=== PATIENT | female | born 1990 | race Caucasian/White ===

== ENCOUNTER 2022-07-21 08:50 | Outpatient (CLI) | payer BC, SELFPAY ==
--- OUTSIDE RECORDS SUMMARY | 2022-07-21 09:07 | XMS_ITS | Clinical Summary ---
:1990 Author Organization [facility] Address [address] [address] Care Team Providers Name Role Phone Errol Amaya MD Primary Care Provider Source Comments You are receiving this document as you are listed as the primary care provider,follow-up provider, or the patient has been referred to you for consultation.This is in compliance with the Medicare and Medicaid EHR Incentive Program,which states Providers who transition their patient to another setting of careor provider of care or refers their patient to another provider of care shouldprovide summarycare record for each transition of care or referral. App Partner Allergies Active Allergy Reactions Severity Noted Date Comments Amoxicillin Unknown 08/19/2018 Allergy from wh en she was a child Penicillins Hives High 06/01/2017 Medications Medication Sig Dispensed Refills Start Date End Date Status Multiple 0 Active Vitamins-Iron (MULTIVITAMIN/IRON OR) PARoxetine (PAXIL) 10 Take 1 Tablet by 90 Tablet 3 07/05/2020 Active MG tabletIndications: mouth daily at DELFINO (generalized bedtime. anxiety disorder) ([facility]) hydrOXYzine HCl 3 tabs po qhs prn 270 Tablet 1 07/05/2020 Active (ATARAX) 25 MG insomnia tabletIndications: Chronic insomnia, DELFINO (generalized anxiety disorder) ([facility]) Active Problems Problem Noted Date Chronic insomnia 05/13/2019 DELFINO (generalized anxiety disorder) 05/13/2019 Pap smear abnormality Overview: cone Immunizations Name Administration Dates Next Due Flu Vac (3+ yrs) 05/22/2013, 06/14/2012 Flu Vac Preserv Free (3+yrs) 05/15/2018, 05/16/2017, 010 HepA Adult (19+ yrs) 06/27/2019 Influenza IIV4 (Quadrivalent) 0.5mL 05/29/2019, 04/27/2016 (20372) Influenza, Unspecified Formulation 05/13/2015 Tdap 06/14/2012, 10/13/2010 Family History Medical History Relation Name Comments Anxiety Mother Drug Abuse Brother Schizophrenia Brother No Known Problems Daughter 1 Maryjane No Known Problems Daughter 2 Gladys No Known Problems Maternal Grandfather Stroke Maternal Grandmother COPD Paternal Grandmother No Known Problems Sister Alcohol/Drug Abuse Negative Family History Anesthesia Reaction Negative Family History Bleeding Disorder Negative Family History Cancer, Breast Negative Family History Cerebrovascular Disease Negative Family History Cystic Fibrosis Negative Family History Diabetes, Type II Negative Family History Hyperlipidemia Negative Family History Hypertension Negative Family History Osteoporosis Negative Family History Thyroid Disorder Negative Family History Relation Name Status Comments Father Unknown Alive Mother Alive Brother Alive Daughter 1 Maryjane Alive Daughter 2 Gladys Alive Maternal Grandfather Alive Maternal Grandmother Alive Paternal Grandfather Alive Paternal Grandmother Sister Alive Social History Tobacco Use Types Packs/Day Years Used Date Smoking Tobacco: Former Cigarettes Quit : 2009 Smokeless Tobacco: Never Comments: Quit with + UPT Alcohol Use Standard Drinks/Week Comments No 0 (1 standard drink = 0.6 oz pure alcoho l) Alcohol Habits Answer Date Recorded How often do you have a drink containing alcohol? Never 07/05/2020 How many drinks containing alcohol do you have on a typical Not asked day when you are drinking? How often do you have six or more drinks on one occasion? No t asked Sex Assigned at Date Recorded Not on file Last Filed Vital Signs Vital Sign Reading Time Taken Comments Blood Pressure 96/60 06/27/2019 3:40 PM MEDICAL CLAIMS EXAMINER Pulse 64 09/11/2019 11:19 AM MEDICAL CLAIMS EXAMINER Temperature 37.1 ??C (98.8 ??F) 07/18/2018 1:49 PM MEDICAL CLAIMS EXAMINER Respiratory Rate 14 07/18/2018 1:49 PM MEDICAL CLAIMS EXAMINER Oxygen Saturation 100% 10/07/2018 10:41 AM MEDICAL CLAIMS EXAMINER Inhaled Oxygen Concentration - - Weight 61.2 kg (135 lb) 07/05/2020 2:14 PM MEDICAL CLAIMS EXAMINER Height 157.5 cm (5' 2) 06/27/2019 3:40 PM MEDICAL CLAIMS EXAMINER Body Mass Index 24.69 06/27/2019 3:40 PM MEDICAL CLAIMS EXAMINER Plan of Treatment Health Maintenance Due Date Last Done Comments Hep C Screening (Preventive 1990 Services) HepB (1) 1990 COVID-19 Vaccine (#1) 03/28/1990 HepA (2 of 2 - Risk 2-dose 12/26/2019 06/27/2019 series) Adult Preventive Visit 06/27/2021 06/27/2019 Influenza (#1) 2022 05/29/2019, 05/15/2018, 05/16/2017, Additional history exists DTaP/Tdap/Td (3 - Tdap) 06/14/2022 06/14/2012, 10/13/2010 Pap 06/27/2022 06/27/2019, 02/22/2010 Zoster/Shingles (1 of 2) 2039 HIV Screening (Preventive Completed 02/22/2010 Services) HPV Vaccine Aged Out No longer eligib le based on patient 's age to complete this topic Hib Aged Out No longer eligib le based on patient 's age to complete this topic IPV (Polio) Aged Out No longer eligib le based on patient 's age to complete this topic MCV4 Aged Out No longer eligib le based on patient 's age to complete this topic Pneumococcal Aged Out No longer eligib le based on patient 's age to complete this topic Insurance Payer Benefit Plan Subscriber ID Effective Phone Address Typ e / Group Dates [facility] [employer] COMM HP [id number] 2017-Prese Commercial DENTAL PLAN FAMILY nt DENTAL [facility] [employer] SELF [id number] 2015-Prese Commercial INSURED nt Chintan SINGHa Personal/Famil Self 1990 [address] (Home) [place] [id number] Chintan SINGHa Personal/Famil Self 1990 18 09 [address] Emily y (Home) [place] [id number] Advance Directives Latest Code Status on File Code Status Date Activated Date Inactivated Comments Full Code 10/10/2010 7:01 AM 10/10/2010 10:38 AM Code Status History Code Status Date Activated Date Inactivated Comments Full Code 09/27/2010 6:35 AM 2010 1:25 PM Full Code 09/27/2010 4:31 AM 09/27/2010 6:35 AM Full Code 09/26/2010 6:31 PM 09/26/2010 8:49 PM Care Teams Non Destructive Evaluation Manager Relationship Specialty Start Date End Date Errol Amaya MD PCP - General 08/16/20 [address] [place] [address]
--- OUTSIDE RECORDS SUMMARY | 2022-07-21 09:08 | XMS_ITS | Encounter Summary ---
:1990 Author Organization [facility] Address [address] [place] [address] Care Team Providers Name Role Phone Fina Leon APRN, CNP Primary Care Provider [phone] Reason for Visit Reason Comments Oral Surgical Services po question Encounter Details Date Type Department Care Team Description 10/10/2018 Telephone [facility] [place], Oral Surgical Services [address] (po question) [place] [address] [address]herjee [phone] [place] [address] Social History Tobacco Use Types Packs/Day Years [...] Assigned at Date Recorded Not on file documented as of this encounter Plan of Treatment Not on filedocumented as of this encounter Visit Diagnoses Not on filedocumented in this encounter Care Teams Director Of Bands Relationship Specialty Start Date End Date Fina Leon APRN, CNP PCP - General Family Practice 03/22/12 08/15/20 [address] [place] [address] documented as of this encounter
--- OUTSIDE RECORDS SUMMARY | 2022-07-21 09:08 | XMS_ITS | Encounter Summary ---
:1990 Author Organization [employer] Address [address] [place] [address] Care Team Providers Name Role Phone Fina Leon APRN, YAIR Primary Care Provider [phone] Reason for Visit Reason Comments Dental Hygiene upper left back , feels like there is a chip Encounter Details Date Type Department Care Team Description 09/11/2019 Office Visit [facility] Jasmin Hurley michael Hygiene (upper Dentistry M, RDH left back , feels like [address] [address] [address] [facility] there is a chip) [place] [address] [phone] Social History Tobacco Use Types Packs/Day Years [...] on file documented as of this encounter Last Filed Vital Signs Vital Sign Reading Time Taken Comments Blood Pressure - - Pulse 64 09/11/2019 11:19 AM WORK CHECKER Temperature - - Respiratory Rate - - Oxygen Saturation - - Inhaled Oxygen Concentration - - Weight - - Height - - Body Mass Index - - documented in this encounter Patient Instructions Patient InstructionsSophy Moreno DDS - 09/11/2019 11:10 AM CST Your next hygiene recall is due: 03/09/2020 YOUR PERSONAL DENTAL RISK REPORT Caries (Tooth Decay) Risk Periodontal (Gum) Disease Risk Oral Cancer Risk low MOD high ^ Risk Level: MODERATE Risk Factors: Caries (tooth decay) in the last two years. How to Reduce Your Risk: Hygiene recall at 6 to 12 months. Rinse with fluoride rinse once to twice daily at times other than when brushing. Application of a concentrated fluoride product to the teeth in the clinic to assist in remineralization. Instruction from dental professional on brushing, flossing, and use of oral hygiene products. Risk Level: : Risk Level: : Lara, we look forward to seeing you at your next visit! Thank you for choosing [facility]. CHECKER documented in this encounter Progress Notes Sophy Moreno DDS - 09/11/2019 11:10 AM CST RECALL EXAM NOTE REASON FOR VISIT/CHIEF COMPLAINT: Lara is a 28 y.o. female who presents for Dental Hygiene (upper left back , feels like there is a chip) CHART REVIEW: Reviewed with patient: Medical history, Dental history, Problem list, Periodontal charting and Radiographs SOFT TISSUE, HEAD AND NECK EXAMINATION: Lips: Normal Tongue: Normal Palate: Normal Throat: Normal Floor of the mouth: Normal Mucosa: Normal Head and neck: Normal TMD EVALUATION: Palpation Pain: None Joint Sounds: None Pain with Range of Motion: None OCCLUSAL EXAMINATION: Unchanged COSMETIC CONCERNS: Patient's Perception: Acceptable Dentist's Perception: Acceptable TREATMENT REVIEW AND FOLLOW-UP: Discussed the Dental findings, Prognosis and Treatment options with the patient. All questions answered and informed consent was obtained. Recommended Recall Interval: Examination: 6 months : Recall prophy: 6 months Planned Recall Interval: Examination: 6 months : Recall prophy: 6 months Next Planned Visit: recall Sophy Moreno DDS 09/11/2019, 12:00 PM --End of Note-- Jasmin Quintero [facility] - 09/11/2019 11:10 AM CST HYGIENE PROPHY NOTE COLLABORATIVE AGREEMENT: The patient consents to have charting, radiographs and prophylaxis by the dental hygienist performed with the understanding that this care is not a substitute for an examination by a dentist. PRESENTATION: Oral Hygiene: Good Plaque: Localized, moderate interproximal Calculus: Generalized, light supra-gingival , sub-gingival, interproximal, mandibular anterior and posterior buccal Stain: None Bleeding: Localized light Gingival tissue: Inflamed Mucogingival concerns: Absent ACTIVITIES: Hand scale, Essential selective polishing and Flossed all contacts PATIENT EDUCATION: Caries risk, Periodontal risk, Oral cancer risk, OHI, Oral care adjuncts and Fluoride rinse NEXT PLANNED HYGIENE VISIT: Hygiene Prophy with exam Jasmin Hurley 09/11/2019, 12:03 PM --End of Note-- CHECKER documented in this encounter Plan of Treatment Not on filedocumented as of this encounter Procedures Procedure Name Priority Date/Time Associated Diagnosis Comme nts [id number] Routine 09/11/2019 11:10 AM Generalized mar ginal WORK CHECKER gingivitis PERIODIC ORAL Routine 09/11/2019 11:10 AM Generalized marginal EVALUATION WORK CHECKER gingivitis PROPHYLAXIS-ADULT Routine 09/11/2019 11:10 AM Generalized shelly inal RECALL WORK CHECKER gingivitis documented in this encounter Visit Diagnoses Diagnosis Generalized marginal gingivitis - Primar y documented in this encounter Care Teams News Technical Director Relationship Specialty Start Date End Date Fina Leon, CYTOGENETICS LABORATORY MANAGER, TELECOMMUNICATIONS CONSULTANT PCP - General Family Practice 03/22/12 08/15/20 [address] [place] [address] documented as of this encounter
--- OUTSIDE RECORDS SUMMARY | 2022-07-21 09:08 | XMS_ITS | Encounter Summary ---
:1990 Author Organization [employer] Address [address] [place] [address] Care Team Providers Name Role Phone Fina eLon APRN, CNP Primary Care Provider [phone] Reason for Visit Reason Onset Date Comments Refill 03/04/2020 PARoxetine (PAXIL) 2 0 MG tablet Encounter Details Date Type Department Care Team Description 03/04/2020 Refill [facility] [address] [facility] Mackenzie Ho R, R efill (PARoxetine Medicine PA-C (PAXIL) 20 MG tablet) [address] [facility] [address] [place], [place] [address] [phone] Social History Tobacco Use Types Packs/Day Years [...] on file documented as of this encounter Nursing Notes Bobbi Morales RN - 03/04/2020 2:52 PM CDT Renewed medication per medication refill protocol. Requested Prescriptions Pending Prescriptions Disp Refills PARoxetine (PAXIL) 20 MG tablet 90 Tablet 1 Sig: Take 1 Tablet by mouth daily. Interface, Out [employer] Query - 03/04/2020 1:22 PM CDT PARoxetine (PAXIL) 20 MG tablet Medication started: 05/13/2019 Last ordered by MACKENZIE HO R: 06/27/2019 (251 days ago) QTY: 90, Refills: 1, Sig: take 1 tablet by mouth daily. (unchanged) -> Refill x 6 months, qty: 90, refills: 1 (until due for an office visit) Last qualifying visit: 06/27/2019 (with MACKENZIE HO) Next scheduled visit: None SBP: 96 mm Hg on 06/27/2019 DBP: 60 mm Hg on 06/27/2019 Powered by [employer], Reference: [id number], 03/04/2020 1:22:25 PM CDT, Pool: PN REFILL WIZARD ADMIN ([id number]) Kourtney Gaines - 03/04/2020 1:20 PM CDT Medications - Refill Request (able to re-order) Name of prescribing clinician: Mackenzie Ho, PA Additional comments (related to the above concern): For this refill, patient would like it filled at the pharmacy listed in Meds & Orders. (Verify the pharmacy patient would like to use for this request is highlighted in blue in Pharmacy Selection under Meds & Orders) If there are questions regarding your request, is it okay to leave a detailed message on your voicemail? Yes (Advise caller that the PN call back number will end with [phone] or unknown) (Advise caller of turn around time is 2 business days for standard refills and 2 to 5 business days for controlled refills) Please route to: Refill Pool (P [id number]) [facility] Pool [place] Patients ONLY (P [id number]) [facility] ONLY (P [id number]) documented in this encounter Plan of Treatment Not on filedocumented as of this encounter Visit Diagnoses Diagnosis DELFINO (generalized anxiety disorder) ([facility]) Generalized anxiety disorder Chronic insomnia Insomnia, unspecified documented in this encounter Care Teams Sole Skiver Relationship Specialty Start Date End Date Fina Leon APRN, BEAN SORTER PCP - General Family Practice 03/22/12 08/15/20 [address] [place] [address] documented as of this encounter
--- OUTSIDE RECORDS SUMMARY | 2022-07-21 09:08 | XMS_ITS | Encounter Summary ---
:1990 Author Organization [facility] Address [address], [place] [address] Care Team Providers Name Role Phone Fina Leon APRN, CNP Primary Care Provider [phone] Encounter Details Date Type Department Care Team Description 05/29/2019 Immunization [facility] Need fo r prophylactic Department vaccination and [address] [facility] inoculation against [place], [place] [address] influenza [phone] Social History Tobacco Use Types Packs/Day Years [...] as of this encounter Visit Diagnoses Diagnosis Need for prophylactic vaccination and in oculation against influenza documented in this encounter Care Teams Sky Cap Relationship Specialty Start Date End Date Fina Leon APRN, CNP PCP - General Family Practice 03/22/12 08/15/20 [address] [place] [address] documented as of this encounter
--- OUTSIDE RECORDS SUMMARY | 2022-07-21 09:08 | XMS_ITS | Encounter Summary ---
:1990 Author Organization [employer] Address [address] [place] [address] Care Team Providers Name Role Phone Fina Leon APRN, CNP Primary Care Provider Reason for Visit Reason Comments QUESTIONS, GENERAL Encounter Details Date Type Department Care Team Description 06/16/2019 Telephone [facility] Mackenzie Ho , PADexterC QUESTIONS, GENERAL Medicine [address] [facility] [address] [facility] [place] [address] [place] [address] [phone] Social History Tobacco Use Types Packs/Day Years [...] documented as of this encounter Nursing Notes Jackelin Magallon RN - 06/18/2019 8:53 AM CST Called pt again, left 2nd message to return call to [phone]. CUTTER Kinsey oRn RN - 06/17/2019 8:12 AM CST Marla Ho approved hydrOXYzine HCl (ATARAX) 25 MG tablet yesterday 06/16. Called patient, no answer. Left message for patient to return call at [phone]. CUTTER Ignacio Gonzalez - 06/16/2019 4:42 PM CST Miscellaneous Questions & FYI's - FYI (DO NOT use for billing and coding concerns see BEST care reporting system) What is your comment or FYI? Pt is calling back regarding on Rx and the pharmacy had no refills and Pt has one day left of Rx, please advise. If there are questions regarding your request, is it okay to leave a detailed message on your voicemail? Yes (Advise caller that the PN call back number will end with [phone] or unknown) Please route to: Appropriate pool per call routing grid CUTTER documented in this encounter Plan of Treatment Not on filedocumented as of this encounter Visit Diagnoses Not on filedocumented in this encounter Care Teams Earth Science Technician Relationship Specialty Start Date End Date Fina Leon APRN, GROUP SALES REPRESENTATIVE PCP - General Family Practice 03/22/12 08/15/20 [address] [place] [address] documented as of this encounter
--- OUTSIDE RECORDS SUMMARY | 2022-07-21 09:08 | XMS_ITS | Encounter Summary ---
:1990 Author Organization [employer] Address [address] [place] [address] Care Team Providers Name Role Phone Fina Leon APRN, YAIR Primary Care Provider [phone] Reason for Visit Reason Comments Insomnia Encounter Details Date Type Department Care Team Description 05/13/2019 Office Visit [facility] Mackenzie Ho, Chronic insomnia (Primary Dx); Medicine PA-C DELFINO (generalized anxiety disorder) [address] [facility]. [address] [place] [address] [phone] Social History Tobacco Use Types Packs/Day Years [...] Sign Reading Time Taken Comments Blood Pressure 102/64 05/13/2019 11:53 AM CDT Pulse 60 05/13/2019 11:53 AM CDT Temperature - - Respiratory Rate - - Oxygen Saturation - - Inhaled Oxygen Concentration - - Weight 53.8 kg (118 lb 8 oz) 05/13/2019 11:53 AM CDT Height 157.5 cm (5' 2) 05/13/2019 11:53 AM CDT Body Mass Index 21.67 05/13/2019 11:53 AM CDT documented in this encounter Patient Instructions Patient InstructionsKiMackenzie beavers PA-C - 05/13/2019 11:40 AM CDT Here is plan below: 1) Start the Paroxetine 10mg before bed each night. 2) Take 1/2 tablet of the hydroxyzine 25mg tablet every 6 hours as needed for anxiety and 1-2 tablets before bed for sleep. 3) We discussed that there are several lifestyle changes that can help improve overall mental and physical health including starting 2,000IU of Vitamin D3 daily and 2g fish oil daily. Also drinking 2-3liters of water per day and eating a healthy diet, focusing on higher proteins/healthy fats and lesscarbs, eat more lean meats, fruits, veggies, whole grains (over whites) and avoid fast foods and processed foods and artificial sweeteners. Eat more healthy fats also like avocado, eggs, nuts, olive/coconut oil, breonna seeds. 4) We also discussed the importance of getting regular exercise, aiming for 30- 60min of cardio/strength/yoga at least 4-6 times per week. 5) Schedule annual exam and med check visit in a month, do a morning appointment and come in fastingto check labs but drink water before hand, at least 20 oz. Call with any questions or concerns in the meantime. Thanks, Mackenzie Ho, PAC. documented in this encounter Progress Notes Mackenzie Ho PA-C - 05/13/2019 11:40 AM CDT Clinic Visit SUBJECTIVE: CC: Chief Complaint Patient presents with ??? Insomnia History of Present Illness: Pt is here today for insomnia. She is new to us. She feels like her anxiety would be better if she could sleep. Discussed her sleep would be better if she got her anxiety controlled. She has tried ambien in the past and trazodone. She has uncontrolled anxiety and is too anxious to take meds. She was given Lexapro last visit (see visit from 07/30) and she said she never took it because she was too nervous about side effects. She also did try celexa and zoloft in the past but one didn't work and the other gave her sexual side effects. 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 Her is pretty good with her anxiety but he would like her to get help. Discussed that I do think that controlling the anxiety would help her feel better and she just has to trust the process even though it can take time. Discussed I think she would be a great candidate for paxil and discussed side effects, length of therapy, how it works, short half life, taper, etc.Discussed not googling it also or reading the side effect profile. Discussed a combination of medications, therapy, healthy eating and exercise and meditation, etc can help her a lot. Also discussed trying hydroxyzine for anxiety and sleep. Discussed side effects, etc. She would like to try both of these after discussing her questions and concerns with me today. PMH, Allergies and Medications reviewed and updated in [facility] today. Review of Systems: Review of systems reviewed and found to be negative except as noted above in HPI. OBJECTIVE: Vital Signs: BP 102/64 (BP Location: Left Arm) Pulse 60 Ht 5' 2 (1.575 m) Wt 118 lb 8 oz (53.8 kg) BMI 21.67 kg/m?? General: Pleasant but very anxious, moves around a lot in her seat, can't sit still. Skin: Warm and dry without obvious lesions or rashes. Psych: Well dressed and groomed, anxious affect. ASSESSMENT: Encounter Diagnoses Name Primary? Chronic insomnia Yes ??? DELFINO (generalized anxiety disorder) PLAN: Lara was seen today for insomnia. Diagnoses and all orders for this visit: Chronic insomnia - PARoxetine (PAXIL) 10 MG tablet; 1 tab po qhs - hydrOXYzine HCl (ATARAX) 25 MG tablet; 1/2 tab po q6 hrs prn anxiety, 1-2 tabs po qhs prn insomnia DELFINO (generalized anxiety disorder) - PARoxetine (PAXIL) 10 MG tablet; 1 tab po qhs - hydrOXYzine HCl (ATARAX) 25 MG tablet; 1/2 tab po q6 hrs prn anxiety, 1-2 tabs po qhs prn insomnia Here is plan below: 1) Start the Paroxetine 10mg before bed each night. 2) Take 1/2 tablet of the hydroxyzine 25mg tablet every 6 hours as needed for anxiety and 1-2 tablets before bed for sleep. 3) We discussed that there are several lifestyle changes that can help improve overall mental and physical health including starting 2,000IU of Vitamin D3 daily and 2g fish oil daily. Also drinking 2-3liters of water per day and eating a healthy diet, focusing on higher proteins/healthy fats and lesscarbs, eat more lean meats, fruits, veggies, whole grains (over whites) and avoid fast foods and processed foods and artificial sweeteners. Eat more healthy fats also like avocado, eggs, nuts, olive/coconut oil, breonna seeds. 4) We also discussed the importance of getting regular exercise, aiming for 30- 60min of cardio/strength/yoga at least 4-6 times per week. 5) Schedule annual exam and med check visit in a month, do a morning appointment and come in fastingto check labs but drink water before hand, at least 20 oz. Call with any questions or concerns in the meantime. Thanks, CLARI Bernstein. 25min spent with pt today, all in consult about above A/P. [facility] documented in this encounter Plan of Treatment Not on filedocumented as of this encounter Visit Diagnoses Diagnosis Chronic insomnia - Primary Insomnia, unspecified DELFINO (generalized anxiety disorder) Generalized anxiety disorder documented in this encounter Care Teams Bottom Polisher Relationship Specialty Start Date End Date Fina Leon APRN, PROCUREMENT REPRESENTATIVE PCP - General Family Practice 03/22/12 08/15/20 [address] [place] [address] documented as of this encounter
--- OUTSIDE RECORDS SUMMARY | 2022-07-21 09:08 | XMS_ITS | Encounter Summary ---
:1990 Author Organization [facility] Address [address] [place] [address] Care Team Providers Name Role Phone Fina Leon APRN, CNP Primary Care Provider [phone] Reason for Visit Reason Comments Concerns Health Maintenance Communication Encounter Details Date Type Department Care Team Description 07/18/2018 Office Visit [facility] Melissa Walls, Adj ustment disorder with mixed anxiety and depressed mood (Primary Dx); Practice PA-C Major depressive disorder, recurrent epi sode, mild ([facility]); [address] [place] [address] [place] [address] [phone] Social History Tobacco Use Types Packs/Day Years [...] Sign Reading Time Taken Comments Blood Pressure 125/75 07/18/2018 1:49 PM DEPUTY CHIEF MAGISTRATE Pulse 74 07/18/2018 1:49 PM DEPUTY CHIEF MAGISTRATE Temperature 37.1 ??C (98.8 ??F) 07/18/2018 1:49 PM DEPUTY CHIEF MAGISTRATE Respiratory Rate 14 07/18/2018 1:49 PM DEPUTY CHIEF MAGISTRATE Oxygen Saturation - - Inhaled Oxygen Concentration - - Weight 53.7 kg (118 lb 6 oz) 07/18/2018 1:49 PM DEPUTY CHIEF MAGISTRATE Height 157.5 cm (5' 2) 07/18/2018 1:49 PM DEPUTY CHIEF MAGISTRATE Body Mass Index 21.65 07/18/2018 1:49 PM DEPUTY CHIEF MAGISTRATE documented in this encounter Patient Instructions Patient InstructionsMelissa Walls PA-C - 07/18/2018 1:40 PM CST Touch base with me in 3-4 weeks about the medication. Evisit or phone visit is just fine. Beating the Blues BOUNCE BACK FROM EVERYDAY STUFF THAT MAKES YOU FEEL BLUE How can it help me? Beating the Blues teaches you helpful ways to manage your mood, stress and anxiety all in the privacy and comfort of your own home. How does it work? [employer] is a free, online program that lets you go at your own pace to learn ways to better manage your mood, stress and anxiety. ?? Also works on tablets so it can go where you go ?? Has helpful videos to keep you interested and motivated ?? Helps you put what you've learned into practice ?? Uses proven techniques to help improve your mood. It's easy to get started! 1. Visit: www.StatSheet.Weebly/btb 2. Select the 'Get Started' button. 3. You will see a log-in menu: ?? Existing users: Log in with user name and password. ?? New users: Under the user log in box, select the 'Please Activate' hyperlink. 1. Enter this activation code: [email or web address] ([facility]) 2. Complete the short online registration. You will need your insurance ID 3. Once completed - to finalize your registration, you will receive an email from [email or web address] with a link to confirm your email address. Your privacy is important to us. Beating the eSecure Systemss is confidential. If you have any questions, forgot your log-in information or need an activation code, please call [employer] [phone] or Toll Free at , Sunday- Sunday, 8 a.m. To 4:30 p.m. If you're callingafter hours, leave a voicemail and we'll call you back during regular business hours. TY CHIEF MAGISTRATE documented in this encounter Progress Notes Melissa Walls PA-C - 07/18/2018 1:40 PM CST Historical: Chief Complaint Patient presents with ??? Concerns ??? Health Maintenance Communication Anxiety Do you take any prescription medication for this condition? No Are you seeing a counselor or therapist? No How many times a week are you exercising regularly? 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 YES. Couple of years ago tried Celexa and Zoloft. Last on meds about a year ago Do you have a family history of anxiety? unsure DELFINO-7 07/18/2018 02/26/2012 Feeling nervous 3 1 Can't stop worrying 3 1 Worrying too much 2 1 Trouble relaxing 3 - Restlessness 0 0 Easily annoyed 3 1 Feeling afraid 1 0 How difficult? Very difficult Somewhat difficult Total score 15 - Date Performed 07/18/2018 - Time Performed 1:52 PM - Social History Substance and Sexual Activity Alcohol Use No Social History Tobacco Use Smoking Status Former Smoker ??? Last attempt to quit: 2009 ??? Years since quittin.9 Smokeless Tobacco Never Used Tobacco Comment Quit with + UPT Social History Substance and Sexual Activity Drug Use No Tried celexa and zoloft in the past. One killed sex drive and the other didn't help much. Sleep troubles, falls asleep okay but wakes around 2AM and tosses and turns. Years ago on ambien forinsomnia, had also tried trazodone. But the insomnia did resolve. I have personally reviewed the patient's allergies, medications and past medical history in detail and updated the patient record as necessary. Observed: BP 125/75 Pulse 74 Temp 98.8 ??F (37.1 ??C) (Oral) Resp 14 Ht 5' 2 (1.575 m) Wt 118 lb 6 oz (53.7 kg) BMI 21.65 kg/m?? Physical Exam: General Appearance: alert, well appearing and in no apparent distress Neurologic: normal speech and alert and oriented x 3 Psychiatric: affect/mood normal, cooperative, normal judgement/insight and memory intact Assessment/Plan: Adjustment disorder with mixed anxiety and depressed mood (HRC) - escitalopram oxalate (LEXAPRO) 5 MG tablet; Take 1 Tablet by mouth daily. For 10-14 days then increase to 2 tabs daily as tolerated Discussed how the med works, possible side effects. Was thinking about Venlafaxine but decided against because she did not want to have appetite suppression, BTB info given. Consider psychotherapy. Evisit, STV or OV in 3-4 weeks for follow up. Sooner with any problems. Please see orders and patient instructions I spent a total of 32 minutes with the patient, 32 minutes spent in Counseling Risks and benefits ofmanagement or follow-up , Importance of compliance with chosen management options , Instructions formanagement (treatment) and/or follow up , Risk factor reduction and Patient and family education Melissa Walls PA-C TY CHIEF MAGISTRATE documented in this encounter Plan of Treatment Not on filedocumented as of this encounter Visit Diagnoses Diagnosis Adjustment disorder with mixed anxiety a nd depressed mood (HRC) - Primary Adjustment disorder with mixed anxiety a nd depressed mood Major depressive disorder, recurrent epi sode, mild (HRC) Major depressive disorder, recurrent epi sode, mild Anxiety (HRC) Anxiety state, unspecified documented in this encounter Care Teams Technical Solution Architect Relationship Specialty Start Date End Date Fina Leon APRN, [employer] PCP - General Family Practice 03/22/12 08/15/20 [address] [place] [address] documented as of this encounter
--- OUTSIDE RECORDS SUMMARY | 2022-07-21 09:08 | XMS_ITS | Encounter Summary ---
:1990 Author Organization [facility] Address [address] [place] [address] Care Team Providers Name Role Phone Fina Leon APRN, CNP Primary Care Provider [phone] Reason for Visit Reason Comments [facility] Services PO Follow-up Encounter Details Date Type Department Care Team Description 10/08/2018 Telephone [facility] Vania More, [facility] [address] LDA (PO Follow-up) [place] [address] [phone] [place] [address] Social History Tobacco Use Types Packs/Day Years [...] documented as of this encounter Nursing Notes Vania More LDA - 10/08/2018 4:27 PM CST - Called the patient to follow-up on Sunday's procedure. LMTCB if there were any questions or concerns. SUKHDEEP Marquez 10/08/2018, 4:29 PM DING MACHINE OPERATOR documented in this encounter Plan of Treatment Not on filedocumented as of this encounter Visit Diagnoses Not on filedocumented in this encounter Care Teams Fitness Instructor Relationship Specialty Start Date End Date Fina Leon, PRODUCT MARKETING MANAGER, HAND PAINTER PCP - General Family Practice 03/22/12 08/15/20 [address] [place] [address] documented as of this encounter
--- OUTSIDE RECORDS SUMMARY | 2022-07-21 09:08 | XMS_ITS | Encounter Summary ---
:1990 Author [facility] Address [address] [place] [address] Care Team Providers Name Role Phone Fina Leon APRN, CNP Primary Care Provider [phone] Reason for Visit Reason Comments Refill hydrOXYzine HCl (ATARAX) 25 MG tablet [Pharmacy Med Name: HYDROXYZINE HCL 25MG] Encounter Details Date Type Department Care Team Description 03/06/2020 Refill [place] [address] [facility] Mackenzie Ho R, R efill (hydrOXYzine HCl Medicine PA-C (ATARAX) 25 MG tablet [address] [facility] [address] [facility] [Pharmacy Med Name: [place], [place] [address] HYDROXYZINE HCL 25MG]) [id number] [phone] Social History Tobacco Use Types Packs/Day Years [...] documented as of this encounter Nursing Notes Interface, Out Surescripts Prov Query - 03/06/2020 10:51 AM CDT hydrOXYzine HCl (ATARAX) 25 MG tablet [Pharmacy Med Name: HYDROXYZINE HCL 25MG] Medication started: 05/13/2019 Last ordered by MACKENZIE HO R: 06/27/2019 (253 days ago) QTY: 270, Refills: 1, Si tabs po qhs prn insomnia (changed) -> A duplicate request was processed on 03/04/2020. -> The requested sig has changed from the last order. -> Refill x 6 months (until due for an office visit) -> Calculate the quantity and number of refills manually. Last qualifying visit: 06/27/2019 (with MACKENZIE HO) Next scheduled visit: None Powered by [employer], Reference: [id number], 03/06/2020 10:51:02 AM CDT, Pool: DARIELDoron REFILL ([id number]) documented in this encounter Plan of Treatment Not on filedocumented as of this encounter Visit Diagnoses Diagnosis Chronic insomnia Insomnia, unspecified DELFINO (generalized anxiety disorder) Generalized anxiety disorder documented in this encounter Care Teams Yeast Stacker Relationship Specialty Start Date End Date Fina Leon APRN, MRI TECHNOLOGIST PCP - General Family Practice 03/22/12 08/15/20 [address] [place] [address] documented as of this encounter
--- OUTSIDE RECORDS SUMMARY | 2022-07-21 09:08 | XMS_ITS | Encounter Summary ---
:1990 Author Organization [facility] Address [address] [place] [address] Care Team Providers Name Role Phone Fina Leon APRN, YAIR Primary Care Provider [phone] Reason for Visit Reason Onset Date Comments MEDICATION CHECK Video Visit 07/05/2020 Encounter Details Date Type Department Care Team Description 07/05/2020 Telemedicine [place] [address] aMckenzie Ho, Chronic insomnia (Primary Dx); Family Medicine PA-C DELFINO (generalized anxiety disorder) [address] [facility] [address] [place] [address] [phone] Social History Tobacco Use Types Packs/Day Years [...] Taken Comments Blood Pressure - - Pulse - - Temperature - - Respiratory Rate - - Oxygen Saturation - - Inhaled Oxygen Concentration - - Weight 61.2 kg (135 lb) 07/05/2020 2:14 PM ACCOUNTS RECEIVABLE MANAGER Height - - Body Mass Index 24.69 06/27/2019 3:40 PM ACCOUNTS RECEIVABLE MANAGER documented in this encounter Patient Instructions Patient InstructionsKiMackenzie beavers PA-C - 07/05/2020 2:20 PM CST Here is plan below: 1) It is important to be getting regular exercise, aiming for 30+ min of cardio/strength/yoga at least 4-6 times per week. 2) Also, taper off all soda (drop 1/2 can every 3 days) and make sure you are drinking 2-3 liters ofwater per day and eating a healthy diet, focusing on higher proteins/healthy fats and less carbs, eat more lean meats, fruits, veggies, whole grains (over whites) and avoid fast foods and processed foods and artificial sweeteners. Eat more healthy fats also like avocado, eggs, nuts, olive/avocado oil,breonna and hemp seeds, pumpkin seeds, etc. 3) Check out the books Food, What the Heck Should I Eat? and Food, What the Heck Should I Cook? by Dr. Blair Riley. Also his podcasts, The Doctors Farmacy and The Smart Cube Brain have good information to listen to about many aspects of health and wellness. 4) Check out the Invoice2go Roshan for good recipe ideas, you can pick different diet types (Paleo, Vegetarian, Keto, etc) and they will give you recipes for that. 5) Meditation can also be very helpful, you can YouTube meditations and try to work up to 20min twice daily in AM and PM if you can. Or check out Apps like Calm, Headspace and Smiling Mind. 6) It is really important to get 8 hours of good sleep per night, go to bed at the same time and getup at the same time each day ideally and make sure to not watch any screens at least 1 hour if not 2hours before bed. Call with any questions or concerns. Thanks, Mackenzie Ho PAC. UNTS RECEIVABLE MANAGER documented in this encounter Progress Notes Mackenzie Ho PA-C - 07/05/2020 2:20 PM CST Subjective: Today's visit with Lara was conducted as a scheduled video visit. Pt scheduled a med check today. She is doing well on Paxil 10mg before bed but has gained some weight. She also is sleeping better if she takes 3 of the hydroxyzine before bed. She wants to make sure she isn't going to gain more weight. She thinks it may be from the Paxil but is only on 10mg and has apoor diet. She says she is drinking 1-[address] Peterson or Rosy daily, was up over 6 before. She isn't exercising regularly except for walking with the dog. She is cooking at home, chicken, beef,more frozen veggies. Not a lot of processed foods or fast foods but does eat them occasionally. Discussed importance of quitting all soda, drinking more water, healthy diet, etc. More exercise also. She is getting more headaches also she says, discussed adding magnesium glycinate 600mg. Objective: Wt 135 lb (61.2 kg) BMI 24.69 kg/m?? Pleasant, NAD, normal affect. Assessment/Plan: Chronic insomnia - hydrOXYzine HCl (ATARAX) 25 MG tablet; 3 tabs po qhs prn insomnia DELFINO (generalized anxiety disorder) (HRC) - PARoxetine (PAXIL) 10 MG tablet; Take 1 Tablet by mouth daily at bedtime. - hydrOXYzine HCl (ATARAX) 25 MG tablet; 3 tabs po qhs prn insomnia Here is plan below: 1) It is important to be getting regular exercise, aiming for 30+ min of cardio/strength/yoga at least 4-6 times per week. 2) Also, taper off all soda (drop 1/2 can every 3 days) and make sure you are drinking 2-3 liters ofwater per day and eating a healthy diet, focusing on higher proteins/healthy fats and less carbs, eat more lean meats, fruits, veggies, whole grains (over whites) and avoid fast foods and processed foods and artificial sweeteners. Eat more healthy fats also like avocado, eggs, nuts, olive/avocado oil,breonna and hemp seeds, pumpkin seeds, etc. 3) Check out the books Food, What the Heck Should I Eat? and Food, What the Heck Should I Cook? by Dr. Blair Riley. Also his podcasts, The Doctors FarmT L [employer] and The Broken Brain have good information to listen to about many aspects of health and wellness. 4) Check out the Invoice2go Roshan for good recipe ideas, you can pick different diet types (Paleo, Vegetarian, Keto, etc) and they will give you recipes for that. 5) Meditation can also be very helpful, you can YouTube meditations and try to work up to 20min twice daily in AM and PM if you can. Or check out Apps like Calm, Headspace and Smiling Mind. 6) It is really important to get 8 hours of good sleep per night, go to bed at the same time and getup at the same time each day ideally and make sure to not watch any screens at least 1 hour if not 2hours before bed. Call with any questions or concerns. Thanks, CLARI Bernstein. Clinician located at clinic. Patient located at home Billing based on: Complexity. Mackenzie Ho PA-C UNTS RECEIVABLE MANAGER documented in this encounter Plan of Treatment Not on filedocumented as of this encounter Visit Diagnoses Diagnosis Chronic insomnia - Primary Insomnia, unspecified DELFINO (generalized anxiety disorder) (HRC) Generalized anxiety disorder documented in this encounter Care Teams Laboratory Apparatus Glass Blower Relationship Specialty Start Date End Date Fina Leon APRN, [employer] PCP - General Family Practice 03/22/12 08/15/20 [address] [place] [address] documented as of this encounter
--- OUTSIDE RECORDS SUMMARY | 2022-07-21 09:08 | XMS_ITS | Encounter Summary ---
:1990 Author Organization [facility] Address [address], [place] [address] Care Team Providers Name Role Phone Fina Leon APRN, CNP Primary Care Provider [phone] Reason for Visit Reason Comments ERRONEOUS ENTRY Encounter Details Date Type Department Care Team Description 05/31/2017 Telephone [facility] Fina Leon E RRONEOUS ENTRY Practice YAIR [place] [address] [facility] [address] [place], [place] [address] [place] [address] [phone] (Wo rk) Social History Tobacco Use Types Packs/Day Years Used Date Smoking Tobacco: Former Smokeless Tobacco: Never Comments: Quit with + [...] on filedocumented in this encounter Care Teams Compress Machine Operator Relationship Specialty Start Date End Date Fina Leon APRN, CNP PCP - General Family Practice 03/22/12 08/15/20 [address] [place] [address] documented as of this encounter
--- OUTSIDE RECORDS SUMMARY | 2022-07-21 09:08 | XMS_ITS | Encounter Summary ---
:1990 Author Organization [facility] Address [address] [place] [address] Care Team Providers Name Role Phone Fina Leon APRN, CNP Primary Care Provider [phone] Reason for Visit Reason Comments Lab Orders Needed Encounter Details Date Type Department Care Team Description 06/17/2018 Telephone [facility] Fina Leon L ab Orders Needed Practice YA[place] [address] [address] [place] [address] [phone] (Wo rk) Social History Tobacco Use Types [...] documented as of this encounter Nursing Notes Lara Abel LPN - 06/18/2018 9:13 AM CST Pt was seen in yesterday. Will close encounter. Lara Abel LPN 06/18/2018, 9:13 AM RTMENT TRAFFIC FREIGHT ROUTER Cornelia Carpenter - 06/17/2018 2:18 PM CST [id number] Cornelia Carpenter 06/17/2018, 2:19 PM RTMENT TRAFFIC FREIGHT ROUTER Lara Abel LPN - 06/17/2018 1:25 PM CST Pt was seen in clinic over a year ago and has not seen Didi Leon since 2011. Please assist pt in scheduling appt to be seen for this to discuss. Lara Abel LPN 06/17/2018, 1:26 PM RTMENT TRAFFIC FREIGHT ROUTER Missy Conley - 06/17/2018 11:30 AM CST Orders - All Orders [Appt Center: If this call is after 3 p.m., communicate to patient: If we are not able to get back to you by the end of the day and your symptoms worsen please contact the Careline at [phone] OR at .] What order (Lab, Radiology, Specialty, DME, etc) is being requested? LAB Why is this order being requested? PATIENT IS WANTING TO GET A BLOOD TEST FOR AND WOULD LIKE TO GET HER IRON LEVELS CHECKED THE LAST TIME SHE HAD THEM CHECKED, THEY WERE LOW. Have you been seen recently for this concern? NO [Appt Center:If patient was seen at an outside location, please obtain records] Is it okay to leave a detailed message on your voicemail? No - NO CALL BACK NEEDED [Appt Center: Instruct patient to check with insurance company for coverage] Is there anything else I can help you with today? NO Missy Conley RTMENT TRAFFIC FREIGHT ROUTER documented in this encounter Plan of Treatment Not on filedocumented as of this encounter Visit Diagnoses Not on filedocumented in this encounter Care Teams Clothes Shaker Relationship Specialty Start Date End Date Fina Leon, WORKFORCE DEVELOPMENT VICE PRESIDENT, ENGINE TURNER PCP - General Family Practice 8/10/12 1/3/21 [address] [place] [address] documented as of this encounter
--- OUTSIDE RECORDS SUMMARY | 2022-07-21 09:08 | XMS_ITS | Encounter Summary ---
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 [address] [facility] Chronic insomnia; [place], [place] Pap smear for cervical cancer screening; [id number] Encounter for screening for lipoid disor ders; [phone] Screening for d iabetes mellitus; (Work) History of anemia; Need for hepatitis A immunization Social History Tobacco Use Types Packs/Day Years [...] Comments Blood Pressure 96/60 06/27/2019 3:40 PM ORTHOPEDIC NURSE Pulse 72 06/27/2019 3:40 PM ORTHOPEDIC NURSE Temperature - - Respiratory Rate - - Oxygen Saturation - - Inhaled Oxygen Concentration - - Weight 54 kg (119 lb) 06/27/2019 3:40 PM ORTHOPEDIC NURSE Height 157.5 cm (5' 2) 06/27/2019 3:40 PM ORTHOPEDIC NURSE Body Mass Index 21.77 06/27/2019 3:40 PM ORTHOPEDIC NURSE documented in this encounter Patient Instructions Patient InstructionsMackenzie Ho PA-C - 06/27/2019 3:20 PM CST Here is plan below: 1) Increase the Paxil up to 20mg before bed and give me an update in 4-6 weeks. 2) Continue hydroxyzine 25mg, 3 tablets before bed for sleep. 3) Really try to taper off all soda, drop 1/2 can every 3 days and increase your water to 2-3 litersof water per day. Drink black coffee instead and you can add Stevia for a sweetener. 4) Remember to start 2,000IU of Vitamin D3 in the AM and 2g fish oil in the PM. 5) I'll notify you of your labs and any follow up needed. Call with any questions or concerns. Thanks, Mackenzie Ho, PAC. OPEDIC NURSE documented in this encounter Progress Notes Mackenzie Ho PA-C - 06/27/2019 3:20 PM CST Preventive Exam SUBJECTIVE: 28 y.o. y/o patient presents for a routine preventive physical exam. Additional Concerns: We started pt on Paxil and hydroxyzine for anxiety and insomnia last visit and she is feeling much better. Her anxiety is much better after starting the Paxil 10mg before bed and the hydroxyzine 25mg, 3 tablets before bed helps her sleep much better. She still has some anxiety at times a couple days per week and so we discussed going up to 20mg. She said her best friends brother suddenly, was an alcoholic and drank a bottle of vodka, went to bed and choked to . Then her grandpa this week. She has handled it all well though then she would have before starting the medication. Will increase to paxil 20mg and go from there. Diet: Normal diet: Trying to eat healthier lately, more fruits and veggies and cutting back on carbs. She drinks Dr. Peterson or Yonathan Gallegos, 3-5 cans per day. Discussed quitting that. 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 Supplements: Taking Nioxin a multivitamin for hair and has iron in it. She did take some fish oil. Will start vitamin D3 also. Fixed Interest Dealer History: : LMP: No LMP recorded. Pap hx: Does patient have history of abnormal pap smear? yes. Mammogram: N/A. Prev Med: Colonoscopy: N/A. Dexa: N/A. Past Medical, Family, Surgical and Social History, Drug allergies and Medications have been reviewedand updated in [email or web address] today. Review of Systems: The remainder of complete ROS is negative except as noted above. OBJECTIVE: BP 96/60 (BP Location: Left Arm, BP Cuff Size: Regular) Pulse 72 Ht 5' 2 (1.575 m) Wt 119 lb (54 kg) BMI 21.77 kg/m?? General: Patient alert, in NAD. HEENT: PERRLA. EOMI. Bilateral TM's, external canals normal. Nose: normal mucosa, turbinates, without lesions. Oropharynx normal, normal teeth, gums, tongue, moist mucosa. Skin: Warm, dry, without lesions or rashes noted. Neck: Supple, without thyromegaly, masses or lymphadenopathy. CV: RRR without murmurs, rubs or gallops. Resp: Clear to auscultation b/l without rhonchi, wheezes or rales. Abdomen: Soft, non-tender, without hepatosplenomegaly, masses, or hernias, b/s x 4. Breasts: Non tender b/l, without masses, nipple discharge, erythema, or skin changes. Pelvic: Normal external genitalia and urethra, without lesions noted. [place], moist vaginal and cervical mucosa, without lesions. Ovaries and uterus non- tender and no palpable masses. Lymphatic: No neck, supraclavicular or axillary lymphadenopathy. Upper extremities: FROM without deformities. Lower extremities: FROM without edema, varicosities, or deformity. DP/PT pulses 2/4+ b/l. MS: Normal cervical, thoracic and lumbar spine without deformities, non-tender. Neuro: Normal gait, patellar reflexes 2/4+ b/l, biceps reflexes 2/4+ b/l. Psychiatric: Alert & oriented with normal affect and insight, does not appear depressed or anxious. ASSESSMENT: 1. Annual physical exam 2. DELFINO (generalized anxiety disorder) 3. Chronic insomnia 4. Pap smear for cervical cancer screening 5. Encounter for screening for lipoid disorders 6. Screening for diabetes mellitus 7. History of anemia 8. Need for hepatitis A immunization PLAN: Lara was seen today for routine health maintenance. Diagnoses and all orders for this visit: Annual physical exam DELFINO (generalized anxiety disorder) - PARoxetine (PAXIL) 20 MG tablet; Take 1 Tablet by mouth daily. - hydrOXYzine HCl (ATARAX) 25 MG tablet; 3 tabs po qhs prn insomnia - TSH with Free T4 (if TSH Abnormal); Future Chronic insomnia - hydrOXYzine HCl (ATARAX) 25 MG tablet; 3 tabs po qhs prn insomnia Pap smear for cervical cancer screening - Scr Pap Smer; Obtain [facility]-Lab - PAP Test Encounter for screening for lipoid disorders - Lipid Panel and Direct LDL(If Needed); Future Screening for diabetes mellitus - Glucose; Future - Hgb A1C; Future History of anemia - Ferritin; Future - Complete Blood Count-No Diff; Future Need for hepatitis A immunization - HepA ADULT (19+ YRS) Here is plan below: 1) Increase the Paxil up to 20mg before bed and give me an update in 4-6 weeks. 2) Continue hydroxyzine 25mg, 3 tablets before bed for sleep. 3) Really try to taper off all soda, drop 1/2 can every 3 days and increase your water to 2-3 litersof water per day. Drink black coffee instead and you can add Stevia for a sweetener. 4) Remember to start 2,000IU of Vitamin D3 in the AM and 2g fish oil in the PM. 5) I'll notify you of your labs and any follow up needed. Call with any questions or concerns. Thanks, CLARI Bernstein. OPEDIC NURSE documented in this encounter Plan of Treatment Not on filedocumented as of this encounter Procedures Procedure Name Priority Date/Time Associated Diagnosis Comme nts PAP TEST Routine 06/27/2019 4:19 PM Pap smear for Results for this ORTHOPEDIC NURSE cervical cancer procedure ar e in the screening results section . documented in this encounter Results Hgb A1C (06/27/2019 4:33 PM ORTHOPEDIC NURSE) P athologist Signature Hemoglobin A1C 5.5 <=5.6 % 06/29/2019 [facility] 11:10 AM ORTHOPEDIC NURSE LABORATORY Specimen Anatomical Collection Method / Collection Time Recei mihai Time (Source) Location / Volume Laterality Blood Venipuncture / 06/27/2019 4:33 06/27/2019 4:33 Unknown PM ORTHOPEDIC NURSE PM ORTHOPEDIC NURSE Mackenzie Ho PA-C LAB_1 Performing Organization Address City/State/ZIP Code Phon e Number [facility] [address] [place] [address] Complete Blood Count-No Diff (06/27/2019 4:33 PM ORTHOPEDIC NURSE) athologist Signature WBC 9.4 3.5 - 10.5 06/27/2019 [facility] x10(9)/L 4:37 PM ORTHOPEDIC NURSE RBC 4.66 3.90 - 5.03 06/27/2019 [facility] x10(12)/L 4:37 PM ORTHOPEDIC NURSE Hemoglobin 13.5 12.0 - 15.5 06/27/2019 [facility] g/dL 4:37 PM ORTHOPEDIC NURSE HCT 41.0 34.9 - 44.5 06/27/2019 [facility] % 4:37 PM ORTHOPEDIC NURSE MCV 88.0 80.0 - 06/27/2019 [facility] 100.0 fL 4:37 PM ORTHOPEDIC NURSE MCH 29.0 27.6 - 33.3 06/27/2019 [facility] pg 4:37 PM ORTHOPEDIC NURSE MCHC 32.9 31.5 - 35.2 06/27/2019 [facility] g/dL 4:37 PM ORTHOPEDIC NURSE RDW 12.5 11.9 - 15.5 06/27/2019 [facility] % 4:37 PM ORTHOPEDIC NURSE Platelets 386 150 - 450 06/27/2019 [facility] x10(9)/L 4:37 PM ORTHOPEDIC NURSE Specimen Anatomical Collection Method / Collection Time Recei mihai Time (Source) Location / Volume Laterality Blood Venipuncture / 06/27/2019 4:33 06/27/2019 4:33 Unknown PM ORTHOPEDIC NURSE PM ORTHOPEDIC NURSE Mackenzie Ho PA-C LAB_1 Performing Organization Address City/[facility]/ZIP Code Phon e Number [facility] [address] [place] [address] [facility] [address] [place] [address], [facility] Ferritin (06/27/2019 4:33 PM ORTHOPEDIC NURSE) athologist Signature Ferritin 38 9 - 204 06/27/2019 [facility] ng/mL 9:40 PM ORTHOPEDIC NURSE LABORATORY Specimen Anatomical Collection Method / Collection Time Recei mihai Time (Source) Location / Volume Laterality Blood Venipuncture / 06/27/2019 4:33 06/27/2019 4:33 Unknown PM ORTHOPEDIC NURSE PM ORTHOPEDIC NURSE Mackenzie Ho PA-C LAB_1 Performing Organization Address [facility] Phon e Number [facility] [address] [place] [address] TSH with Free T4 (if TSH Abnormal) (06/27/2019 4:33 PM ORTHOPEDIC NURSE) athologist Signature TSH, Reflex 2.70 0.30 - 4.50 06/27/2019 [facility] uIU/mL 9:40 PM ORTHOPEDIC NURSE LABORATORY Specimen Anatomical Collection Method / Collection Time Recei mihai Time (Source) Location / Volume Laterality Blood Venipuncture / 06/27/2019 4:33 06/27/2019 4:33 Unknown PM ORTHOPEDIC NURSE PM ORTHOPEDIC NURSE Narrative [facility] - 06/27/2019 9:40 P M ORTHOPEDIC NURSE Lab will automatically reflex to Free T4 when TSH results are <0.30 uIU/mL or >4.50 mIU/mL. Mackenzie Ho PA-C LAB_1 Performing Organization Address [facility] Phon e Number [facility] [address] [place] [address] Glucose (06/27/2019 4:33 PM ORTHOPEDIC NURSE) athologist Signature Glucose 77 70 - 100 06/28/2019 [place] mg/dL 9:46 AM ORTHOPEDIC NURSE LABORATORY Comment: The given reference range is fo r the fasting state. Non-fasting reference range for glucose is 70 - 180 mg/dL. Hours Fasting 6 06/28/2019 9:46 AM ORTHOPEDIC NURSE [place] Specimen Anatomical Collection Method / Collection Time Recei mihai Time (Source) Location / Volume Laterality Blood Venipuncture / 06/27/2019 4:33 06/27/2019 4:33 Unknown PM ORTHOPEDIC NURSE PM ORTHOPEDIC NURSE Mackenzie Ho PA-C LAB_1 Performing Organization Address [facility]/ZIP Code [facility] e Number [facility] [address] [place] [address] [facility] [address] [place] [address], [facility] Lipid Panel and Direct LDL(If Needed) (06/27/2019 4:33 PM ORTHOPEDIC NURSE) Analysis Performed At [facility] logis Time [facility] Cholesterol 198 0 - 199 06/28/2019 [facility] mg/dL 9:46 AM ORTHOPEDIC NURSE LABORATORY Triglyceride 145 <=149 06/28/2019 [facility] mg/dL 9:46 AM ORTHOPEDIC NURSE LABORATORY HDL Cholesterol 57 >=40 mg/dL 06/28/2019 [facility] 9:46 AM ORTHOPEDIC NURSE LABORATORY LDL, Calculated 112 <130 mg/dL 06/28/2019 [facility] 9:46 AM ORTHOPEDIC NURSE LABORATORY Non HDL Chol, 141 mg/dL 06/28/2019 [facility] Calculated 9:46 AM ORTHOPEDIC NURSE LABORATORY Cholesterol/HDL 3.5 06/28/2019 [facility] Ratio 9:46 AM ORTHOPEDIC NURSE LABORATORY Hours Fasting 6 06/28/2019 [facility] 9:46 AM ORTHOPEDIC NURSE Specimen Anatomical Collection Method / Collection Time Recei mihai Time (Source) Location / Volume Laterality Blood Venipuncture / 06/27/2019 4:33 06/27/2019 4:33 Unknown PM ORTHOPEDIC NURSE PM ORTHOPEDIC NURSE Mackenzie Ho PA-C LAB_1 Performing Organization Address City/[facility] Code [facility] e Number [facility] [address] [place] [address] [facility] [address] [place] [address], [place] PAP Test (06/27/2019 4:19 PM ORTHOPEDIC NURSE) Component Value Ref Test Analysis Performed At [facility] gist Range Method Time Signature Case Report Pap ? Case: [id number] ? 07/01/2019 [facility] Authorizing Provider: ??Mackenzie Lynn PA-C ?Collected: ? 06/27/2019 04:19 PM ? 10:49 AM LABORATOR Y Ordering Location: ? [facility] ??Received: ?06/27/2019 04:38 PM ? ORTHOPEDIC NURSE First Screen: ? Coty Mora, CT ? (ASCP) ? Specimen: ?Pap Test, Rou hui, Cervix/Endocervix ? Pap Specimen Satisfactory for 07/01/2019 [facility] Adequacy evaluation, 10:49 AM LABORATORY endocervical/cat ORTHOPEDIC NURSE sformation zone component present. Pap Negative for 07/01/2019 [facility] Electr onically Interpretation intraepithelial 10:49 AM LABORATOR Y signed by lesion or ORTHOPEDIC NURSE Manisha Mora malignancy L, CT ( CP) on (NILM). 07/01/2019 at 10:49 AM Gross The specimen is 07/01/2019 [facility] Description received in 10:49 AM LABORATORY [facility] fixative ORTHOPEDIC NURSE and properly labeled. 1 Pap-stained [facility] slide is prepared. Pap Disclaimer The Pap test is a 07/01/2019 METHOD IST screening test 10:49 AM LABORATORY designed to aid ORTHOPEDIC NURSE in the detection of cervical cancer and its precursor lesions. It is not a diagnostic procedure and should not be used as the sole means of detecting cervical cancer. Both false-positive and false-negative reports may occur. Embedded Images 07/01/2019 [facility] 10:49 AM LABORATORY ORTHOPEDIC NURSE Specimen Anatomical Collection Method Collection Time Receive d Time (Source) Location / / Volume Laterality Other Specimen ENTIRE ENDOCERVIX 06/27/2019 4:19 PM 4:38 Type / Unknown ORTHOPEDIC NURSE PM ORTHOPEDIC NURSE Comment: LMP: No LMP recorded. Mackenzie Ho PA-C LAB PATHOLOGY Performing Organization Address City/State/ZIP Code Phon e Number [facility] [address] [place] [address] documented in this encounter Visit Diagnoses Diagnosis Annual physical exam - Primary Routine general medical examination at a health care facility DELFINO (generalized anxiety disorder) Generalized anxiety disorder Chronic insomnia Insomnia, unspecified Pap smear for cervical cancer screening Screening for malignant neoplasm of the cervix Encounter for screening for lipoid disor ders Screening for lipoid disorders Screening for diabetes mellitus History of anemia Personal history of diseases of blood an d blood-forming organs Need for hepatitis A immunization Need for prophylactic vaccination and in oculation against viral hepatitis documented in this encounter Care Teams Back Order Clerk Relationship Specialty Start Date End Date Fina Leon APRN, SOFTWARE QA SYSTEM SPECIALIST PCP - General Family Practice 03/22/12 08/15/20 [address] [place] [address] documented as of this encounter
--- OUTSIDE RECORDS SUMMARY | 2022-07-21 09:08 | XMS_ITS | Encounter Summary ---
:1990 Author Organization [employer] [facility] Address [address], [place] [address] Care Team Providers Name Role Phone Fina Leon APRN, CNP Primary Care Provider Reason for Visit Reason Comments DEPRESSION Encounter Details Date Type Department Care Team Description 09/26/2018 Telephone [facility] Maggie reaves LADC DEPRESSION CASE MNGMENT [address] [place] [address] (Wo rk) Social History Tobacco Use Types [...] documented as of this encounter Nursing Notes Maggie Hunter LADC - 09/26/2018 11:45 AM CST FYI Only, No Action from the Clinic is required: Reached out to patient due to a late refill on her medication ESCITALOPRAM 5 MG TABLET. Patient has not refilled antidepressant. BILITY SERVICES COORDINATOR documented in this encounter Plan of Treatment Not on filedocumented as of this encounter Visit Diagnoses Not on filedocumented in this encounter Care Teams Buyer Relationship Specialty Start Date End Date Fina Leon APRN, GIS PROGRAMMER PCP - General Family Practice 03/22/12 08/15/20 [address] [place] [address] documented as of this encounter
--- OUTSIDE RECORDS SUMMARY | 2022-07-21 09:08 | XMS_ITS | Encounter Summary ---
:1990 Author Organization [employer] Address [address] [place] [address] Care Team Providers Name Role Phone Fina Leon APRN, CNP Primary Care Provider [phone] Reason for Visit Reason Comments Dental Hygiene none Encounter Details Date Type Department Care Team Description 01/14/2018 Office Visit [facility] Felipa Gongora Dental Hygiene (none) Dentistry [address] [facility] [address] [place] [address] [phone] Social History Tobacco Use Types Packs/Day Years [...] Sign Reading Time Taken Comments Blood Pressure 100/67 01/14/2018 3:55 PM CDT Pulse - - Temperature - - Respiratory Rate - - Oxygen Saturation - - Inhaled Oxygen Concentration - - Weight - - Height - - Body Mass Index - - documented in this encounter Progress Notes Teena Gongora - 01/14/2018 3:50 PM CDT PROPHY NOTE (NO EXAM) Collaborative Agreement ?? Patient consents to have charting and prophylaxis by the dental hygienist performed with the understanding that this care is not a substitute for examination by a dentist. Chief Complaint Patient presents with ??? Dental Hygiene none Presentation ?? Oral Hygiene: normal ?? Plaque: localized; moderate; supra-gingival ?? Calculus:generalized; moderate; interproximal ?? Stain: localized; light; coffee/tea ?? Bleeding: localized; moderate ?? Gingival tissue:inflamed ?? Mucogingival concerns: absent Activities ?? Treatment included: OHI, hand scale, ultrasonic scale, essential selective polishing, flossed allcontacts and demonstrated flossing Patient Education ?? Discussed topics: fluoride rinse, OHI and oral self-care Treatment Review and Follow-up ?? Dental Findings: were described to the patient and they did express understanding ?? Treatment options and prognosis: were discussed ?? Informed patient consent: was obtained after all questions were answered ?? Recommended Recall Examination: 6 months Recall prophy: 9 months ?? Planned Recall Examination: 6 months Recall prophy: 6 months Teena Gongora 01/14/2018, 4:46 PM Completed dental procedures in this visit ??? PROPHYLAXIS-ADULT RECALL documented in this encounter Plan of Treatment Not on filedocumented as of this encounter Procedures Procedure Name Priority Date/Time Associated Diagnosis Comme nts PROPHYLAXIS-ADULT Routine 01/14/2018 4:45 PM CDT Localized gin givitis RECALL documented in this encounter Visit Diagnoses Diagnosis Localized gingivitis - Primary documented in this encounter Care Teams Hand Woven Carpet And Rug Mender Relationship Specialty Start Date End Date Fina Leon, FLAT SHEET MAKER, SALES LEDGER CLERK PCP - General Family Practice 03/22/12 08/15/20 [address] [place] [address] documented as of this encounter
--- OUTSIDE RECORDS SUMMARY | 2022-07-21 09:08 | XMS_ITS | Encounter Summary ---
:1990 Author Organization [facility] Address [address] [place] [address] Care Team Providers Name Role Phone Fina Leon APRN, CNP Primary Care Provider [phone] Reason for Visit Reason Comments REFERRAL REQUEST Encounter Details Date Type Department Care Team Description 05/30/2017 Telephone [facility] Fina Leon R [facility] REQUEST Practice [place] [address] [place] [address] [phone] (Wo rk) Social History Tobacco Use Types [...] documented as of this encounter Nursing Notes Fina Leon APRN, CNP - 05/31/2017 4:29 PM CDT Noted. Fina Leon APRN, CNP Connie Jeffries - 05/31/2017 2:19 PM CDT Called patient and she did not want to wait for first available physical. We scheduled appointment for Sunday with Didi Leon and patient will call for records [facility] [place] and have them faxedover. Sending back as FYI to care team. Connie Jeffries - 05/31/2017 1:20 PM CDT Left message to call back. Fina Leon APRN, YAIR - 05/31/2017 12:06 PM CDT Please call patient back to let her know I haven't seen her in clinic since 2011. She is overdue forRHM and pap. Please have her make an appointment for RHM and pap and we can review her concerns and place orders for Dermatology as indicated. Have her call her Dermatology office to have records sent here for scanning also. Fina Leon APRN, BANK SALES AND SERVICE MANAGER Lara Abel LPN - 05/31/2017 10:11 AM CDT Will send to Didi Leon to advise. FYI:We have not seen this pt for this condition. Pt has not seen Didi Leon since 2011. Lara Abel LPN 05/31/2017, 10:12 AM Maria De Jesus Celaya - 05/30/2017 6:04 PM CDT What referral/order is being requested: Referral for derm Why is the referral/order needed (What is the medical condition for which the referral is needed?): huge hair loss and indentations in scalp from injections and discoloration. Is not happy with [facility] provider [facility] and looking for 2nd opinion Is it okay to leave detailed message on your voicemail? yes [Law Professor/Appt Center: If this call is after 3 p.m., communicate to patient: If we are not able to get back to you by the end of the day and your symptoms worsen please contact the Careline at [phone] OR at .] [Law Professor: Please inform patient that a referral does not guarantee insurance coverage. Patients should call the member services number on the back of their insurance ID card to understand whatcoverage for the services they are requesting.] Is there anything else I can help you with today? no Maria De Jesus Celaya 05/30/2017, 6:04 PM documented in this encounter Plan of Treatment Not on filedocumented as of this encounter Visit Diagnoses Not on filedocumented in this encounter Care Teams Conveyor Belt Operator Relationship Specialty Start Date End Date Fina Leon APRN, BANK SALES AND SERVICE MANAGER PCP - General Family Practice 03/22/12 08/15/20 [address] [place] [address] documented as of this encounter
--- OUTSIDE RECORDS SUMMARY | 2022-07-21 09:08 | XMS_ITS | Encounter Summary ---
:1990 Author Organization [employer] Address [address] [address] Care Team Providers Name Role Phone Fina Leon APRN, CNP Primary Care Provider [phone] Reason for Referral Consult/Transfer Care (Routine) - Closed Specialty Diagnoses / Procedures Referred By Contact Refer red To Contact Dermatology Diagnoses Hair loss Ada Foley MD [facility] [address] [place] [address] [place] [address] Fax: Referral ID Status Reason Start Date Expiration Date Visits Requ ested Visits Authorized [id number] Closed 06/01/2017 11/28/2017 1 1 Scheduling Instructions If scheduling assistance is needed, sukumar caceres inquire with the medical office staff upon exiting your appointment or contact the ordering clinic for recommended locations. This recommended service/s may not be co jena by your insurance coverage. To find out your specific benefit coverage, please c all the number on your insurance card. Reason for Visit Reason Comments HAIR LOSS Encounter Details Date Type Department Care Team Description 06/01/2017 Office Visit [facility] Ada Knapp, Hair loss ([facility]) [address] [id number] (Wo rk) Social History Tobacco Use Types [...] Sign Reading Time Taken Comments Blood Pressure 124/78 06/01/2017 4:21 PM CDT Pulse 96 06/01/2017 4:21 PM CDT Temperature 36.1 ??C (97 ??F) 06/01/2017 4:21 PM CDT Respiratory Rate 17 06/01/2017 4:21 PM CDT Oxygen Saturation 100% 06/01/2017 4:21 PM CDT Inhaled Oxygen Concentration - - Weight 50.3 kg (111 lb) 06/01/2017 4:21 PM CDT Height - - Body Mass Index 19.82 02/08/2017 1:17 PM CDT documented in this encounter Patient Instructions Patient InstructionsClAda taylor MD - 06/01/2017 4:[address] Mayorga in [place] 8:20 on June 28. documented in this encounter Progress Notes Ada Foley MD - 06/01/2017 4:20 PM CDT Chief Complaint Patient presents with ??? HAIR LOSS This 26-year-old female came in very distressed about ongoing hair loss and the treatment she has received at her [facility]. She wanted me to give her advice and to treat but I explained that this is an urgent care and I am not qualified to diagnose or treat her condition. I did personally arrange for her to have a consult with Dr. Lesley Mayorga in [place] on June 28. Although she wanted to be seen more urgently than that she was satisfied with this plan on discharge. Ada Foley MD 06/01/2017, 7:13 PM documented in this encounter Nursing Notes Carito Bingham LPN - 06/01/2017 4:20 PM CDT Carito Bingham LPN 06/01/2017, 4:16 PM documented in this encounter Plan of Treatment Scheduled Referrals Name Type Priority Associated Diagnoses Order S chedule Dermatology Referral Routine Hair loss Ordered: 2016 Consult-Adult/Peds documented as of this encounter Visit Diagnoses Diagnosis Hair loss - Primary Alopecia, unspecified documented in this encounter Care Teams Clearing Supervisor Relationship Specialty Start Date End Date Fina Leon APRN, KITCHEN WORK SUPERVISOR PCP - General Family Practice 03/22/12 08/15/20 [address] [place] [address] documented as of this encounter
--- OUTSIDE RECORDS SUMMARY | 2022-07-21 09:08 | XMS_ITS | Encounter Summary ---
:1990 Author Organization [employer] Address [address] [place] [address] Care Team Providers Name Role Phone Fina Leon APRN, CNP Primary Care Provider [phone] Reason for Visit Reason Comments Pre-visit Planning Encounter Details Date Type Department Care Team Description 08/18/2019 Telephone [place] Rosina Maher P re-visit Planning Optometry OD [address] [place] [address] [id number] [phone] Social History Tobacco Use Types Packs/Day Years [...] documented as of this encounter Nursing Notes Silverio Terry - 08/18/2019 4:12 PM CST Changed to daughters chart. MANAGEMENT INTERNSHIP Mckenna Fernandez - 08/18/2019 3:59 PM CST Patient direct booked an appointment for 09/04. Please review, pt scheduled under the wrong chart needs to be on the daughters chart. MANAGEMENT INTERNSHIP documented in this encounter Plan of Treatment Not on filedocumented as of this encounter Visit Diagnoses Not on filedocumented in this encounter Care Teams Patrol Deputy Sheriff Relationship Specialty Start Date End Date Fina Leon APRN, NUISANCE WILDLIFE TRAPPER PCP - General Family Practice 03/22/12 08/15/20 [address] [place] [address] documented as of this encounter
--- OUTSIDE RECORDS SUMMARY | 2022-07-21 09:08 | XMS_ITS | Encounter Summary ---
:1990 [facility] Address [address], [place] [address] Care Team Providers Name Role Phone Errol Amaya MD Primary Care Provider Encounter Details Date Type Department Care Team Description 05/28/2017 Scanned History External to Transferred Record, TRA NSFERRED RECORDS Provider Social History Tobacco Use Types Packs/Day Years [...] on filedocumented in this encounter Care Teams Camera Control Operator Relationship Specialty Start Date End Date Errol Amaya MD PCP - General 08/16/20 [address] [place] [address] documented as of this encounter
--- OUTSIDE RECORDS SUMMARY | 2022-07-21 09:08 | XMS_ITS | Encounter Summary ---
:1990 Author Organization [facility] Address [address] [place] [address] Care Team Providers Name Role Phone Fina Leon APRN, CNP Primary Care Provider [phone] Reason for Visit Reason Comments Phone Consult #1,16,17,32 Dental (Routine) - Closed Specialty Diagnoses / Procedures Referred By Contact Refer red To Contact Diagnoses Impacted tooth Eliceo Franklin DDS [address] [place], [place] [address] Referral ID Status Reason Start Date Expiration Date Visits Requ ested Visits Authorized [id number] Closed 12/18/2017 03/19/2019 1 1 Encounter Details Date Type Department Care Team Description 08/19/2018 Phone Visit [facility] Harsh Flores Impacted tooth [address] DAVID Pascual (Primary Dx) [place] [address] [phone] [place], [place] [id number] Social History Tobacco Use Types Packs/Day Years [...] on file documented as of this encounter Progress Notes Harsh Flores DDS - 08/19/2018 1:00 PM CST ORAL SURGERY PHONE CONSULT NOTE NAME: Lara SINGH : 1990 DOS: 08/19/2018 REFERRAL: Eliceo Franklin DDS PRIMARY PHYSICIAN: Fina Leon, TRAIN STARTER, PATIENT ACCESS COORDINATOR CHIEF COMPLAINT: Chief Complaint Patient presents with ??? Phone Consult #1,16,17,32 ID: 27 y.o. female, ASA 1 PAST MEDICAL HISTORY: Past Medical History: Diagnosis Date ??? Pap smear abnormality 2008 cone ??? delivery 2007 @ 23 wks ( demise) ??? Rubella as child Hernia repair 2012, anxiety, last physical exam 3-4 years ago PROBLEM LIST: Patient Active Problem List Diagnosis ??? Pap smear abnormality ??? Femoral nerve palsy MEDS: Outpatient Medications as of 08/19/2018: escitalopram oxalate (LEXAPRO) 5 MG tablet Take 1 Tablet by mouth daily. For 10- 14 days then increase to 2 tabs daily as tolerated Disp: 60 Tablet Rfl: 0 No current facility-administered medications on file as of 08/19/2018. ALLERGIES: Penicillins and Amoxicillin PAST SURGICAL HISTORY: Past Surgical History: Procedure Laterality Date ??? DELIVERY 10/13/2010 ??? CONE BIOPSY OF CERVIX ([id number]) 2007 Hernia repair 2012 -No surgical or anesthetic complications. (no family history of GA complications) SOCIAL HISTORY: 1. Tobacco: Social History Tobacco Use Smoking Status Former Smoker ??? Last attempt to quit: 2009 ??? Years since quittin.0 Smokeless Tobacco Never Used Tobacco Comment Quit with + UPT 2. Alcohol: Social History Substance and Sexual Activity Alcohol Use No 3. Drug use: Social History Substance and Sexual Activity Drug Use No EXAMINATION: Physical exam deferred due to PHONE CONSULT. Exam will be performed at time of surgery. VITAL SIGNS: WT: 120 lbs PAIN: 2/10 IMAGING: PANO 12/18/2017: Teeth #1 and #16 are vertical full bony impacted and the apices project into the maxillary sinus. - Teeth #17 and #32 are vertically impacted and the apices overlay the inferior alveolar nerve canal. Assesment: Lara SINGH is a 27 y.o. 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 PLAN: remove #1,16,17,32 with local anesthesia and nitrous oxide CONSENT: Reviewed treatment options including no treatment. Risks associated with procedure were discussed with the patient including: Pain, swelling, bleeding, infection, damage to adjacent teeth/softtissue, opening into the maxillary sinus, temporary/permanent numbness of the lip/chin/tongue, decision to leave a root tip in place, need for additional procedures, and unforeseen complications. Questions were invited and answered and the patient elected to proceed with treatment as planned. Wendy Wall, SUKHDEEP 08/19/2018, 1:27 PM Harsh Flores DDS 08/19/2018, 5:38 PM This note was dictated with the aid of [employer] voice recognition software and may contain word substitution or spelling errors. INATOR documented in this encounter Plan of Treatment Scheduled Orders Name Type Priority Associated Diagnoses Order S chedule POST OP-OS PHONE Dental Procedures Routine Impacted tooth 1 Oc currences CALL starting 2019 documented as of this encounter Visit Diagnoses Diagnosis Impacted tooth - Primary Disturbances in tooth eruption documented in this encounter Care Teams Internal Investigator Relationship Specialty Start Date End Date Fina Leon APRN, PATIENT ACCESS COORDINATOR PCP - General Family Practice 03/22/12 08/15/20 [address] [place] [address] documented as of this encounter
--- OUTSIDE RECORDS SUMMARY | 2022-07-21 09:08 | XMS_ITS | Encounter Summary ---
:1990 Author Organization [facility] Address [address] [place] [address] Care Team Providers Name Role Phone Fina Leon APRN, CNP Primary Care Provider [phone] Reason for Referral Dental (Routine) - Closed Specialty Diagnoses / Procedures Referred By Contact Refer red To Contact Diagnoses Impacted tooth Eliceo Franklin DDS [address] [place], [place] [address] Referral ID Status Reason Start Date Expiration Date Visits Requ ested Visits Authorized [id number] Closed 12/18/2017 03/19/2019 1 1 Scheduling Instructions Your provider has recommended an appoint ment with an oral surgeon within [facility]. You may c all one of the clinics below to schedule an appointment. If you prefer, a project controls scheduler will contact you within the next 3 business days to assist you in setting up this ap pointment. Rudy - [phone] [facility] [phone] Katty Dye [phone] Reason for Visit Reason Comments Dental Hygiene cold sensitive sensodyne wor ks well Encounter Details Date Type Department Care Team Description 12/18/2017 Office Visit [place] Aline Bell [address] [place] [address] Dental Hygiene (cold Dentistry Yardic, Exam sensitive sensodyne [address] [facility] works well) [place] [address] Social History Tobacco Use Types Packs/Day Years [...] Sign Reading Time Taken Comments Blood Pressure 106/61 12/18/2017 6:12 PM CDT Pulse 69 12/18/2017 6:12 PM CDT Temperature - - Respiratory Rate - - Oxygen Saturation - - Inhaled Oxygen Concentration - - Weight - - Height - - Body Mass Index - - documented in this encounter Patient Instructions Patient Mayelin Baptiste - 12/18/2017 6:00 PM CDT Your next hygiene recall is due 06/16/2018 PERSONAL DENTAL RISK REPORT FOR LARA Diaz FRANCISCO Caries (Tooth Decay) Risk Periodontal (Gum Disease) Risk Oral Cancer Risk Your Risk Level Low High Moderate Low X This exam Your Risk Level Low High Moderate Low X This exam Your Risk Level Low Elevated Low X This exam Your Risk Factors How To Reduce Your Risk Hygiene recall 12 to 18 months Your Risk Factors How To Reduce Your Risk Return visit with the dental hygienist at 6 month intervals Your Risk Factors How To Reduce Your Risk CONGRATULATIONS. The results of your dental risk assessment indicate you are at low risk for tooth decay. Making healthy life style choices including brushing twice a day; daily flossing and healthy dietary choices should help you maintain this low risk. CONGRATULATIONS. The results of your dental risk assessment indicate you are at low risk for gum disease. Making healthy life style choices including brushing twice a day; daily flossing and not using tobacco should help you maintain this low risk. CONGRATULATIONS. The results of your dental risk assessment indicate you are at low risk for oral cancer. Making healthy life style choices such as not using tobacco and low to moderate alcohol use should help you maintain this low risk. Lara, we look forward to seeing you at your next visit! Thank you for choosing [facility]. documented in this encounter Progress Notes Mayelin Blanco - 12/18/2017 6:00 PM CDT PROPHY NOTE PROPHY/ASSESSMENT:85449::PROPHY NOTE Collaborative Agreement: ?? Patient consents to have charting and radiographs by the dental hygienist performed with the understanding that this care is not a substitute for examination by a dentist. Presentation ?? Oral Hygiene: normal ?? Plaque: none ?? Calculus:generalized; moderate; supra-gingival , sub-gingival, interproximal, mandibular anteriorand posterior buccal ?? Stain: none ?? Bleeding: generalized; light ?? Gingival tissue: inflamedgeneralized marginal gingivitis ?? Mucogingival concerns: absent Activities ?? Treatment included: assessment only Patient Education ?? Discussion topics: caries risk assessment, OHI, oral cancer risk and periodontal risk overdue for cleaning Mayelin Blanco 12/18/2017, 6:46 PM Completed dental procedures in this visit ??? COMPREHENSIVE ORAL EVALUATION Chief Complaint: Treatment Options: ??? [id number] ??? FILM-PANORAMIC ??? TOPICAL FLUORIDE VARNISH ??? 3 FILM-PERIAPICAL FIRST Eliceo Franklin DDS - 12/18/2017 6:00 PM CDT NEW PATIENT EXAM NOTE Chief Complaint Patient presents with ??? Dental Hygiene cold sensitive sensodyne works well Chart Review Reviewed health history, dental history, problem list, periodontal charting and radiographs with thepatient. Soft tissue, head and neck examination ?? Lips: normal; ?? Tongue: normal; ?? Palate: normal; ?? Throat: normal; ?? Floor of the mouth: normal; ?? Mucosa: normal; ?? Head and neck: normal; TMD Evaluation ?? Palpation pain: none ?? Joint sounds: none ?? Pain with range of motion: none Occlusal examination ?? Angle relationship: Right molar: class I Right cuspid: class I Left molar: class I Left cuspid:class I Maxillary midline: within normal limits Mandibular midline: within normal limits Overbite: 4 mm Overjet: 3 mm Crossbite: none Space loss: none Crowding: not evident. Occlusion: all teeth Attrition: normalmoderate Erosion: absent Overall occlusal relationship; stable Cosmetic concerns ?? Patient???s perception: acceptable ?? Dentist???s perception: acceptable Treatment Review and Follow-up ?? Dental Findings: were described to patient and they did express understanding. ?? Treatment options and prognosis: were discussed ?? Informed patient consent: was obtained after all questions were answered. ?? Recommended Recall Examination: 12 months Recall prophy: 6 months ?? Planned Recall Examination: 12 months Recall prophy: 6 months nti Eliceo Franklin DDS 12/18/2017, 6:56 PM documented in this encounter Plan of Treatment Scheduled Referrals Name Type Priority Associated Diagnoses Order S chedule Oral Surgery Consult Referral Routine Impacted tooth Order ed: 12/18/2017 documented as of this encounter Procedures Procedure Name Priority Date/Time Associated Diagnosis Comme nts 15 LO EXISTING COMPOSITE Routine 12/18/2017 6:55 PM FILLING CDT 14 LO EXISTING COMPOSITE Routine 12/18/2017 6:55 PM FILLING CDT TOPICAL FLUORIDE VARNISH Routine 12/18/2017 6:44 PM Generalize d marginal CDT gingivitis Routine health maintenance 3 FILM-PERIAPICAL FIRST Routine 12/18/2017 6:44 PM Generalized marginal CDT gingivitis Routine health maintenance FILM-PANORAMIC Routine 12/18/2017 6:44 PM Generalized marginal CDT gingivitis Routine health maintenance [id number] Routine 12/18/2017 6:44 PM Generalized shelly inal CDT gingivitis Routine health maintenance COMPREHENSIVE ORAL Routine 12/18/2017 6:44 PM Generalized shelly inal EVALUATION CDT gingivitis Routine health maintenance 3 PORCELAIN CROWN Routine 04/05/2017 11:00 AM Tooth pulpitis CDT 3 CROWN PREP Routine 03/22/2017 11:00 AM Tooth pulpitis CDT documented in this encounter Visit Diagnoses Diagnosis Routine health maintenance - Primary Routine general medical examination at a health care facility Generalized marginal gingivitis Impacted tooth Disturbances in tooth eruption Tooth pulpitis Pulpitis Other diseases of pulp and periapical ti ssues Disorder of pulp of tooth Other and unspecified diseases of pulp a nd periapical tissues documented in this encounter Care Teams Refrigerated Company Driver Relationship Specialty Start Date End Date Fina Leon, JD EDWARDS CONSULTANT, CIGAR HEAD PERFORATOR PCP - General Family Practice 03/22/12 08/15/20 [address] [place] [address] documented as of this encounter
--- OUTSIDE RECORDS SUMMARY | 2022-07-21 09:08 | XMS_ITS | Encounter Summary ---
:1990 Author Organization [employer] Address [address] [place] [address] Care Team Providers Name Role Phone Fina Leon APRN, CNP Primary Care Provider [phone] Reason for Visit Reason Onset Date Comments Refill 03/04/2020 hydrOXYzine HCl (OSCAR RAX) 25 MG tablet Encounter Details Date Type Department Care Team Description 03/04/2020 Refill [place] [address] [place] [address] Mackenzie Ho R, R efill (hydrOXYzine HCl Medicine PA-C (ATARAX) 25 MG tablet) [address] [facility] [address] [place], [place] [address] [phone] Social History Tobacco Use Types Packs/Day Years [...] documented as of this encounter Nursing Notes Kitty Martinez RN - 03/08/2020 8:59 AM CDT Further Assistance Needed on Refill from Clinician RN reviewed. Medication ordered for short term. Medication newly ordered in last 12 months and Please advise if nursing home supply is appropriate Last qualifying visit: 06/27/2019 Review pended order for accuracy and sign if appropriate and Document if appointment is needed for further refills Requested Prescriptions Pending Prescriptions Disp Refills ??? hydrOXYzine HCl (ATARAX) 25 MG tablet 270 Tablet Si tabs po qhs prn insomnia Kourtney Gaines - 03/04/2020 1:22 PM CDT COPIED FROM SPLIT REFILL ENCOUNTER Medications - Refill Request (able to re-order) Name of prescribing clinician: Mackenzie Ho PA Additional comments (related to the above [...] refills) Please route to: Refill Pool (P [id number]) [facility] Pool [place] Patients ONLY (P [id number]) [facility]ro ONLY (P [id number]) TESTER Interface, Out Surescripts Prov Query - 03/04/2020 1:22 PM CDT hydrOXYzine HCl (ATARAX) 25 MG tablet Medication started: 05/13/2019 Last ordered by MACKENZIE HO R: 06/27/2019 (251 days ago) QTY: 270, Refills: 1, Si tabs po qhs prn insomnia (unchanged) -> Unable to determine if patient is due for a renewal, please review. -> Refill x 6 months (until due for an office visit) -> Calculate the quantity and number of refills manually. Last qualifying visit: 06/27/2019 (with MACKENZIE HO) Next scheduled visit: None Powered by [email or web address], Reference: [id number], 03/04/2020 1:22:26 PM CDT, Pool: PN REFILL WIZARD ADMIN ([id number]) documented in this encounter Plan of Treatment Not on filedocumented as of this encounter Visit Diagnoses Not on filedocumented in this encounter Care Teams Big Data Software Engineer Relationship Specialty Start Date End Date Fina Leon APRN, NIB ADJUSTER PCP - General Family Practice 03/22/12 08/15/20 [address] [place] [address] documented as of this encounter
--- OUTSIDE RECORDS SUMMARY | 2022-07-21 09:08 | XMS_ITS | Encounter Summary ---
:1990 Author Organization [facility] Address [address] [place] [address] Care Team Providers Name Role Phone Fina Leon APRN, CNP Primary Care Provider [phone] Encounter Details Date Type Department Care Team Description 06/17/2018 Lab Visit [facility] [address] [place], [place] [address] Social History Tobacco Use Types Packs/Day Years [...] on filedocumented in this encounter Care Teams Osteopathic Physician Relationship Specialty Start Date End Date Fina Leon APRN, CNP PCP - General Family Practice 03/22/12 08/15/20 [address] [place] [address] documented as of this encounter
--- OUTSIDE RECORDS SUMMARY | 2022-07-21 09:08 | XMS_ITS | Encounter Summary ---
:1990 Author Organization [employer] [facility] Address [address] [place] [address] Care Team Providers Name Role Phone Fina Leon APRN, CNP Primary Care Provider [phone] Encounter Details Date Type Department Care Team Description 06/27/2019 Lab Visit [facility] Encounter for screening for lipoid disorders; [address] Screening for diabetes nancy green; [place] [address] DELFINO (generalized anxiety dis order); [phone] History of anem ia Social History Tobacco Use Types Packs/Day Years [...] Name Priority Date/Time Associated Diagnosis Comme nts LIPID PANEL AND Routine 06/27/2019 4:33 PM Encounter for Resul ts for this DIRECT LDL(IF LINEWORKER screening for lipoid proced ure are in NEEDED) disorders the results section. COMPLETE BLOOD Routine 06/27/2019 4:33 PM History of anemia Re sults for this COUNT-NO DIFF LINEWORKER procedure are in the results section. FERRITIN Routine 06/27/2019 4:33 PM History of anemia Resu lts for this LINEWORKER procedure are i n the results section. TSH, SENSITIVE Routine 06/27/2019 4:33 PM DELFINO (generalized Res ults for this (WITH REFLEX) LINEWORKER anxiety disorder) procedure are in the results section. HGB A1C Routine 06/27/2019 4:33 PM Screening for Results for this LINEWORKER diabetes mellitus procedure are in the results section. GLUCOSE Routine 06/27/2019 4:33 PM Screening for Results for this LINEWORKER diabetes mellitus procedure are in the results section. documented in this encounter Results Hgb A1C (06/27/2019 4:33 PM LINEWORKER) athologist Signature Hemoglobin A1C 5.5 <=5.6 % 06/29/2019 [facility] 11:10 AM [facility] Specimen Anatomical Collection Method / Collection Time Recei mihai Time (Source) Location / Volume Laterality Blood Venipuncture / 06/27/2019 4:33 06/27/2019 4:33 Unknown PM LINEWORKER PM LINEWORKER Mackenzie Ho PA-C LAB_1 Performing Organization Address City/State/ZIP Code Phon e Number [facility] [address] [place] [address] Complete Blood Count-No Diff (06/27/2019 4:33 PM LINEWORKER) athologist Signature WBC 9.4 3.5 - 10.5 06/27/2019 [facility] x10(9)/L 4:37 PM LINEWORKER RBC 4.66 3.90 - 5.03 06/27/2019 [facility] x10(12)/L 4:37 PM LINEWORKER Hemoglobin 13.5 12.0 - 15.5 06/27/2019 [facility] g/dL 4:37 PM LINEWORKER HCT 41.0 34.9 - 44.5 06/27/2019 [facility] % 4:37 PM LINEWORKER MCV 88.0 80.0 - 06/27/2019 [facility] 100.0 fL 4:37 PM LINEWORKER MCH 29.0 27.6 - 33.3 06/27/2019 [facility] pg 4:37 PM LINEWORKER MCHC 32.9 31.5 - 35.2 06/27/2019 [facility] g/dL 4:37 PM LINEWORKER RDW 12.5 11.9 - 15.5 06/27/2019 [facility] % 4:37 PM LINEWORKER Platelets 386 150 - 450 06/27/2019 [facility] x10(9)/L 4:37 PM LINEWORKER Specimen Anatomical Collection Method / Collection Time Recei mihai Time (Source) Location / Volume Laterality Blood Venipuncture / 06/27/2019 4:33 06/27/2019 4:33 Unknown PM LINEWORKER PM LINEWORKER Mackenzie oH PA-C LAB_1 Performing Organization Address City/[facility]/ZIP [facility] [place] Phon e Number [facility] [address] [place] [address] [phone] [facility] [address] [place] [address], [facility] Ferritin (06/27/2019 4:33 PM LINEWORKER) athologist Signature Ferritin 38 9 - 204 06/27/2019 [facility] ng/mL 9:40 PM [facility] Specimen Anatomical Collection Method / Collection Time Recei mihai Time (Source) Location / Volume Laterality Blood Venipuncture / 06/27/2019 4:33 06/27/2019 4:33 Unknown PM LINEWORKER PM LINEWORKER Mackenzie DELEONC LAB_1 Performing Organization Address City/[facility] Phon e Number [facility] [address] [place] [address] TSH with Free T4 (if TSH Abnormal) (06/27/2019 4:33 PM LINEWORKER) athologist Signature TSH, Reflex 2.70 0.30 - 4.50 06/27/2019 [facility] uIU/mL 9:40 PM [facility] Specimen Anatomical Collection Method / Collection Time Recei mihai Time (Source) Location / Volume Laterality Blood Venipuncture / 06/27/2019 4:33 06/27/2019 4:33 Unknown PM LINEWORKER PM LINEWORKER Narrative [facility] - 06/27/2019 9:40 P M LINEWORKER Lab will automatically reflex to Free T4 when TSH results are <0.30 uIU/mL or >4.50 mIU/mL. Mackenzie Ho PA-C LAB_1 Performing Organization Address City/[facility]/ZIP Code Phon e Number [facility] [address] [employer] [place] [address] Glucose (06/27/2019 4:33 PM LINEWORKER) P athologist Signature Glucose 77 70 - 100 06/28/2019 [facility] mg/dL 9:46 AM [facility] Comment: The given reference range is fo r the fasting state. Non-fasting reference range for glucose is 70 - 180 mg/dL. Hours Fasting 6 06/28/2019 9:46 AM LINEWORKER [facility] Specimen Anatomical Collection Method / Collection Time Recei mihai Time (Source) Location / Volume Laterality Blood Venipuncture / 06/27/2019 4:33 06/27/2019 4:33 Unknown PM LINEWORKER PM LINEWORKER Makcenzie Ho PA-C LAB_1 Performing Organization Address [facility]/ZIP [facility] [place] [facility] [address] [place], [place] [address] [facility] [address] [place] [address], [facility] Lipid Panel and Direct LDL(If Needed) (06/27/2019 4:33 PM LINEWORKER) Analysis Performed At Patho logist Time Signature Cholesterol 198 0 - 199 06/28/2019 [facility] mg/dL 9:46 AM [facility] Triglyceride 145 <=149 06/28/2019 [facility] mg/dL 9:46 AM [facility] HDL Cholesterol 57 >=40 mg/dL 06/28/2019 [facility] 9:46 AM [facility] LDL, Calculated 112 <130 mg/dL 06/28/2019 [facility] 9:46 AM [facility] Non HDL Chol, 141 mg/dL 06/28/2019 [facility] Calculated 9:46 AM [facility] Cholesterol/HDL 3.5 06/28/2019 [facility] Ratio 9:46 AM [facility] Hours Fasting 6 06/28/2019 [facility] 9:46 AM LINEWORKER Specimen Anatomical Collection Method / Collection Time Recei mihai Time (Source) Location / Volume Laterality Blood Venipuncture / 06/27/2019 4:33 06/27/2019 4:33 Unknown PM LINEWORKER PM LINEWORKER Mackenzie Ho PA-C LAB_1 Performing Organization Address [facility]/ZIP Code Phon e Number [facility] [address] [place] [address] [facility] [address] [place] [address], [facility] documented in this encounter Visit Diagnoses Diagnosis Encounter for screening for lipoid disor ders Screening for lipoid disorders Screening for diabetes mellitus DELFINO (generalized anxiety disorder) Generalized anxiety disorder History of anemia Personal history of diseases of blood an d blood-forming organs documented in this encounter Care Teams Customer Support Analyst Relationship Specialty Start Date End Date Fina Leon APRN, SUPERVISING EDITOR TRAILER PCP - General Family Practice 03/22/12 08/15/20 [address] [place] [address] documented as of this encounter
--- OUTSIDE RECORDS SUMMARY | 2022-07-21 09:08 | XMS_ITS | Encounter Summary ---
:1990 Author Organization [facility] Address [address], [place] [address] Care Team Providers Name Role Phone Fina Leon APRN, CNP Primary Care Provider [phone] Encounter Details Date Type Department Care Team Description 06/11/2017 [place] [address] [place], [place] [address] Social History Tobacco Use [...] encounter Procedures Procedure Name Priority Date/Time Associated Comments Diagnosis ZINC, SERUM Routine 06/11/2017 4:29 Results for PM CDT this procedure are in the results section. DEHYDROEPIANDROSTERONE Routine 06/11/2017 4:29 Re sults for PM CDT this procedure are in the results section. ANDROSTENEDIONE Routine 06/11/2017 4:29 Results f or PM CDT this procedure are in the results section. TESTOSTERONE FREE AND TOTAL, Routine 06/11/2017 4:29 Results for FEMALE OR CHILDREN PM CDT this proc edure are in the results section. VITAMIN D 25-HYDROXY, TOTAL Routine 06/11/2017 4:29 Results for PM CDT this procedure are in the results section. TSH, SENSITIVE Routine 06/11/2017 4:29 Results fo r PM CDT this procedure are in the results section. FREE T4 Routine 06/11/2017 4:29 Results for PM CDT this procedure are in the results section. FERRITIN Routine 06/11/2017 4:29 Results for PM CDT this procedure are in the results section. TAO SCREEN Routine 06/11/2017 4:29 Results for PM CDT this procedure are in the results section. FOLATE ONLY (4HR FAST Routine 06/11/2017 4:29 Res ults for RECOMMENDED) PM CDT this procedure are in the results section. VITAMIN B12 ONLY Routine 06/11/2017 4:29 Results for PM CDT this procedure are in the results section. documented in this encounter Results Testosterone free and total, female or children (06/11/2017 4:29 PM CDT) Component Value Ref Test Analysis Performed At [facility] Range Method Time Signature Testosterone 31 [facility] Female or Reference range: 9 to 55 LABOR ATORIES Children Unit: ng/dL Testosterone (NOTE) [facility] Female or Total Testosterone, Females 18 years and older LABORATORIES Children Premenopausal ??9-55 ng/dL Postmenopausal 5-32 ng/dL REFERENCE INTERVAL: Testosterone, LC-MS/MS Access complete set of age- and/or gender-specific reference ?? intervals for this test in the [facility] Sanitary Chemist y ?? ([employer]). Test developed and characteristics determined by [facility] ?? Laboratories. See Compliance Statement B: [employer]/CS Sex Hormone 102 [facility] Binding Reference range: 30 to 135 LAB ORATORIES Globulin Unit: nmol/L Sex Hormone (NOTE) [facility] Binding REFERENCE INTERVAL: Sex Hormone Binding Globulin LABORATORIES Globulin Access complete set of age- and/or gender-specific reference ?? intervals for this test in the [facility] Sanitary Chemist y ?? ([employer]). Testosterone 2.4 [facility] Free Female and Reference range: 0.8 to 7.4 LABORATORIES Child Unit: pg/mL Testosterone (NOTE) [facility] Free Female and To convert to pmol/L, multiply pg/mL by 3.47 LABORATORIES Child The concentration of Free Testosterone is derived from a ?? mathematical expression based on the constant for the bindin g of ?? testosterone to sex hormone binding globulin. Testosterone, Free LC-MS/MS Reference Interval for Females 1 8 ?? years and older Postmenopausal: 0.6 - 3.8 pg/mL REFERENCE INTERVAL: Testosterone, Free LC-MS/MS Access complete set of age- and/or gender-specific reference ?? intervals for this test in the [facility] Sanitary Chemist y ?? ([employer]). Test developed and characteristics determined by [facility] ?? Laboratories. See Compliance Statement B: [employer]/ [address] [place] [address] www.[employer], Yong Truong MD, Lab. Director Specimen Anatomical Collection Method Collection Time Receive d Time (Source) Location / / Volume Laterality 06/11/2017 4:29 PM 7 4:31 CDT PM CDT Narrative [facility] - 06/15/2017 2:29 PM C DT Performed by [employer], [facility] [place] [address] Lesley Mayorga MD LAB_1 Performing Organization Address City/[facility] Phon e Number [facility] [phone] TAO Screen (06/11/2017 4:29 PM CDT) athologist Signature TAO Screen Negative NEG [facility] Specimen Anatomical Collection Method Collection Time Receive d Time (Source) Location / / Volume Laterality 06/11/2017 4:29 PM 7 4:31 CDT PM CDT Narrative [facility] - 06/13/2017 1:44 PM C DT Performed at [address] ??[address] Lesley Mayorga MD LAB_1 Performing Organization Address City/[facility]/ZIP Code Phon e Number [facility] [phone] Vitamin D 25-Hydroxy, Total (06/11/2017 4:29 PM CDT) athologist Signature Vitamin 36 30 - 80 [facility] D,25-OH, Tot ng/mL LABORATORIES Comment: Deficiency: ??< 20 ng/mL Insufficiency: ??20-29 ng/mL Optimum Level: ??30-80 ng/mL Possible Toxicity: > 80 ng/mL Specimen Anatomical Collection Method Collection Time Receive d Time (Source) Location / / Volume Laterality 06/11/2017 4:29 PM 7 4:31 CDT PM CDT Narrative [facility] - 06/12/2017 12:16 PM CDT Performed at [facility], [address] [place] [address] Lesley Mayorga MD LAB_1 Performing Organization Address City/State/ZIP Code Phon e Number [facility] [phone] Zinc, Serum (06/11/2017 4:29 PM CDT) Component Value Ref Test Analysis [facility]formed [facility] Range Method Time Signature Zinc, Serum 78 [facility] Reference range: 60 to 120 LAB ORATORIES Unit: ug/dL Zinc, Serum (NOTE) [facility] INTERPRETIVE INFORMATION: Zinc, Serum or Plasma LABORATORIES Circulating zinc concentrations are dependent on albumin sta tus ?? and are depressed with malnutrition. Zinc may also be lowere d with ?? infection, inflammation, stress, oral contraceptives, and ?? . Zinc may be elevated with zinc supplementation or ?? fasting. Elevated zinc concentrations may interfere with copy room technician per ?? absorption. Test developed and characteristics determined by [employer] ?? Laboratories. See Compliance Statement B: [employer]/ [address] [place] [address] www.[employer], Yong Truong MD, Lab. Director Specimen Anatomical Collection Method Collection Time Receive d Time (Source) Location / / Volume Laterality 06/11/2017 4:29 PM 7 4:31 CDT PM CDT Narrative [facility] - 06/15/2017 5:53 AM C DT Performed by [employer], [address] [place], [place] [address] Lesley Mayogra MD LAB_1 Performing Organization Address City/State/ZIP Code Phon e Number [facility] [phone] TSH (06/11/2017 4:29 PM CDT) P athologist Signature TSH, Sensitive 4.06 0.30 - [facility] 4.50 LABORATORIES uIU/ml Specimen Anatomical Collection Method Collection Time Receive d Time (Source) Location / / Volume Laterality 06/11/2017 4:29 PM 7 4:31 CDT PM CDT Narrative [facility] - 06/12/2017 12:27 PM CDT Performed at [facility], [address] [place] [address] Lesley Mayorga MD LAB_1 Performing Organization Address [facility]/ZIP Code Phon e Number [facility] [phone] Free T4 (06/11/2017 4:29 PM CDT) athologist Signature T4, Free 1.1 0.7 - 1.5 [facility] ng/dl Specimen Anatomical Collection Method Collection Time Receive d Time (Source) Location / / Volume Laterality 06/11/2017 4:29 PM 7 4:31 CDT PM CDT Narrative [facility] - 06/12/2017 12:27 PM CDT Performed at [facility], [address] [place] [address] Lesley Mayorga MD LAB_1 Performing Organization Address [facility] Phon e Number [facility] [phone] Folate Only (4Hr Fast Recommended) (06/11/2017 4:29 PM CDT) athologist Signature Folate 8.7 >6.9 ng/ml [facility] Specimen Anatomical Collection Method Collection Time Receive d Time (Source) Location / / Volume Laterality 06/11/2017 4:29 PM 7 4:31 CDT PM CDT Narrative [facility] - 06/12/2017 12:33 PM CDT Performed at [facility], [address] [place] [address] Lesley Mayorga MD LAB_1 Performing Organization Address City/[facility]/ZIP [facility] Phon e Number [facility] [phone] Ferritin (06/11/2017 4:29 PM CDT) athologist Signature Ferritin 25 9 - 204 [facility] ng/ml Specimen Anatomical Collection Method Collection Time Receive d Time (Source) Location / / Volume Laterality 06/11/2017 4:29 PM 7 4:31 CDT PM CDT Narrative [facility] - 06/12/2017 12:27 PM CDT Performed at [facility], [address] ??[address] Lesley Mayorga MD LAB_1 Performing Organization Address [facility]/ZIP Code Phon e Number [facility] [phone] Dehydroepiandrosterone (06/11/2017 4:29 PM CDT) Component Value Ref Test Analysis [facility]formed [facility] Range Method Time Signature Dehydroepiandrosteron 4.120 [facility] e Reference range: 1.330 to 7.780 LABORATORIES Unit: ng/mL Dehydroepiandrosteron (NOTE) [facility] e INTERPRETIVE INFORMATION: Dehydroepiandrosterone, Females 18 years ?? LABORATORIES and older: Postmenopausal: 0.60-5.73 ng/mL REFERENCE INTERVAL: Dehydroepiandrosterone by TMS Access complete set of age- and/or gender-specific reference ?? intervals for this test in the [facility] Sanitary Chemist y ?? ([employer]). Test developed and characteristics determined by [employer] ?? Laboratories. See Compliance Statement B: [employer]/ [address] [place] [address] www.[employer], Yong Truong MD, Lab. Director Specimen Anatomical Collection Method Collection Time Receive d Time (Source) Location / / Volume Laterality 06/11/2017 4:29 PM 7 4:31 CDT PM CDT Narrative [facility] - 06/15/2017 2:06 PM C DT Performed by [employer], [address] [place], [place] [address] Lesley Mayorga MD LAB_1 Performing Organization Address City/[facility]/ZIP Code Phon e Number [facility] [phone] Vitamin B12 Only (06/11/2017 4:29 PM CDT) athologist Signature Vitamin B12 516 213 - 816 [facility] pg/ml Specimen Anatomical Collection Method Collection Time Receive d Time (Source) Location / / Volume Laterality 06/11/2017 4:29 PM 7 4:31 CDT PM CDT Narrative [facility] - 06/12/2017 12:27 PM CDT Performed at [facility], [address] [place] [address] Lesley Mayorga MD LAB_1 Performing Organization Address City/[facility] Code Phon e Number [facility] [phone] Androstenedione (06/11/2017 4:29 PM CDT) Component Value Ref Test Analysis Performed At [facility] Range Method Time Signature Androstenedione 1.020 [facility] Reference range: 0.260 to 2.140 LABORATORIES Unit: ng/mL Androstenedione (NOTE) [facility] INTERPRETIVE INFORMATION: Androstenedione, Females 18 year s and ?? LABORATORIES older Post-menopausal: 0.13-0.82 ng/mL REFERENCE INTERVAL: Androstenedione by TMS Access complete set of age- and/or gender-specific reference ?? intervals for this test in the [facility] Sanitary Chemist y ?? ([employer]). Test developed and characteristics determined by [employer] ?? Laboratories. See Compliance Statement B: [employer]/[address] [address] www.[employer], Yong Truong MD, Lab. Director Specimen Anatomical Collection Method Collection Time Receive d Time (Source) Location / / Volume Laterality 06/11/2017 4:29 PM 7 4:31 CDT PM CDT Narrative [facility] - 06/15/2017 2:06 PM C DT Performed by [employer] [facility], [address] [place], [place] [address] Lesley Mayorga MD LAB_1 Performing Organization Address City/[facility] Phon e Number [facility] [phone] documented in this encounter Visit Diagnoses Not on filedocumented in this encounter Care Teams Balance Staff Inspector Relationship Specialty Start Date End Date Fina Leon, PREFORMER IMPREGNATED FABRICS, COAL GRADER PCP - General Family Practice 03/22/12 08/15/20 [address] [place] [address] documented as of this encounter
--- OUTSIDE RECORDS SUMMARY | 2022-07-21 09:08 | XMS_ITS | Encounter Summary ---
:1990 Author Organization [facility] Address [address] [place] [address] Care Team Providers Name Role Phone Fina Leon APRN, CNP Primary Care Provider [phone] Reason for Visit Reason Comments Period, Missed no period since beginning of Apr Encounter Details Date Type Department Care Team Description 06/17/2018 Office Visit [facility] Kendall Avalos, Pre gnancy examination Elkin YAIR GERMAIN or test, negative [address] [facility] [address] result (Primary Dx) [place], [place] [address] [place], [place] [phone] [address] Social History Tobacco Use Types Packs/Day Years [...] Sign Reading Time Taken Comments Blood Pressure 121/60 06/17/2018 3:00 PM BOW MAKER MACHINE TENDER Pulse 78 06/17/2018 3:00 PM BOW MAKER MACHINE TENDER Temperature - - Respiratory Rate 16 06/17/2018 3:00 PM BOW MAKER MACHINE TENDER Oxygen Saturation - - Inhaled Oxygen Concentration - - Weight 53.5 kg (118 lb) 06/17/2018 3:00 PM BOW MAKER MACHINE TENDER Height - - Body Mass Index 21.07 02/08/2017 1:17 PM CDT documented in this encounter Progress Notes Kendall Argueta APRN, CNP - 06/17/2018 2:10 PM CST Historical: Chief Complaint Patient presents with ??? Period, Missed no period since beginning of Apr Other Symptoms Description: no period since beginning of Apr. Wants serum test How long have you had the symptoms? N/A See above How frequent are your symptoms: N/A What seems to trigger or make symptoms worse? N/A What seems to make symptoms better? N/A I have personally reviewed the patient's allergies, medications and past medical history in detail and updated the patient record as necessary. Observed: BP 121/60 Pulse 78 Resp 16 Wt 118 lb (53.5 kg) BMI 21.07 kg/m2 Physical Exam: General Appearance: alert, well appearing and in no apparent distress Assessment/Plan: examination or test, negative result - HCG, Qualitative, Serum ; Future - HCG, Qualitative, Serum Patient will follow up with primary. Please see orders and patient instructions Kendall Argueta APRN, CNP MAKER MACHINE TENDER documented in this encounter Nursing Notes Criselda Devine LPN - 06/17/2018 2:10 PM CST Criselda Devine LPN MAKER MACHINE TENDER documented in this encounter Plan of Treatment Not on filedocumented as of this encounter Procedures Procedure Name Priority Date/Time Associated Diagnosis Comme nts HCG,QUALITATIVE, Routine 06/17/2018 2:19 PM Resul ts for this SERUM BOW MAKER MACHINE TENDER examination or test, proc edure are in negative result the results section. documented in this encounter Results HCG, Qualitative, Serum (06/17/2018 2:19 PM BOW MAKER MACHINE TENDER) Component Value Ref Test Analysis Performed At [facility] Range Method Time Signature HCG, Serum Negative [facility] Qual Negative = <10 mIU/ml LABORATO GINGER If is suspected, suggest repeat in 48-72 hours or confirm results with a quantitative hCG test. Specimen Anatomical Collection Method Collection Time Receive d Time (Source) Location / / Volume Laterality 06/17/2018 2:19 PM 8 2:20 BOW MAKER MACHINE TENDER PM BOW MAKER MACHINE TENDER Narrative [facility] - 06/17/2018 2:[address] Performed at [facility], [address] [place] [address] Kendall Argueta APRN, CNP LAB_1 Performing Organization Address City/State/ZIP Code Phon e Number [facility] [phone] documented in this encounter Visit Diagnoses Diagnosis examination or test, negative result - Primary documented in this encounter Care Teams Dog Food Dough Mixer Relationship Specialty Start Date End Date Fina Leon APRN, YAIR PCP - General Family Practice 03/22/12 08/15/20 [address] [place] [address] documented as of this encounter
--- OUTSIDE RECORDS SUMMARY | 2022-07-21 09:08 | XMS_ITS | Encounter Summary ---
:1990 Author Organization [facility] Address [address] [place] [address] Care Team Providers Name Role Phone Leon Fina Mcgee APRN, YAIR Primary Care Provider [phone] Reason for Visit Reason Comments Dental Hygiene no cc's but occas wisdom gary th bother her Encounter Details Date Type Department Care Team Description 07/25/2018 Office Visit [facility] Rebeca Thompson, Fabrice nta Hygiene (no Dentistry [facility] cc's but occas wisdom [id number] [address] [address] [facility] teeth bother her) [place] [address] [id number] Social History Tobacco Use Types Packs/Day Years [...] Sign Reading Time Taken Comments Blood Pressure 109/70 07/25/2018 9:14 AM ASSISTANT PROFESSOR Pulse 68 07/25/2018 9:14 AM ASSISTANT PROFESSOR Temperature - - Respiratory Rate - - Oxygen Saturation - - Inhaled Oxygen Concentration - - Weight - - Height - - Body Mass Index - - documented in this encounter Patient Instructions Patient InstructionsRebeca Thompson [facility] - 07/25/2018 9:10 AM CST Your next recall is due: 01/21/2019 PERSONAL DENTAL RISK REPORT FOR LARA SINGH Caries (Tooth Decay) Risk Periodontal (Gum Disease) Risk Oral Cancer Risk Your Risk Level Low High Moderate Low X This exam Your Risk Level Low High Moderate Low X This exam Your Risk Level Low Elevated Low X This exam Your Risk Factors How To Reduce Your Risk Your Risk Factors T*096,,,1: How To Reduce Your Risk Your Risk Factors How To Reduce Your [...] next visit! Thank you for choosing [facility]. STANT PROFESSOR documented in this encounter Progress Notes Sophy Moreno DDS - 07/25/2018 9:10 AM CST RECALL EXAM NOTE Lara was seen today for Dental Hygiene (no cc's but occas wisdom teeth bother her) CHART REVIEW Reviewed (health history, dental history, periodontal charting and radiographs) with the patient. SOFT TISSUE, HEAD AND NECK EXAM Lips: normal Tongue: normal Palate: normal Throat: normal Floor of the mouth: normal Mucosa: normal Head and neck: normal TMD EVALUATION Palpation pain: none Joint sounds: none Pain with range of motion: none OCCLUSAL EXAMINATION Unchanged COSMETIC CONCERNS Patient's perception was acceptable. Dentist???s perception was acceptable. TREATMENT REVIEW AND FOLLOW-UP Discussed the dental findings, prognosis and treatment options with the patient and they expressed understanding. All questions were answered and informed consent was obtained. Recommended Recall Examination recommended in 6 months. Recall prophy recommended in 6 months. Planned Recall Examination planned in 6 months Recall prophy planned in 6 months Next planned visit is OS consult for wisdom teeth ext.. Completed dental procedures in this visit ??? PROPHYLAXIS-ADULT RECALL ??? PERIODIC ORAL EVALUATION Sophy Moreno DDS 07/25/2018, 9:36 AM --End of Note-- STANT PROFESSOR Rebeca Thompson RD - 07/25/2018 9:10 AM CST HYGIENE PROPHY NOTE COLLABORATIVE AGREEMENT Patient consents to have charting and prophylaxis by the dental hygienist performed with the understanding that this care is not a substitute for an examination by a dentist. PRESENTATION Oral Hygiene: normal Plaque: localized; light; interproximal Calculus:localized; light; mandibular anterior Stain: none Bleeding: generalized; light Gingival tissue: normal Mucogingival concerns: absent ACTIVITIES Treatment included hand scale, essential selective polishing and flossed all contacts. PATIENT EDUCATION Discussion topics included caries risk assessment, fluoride rinse, oral cancer risk and periodontal risk. Next planned recall visit is: recall prophy with exam Completed dental procedures in this visit ??? PROPHYLAXIS-ADULT RECALL ??? PERIODIC ORAL EVALUATION Rebeca Thompson 07/25/2018, 9:52 AM --End of Note-- STANT PROFESSOR documented in this encounter Plan of Treatment Not on filedocumented as of this encounter Procedures Procedure Name Priority Date/Time Associated Diagnosis Comme nts PERIODIC ORAL Routine 07/25/2018 9:10 AM ASSISTANT PROFESSOR Routine adult hea lth EVALUATION maintenance Generalized marginal gingivitis PROPHYLAXIS-ADULT Routine 07/25/2018 9:10 AM ASSISTANT PROFESSOR Routine adult health RECALL maintenance Generalized marginal gingivitis documented in this encounter Visit Diagnoses Diagnosis Routine adult health maintenance - Prima ry Routine general medical examination at a health care facility Generalized marginal gingivitis documented in this encounter Care Teams Prop Setter Relationship Specialty Start Date End Date Fina Leon, GEAR TESTER, OXYGEN FURNACE OPERATOR PCP - General Family Practice 03/22/12 08/15/20 [address] [place] [address] documented as of this encounter
--- OUTSIDE RECORDS SUMMARY | 2022-07-21 09:08 | XMS_ITS | Encounter Summary ---
:1990 Author Organization [email or web address] Address [address] [place] [address] Care Team Providers Name Role Phone Fina Leon APRN, YAIR Primary Care Provider [phone] Reason for Visit Reason Comments Oral Surgical Services p.o. questions Encounter Details Date Type Department Care Team Description 10/07/2018 Office Visit [facility] Harsh [facility] [address] D, DDS (p.o. questions) [place] [address] [phone] [place], [place] [id number] Social History Tobacco Use Types Packs/Day Years [...] Sign Reading Time Taken Comments Blood Pressure 116/66 10/07/2018 10:41 AM BENEFITS SALES CONSULTANT Pulse 67 10/07/2018 10:41 AM BENEFITS SALES CONSULTANT Temperature - - Respiratory Rate - - Oxygen Saturation 100% 10/07/2018 10:41 AM BENEFITS SALES CONSULTANT Inhaled Oxygen Concentration - - Weight 54.4 kg (120 lb) 10/07/2018 9:37 AM BENEFITS SALES CONSULTANT Height 157.5 cm (5' 2) 10/07/2018 9:37 AM BENEFITS SALES CONSULTANT Body Mass Index 21.95 10/07/2018 9:37 AM BENEFITS SALES CONSULTANT documented in this encounter Patient Instructions Patient InstructionsDerikVania, SUKHDEEP - 10/07/2018 9:40 AM CST Information and Instructions Following Oral Surgery or Extractions ?? Gauze packing: Bite down gently but firmly on the gauze packs that have been placed over the surgical areas, making sure they remain in place. The packs may be gently removed after 30 minutes. If active bleeding persists, place enough new gauze to obtain pressure over the surgical site for another 30 minutes. If bleeding persists call the clinic. ?? Pain: Relieve your pain by taking the prescribed or recommended pain medication. Ifyou take the first pill before the anesthetic has worn off, you should be able to manage any discomfort better. Some patients find that stronger pain medications cause nausea. If you take your medications with food, chances of nausea will be reduced. The effects of pain medications vary among individuals. Some prescribed medications may slow your reaction time. Avoid driving a vehicle or operating machinery after taking this type of medication. If severe pain develops within 4-5 days following extraction, please call the dental clinic. ?? Oozing: Bleeding will occur after surgery, and it is not uncommon to ooze blood for 24-48 hours after surgery. Keep in mind that oral bleeding represents a little blood and a lot of saliva. It will not hurt you to swallow it, as it is mostly saliva. ?? Persistent bleeding: Bleeding should never be severe. If so, it usually means that the packs are being clenched between teeth only and are not applying pressure on the surgical areas. Try repositioning the packs on the surgical sites. If bleeding persists or begins again sit upright or in a recliner, avoid physical activity, use ice packs and bite on gauze for 30 minutes or on a moistened tea bag for 30 minutes. The tannic acid in the tea leaves helps to promote blood clotting. If bleeding continues, please call our office. ?? Swelling: Swelling is a normal occurrence after surgery and will not reach its maximum until 2-3 days after surgery. It can be minimized by using a cold pack, ice bag or a bag of frozen peas wrappedin a towel and applied firmly to the cheek adjacent to the surgical area. This should be applied 20 minutes on and 20 minutes off during the first 24-48 hours after surgery (except while sleeping). If you have been prescribed medicine for the control of swelling, be sure to take it as directed. Keep your head slightly elevated to help minimize swelling. Apply moist heat after 24-48 hours. ?? Discoloration or bruising: The development of black, blue, green or yellow discoloration is due to bruising beneath the tissues. This is a normal post- operative occurrence that might appear 2-3 daysafter surgery. Beginning 36 hours after the surgery, moist heat applied to the area may speed up resolution of the discoloration. ?? Diet: Eat any nourishing food that can be taken with comfort. Avoid extremely hot foods. Do not use a straw for the first few days after surgery. It is sometimes advisable, but not absolutely required, to confine the first days intake to liquids or pureed foods (soups, puddings, yogurt, milk shakes, etc.) Avoid chewing food until tongue sensation has returned. It is best to avoid foods like rice, nuts, sunflower seeds, popcorn, etc., which may get lodged in the surgical areas. Over the next several days you may gradually progress to solid foods. It is important not to skip meals! If you eat regularly you will feel better, gain strength, have less discomfort and heal faster. If you are a diabetic, maintain your normal eating habits or follow instructions given by your doctor. ?? Mouth Care: Keeping your mouth clean after surgery is essential. Start rinsing after 24 hours. Use 1/4 teaspoon of salt dissolved in an 8 ounce glass of warm water and gently rinse with portions of the solution, taking five minutes to use the entire glassful. Repeat as often as you like, but at least two or three times daily. If prescribed a mouth rinse, use it instead of the salt water. Start brushing your teeth the next day after surgery, avoiding the extraction site. ?? Stitches: Your dentist may have stitched the area to close your wound. Unless you are told otherwise, the stitches will dissolve in 4 to 10 days (or fall out). ?? Healing: Normal healing after tooth extraction should be as follows: The first two days after surgery are generally the most uncomfortable and there is usually some swelling. On the third day you should be more comfortable and, although still swollen, can usually begin a more substantial diet. The remainder of the post-operative course should be gradual, steady improvement. You may experience sometightening of your jaw muscle. This is normal and the muscle will gradually relax on its own. If youdo not see continued improvement, please call our office. ?? Activites: Activities after surgery should be couch or bed rest for the first day. Bending, lifting, or strenuous activity will result in increased bleeding, swelling and pain. You should be carefulgoing from the lying down position to standing. You could get light headed when you stand up suddenly. If you exercise regularly, be aware that your normal fluid and caloric intake is reduced. Exerciseduring the healing period may also result in increased bleeding, swelling and discomfort. Exercise should be avoided for 3-4 days following surgery. Advance as tolerated. Call our clinic if: ?? You experience continued bleeding ?? You are in severe pain that is not relived by pain medication ?? You notice swelling beyond the area of extractions ?? You have other questions or concerns [facility] [phone] [facility] [phone] [facility] [phone] In case of an emergency call your dental clinic if you have questions or concerns. After hours care is available from a [facility] dentist by calling the [facility] at [phone], evenings and weekends. 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 CONSENT: retort condenser attendant is the specialty of dentistry which includes the diagnosis, surgical and adjunctive treatment of diseases, injuries and defects involving both the functional andaesthetic aspects of the hard and soft tissues of the oral and maxillofacial region. The patient was advised of the risks and potential complications of Oral Surgical services. ?? Postoperative discomfort, swelling or bruising, and jaw stiffness that may necessitate several days of home recuperation. ?? Nerve injury resulting in a temporary or permanent numbness of tingling of the lip, tongue, chin,gums, cheek or teeth ?? Infection requiring medication or additional treatment ?? Opening into the sinus cavity requiring medication or additional surgical treatment. ?? Injury to adjacent teeth and restorations resulting in treatment (fillings, crowns, perio surg, rct and/or tooth loss). ?? Breaking the jaw ?? Restricted mouth opening and/or facial or joint pain lasting for several days or weeks, potentially requiring additional treatment. ?? Dry socket, which may require treatment. ?? Leaving a small piece of root in jaw when its removal would require extensive surgery or unnecessary risks. ?? Small fragments of bone may appear, sometimes months after surgery, which may require removal. ?? Extraction may result movement of remaining teeth or space loss. ?? Need for subsequent procedures and any unforeseen complications. All questions were answered and the patient gave informed consent to proceed with oral surgery. PROCEDURES PERFORMED AT THIS VISIT: ANESTHESIA: Topical with 20% benzocaine. 4.5 carpule(s) 2% lidocaine with 1:100K epinephrine. 1 carpule(s) 0.5% bupivacaine with 1:200K epinephrine. 1 carpule(s) 4% septocaine with 1:100K epinephrine. ORAL SURGICAL SERVICES: Preoperative bood pressure was taken and recorded. The bite block and throat pack were used throughout the procedure. Site of surgery was verified with the patient. Extracted #1, #16, #17, #32 - Teeth #1 and #16: A distobuccal releasing incision was created over the tuberosity and a full thickness flap was elevated. Buccal bone was removed. The teeth were identified, elevated and delivered. No OAC was noted. The sockets were irrigated and suctioned free of debris. 3-0 chromic gut suture wasused to close the sites. - Teeth #17 and #32: A distobuccal hockey stick releasing incision was created and a full thickness flap was elevated. Bone overlying the tooth was removed. Buccal bone was removed. A distobuccal trough was created and the distal crowns were sectioned and removed using a high-speed handpiece with copious irrigation. The roots were elevated and removed. The alveolus was smoothed with a file. The sockets were irrigated and suctioned free of debris. The sites were closed using 3-0 chromic gut suture. The procedure was tolerated. There were no complications. Postoperative blood pressure was taken and recorded. Care was assisted by SUKHDEEP Seaman DISCHARGE INSTRUCTIONS: Reviewed both written and verbally with the patient. FOLLOW-UP, no follow-up. The patient will call with any questions or concerns. DISCHARGE MEDS: Ibuprofen 600 mg PO q 6 hours. Qty: #30. Refill: None. Vicodin (5/325) 1 tab PO 6 hours prn breakthrough pain. Qty: #10. Refill: None. Peridex rinse (0.12%) ?? oz., 30 sec, spit, 2x/day. Qty: #16oz. Refill: None. Amoxicillin (500 mg) 1 tab TID for 7 days. Qty: #21. Refill: None. This note was dictated with the aid of [employer] voice recognition software and may contain word substitution or spelling errors. Harsh Flores DDS 10/07/2018, 12:22 PM Completed dental procedures in this visit ??? 1 EXTRACTION-PARTIAL IMPACTED, BONY ??? 16 EXTRACTION-PARTIAL IMPACTED, BONY ??? 17 EXTRACTION-PARTIAL IMPACTED, BONY ??? 32 EXTRACTION-PARTIAL IMPACTED, BONY ??? ANALGESIA (NITROUS) FITS SALES CONSULTANT documented in this encounter Plan of Treatment Not on filedocumented as of this encounter Procedures Procedure Name Priority Date/Time Associated Diagnosis Comme nts ANALGESIA (NITROUS) Routine 10/07/2018 9:40 AM BENEFITS SALES CONSULTANT Impac luis tooth Inadequate length of dental arch 32 EXTRACTION-PARTIAL Routine 10/07/2018 9:40 AM BENEFITS SALES CONSULTANT Imp acted tooth IMPACTED, BONY Inadequate length of dental arch 17 EXTRACTION-PARTIAL Routine 10/07/2018 9:40 AM BENEFITS SALES CONSULTANT Imp acted tooth IMPACTED, BONY Inadequate length of dental arch 16 EXTRACTION-PARTIAL Routine 10/07/2018 9:40 AM BENEFITS SALES CONSULTANT Imp acted tooth IMPACTED, BONY Inadequate length of dental arch 1 EXTRACTION-PARTIAL Routine 10/07/2018 9:40 AM BENEFITS SALES CONSULTANT Impa cted tooth IMPACTED, BONY Inadequate length of dental arch documented in this encounter Visit Diagnoses Diagnosis Impacted tooth - Primary Disturbances in tooth eruption Inadequate length of dental arch documented in this encounter Care Teams Steward/Stewardess Banquet Relationship Specialty Start Date End Date Fina Leon APRN, AUTOMOTIVE SERVICE MANAGEMENT TEACHER PCP - General Family Practice 03/22/12 08/15/20 [address] [place] [address] documented as of this encounter
--- OUTSIDE RECORDS SUMMARY | 2022-07-21 09:09 | XMS_ITS | Encounter Summary ---
:1990 Author [facility] Address [address] [place] [address] Care Team Providers Name Role Phone Denise Deal APRN, CNM Primary Care Provider Unavailable Encounter Details Date Type Department Care Team Description 10/25/2010 Office Visit [facility] Jerardo Thomas P T Femoral nerve palsy Physical Therapy [address] [place] [address] (Primary Dx) [address] [place] [address] [phone] Social History Tobacco Use Types Packs/Day Years [...] documented as of this encounter Progress Notes Jerardo Thomas, PT - 10/25/2010 2:08 PM CDT OUTPATIENT PHYSICAL THERAPY: INITIAL EVALUATION Lara Dominguez [id number] 1990 Payor: FELICIANO JETER [place] [id number] Plan: FELICIANO NGUYEN Product Type: O Referring Provider: Maren Rubio Diagnosis: L/E - Left Knee: Left Femoral nerve palsy,355.2 Date of Injury/Surgery: 10/10/2010 Certification Period: N/A Next Oswestry Due: N/A SUBJECTIVE Complaint: Weakness and soreness at Left knee and thigh Mechanism of Injury: pt. has Femoral nerve palsy from pushing during child .she delivered on 10/10/2010 Pain Quality: not painful Pain: 0/10 Aggravating factors: walking Relieving factors: rest Prior Level of Function: Normal/Independent with all activities . 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 Prior Treatment for same diagnosis: given a knee immobilizer in the hospital Significant Medical History: Patient Active Problem List Diagnoses Code ??? Supervision of High-Risk V23.9K ??? History of Delivery, Currently V23.41F ??? delivery 644.20U ??? Pap smear abnormality 796.9U Diagnostic tests: None pertaining to current problem Patient Goals: Increased function, Increased mobility and increased strength OBJECTIVE Lara Dominguez is a 20 yr female. Estimated Body mass index is 25.38 kg/(m^2) as calculated from the following: Height as of 02/22/10: 5' 2.5(1.588 m). Weight as of 10/20/10: 141 lb(63.957 kg). Treatment Precautions: None indicated by MD Posture/Observations: decreased wt. bearing on LLE in standing.bilaterally pronated feet.Left knee hyperextended Transfers/Transitional Movements/Functional Mobility: Independent Stair negotiation: Step - to pattern and with hinge knee brace on Gait: Demonstrates deviations -ambulating with locked knee brace ROM: Passive ROM L/E: WNL.No active Left knee extension Strength: L/E: Hip flexion: bilateral 5/5 extension: right 5/5 left 5/5 abduction: right 5/5 left 3/5 adduction: left 4/5 Knee Flexion: bilateral 5/5 Extension: right 5/5 left 0/5 Foot/Ankle WNL bilateral and in non wt. bearing position at LLE Neurological Signs: Deep tendon reflexes [id number] absent left Sensation: Light Touch: diminished at Left distal anterior thigh and around patella Palpation: Non-tender decreased tone at Left Quads Treatment Today: Initial evaluation completed Neuromuscular re-education (10 minutes): work done on activation of Left Quads x 20 with verbal and tactile cues(tapping,pressure etc.).weak active isometric contraction was palpable Modalities: Electrical Stimulation: NMES for 10 minutes to Left Quads Patient tolerance to treatment: Good ASSESSMENT Patient with diagnosis of Left Femoral nerve palsy. Patient demonstrates impairments in gait, functional mobility and strength. Short-term goals (within 6 sessions): 1. Patient will demonstrate improved strength at Left Quads to 2/5. Long-term goals (within 12 sessions): 1. Patient will demonstrate improved strength at Left Quads to 3+/5 in order to ambulate without a brace. 2. Patient will be independent with home exercise program. Rehab Potential: good PLAN Treatment: Therapeutic exercise: Home Exercise Program Strengthening Neuromuscular re-education Modalities: Electrical Stimulation Frequency: 2 time(s) per week Duration: 12 visits Total treatment time: 60 minutes, 1 unit(s) PT evaluation and 1 unit(s) neuromuscular re-education. Equipment Issued: None Eddi Thomas, PT 10/25/2010 documented in this encounter Plan of Treatment Scheduled Referrals Name Type Priority Associated Diagnoses Order [facility] PHYSICAL THERAPY Referral Routine Femoral nerve palsy Orde red: 10/20/2010 documented as of this encounter Visit Diagnoses Diagnosis Femoral nerve palsy - Primary Other lesion of femoral nerve documented in this encounter Care Teams Lumber Estimator Relationship Specialty Start Date End Date Denise Deal APRN, CHEYANNE PCP - General 07/28/1003/21 documented as of this encounter
--- OUTSIDE RECORDS SUMMARY | 2022-07-21 09:09 | XMS_ITS | Encounter Summary ---
:1990 Author Organization [facility] Address [address] [place] [address] Care Team Providers Name Role Phone Denise Deal APRN, CNM Primary Care Provider Unavailable Encounter Details Date Type Department Care Team Description 02/26/2012 Orders Only [facility] Ab[facility] ([facility] [address] [facility] [place], [place] [address] Social History Tobacco Use [...] Name Priority Date/Time Associated Diagnosis Comme nts COMPLETE BLOOD Routine 02/26/2012 11:05 AM Abdominal pain Resu lts for this COUNT-NO DIFF CDT procedure are in the results section. TSH, SENSITIVE Routine 02/26/2012 11:05 AM Abdominal pain Resu lts for this (WITH REFLEX) CDT procedure are in the results section. documented in this encounter Results TSH, SENSITIVE (WITH REFLEX)[0191] - Clinics ONLY (02/26/2012 11:05 AM CDT) P athologist Signature TSH, with 2.953 0.300 - [facility] Reflex 5.00 uIU/ml Specimen Anatomical Collection Method Collection Time Receive d Time (Source) Location / / Volume Laterality 02/26/2012 11:05 02/26/2012 AM CDT 11:07 AM CDT Tram Gupta MD LAB_1 Performing Organization Address [facility] Phon e Number [facility] [phone] [facility] [address] [place] [address] HEMOGRAM/PLTS (02/26/2012 11:05 AM CDT) athologist Signature WBC 9.7 4.0 - 11.0 [facility] k/ul RBC 4.64 4.0 - 5.2 [facility] M/ul Hemoglobin 13.8 12.0 - 16.0 [facility] g/dl HCT 40.8 36.0 - 46.0 [facility] % MCV 87.9 80 - 100 fl [facility] MCH 29.7 26 - 34 pg [facility] MCHC 33.8 32 - 36 [facility] g/dl RDW 13.0 11.5 - 14.5 [facility] % Platelets 357 150 - 450 [facility] k/ul Specimen Anatomical Collection Method Collection Time Receive d Time (Source) Location / / Volume Laterality 02/26/2012 11:05 02/26/2012 AM CDT 11:07 AM CDT Tram Gupta MD LAB_1 Performing Organization Address [facility] Phon e Number [facility] [employer] [phone] [address] documented in this encounter Visit Diagnoses Diagnosis Abdominal pain - Primary Abdominal pain, unspecified site documented in this encounter Care Teams Field Service Representative Relationship Specialty Start Date End Date Denise Deal APRN, CHEYANNE PCP - General 07/28/1003/21 documented as of this encounter
--- OUTSIDE RECORDS SUMMARY | 2022-07-21 09:09 | XMS_ITS | Encounter Summary ---
:1990 Author Organization [facility] Address [address], [place] [address] Care Team Providers Name Role Phone Fina Leon APRN, CNP Primary Care Provider [phone] Encounter Details Date Type Department Care Team Description 02/09/2017 Lab Visit [facility] [address] [place], [place] [address] Social History Tobacco Use [...] on filedocumented in this encounter Care Teams Gardener Relationship Specialty Start Date End Date Fina Leon APRN, CNP PCP - General Family Practice 03/22/12 08/15/20 [address] [place] [address] documented as of this encounter
--- OUTSIDE RECORDS SUMMARY | 2022-07-21 09:09 | XMS_ITS | Encounter Summary ---
:1990 Author Organization [facility] Address [address], [place] [address] Care Team Providers Name Role Phone Denise Deal APRN, CNM Primary Care Provider Unavailable Encounter Details Date Type Department Care Team Description 10/27/2010 Orders Only [facility] and Ankur Werner MD [address] [facility]. [place], [place] [id number] Social History Tobacco Use Types Packs/Day Years [...] documented as of this encounter Progress Notes Luzma Wilson RN - 10/27/2010 4:12 PM CDT Information to pt per providers note and instruction below. Pt agrees with this plan. Luzma Sagastume RN Notes Recorded by Sherry Oliva on 10/27/2010 at 4:05 PM jermaine spivey: Treat pt for BV with Flagyl 500mg BID x 7days. Sherry Oliva RN documented in this encounter Plan of Treatment Not on filedocumented as of this encounter Visit Diagnoses Not on filedocumented in this encounter Care Teams Automotive Artist Relationship Specialty Start Date End Date Denise Deal APRN, CHEYANNE PCP - General 07/28/1003/21 documented as of this encounter
--- OUTSIDE RECORDS SUMMARY | 2022-07-21 09:09 | XMS_ITS | Encounter Summary ---
:1990 Author Organization [facility] Address [address] [address] Care Team Providers Name Role Phone Denise Deal APRN, CNM Primary Care Provider Unavailable Reason for Referral Specialty Diagnoses / Procedures Referred By Contact Refer red To Contact Maren Rubio MD [address] [place] [address] Referral ID Status Reason Start Date Expiration Date Visits Requ ested Visits Authorized Scheduling Instructions If an appointment with a Physical Therap ist was advised, please stop at the clinic check out desk for assistance with sched uling or please choose one of the convenient locations to call and schedule your PT a ppointment: [facility] Outpatient PT at [facility] [phone], [facility] [phone], [facility] Outpatient PT in [facility] [phone]. NT SERVICES ADMINISTRATOR Reason for Visit Reason Comments POST- Encounter Details Date Type Department Care Team Description 10/20/2010 Routine [facility] and Maren Rubio MD POST- Gynecology [address] [facility] [address] [facility] [place] [address] [place], [place] [id number] [phone] Social History Tobacco Use Types Packs/Day Years [...] Sign Reading Time Taken Comments Blood Pressure 112/60 10/20/2010 2:07 PM CLIENT SERVICES ADMINISTRATOR Pulse - - Temperature - - Respiratory Rate - - Oxygen Saturation - - Inhaled Oxygen Concentration - - Weight 64 kg (141 lb) 10/20/2010 2:07 PM CLIENT SERVICES ADMINISTRATOR Height - - Body Mass Index 25.38 02/22/2010 2:38 PM CDT documented in this encounter Progress Notes Maren Rubio - 10/20/2010 5:23 PM CST CC: Postop check S: Lara Dominguez is a 20 yr old female s/p C-ection on 10/10/10 for arrest of descent. She also had left femoral nerve palsy and was seen by PT inpatient. She states she still has weakness in her left leg and was told to follow up for PT but did not have an order for that. She ran out of percocet today and states she still has incisional pain. The pain is worse with laying, coughing, or laughing. She has normal lochia. She is bottle feeding. Otherwise doing well. O: BP 112/60 Wt 141 lb (63.957 kg) LMP 01/07/2010 ? No Gen: well developed well nourished female in no acute distress Abd: soft, fundus firm 14wk size, nontender Incision: steristrips removed, no erythema or exudate, mildly tender Ext: nontender calves, left leg in spint A: Postop check Left femoral nerve palsy P; 1. Doing well postop. 2. Refill given on percocet #10 and reviewed need to mainly use ibuprofen. 3. Referral given for PT to be seen urgently. Maren Rubio MD NT SERVICES ADMINISTRATOR Carin Dawn - 10/20/2010 2:11 PM CST Lara Dominguez [phone] presents for visit. Delivery information for this has been reviewed and updated. Obstetric History T1 TAB0 SAB0 E0 M0 L1 Name of Baby 1: pipe Outcome Date: 03/05/08 GA: 23w 0d Outcome / Delivery Type: at 1 min.: Not recorded at 5 min.: Not recorded Is living? No Comments: cone biopsy during Name of Baby 2: Not recorded Outcome Date: 10/10/10 GA: 39w 2d Outcome / Delivery Type: Low Transverse at 1 min.: 9 at 5 min.: 9 Is living? Yes Comments: op failure to descend . Patient did not have a history of gestational diabetes during this . Patient has not experienced problems with mood swings. . She is not and there has not been complications involving a breast infection or need to consult with the center. Infant is home and thriving. Immunizations have been reviewed and have been updated as indicated. The patient's preferred control is none. She has not resumed intercourse since delivery. Carin Dawn MA NT SERVICES ADMINISTRATOR documented in this encounter Plan of Treatment Scheduled Referrals Name Type Priority [facility]oses [facility] Referral Routine Femoral nerve palsy Orde red: 10/20/2010 documented as of this encounter Visit Diagnoses Diagnosis Postop check - Primary Follow-up examination, following unspeci fied surgery Femoral nerve palsy Other lesion of femoral nerve documented in this encounter Care Teams Rv Body Mechanic Relationship Specialty Start Date End Date Denise Deal APRN, CHEYANNE PCP - General 07/28/1003/21 documented as of this encounter
--- OUTSIDE RECORDS SUMMARY | 2022-07-21 09:09 | XMS_ITS | Encounter Summary ---
:1990 Author Organization [facility] Address [address] [place] [address] Care Team Providers Name Role Phone Denise Deal APRN, CNM Primary Care Provider Unavailable Encounter Details Date Type Department Care Team Description 11/24/2010 Office Visit [facility] Jerardo Thomas P T Femoral nerve palsy Physical Therapy [address] [place] [address] (Primary Dx) [address] [place] [address] [phone] Social History Tobacco Use Types Packs/Day Years [...] encounter Progress Notes Jerardo Thomas, PT - 11/24/2010 2:37 PM CDT OUTPATIENT PHYSICAL THERAPY: DAILY NOTE Lara Emily Angelica [phone] Payor: FELICIANO JETER [place] [id number] Plan: FELICIANO NGUYEN Product Type: HMO Referring Provider: Maren Rubio Diagnosis: L/E - Left Knee: Left Femoral nerve palsy,355.2 Date of Injury/Surgery: 10/10/2010 VISIT NUMBER: 7 out of 12 SILK SCREEN FRAME ASSEMBLER VISIT 3 SUBJECTIVE Patient reports -occasional Left Quads pain.pt.feels stronger and can ambulate without the brace around the house Pain: intensity level 0/10 currently OBJECTIVE Strength Left Quads 3+/5,Left hip abductors 5/5.Left quad extensor lag 0 degrees initially but increases to -5 degrees with fatigue after exercise Patient ambulates with brace locked into extension TREATMENT TODAY: Therapeutic exercise (25 minutes): reviewed and progressed HEP Seated LAQ with 5 second hold x 10 with 3 pound wts. Supine SAQ with x 10 through full range for 5 repts and then with 5 degree lag, with 3 pound wt. Supine active SLR without brace x 12 with 2 pound wt. leg press on Left x 10 with 30 pound resistance step ups x 7 davy 4 step stool with PT cueing correct performance by stabilizing knee manually CURRENT HEP: Supine left quad sets 5 second hold x 10 Supine assisted SLR with brace locked in extension x 10 Hooklying bridges with Abdominal drawing in maneuver 5 second hold x 5 sidelying clamshell 5 second hold x 10 on left sidelying abduction with brace on x 10 Seated adductor sets 5 second hold x 10 standing terminal knee extension with red theraband x 10 without brace SAQS and LAQS using a rice/sand bag ASSESSMENT Patient has demonstrated excellent compliance with treatment recommendations increased strength at Left hip abductors and Quads PLAN decrease frequency to 1 times/week with : Treatment: Therapeutic exercise: Home Exercise Program Strengthening Neuromuscular re-education Modalities: Electrical Stimulation Total treatment time: 27 minutes, and 2 unit(s) therapeutic exercise Equipment Issued: None Eddi Thomas, PT 11/24/2010 documented in this encounter Plan of Treatment Not on filedocumented as of this encounter Visit Diagnoses Diagnosis Femoral nerve palsy - Primary Other lesion of femoral nerve documented in this encounter Care Teams Fagoting Machine Operator Relationship Specialty Start Date End Date Denise Deal APRN, CHEYANNE PCP - General 07/28/1003/21 documented as of this encounter
--- OUTSIDE RECORDS SUMMARY | 2022-07-21 09:09 | XMS_ITS | Encounter Summary ---
:1990 Author Organization [facility] Address [address] [place] [address] Care Team Providers Name Role Phone Denise Deal APRN, CNM Primary Care Provider Unavailable Encounter Details Date Type Department Care Team Description 11/02/2010 Office Visit [facility] Nikki Chatterjee, Virgil casper nerve palsy Physical Therapy MACHINE CLIPPER (Primary Dx) [address] [place] [address] [place], [place] [phone] [address] Social History Tobacco Use Types Packs/Day Years [...] documented as of this encounter Progress Notes Nikki Chatterjee, MACHINE CLIPPER - 11/02/2010 4:00 PM CDT OUTPATIENT PHYSICAL THERAPY: DAILY NOTE Lara Emily Angelica [phone] Payor: FELICIANO JETER [place] [id number] Plan: FELICIANO NGUYEN Product Type: O Referring Provider: Maren Rubio Diagnosis: L/E - Left Knee: Left Femoral nerve palsy,355.2 Date of Injury/Surgery: 10/10/2010 VISIT NUMBER: 2 out of 12 MACHINE CLIPPER VISIT 1 SUBJECTIVE Patient reports no complaints of pain Pain: intensity level 0/10 OBJECTIVE Patient ambulates with brace locked into extension Palpation minimal muscle contraction palpated with electrical stim TREATMENT TODAY: Therapeutic exercise (20 minutes): Progressed HEP Supine left quad sets with NMES x 20 minutes in supine and long sitting position Supine assisted SLR with brace locked in extension x 10 Hooklying bridges with Abdominal drawing in maneuver 5 second hold x 5 sidelying clamshell 5 second hold x 10 on left sidelying abduction with brace on x 10 Seated adductor sets 5 second hold x 10 Modalities: Electrical Stimulation: NMES for 20 minutes to left quad in supine and long sitting position CURRENT HEP: Supine left quad sets 5 second hold x 10 Supine assisted SLR with brace locked in extension x 10 Hooklying bridges with Abdominal drawing in maneuver 5 second hold x 5 sidelying clamshell 5 second hold x 10 on left sidelying abduction with brace on x 10 Seated adductor sets 5 second hold x 10 ASSESSMENT Patient continues with limitations in gait, functional mobility and strength. PLAN Continue 2 times/week with : Treatment: Therapeutic exercise: Home Exercise Program Strengthening Neuromuscular re-education Modalities: Electrical Stimulation Total treatment time: 30 minutes, 1 unit(s) neuromuscular re-education and 1 unit(s) therapeutic exercise Equipment Issued: None Nikki Chatterjee PTA 11/02/2010 documented in this encounter Plan of Treatment Not on filedocumented as of this encounter Visit Diagnoses Diagnosis Femoral nerve palsy - Primary Other lesion of femoral nerve documented in this encounter Care Teams Net Developer Relationship Specialty Start Date End Date Denise Deal APRN, CHEYANNE PCP - General 07/28/1003/21 documented as of this encounter
--- OUTSIDE RECORDS SUMMARY | 2022-07-21 09:09 | XMS_ITS | Encounter Summary ---
:1990 Author Organization [facility] Address [address] [place] [address] Care Team Providers Name Role Phone Denise Deal APRN, CNM Primary Care Provider Unavailable Encounter Details Date Type Department Care Team Description 11/15/2010 Office Visit [facility] Jerardo Thomas P T Femoral nerve palsy Physical Therapy [address] [place] [address] (Primary Dx) [address] [place] [address] [phone] Social History Tobacco Use Types Packs/Day Years [...] encounter Progress Notes Jerardo Thomas, PT - 11/15/2010 5:31 PM CDT OUTPATIENT PHYSICAL THERAPY: DAILY NOTE Lara Emily Angelica [phone] Payor: FELICIANO JETER [place] [id number] Plan: FELICIANO NGUYEN Product Type: HMO Referring Provider: Maren Rubio Diagnosis: L/E - Left Knee: Left Femoral nerve palsy,355.2 Date of Injury/Surgery: 10/10/2010 VISIT NUMBER: 5 out of 12 ASSISTED LIVING HOUSEKEEPER VISIT 3 SUBJECTIVE Patient reports -occasional Left Quads pain.pt.feels stronger and can ambulate without the brace around the house Pain: intensity level 4/10 occasionally OBJECTIVE Strength Left Quads 3-/5,Left hip abductors 5/5 Patient ambulates with brace locked into extension TREATMENT TODAY: Therapeutic exercise (25 minutes): reviewed and progressed HEP Seated LAQ with 5 second hold x 10-pt. fatigues easily Supine SAQ with 5 x 4 through partial range, x 4 with 2 pound wt. Supine active SLR without brace 3 x 4 sidelying resisted clamshell 5 second hold x 10 on left with red theraband hooklying adductor sets 5 second hold x 10 added standing terminal knee extension with red theraband x 10 without brace Therapist assisted (manually guiding motion to avoid knee hyper extension)step up with 4 step stool x 6 CURRENT HEP: Supine left quad sets 5 [...] with red theraband x 10 without brace ASSESSMENT Patient has demonstrated excellent compliance with treatment recommendations increased strength at Left hip abductors and Quads PLAN Continue 2 times/week with : Treatment: Therapeutic exercise: Home Exercise Program Strengthening Neuromuscular re-education Modalities: Electrical Stimulation Total treatment time: 30 minutes, and 2 unit(s) therapeutic exercise Equipment Issued: None Eddi Thomas, PT 11/15/2010 documented in this encounter Plan of Treatment Not on filedocumented as of this encounter Visit Diagnoses Diagnosis Femoral nerve palsy - Primary Other lesion of femoral nerve documented in this encounter Care Teams Cattle Sprayer Relationship Specialty Start Date End Date Denise Deal APRN, CHEYANNE PCP - General 07/28/1003/21 documented as of this encounter
--- OUTSIDE RECORDS SUMMARY | 2022-07-21 09:09 | XMS_ITS | Encounter Summary ---
:1990 Author Organization [facility] Address [address] [place] [address] Care Team Providers Name Role Phone Denise Deal APRN, CNM Primary Care Provider Unavailable Encounter Details Date Type Department Care Team Description 11/29/2010 Office Visit [facility] Nikki Chatterjee, Virgil casper nerve palsy Physical Therapy CLERK OF SUPERIOR [address] (Primary Dx) [address] [place] [address] [place], [place] [phone] Social History Tobacco Use Types Packs/Day Years [...] of this encounter Progress Notes Nikki Chatterjee, CLERK OF SUPERIOR COURT - 11/29/2010 3:38 PM CDT OUTPATIENT PHYSICAL THERAPY: DAILY NOTE Lara Emily Angelica [phone] Payor: FELICIANO JETER MA [id number] Plan: FELICIANO NGUYEN Product Type: O Referring Provider: Maren Rubio Diagnosis: L/E - Left Knee: Left Femoral nerve palsy,355.2 Date of Injury/Surgery: 10/10/2010 VISIT NUMBER: 8 out of [address] VISIT 4 SUBJECTIVE Patient reports muscle soreness but no pain complaints. Patient reports she continues to walk aroundthe house with out the brace at times Pain: intensity level 0/10 currently OBJECTIVE Patient ambulates with brace locked into extension TREATMENT TODAY: Therapeutic exercise (15 minutes): reviewed and progressed HEP Seated LAQ with 5 second hold x 10 with 4 pound wts. Supine SAQ with x 10 through full range with 4 lbs Supine active SLR without brace x 10 with 3 pound wt. leg press bilateral 75 lbs x 10 single leg press with left lower extremity 35 lbs x 10 step ups x10 davy 4 step stool with PT cueing correct performance by stabilizing knee manually Scooting forward and backward on stool 30 feet x 2 each Gait training ( 5 minutes) cuing with gait with out brace - working on heel strike and increase kneeflexion on swing phase Neuromuscular re-education ( 5 minutes) Standing balance on blue foam narrow base of support and tandem stance with head turns and eyes closed CURRENT HEP: Supine left quad sets 5 [...] and LAQS using a rice/sand bag ASSESSMENT Excellent progress with quad strength PLAN decrease frequency to 1 times/week with : Treatment: Therapeutic exercise: Home Exercise Program Strengthening Neuromuscular re-education Modalities: Electrical Stimulation Total treatment time: 27 minutes, 2 unit(s) therapeutic exercise Equipment Issued: Shavonne Chatterjee PTA 11/29/2010 documented in this encounter Plan of Treatment Not on filedocumented as of this encounter Visit Diagnoses Diagnosis Femoral nerve palsy - Primary Other lesion of femoral nerve documented in this encounter Care Teams Winder Hand Relationship Specialty Start Date End Date Denise Deal APRN, CHEYANNE PCP - General 07/28/1003/21 documented as of this encounter
--- OUTSIDE RECORDS SUMMARY | 2022-07-21 09:09 | XMS_ITS | Encounter Summary ---
:1990 Author Organization [facility] Address [address] [place] [address] Care Team Providers Name Role Phone Denise Deal APRN, CNM Primary Care Provider Unavailable Encounter Details Date Type Department Care Team Description 01/03/2011 Therapy [facility] Physical Jerardo Thomas, PT Therapy [address] [place] [address] [place] [address] [place] [address] [phone] Social History Tobacco Use Types Packs/Day Years [...] encounter Progress Notes Jerardo Thomas, PT - 01/03/2011 3:14 PM CDT OUTPATIENT PHYSICAL THERAPY DISCHARGE SUMMARY Lara Dominguez [id number] 1990 Payor: FELICIANO JETER MA [id number] Plan: FELICIANO NGUYEN Product Type: HMO Referring Provider: Maren Rubio Diagnosis: L/E - Left Knee: Left Femoral nerve palsy,355.2 Date of Injury/Surgery: 10/10/2010 Number of visits: 8 Patient was last seen on 11/29/2010. Please see progress note from last attended visit. Summary of Treatment: Therapeutic exercise: Home Exercise Program Strengthening Neuromuscular re-education Modalities: Electrical Stimulation Equipment: Theraband Patient has not scheduled any additional therapy appointments. Current status of goals is not known. Patient is considered discharged from active physical therapy at this time. Eddi Thomas, PT 01/03/2011 documented in this encounter Plan of Treatment Not on filedocumented as of this encounter Visit Diagnoses Not on filedocumented in this encounter Care Teams Electronics Manufacturer Relationship Specialty Start Date End Date Denise Deal APRN, CHEYANNE PCP - General 07/28/1003/21 documented as of this encounter
--- OUTSIDE RECORDS SUMMARY | 2022-07-21 09:09 | XMS_ITS | Encounter Summary ---
:1990 Author Organization [employer] Address [address], [place] [address] Care Team Providers Name Role Phone Denise Deal APRN, CNM Primary Care Provider Unavailable Encounter Details Date Type Department Care Team Description 02/29/2012 Orders Only [facility] [address] [facility] [place], [place] [address] Social History Tobacco Use [...] documented as of this encounter Progress Notes Tram Gupta MD - 03/04/2012 10:52 AM CDT Quick Note: Please mail letter with following message: Your test for the h.pylori bacteria is negative. Please let me know if you have any questions. documented in this encounter Plan of Treatment Not on filedocumented as of this encounter Procedures Procedure Name Priority Date/Time Associated Diagnosis Comme nts H. PYLORI ANTIGEN Routine 02/29/2012 10:04 AM Abdominal pain, Results for this FECES CDT unspecified site procedure a re in the results section. documented in this encounter Results H. PYLORI ANTIGEN FECES (02/29/2012 10:04 AM CDT) Component Value Ref Test Analysis Performed At [facility] Range Method Time Signature H pylori [facility] Antigen H pylori (NOTE) [facility] Antigen HELICOBACTER PYLORI AG, EIA, STOOL ? MICRO NUMBER: ?[id number] TEST STATUS: ? FINAL SPECIMEN SOURCE: ?? STOOL SPECIMEN QUALITY: ??ADEQUATE RESULT: ?Not Detected ?Antimicrobials, proton pump in hibitors, and ?bismuth preparations are known to suppress ?H. pylori, and ingestion of th julienne prior to ?H. pylori diagnostic lala ting may lead to false ?negative results. If cli nically indicated, the ?test may be repeat ed on a new specimen obtained ?two weeks after discontinuing treatment. Test performed at [employer] [address] ??[address] Director: DARIA MYERS MD Specimen Anatomical Collection Method Collection Time Receive d Time (Source) Location / / Volume Laterality Stool specimen 02/29/2012 10:04 2 (specimen) AM CDT 10:06 AM CDT Tram Gupta MD LAB_1 Performing Organization Address City/State/ZIP Code Phon e Number [facility] [phone] [facility] [address] [place] [phone] documented in this encounter Visit Diagnoses Diagnosis Abdominal pain, unspecified site documented in this encounter Care Teams Medical Technicians Relationship Specialty Start Date End Date Denise Deal APRN, CHEYANNE PCP - General 07/28/1003/21 documented as of this encounter
--- OUTSIDE RECORDS SUMMARY | 2022-07-21 09:09 | XMS_ITS | Encounter Summary ---
:1990 Author Organization [employer] Address [address] [place] [address] Care Team Providers Name Role Phone Denise Deal APRN, CNM Primary Care Provider Unavailable Encounter Details Date Type Department Care Team Description 11/09/2010 Office Visit [facility] Nikki Chatterjee, Virgil casper nerve palsy Physical Therapy STEAM CLEANER (Primary Dx) [address] [place] [address] [place], [place] [phone] [address] Social History Tobacco Use Types Packs/Day Years [...] of this encounter Progress Notes Nikki Chatterjee, STEAM CLEANER - 11/09/2010 4:12 PM CDT OUTPATIENT PHYSICAL THERAPY: DAILY NOTE Lara Emily Angelica [phone] Payor: FELICIANO JETER [place] [id number] Plan: FELICIANO NGUYEN Product Type: O Referring Provider: Maren Rubio Diagnosis: L/E - Left Knee: Left Femoral nerve palsy,355.2 Date of Injury/Surgery: 10/10/2010 VISIT NUMBER: 3 out of 12 STEAM CLEANER VISIT 2 SUBJECTIVE Patient reports cramp in left calf sometimes when she wakes up.Patient reports she can now partially straighten her left knee in sitting position Patient reports no complaints of pain Pain: intensity level 0/10 OBJECTIVE Patient ambulates with brace locked into extension Palpation increase muscle contraction palpated with quad set TREATMENT TODAY: Therapeutic exercise (20 minutes): reviewed and progressed HEP Supine left quad sets with NMES x 20 minutes in supine position Supine SAQ with stim and therapist assist x 10 Supine active assistive to active SLR with brace locked in extension x 10 Hooklying bridges with Abdominal drawing in maneuver 5 second hold x 10 sidelying clamshell 5 second hold x 10 on left - progressed to resisted with red theraband sidelying abduction with brace on x 10 - cues for technique hooklying adductor sets 5 second hold x 10 Seated partial range LAQ x 5 Added : Seated hamstring curl with red theraband x 10 Modalities: Electrical Stimulation: NMES for [...] sets 5 second hold x 10 ASSESSMENT improvemed quad strength compared to last visit PLAN Continue 2 times/week with : Treatment: Therapeutic exercise: Home Exercise Program Strengthening Neuromuscular re-education Modalities: Electrical Stimulation Total treatment time: 30 minutes, 1 unit(s) neuromuscular re-education and 1 unit(s) therapeutic exercise Equipment Issued: None Nikki Chatterjee PTA 11/09/2010 documented in this encounter Plan of Treatment Not on filedocumented as of this encounter Visit Diagnoses Diagnosis Femoral nerve palsy - Primary Other lesion of femoral nerve documented in this encounter Care Teams Tab Cutter Relationship Specialty Start Date End Date Denise Deal APRN, CHEYANNE PCP - General 07/28/1003/21 documented as of this encounter
--- OUTSIDE RECORDS SUMMARY | 2022-07-21 09:09 | XMS_ITS | Encounter Summary ---
:1990 Author Organization [facility] Address [address] [place] [address] Care Team Providers Name Role Phone Leon Fina Mcgee APRN, CNP Primary Care Provider [phone] Encounter Details Date Type Department Care Team Description 02/26/2012 Orders Only [facility] Tram Gupta MD Abdominal pain, Practice [id number] [place] [address] [address] [place] [address] (Primary Dx) [place], [place] [id number] Social History Tobacco Use Types Packs/Day Years [...] Not on filedocumented as of this encounter Results H. PYLORI ANTIGEN FECES (02/29/2012 10:04 AM CDT) Component Value Ref Test Analysis Performed At [facility] Method Time Signature H pylori [facility] Antigen H pylori (NOTE) [facility] Antigen HELICOBACTER PYLORI AG, EIA, STOOL ? MICRO NUMBER: ?[id number] TEST STATUS: ? FINAL SPECIMEN SOURCE: ?? [...] weeks after discontinuing treatment. Test performed at [facility] [address] ??[address] Director: DARIA MYERS MD Specimen Anatomical Collection Method Collection Time Receive d Time (Source) Location / / Volume Laterality Stool specimen 02/29/2012 10:04 2 (specimen) AM CDT 10:06 AM CDT Tram Gupta MD LAB_1 Performing Organization Address City/State/ZIP Code Phon e Number [facility] [phone] [place] [address] [address] documented in this encounter Visit Diagnoses Diagnosis Abdominal pain, unspecified site - Prima ry documented in this encounter Care Teams Carbon Accountant Relationship Specialty Start Date End Date Fina Leon, FACTORY ASSEMBLER, FINISH MILL OPERATOR PCP - General Family Practice 03/22/12 08/15/20 [address] [place] [address] documented as of this encounter
--- OUTSIDE RECORDS SUMMARY | 2022-07-21 09:09 | XMS_ITS | Encounter Summary ---
:1990 Author Organization [employer] Address [address] [place] [address] Care Team Providers Name Role Phone Fina Leon APRN, CNP Primary Care Provider [phone] Encounter Details Date Type Department Care Team Description 07/16/2015 Hospital Encounter Security Contact - None Genoveva Richter MD Social History Tobacco Use Types Packs/Day Years [...] on file documented as of this encounter Medications at Time of Discharge Medication Sig Dispensed Refills Start Date End Date levonorgestrel-ethinyl Take 1 Tab by mouth 0 02/08/2017 estradiol (LEVORA daily. 0.15/30, 28,) 0.15-30 MG-MCG tablet omeprazole (AKA Take 1 Cap by mouth 30 Cap 2 04/22/2012 06/01/2017 PRILOSEC) 20 MG daily. Take 1 hour capsuleIndications: before a meal. Abdominal pain traZODone (AKA DESYREL) Take 1 Tab by mouth at 30 Tab 1 04/22/2012 02/08/2017 50 MG bedtime as needed for tabletIndications: Sleep. Insomnia zolpidem (AKA AMBIEN) 5 Take 1-2 Tabs by mouth 30 Tab 0 03/22/2012 02/08/2017 MG tabletIndications: at bedtime as needed Insomnia for Sleep. Use sparingly documented as of this encounter Plan of Treatment Not on filedocumented as of this encounter Procedures Procedure Name Priority Date/Time Associated Comments Diagnosis HEPATITIS B SURFACE Routine 07/16/2015 1:32 PM Re sults for this ANTIBODY STRUCTURAL IRONWORKER procedure are i n the results section. TB GOLD, QUANTIFERON Routine 07/16/2015 1:32 PM R esults for this STRUCTURAL IRONWORKER procedure are i n the results section. V ZOSTER IMMUNE Routine 07/16/2015 1:32 PM Result s for this STATUS, IGG STRUCTURAL IRONWORKER procedure are i n the results section. documented in this encounter Results (ABNORMAL) TB Gold, Quantiferon (07/16/2015 1:32 PM STRUCTURAL IRONWORKER) Component Value Ref Test Analysis Performed At [facility] Range Method Time Signature TB Gold, Indeterminate NEG [facility] Comment: If patient is low risk, consider repeat testing. If patient is high risk or symptomatic for TB, suggest Infectio us Disease consult. TB NIL Value 0.02 IU/mL [facility] TB Ag-NIL Value <0.01 IU/mL [facility] AL Mitogen-NIL Value 0.08 IU/mL [facility] ITAL TB Gold Interpreta. (NOTE) [facility] Nil ? TB-Nil ? Daniel-Nil ?? Quantiferon-TB ? Inter pretation _ _ _ _ _ _ _ _ _ _ _ _ _ _ _ _ _ _ _ _ _ _ _ _ _ _ _ _ _ _ _ _ _ ?? <=8.0 ?? >=0.35 & ?Any ?Positive ? M .tuberculosis ? >=25% Nil ? infection likely _ _ _ _ _ _ _ _ _ _ _ _ _ _ _ _ _ _ _ _ _ _ _ _ _ _ _ _ _ _ _ _ _ <=8.0 ?? <0.35 ?>=0.5 ?Negative ? M. tuberculosis ? infection NOT likely _ _ _ _ _ _ _ _ _ _ _ _ _ _ _ _ _ _ _ _ _ _ _ _ _ _ _ _ _ _ _ _ _ _ <=8.0 ??>=0.35 & ? >=0.5 ?Negative ? M. tuberculosis ?<25% Nil ?infection NOT likely _ _ _ _ _ _ _ _ _ _ _ _ _ _ _ _ _ _ _ _ _ _ _ _ _ _ _ _ _ _ _ _ _ ?? <=8.0 ?? <0.35 ? <0.5 ? Indeterminate ?Res ults are ? indeterminate ? for antigen ? responsiveness _ _ _ _ _ _ _ _ _ _ _ _ _ _ _ _ _ _ _ _ _ _ _ _ _ _ _ _ _ _ _ _ _ <=8.0 ?? >0.35 & ? <0.5 ? Indeterminate ?Resu lts are ? <25% Nil ?indeterminate ? for antigen ? responsiveness _ _ _ _ _ _ _ _ _ _ _ _ _ _ _ _ _ _ _ _ _ _ _ _ _ _ _ _ _ _ _ _ _ _ ?? >8.0 ?Any ? Any ?Indeterminate ? Results are ? indeterminate ? for antigen ? responsiveness Note: Diagnosis or excluding tuberculosis disease, and asses sing the probability of Latent Tuberculosis Infection (LTBI), req uires a combination of epidemiological, historical, medical, and ? ? diagnostic findings should be taken into account when interpreting QuantiFERON-TB Gold results. ??See general on t he ?? diagnosis and treatment of TB disease and ?? LBTI:(http://www.cdc.gov/nchstp/tb/). The magnitude of the measured IFN-gamma level cannot be danuta elated to stage or degree of infection, level of immune responsiven ess or likelihood for progression to active disease. A positive TB response in persons who are negative to mitoge n is rare, but has been seen in patients with TB disease. This indicates the IFN-g response to TB Antigen is greater t holliday that to mitogen, which is possible as the level of mitogen d oes not maximally stimulate IFN-gamma production by lymphocytes. Specimen Anatomical Collection Method Collection Time Receive d Time (Source) Location / / Volume Laterality 07/16/2015 1:32 PM 5 1:35 STRUCTURAL IRONWORKER PM STRUCTURAL IRONWORKER [facility] - 07/19/2015 12:[address] Performed at [facility] , [address] [place] [address] Audelia Richter MD LAB_1 Performing Organization Address [facility] Phon e Number [address] [address] Hepatitis B Surface Antibody (07/16/2015 1:32 PM STRUCTURAL IRONWORKER) [facility]ubrit Method Time Signature Hep B Surf AB 320.0 >11.9 [facility] Result mIU/ml [facility] Hep B Surf AB Positive (Reactive) [facility] Interp Anti-HBs detected. Patient is considered to be immune to the HBV virus HOSPITAL in response to prior exposure or vaccination. Specimen Anatomical Collection Method Collection Time Receive d Time (Source) Location / / Volume Laterality 07/16/2015 1:32 PM 5 1:35 STRUCTURAL IRONWORKER PM STRUCTURAL IRONWORKER [facility] - 07/17/2015 12:[address] Performed at [facility], [address] [place] [address] ??[address] Audelia Richter MD LAB_1 Performing Organization Address [facility] Phon e Number [address] [address] Varicella Immune Status (07/16/2015 1:32 PM STRUCTURAL IRONWORKER) [facility] Method Time Signature V zoster Imm 2.06 Immune >0.89 [facility] Status [facility] Specimen Anatomical Collection Method Collection Time Receive d Time (Source) Location / / Volume Laterality 07/16/2015 1:32 PM 5 1:35 STRUCTURAL IRONWORKER PM STRUCTURAL IRONWORKER [facility] - 07/19/2015 2:42 PM CS T Performed at [facility], [address] [place] [address] ??[address] Audelia Richter MD LAB_1 Performing Organization Address City/State/ZIP Code Phon e Number [address] [address] documented in this encounter Visit Diagnoses Not on filedocumented in this encounter Care Teams Pizza Baker Relationship Specialty Start Date End Date Fina Leon APRN, WARD MAID PCP - General Family Practice 03/22/12 08/15/20 [address] [place] [address] documented as of this encounter
--- OUTSIDE RECORDS SUMMARY | 2022-07-21 09:09 | XMS_ITS | Encounter Summary ---
:1990 Author Organization [facility] Address [address], [place] [address] Care Team Providers Name Role Phone Say Denise GERMAIN CNM Primary Care Provider Unavailable Reason for Visit Reason Comments POST- Encounter Details Date Type Department Care Team Description 11/23/2010 Routine [facility] and Manisha Putnam, POST- Gynecology CHEYANNE GERMAIN [address] [place] [address] Social History Tobacco Use Types Packs/Day Years [...] Sign Reading Time Taken Comments Blood Pressure 108/70 11/23/2010 9:44 AM CDT Pulse - - Temperature - - Respiratory Rate - - Oxygen Saturation - - Inhaled Oxygen Concentration - - Weight 63 kg (138 lb 12.8 oz) 11/23/2010 9:44 AM CDT Height - - Body Mass Index 24.98 02/22/2010 2:38 PM CDT documented in this encounter Progress Notes Rosa Putnam - 11/23/2010 10:07 AM CDT Lara is a 20 yr year-old who presents today for a 6 week exam. She delivered on 10/10/10 at [facility] with MD attending. She delivered by for FTP (Failure to Progress), There were complications of femoral nerve damage to mother during the . This is much improved and she is weaning off PT visits and has not wore her brace for for weeks now. The baby is bottle feeding and is thriving. Patient/family adjusting well. Patient plans to return to work: December 12, 2010. 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 Patient expresses no concerns She and her partner have not resumed sexual relations. Contraceptive method: condoms PE BP 108/70 Wt 138 lb 12.8 oz (62.959 kg) LMP 01/07/2010 ? No General Appearance: alert, healthy, smiling, cooperative Thyroid: WNL and normal to inspection and palpation Breasts: soft, non-tender, no masses and nipples intact Abdomen: soft, non-tender, no masses, incision healed Pelvic: External genitalia and vagina normal. Bimanual normal. Bleeding serosa. ASSESSMENT Normal exam. PLAN Contraception: condoms. And foam Labs/prescriptions: See today's orders for details Abdominal and pelvic floor exercises discussed and encouraged. Breast/bottle feeding and return to work issues discussed. Return to clinic in 3 mo. for RHM or sooner prn. SHIRA Archer Kitty Curry LPN - 11/23/2010 9:46 AM CDT Lara Dominguez delivery date was 10/10/10. Delivery was performed by , unsure. Baby's Sex is Female ; weight 7lb5oz. Type of delivery section. Para 2 2 Mother is Nursing the infant?NO History of Gestational Diabetes this ? No. Fasting (10 hour) and 2 hour GTT . Smoking status Never smoked. Lives in a smoking environment? NO. Health education given on smoking? NO. control: none Last Pap No results found for this basename: pap 02/22/10 wnl Other comments Kitty Curry LPN documented in this encounter Plan of Treatment Scheduled Referrals Name Type Priority Associated Diagnoses Order S [facility] Referral Referral Routine O rdered: 10/13/2010 documented as of this encounter Visit Diagnoses Diagnosis care and examination - Primar y Routine follow-up documented in this encounter Care Teams Director Risk Relationship Specialty Start Date End Date Denise Deal APRN, CHEYANNE PCP - General 07/28/1003/21 documented as of this encounter
--- OUTSIDE RECORDS SUMMARY | 2022-07-21 09:09 | XMS_ITS | Encounter Summary ---
:1990 Author Organization [facility] Address [address] [place] [address] Care Team Providers Name Role Phone Fina Leon APRN, CNP Primary Care Provider [phone] Reason for Visit Reason Comments Dental Conversion [facility] E[facility] to [facility] convers ion Encounter Details Date Type Department Care Team Description 01/18/2017 Dental Conversion [place] Michelle Guillen, [facility] [address] [facility] [address] [place] [address] [phone] (Wo rk) Social History Tobacco Use Types [...] on file documented as of this encounter Discharge Summaries Interface, In Edr Dental Conversion - 04/05/2017 12:00 AM CDT 04/05/2017: Invoice Mailed: sincere lópez invoice to Blanca in dental admin Interface, In Edr Dental Conversion - 03/28/2017 12:00 AM CDT EDR dismissed Clerical Popup Note, entered 03/28/2017: sign tx est Interface, In Edr Dental Conversion - 03/14/2017 12:00 AM CDT EDR dismissed Clerical Popup Note, entered 03/14/2017: pt needs to sign a tx est Interface, In Edr Dental Conversion - 01/11/2017 12:00 AM CDT EDR dismissed Billing Popup Note, entered 01/11/2017: pt needs to sign a tx est Interface, In Edr Dental Conversion - 12/18/2016 12:00 AM CDT 12/18/2016: Incoming Phone Call: pt called and would like to go ahead and schedule for a crown she had the endo done about 6 weeks ago. will have the dentist put in tx and the amount of time needed for the appointments. pt can be reached at her home number. Interface, In Edr Dental Conversion - 10/12/2016 12:00 AM CST EDR Billing Popup Note, entered 10/12/2016: [facility] Approved TH PROFESSOR documented in this encounter Plan of Treatment Not on filedocumented as of this encounter Visit Diagnoses Not on filedocumented in this encounter Care Teams Tick Inspector Relationship Specialty Start Date End Date Fina Leon APRN, VP DIGITAL MARKETING PCP - General Family Practice 03/22/12 08/15/20 [address] [place] [address] documented as of this encounter
--- OUTSIDE RECORDS SUMMARY | 2022-07-21 09:09 | XMS_ITS | Encounter Summary ---
:1990 Author Organization [employer] Address [address] [place] [address] Care Team Providers Name Role Phone Fina Leon APRN, BRAKE REPAIRER RAILROAD Primary Care Provider [phone] Reason for Visit Reason Onset Date Comments Refill 04/22/2012 Encounter Details Date Type Department Care Team Description 04/22/2012 Refill [facility] Fina Leon APRN, Refill [address] [place], [place] [address] [facility] [phone] [place], [place] [id number] (Wo rk) Social History Tobacco Use Types [...] documented as of this encounter Nursing Notes Rula Jha RN - 04/23/2012 3:52 PM CDT RN is unable to fill, because it does not meet medication refill standing order criteria. No Standing Orders Exist traZODone (AKA DESYREL) 50 MG tablet 30 Tab 1 02/26/2012 Last office visit: 03/22/12 Last time med was ordered: Date: 02/26/12 Dispensed: 30 Number of refills: 1 Do you want her to continue on omeprazole for longer term? ok to refill? RN is unable to fill, because it does not meet medication refill standing order criteria. Standing Orders Exist omeprazole (AKA PRILOSEC) 20 MG capsule 30 Cap 1 02/26/2012 Last Labs as appropriate for medication: n/a Last office visit: 03/22/12 Last time med was ordered: Date: 02/26/12 Dispensed: 30 Number of refills: 1 Rula Jha RN 04/23/2012, 3:52 PM A/P: 1. Abdominal pain: sounds c/w gastritis/dyspepsia. Omeprazole 20mg PO QAM per MARIBEL Cheney. Some basiclabwork. Lifestyle modifications reviewed. RTC in one month, sooner PRN sx's persist/worsen/new sx'sdevelop. Warning signs given. Tram Gupta MD 02/28/2012, 7:15 PM Marjorie Ernandez - 04/22/2012 8:51 AM CDT Last refilled: 03/23/12 Qty of last refill: 30 documented in this encounter Plan of Treatment Not on filedocumented as of this encounter Visit Diagnoses Diagnosis Abdominal pain Abdominal pain, unspecified site Insomnia Insomnia, unspecified documented in this encounter Care Teams Mechanical Applications Engineer Relationship Specialty Start Date End Date Fina Leon APRN, BRAKE REPAIRER RAILROAD PCP - General Family Practice 03/22/12 08/15/20 [address] [place] [address] documented as of this encounter
--- OUTSIDE RECORDS SUMMARY | 2022-07-21 09:09 | XMS_ITS | Encounter Summary ---
:1990 Author Organization [facility] Address [address] [place] [address] Care Team Providers Name Role Phone Denise Deal APRN, CNM Primary Care Provider Unavailable Reason for Visit Reason Onset Date Comments Medication Questions 03/18/2012 Encounter Details Date Type Department Care Team Description 03/18/2012 Telephone [place] Family Unknown, Georgina adams Medication Questions Practice [address] [facility] [address] [place], [place] [address] [phone] Social History Tobacco Use Types Packs/Day Years [...] documented as of this encounter Nursing Notes Nadya Simmons - 03/18/2012 2:02 PM CDT Patient will check her calendar and call back to schedule appointment. Tram More MD - 03/18/2012 1:52 PM CDT Please let patient know she needs to be seen at clinic p/t potential medication changes. Tram More MD 03/18/2012, 1:53 PM Sarika Fagan - 03/18/2012 12:50 PM CDT Medication Questions: Name or Type of Medication: TRAZODONE Dose: 50 MG How often do you take it?: EVERY NIGHT Who prescribed it?: TRAM MORE What is your question/concern?: MEDICATION NOT HELPING Is it okay to leave a detailed message on your voicemail?: YES If after 3 pm, can this wait until tomorrow?: N/A Pt was asked, Do you want to have this filled at (OUR CLINIC) pharmacy? [facility] documented in this encounter Plan of Treatment Not on filedocumented as of this encounter Visit Diagnoses Not on filedocumented in this encounter Care Teams Wool Presser Relationship Specialty Start Date End Date Denise Deal APRN, CHEYANNE PCP - General 07/28/1003/21 documented as of this encounter
--- OUTSIDE RECORDS SUMMARY | 2022-07-21 09:09 | XMS_ITS | Encounter Summary ---
:1990 Author Organization [employer] Address [address] [place] [address] Care Team Providers Name Role Phone Denise Deal APRN, CNM Primary Care Provider Unavailable Reason for Visit Reason Comments STOMACH PROBLEM having intermittent pains up to 5 times a day HAIR LOSS SLEEP,DISTURBANCE Health Maintenance Communication pt will schedule a PE and pap Encounter Details Date Type Department Care Team Description [facility] Dx[facility] Practice [address] [facility] Insomnia [address] [place] [address] [phone] Social History Tobacco Use Types Packs/Day Years [...] Sign Reading Time Taken Comments Blood Pressure 103/70 02/26/2012 10:32 AM CDT Pulse 97 02/26/2012 10:32 AM CDT Temperature 37.5 ??C (99.5 ??F) 02/26/2012 10:32 AM CDT Respiratory Rate 16 02/26/2012 10:32 AM CDT Oxygen Saturation - - Inhaled Oxygen Concentration - - Weight 56.7 kg (125 lb) 02/26/2012 10:32 AM CDT Height 157.5 cm (5' 2) 02/26/2012 10:32 AM CDT Body Mass Index 22.86 02/26/2012 10:32 AM CDT documented in this encounter Progress Notes Tram Gupta MD - 02/26/2012 10:46 AM CDT Chief Complaint Patient presents with ??? STOMACH PROBLEM having intermittent pains up to 5 times a day ??? HAIR LOSS ??? SLEEP,DISTURBANCE ??? Health Maintenance Communication pt will schedule a PE and pap 21 yo F here for some concerns about stomach discomfort x past year or so, worsening over 2 months. Will have stomach pains during the day, not at night. She has some burning sensation in stomach region , difficult for her to describe, without extension. Denies, fevers, chills, SOB, chest pain/tightnes s/pressure, nausea, heartburn symptoms, changes in urination, BRBPR, darkening stools, decreased appetite. Some increased flatulence, burping-not associated with stomach discomfort at time. No Tob, minimal ETOH, no NSAID's, no illicits. She has not been taking anything for sx's. Caffeine 4-5 day, will eat hot spicy foods as well-no correlation with sx's. No similar sx's in the past. Denies similar sx's in the past. Abdominal surgeries C section 17 months ago. Daughter is 17 months old, denies external stressors. 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 Some trouble sleeping for about this same time frame-falls asleep OK, but will wake up intermittent at night. Feels that her hair is thinning on her head-no increased shedding/hair loss. She worries that she will have baldness like her father. Outpatient Prescriptions Prior to Visit Medication Sig Dispense Refill ??? Vit-Fe Fumarate-FA (PRENATABS FA OR) No Known Allergies ROS: see above for pertinents. BP 103/70 Pulse 97 Temp(Src) 99.5 ??F (37.5 ??C) (Oral) Resp 16 Ht 5' 2 (1.575 m) Wt 125 lb (56.7 kg) BMI 22.86 kg/m2 ? No repeat T97.2F General: patient appears well, alert and oriented x 3, pleasant, cooperative, anxious appearing at times. Neck: supple and free of adenopathy. No thyromegaly. Eyes: PERRL, no conjunctival injection b/l. Ears: normal Mouth:MMM, no lesions. Throat: normal. Chest: clear to IPPA. Heart: heart sounds are normal, no murmurs. Peripheral pulses are normal. Abdomen: +BS's, soft, no tenderness, no distention, masses or organomegaly, incision C/D/I. Ext: no edema b/l. A/P: 1. Abdominal pain: sounds c/w gastritis/dyspepsia. Omeprazole 20mg PO QAM per Epic, SERD. Some basiclabwork. Lifestyle modifications reviewed. RTC in one month, sooner PRN sx's persist/worsen/new sx'sdevelop. Warning signs given. 2. Insomnia: DELFINO 5, denies sx's anxiety/depression/SI/HI; try trazodone per Epic, SERD, sleep hygiene reviewed.RTC in one month, sooner PRN sx's persist/worsen/new sx's develop. Warning signs given.Tram Gupta MD 02/28/2012, 7:15 PM documented in this encounter Plan of Treatment Not on filedocumented as of this encounter Results TSH, SENSITIVE (WITH REFLEX)[0191] - Clinics ONLY (02/26/2012 11:05 AM CDT) athologist Signature TSH, with 2.953 0.300 - [facility] Reflex 5.00 uIU/ml Specimen Anatomical Collection Method Collection Time Receive d Time (Source) Location / / Volume Laterality 02/26/2012 11:05 02/26/2012 AM CDT 11:07 AM CDT Tram Gupta MD LAB_1 Performing Organization Address City/State/ZIP Code Phon e Number [facility] [phone] [facility] [address] [place] [phone] HEMOGRAM/PLTS (02/26/2012 11:05 AM CDT) P athologist Signature WBC 9.7 4.0 - 11.0 [facility] k/ul RBC 4.64 4.0 - 5.2 [facility] M/ul Hemoglobin 13.8 12.0 - 16.0 [facility] g/dl HCT 40.8 36.0 - 46.0 [facility] % MCV 87.9 80 - 100 fl [facility] MCH 29.7 26 - 34 pg [facility] MCHC 33.8 32 - 36 [facility] g/dl RDW 13.0 11.5 - 14.5 [facility] % Platelets 357 150 - 450 [facility] k/ul Specimen Anatomical Collection Method Collection Time Receive d Time (Source) Location / / Volume Laterality 02/26/2012 11:05 02/26/2012 AM CDT 11:07 AM CDT Tram Gupta MD LAB_1 Performing Organization Address City/State/ZIP Code Phon e Number [facility] [phone] [facility] [address] [place] [phone] documented in this encounter Visit Diagnoses Diagnosis Abdominal pain - Primary Abdominal pain, unspecified site Insomnia Insomnia, unspecified documented in this encounter Care Teams Claims Specialist Relationship Specialty Start Date End Date Denise Deal APRN, CHEYANNE PCP - General 07/28/1003/21 documented as of this encounter
--- OUTSIDE RECORDS SUMMARY | 2022-07-21 09:09 | XMS_ITS | Encounter Summary ---
:1990 Author Organization [facility] [employer] Address [address] [place] [address] Care Team Providers Name Role Phone Edward Fina Everardo GERMAIN CNP Primary Care Provider [phone] Encounter Details Date Type Department Care Team Description 02/09/2017 Notes/Orders [place] Diarrhea, unspecified Laboratory [address] [facility] type [address] [place] [address] [phone] Social History Tobacco Use Types Packs/Day Years [...] documented as of this encounter Progress Notes Jamila Lynne APRN, YAIR - 02/15/2017 9:17 AM CDT Lara All your stool tests for infection are negative. If you are still having loose stools/diarrhea go ahead and try over the counter imodium AD, follow directions on box as are. If still not improving in 3-5 days let me know and we can consider having you see gastrointestinal group. Jamila Lynne APRN, CNP 02/15/2017 9:17 AM documented in this encounter Plan of Treatment Not on filedocumented as of this encounter Procedures Procedure Name Priority Date/Time Associated Comments Diagnosis OVA & PARASITE EXAM #2 Routine 02/09/2017 10:06 Diarrhea, R esults for this AM CDT unspecified type procedure a re in the results section. ENTERIC PARASITE Routine 02/09/2017 8:00 AM Diarrhea, Resul ts for this MOLECULAR DETECTION CDT unspecified type proc edure are in (GIARDIA, the results CRYPTOSPORIDIUM, section. E.HISTOLYTICA) LAB MICROSPORIDIA Routine 02/09/2017 8:00 AM Diarrhea, Resu lts for this STAIN STOOL CDT unspecified type procedure a re in the results section. CYCLOSPORA STAIN FOR Routine 02/09/2017 8:00 AM Diarrhea, R esults for this PARASITES CDT unspecified type procedure a re in the results section. ENTERIC STOOL Routine 02/09/2017 8:00 AM Diarrhea, Results for this PATHOGENS, MOLECULAR CDT unspecified type pro cedure are in DETECTION PANEL the results section. OVA & PARASITE EXAM #1 Routine 02/09/2017 8:00 AM Diarrhea, Results for this CDT unspecified type procedure a re in the results section. STOOL PMN'S Routine 02/09/2017 8:00 AM Diarrhea, Results f or this CDT unspecified type procedure a re in the results section. documented in this encounter Results Ova & Parasite Exam #2 (02/09/2017 10:06 AM CDT) Component Value Ref Test Analysis Performed At [facility] Range Method Time Signature Specimen Stool [facility] Description LABORATORIES Special Unspecified [facility] Requests LABORATORIES Specimen Information [facility] Number Not Given LABORATORIES Results No Parasites NPARA [facility] Specimen Anatomical Collection Method Collection Time Receive d Time (Source) Location / / Volume Laterality Stool specimen 02/09/2017 10:06 02/10/201 7 3:01 (specimen) AM CDT PM CDT Narrative [facility] - 02/14/2017 1:45 PM C DT Performed at [facility], [address] [place] [address] ??[phone] Jamila Lynne APRN, CNP LAB_1 Performing Organization Address City/State/ZIP Code Phon e Number [facility] [phone] Cyclospora stain for parasites (02/09/2017 8:00 AM CDT) Component Value Ref Test Analysis Performed At [facility] Range Method Time Signature Cyclospora Negative [facility] Stain Reference range: Negative LABO RATORIES Cyclospora (NOTE) [facility] Stain TEST INFORMATION: The parasitology stain is a modified aci d fast ?? LABORATORIES stain that detects Cryptosporidium, Cyclospora and Cystoisos pora. [address] [place] [address] [email or web address], Yong Truong MD, Lab. Director Specimen Anatomical Collection Method Collection Time Receive d Time (Source) Location / / Volume Laterality 02/09/2017 8:00 AM 7 1:34 CDT PM CDT Narrative [facility] - 02/10/2017 10:39 PM CDT Performed by [facility], [address] [place], [place] [address] Jamila Lynne APRN, YAIR LAB_1 Performing Organization Address City/[facility]/ZIP [facility] Phon e Number [facility] [phone] Microsporidia stain Stool (02/09/2017 8:00 AM CDT) Component Value Ref Test Analysis Performed At [facility] Range Method Time Signature Microsporidia Negative [facility] Stain Reference range: Negative LABO RATORIES Microsporidia (NOTE) [facility] Stain [address] [place] [address] LABORATORIES [email or web address], Yong Truong MD, Lab. Director Specimen Anatomical Collection Method Collection Time Receive d Time (Source) Location / / Volume Laterality 02/09/2017 8:00 AM 7 1:34 CDT PM CDT Narrative [facility] - 02/10/2017 10:31 PM CDT Performed by [facility], [address], [place], [place] [address] Jamila Lynne APRN, YAIR LAB_1 Performing Organization Address City/[facility]/ZIP [facility] Phon e Number [facility] [phone] Stool PMN's (02/09/2017 8:00 AM CDT) athologist Signature Quantity PMN's None [facility] Seen LABORATORIES Specimen Anatomical Collection Method Collection Time Receive d Time (Source) Location / / Volume Laterality 02/09/2017 8:00 AM 7 1:33 CDT PM CDT Narrative [facility] - 02/12/2017 2:55 PM C DT Performed at [facility], [address] [place] [address] ??[phone] Jamila Lynne APRN, YAIR LAB_1 Performing Organization Address [facility] Phon e Number [facility] [phone] Ova & Parasite Exam #1,Stool (02/09/2017 8:00 AM CDT) Component Value Ref Test Analysis Performed At [facility] Range Method Time Signature Specimen Stool [facility] Description LABORATORIES Special Unspecified [facility] Requests LABORATORIES Specimen Information [facility] Number Not Given LABORATORIES Results No Parasites NPARA [facility] Specimen Anatomical Collection Method Collection Time Receive d Time (Source) Location / / Volume Laterality 02/09/2017 8:00 AM 7 1:33 CDT PM CDT Narrative [facility] - 02/12/2017 2:55 PM C DT Performed at [facility], [address] [place] [address] ??[phone] Jamila Lynne APRN, POST PRODUCTION ASSISTANT LAB_1 Performing Organization Address [facility] Phon e Number [facility] [phone] Enteric Parasite PCR (Giardia, Cryptosporidium, E.histolytica) (02/09/2017 8:00 AM CDT) Component Value Ref Test Analysis Performed At [facility] Range Method Time Signature Giardia lamblia Not NDET [facility] DNA Detected LABORATORIES Cryptosporidium sp Not NDET [facility] DNA (C. hominis Detected LABORATORIES and C. parvum) Entamoeba Not NDET [facility] histolytica DNA Detected LABORATORIES Specimen Anatomical Collection Method Collection Time Receive d Time (Source) Location / / Volume Laterality 02/09/2017 8:00 AM 7 1:32 CDT PM CDT Narrative [facility] - 02/10/2017 3:11 PM C DT Performed at [facility], [address] [place] [address] ??[phone] Jamila Lynne APRN, POST PRODUCTION ASSISTANT LAB_1 Performing Organization Address City/State/ZIP Code Phon e Number [facility] [phone] Enteric Stool Pathogens Panel (02/09/2017 8:00 AM CDT) Component Value Ref Test Analysis Performed At [facility] Range Method Time Signature Specimen Stool [facility] Description LABORATORIES Special Unspecified [facility] Requests LABORATORIES Culture Negative by PCR for Campylobacter group (C. coli, C. jejun i, and C. [facility] suni), Salmonella species, Shigella species (including S. dysenteriae, LABORATORIES S. boydii, S. sonnei, and S. flexneri), ??Vibrio group (V. cholerae and V. parahaemolyticus), Yersinia enterocolitica, Shiga Toxin 1 and 2, Norovirus (GI and GII), and Rotavirus (A). Report Status Final 02/10/2017 [facility] Specimen Anatomical Collection Method Collection Time Receive d Time (Source) Location / / Volume Laterality 02/09/2017 8:00 AM 7 1:30 CDT PM CDT Narrative [facility] - 02/10/2017 1:12 AM C DT Performed at [facility] , [address] [place] [address] Jamila Lynne APRN, CNP LAB_1 Performing Organization Address City/State/ZIP Code Phon e Number [facility] [phone] documented in this encounter Visit Diagnoses Diagnosis Diarrhea, unspecified type documented in this encounter Care Teams Gourmet Coffee Attendant Relationship Specialty Start Date End Date Fina Leon APRN, YAIR PCP - General Family Practice 03/22/12 08/15/20 [address] [place] [address] documented as of this encounter
--- OUTSIDE RECORDS SUMMARY | 2022-07-21 09:09 | XMS_ITS | Encounter Summary ---
:1990 Author Organization [employer] Address [address], [place] [address] Care Team Providers Name Role Phone Denise Deal APRN, CNM Primary Care Provider Unavailable Encounter Details Date Type Department Care Team Description 11/10/2010 Office Visit [facility] Nikki Chatterjee, Virgil casper nerve palsy Physical Therapy CHIEF ENGINEER'S HELPER (Primary Dx) [address] [place] [address] [place], [place] [phone] [address] Social History Tobacco Use Types Packs/Day Years [...] of this encounter Progress Notes Nikki Chatterjee, CHIEF ENGINEER'S HELPER - 11/10/2010 2:32 PM CDT OUTPATIENT PHYSICAL THERAPY: DAILY NOTE Lara Emily Angelica [phone] Payor: FELICIANO JETER [place] [id number] Plan: FELICIANO NGUYEN Product Type: O Referring Provider: Maren Rubio Diagnosis: L/E - Left Knee: Left Femoral nerve palsy,355.2 Date of Injury/Surgery: 10/10/2010 VISIT NUMBER: 4 out of 12 CHIEF ENGINEER'S HELPER VISIT 3 SUBJECTIVE Patient reports no complaints of pain Pain: intensity level 0/10 OBJECTIVE Patient ambulates with brace locked into extension Observation: increase muscle contraction observed with quad set TREATMENT TODAY: Therapeutic exercise (25 minutes): reviewed and progressed HEP Seated LAQ with NMES 5 second hold x 20 Supine SAQ with NMES and therapist assist x 20 Supine active assistive SLR without brace x 10 sidelying resisted clamshell 5 second hold x 10 on left with red theraband hooklying adductor sets 5 second hold x 10 Seated hamstring curl with red theraband x 10 Added but did not issue: Prone leg extension 5 second hold x 10 Modalities: Electrical Stimulation: NMES for 15 minutes to left quad in supine and sitting position CURRENT HEP: Supine left quad sets 5 second hold x 10 Supine assisted SLR with brace locked in extension x 10 Hooklying bridges with Abdominal drawing in maneuver 5 second hold x 5 sidelying clamshell 5 second hold x 10 on left sidelying abduction with brace on x 10 Seated adductor sets 5 second hold x 10 ASSESSMENT Patient has demonstrated excellent compliance with treatment recommendations PLAN Continue 2 times/week with : Treatment: Therapeutic exercise: Home Exercise Program Strengthening Neuromuscular re-education Modalities: Electrical Stimulation Total treatment time: 30 minutes, 1 unit(s) neuromuscular re-education and 1 unit(s) therapeutic exercise Equipment Issued: None Nikki Chatterjee, TRISTIN [id number] documented in this encounter Plan of Treatment Not on filedocumented as of this encounter Visit Diagnoses Diagnosis Femoral nerve palsy - Primary Other lesion of femoral nerve documented in this encounter Care Teams Health And Human Performance Professor Relationship Specialty Start Date End Date Denise Deal APRN, CHEYANNE PCP - General 07/28/1003/21 documented as of this encounter
--- OUTSIDE RECORDS SUMMARY | 2022-07-21 09:09 | XMS_ITS | Encounter Summary ---
:1990 Author Organization [employer] Address [address], [place] [address] Care Team Providers Name Role Phone Denise Deal APRN, CNM Primary Care Provider Unavailable Reason for Visit Reason Comments POST- Encounter Details Date Type Department Care Team Description 10/26/2010 Office Visit [facility] Samina Werner discharge and Gynecology Kaylah Gupta MD (Primary Dx) [address] [place] [address] Social History Tobacco Use Types [...] Sign Reading Time Taken Comments Blood Pressure 100/70 10/26/2010 3:52 PM CDT Pulse - - Temperature - - Respiratory Rate - - Oxygen Saturation - - Inhaled Oxygen Concentration - - Weight 63.5 kg (140 lb) 10/26/2010 3:52 PM CDT Height - - Body Mass Index 25.2 02/22/2010 2:38 PM CDT documented in this encounter Progress Notes Sherry Oliva RN - 10/27/2010 4:06 PM CDT Quick Note: message left to return call Sherry Oliva RN Sherry Oliva RN - 10/27/2010 4:05 PM CDT Quick Note: vorb dr spivey: Treat pt for BV with Flagyl 500mg BID x 7days. Sherry Oliva RN Kaylah Werner - 10/27/2010 1:04 PM CDT OBSTETRICS AND GYNECOLOGY CLINIC NOTE Date of Service: 10/26/2010 Lara is a 20 year old who presents today for a 3 week exam and incision check. She delivered on 10/10/10 at [facility] with OB attending. She delivered by for arrestof descent after 4 hours of pushing. There were complications of suspected excessive traction on thematernal left femoral nerve during the , resulting in injury. The patient is currently wearing a full leg brace and is being followed by PT. The baby is bottle feeding and is thriving. Patient/family adjusting well, despite the complication. Emotions stable overall. No HI/SI. Patient plans to return to work: Uncertain at this time. Patient expresses concerns regarding: desires a disability parking tag until she no longer needs herleg brace. Also concerned that her vaginal discharge has smelled differently in the last few days. No itching, burning, dysuria. No fever, chills, abdominal pain. She and her partner have not resumed sexual relations. Contraceptive method: condoms PE: BP 100/70 Wt 140 lb (63.504 kg) LMP 01/07/2010 General Appearance: healthy, smiling, tired Abdomen: soft, non-tender, no masses and incision well aligned and healing well. Nurse present for exam. Pelvic: External genitalia and vagina normal. Moderate amount of pinkish mucus discharge, no unusualodor. Bimanual normal. Wet prep obtained. Assessment: Normal exam. PLAN: Contraception: condoms. Discussed more reliable methods and patient said she would think about it. Discussed the availability of Plan B. Labs/prescriptions: No orders placed today Return to clinic on 11/17/10 for routine exam with Denise Deal. Kaylah Davey MD 12:48 PM 10/27/2010 documented in this encounter Plan of Treatment Not on filedocumented as of this encounter Procedures Procedure Name Priority Date/Time Associated Diagnosis Comme nts VAGINAL WET PREP Waiting 10/26/2010 4:48 PM Vaginal discharge Results for this CDT procedure are i n the results section. documented in this encounter Results (ABNORMAL) WET PREP, VAGINAL (10/26/2010 4:48 PM CDT) [facility] gist Method Time Signature Epithelials Moderate [facility] % Atrophic 0 [facility] Epith WBC'S Moderate [facility] Bacteria Many [facility] Clue Cells Few [facility] Trichomonas 0 [facility] Yeast 0 [facility] pH 5.0 (H) 3.5 - 4.5 [facility] Specimen Anatomical Collection Method Collection Time Receive d Time (Source) Location / / Volume Laterality 10/26/2010 4:48 PM 1 5:10 CDT PM CDT Kaylah Armando MD LAB_1 Performing Organization Address City/State/ZIP Code Phon e Number [facility] [phone] [facility] [address] [address] documented in this encounter Visit Diagnoses Diagnosis Vaginal discharge - Primary Leukorrhea, not specified as infective documented in this encounter Care Teams Data Network Architect Relationship Specialty Start Date End Date Denise Deal APRN, OLESYAM PCP - General 07/28/1003/21 documented as of this encounter
--- OUTSIDE RECORDS SUMMARY | 2022-07-21 09:09 | XMS_ITS | Encounter Summary ---
:1990 Author Organization [facility] Address [address], [place] [address] Care Team Providers Name Role Phone Fina Leon APRN, CNP Primary Care Provider [phone] Encounter Details Date Type Department Care Team Description 02/08/2017 Lab Visit [facility] [address] [place], [place] [address] Social History Tobacco Use [...] on filedocumented in this encounter Care Teams Welfare Service Aide Relationship Specialty Start Date End Date Fina Leon APRN, CNP PCP - General Family Practice 03/22/12 08/15/20 [address] [place] [address] documented as of this encounter
--- OUTSIDE RECORDS SUMMARY | 2022-07-21 09:09 | XMS_ITS | Encounter Summary ---
:1990 Author Organization [facility] Address [address] [place] [address] Care Team Providers Name Role Phone Denise Deal APRN, CNM Primary Care Provider Unavailable Reason for Visit Reason Onset Date Comments Refill 10/20/2010 Encounter Details Date Type Department Care Team Description 10/20/2010 Refill [facility] Sami Simpson, Refill Pharmacy [address] [place] [address] [place] [address] [phone] (Wo rk) Social History Tobacco Use Types [...] documented as of this encounter Nursing Notes Cornelia Mike, RN - 10/21/2010 11:19 AM CST Percocet #[address] Rubio 10/20/10. Cornelia Mike RN 10/21/2010, 11:19 AM DENT COMMANDER documented in this encounter Plan of Treatment Not on filedocumented as of this encounter Visit Diagnoses Not on filedocumented in this encounter Care Teams Nondestructive Tester Relationship Specialty Start Date End Date Denise Deal APRN, CHEYANNE PCP - General 07/28/1003/21 documented as of this encounter
--- OUTSIDE RECORDS SUMMARY | 2022-07-21 09:09 | XMS_ITS | Encounter Summary ---
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) Encounter Details Date Type Department Care Team Description 02/08/2017 Office Visit [facility] Jamila Lynne Di arrhea, unspecified Practice YAIR GERMAIN type (Primary Dx) [id number] [facility] [address] [place] [address] [phone] Social History Tobacco Use Types Packs/Day Years [...] Sign Reading Time Taken Comments Blood Pressure 97/69 02/08/2017 1:17 PM CDT Pulse 81 02/08/2017 1:17 PM CDT Temperature 36.7 ??C (98 ??F) 02/08/2017 1:17 PM CDT Respiratory Rate - - Oxygen Saturation - - Inhaled Oxygen Concentration - - Weight 53.1 kg (117 lb) 02/08/2017 1:17 PM CDT Height 159.4 cm (5' 2.75) 02/08/2017 1:17 PM CDT Body Mass Index 20.89 02/08/2017 1:17 PM CDT documented in this encounter Patient Instructions Patient InstructionsJamila Lynne APRN, CNP - 02/08/2017 1:20 PM CDT Images from the original note were not included. Stool tests to look for causes of diarrhea. Stay hydrated Restricted diet: 24 hours - clear liquids only (pedialyte, broth etc). Next 48-72 hours: No dairy or soy products - this includes cheese andyogurt. No raw vegetables, no cooked vegetables except potatoes, no fruits except applesauce, bananas, avocados. No hard meat - beef, pork or chicken breast. OK to eat: applesauce, bananas, avocados, rice, noodles, toast with peanut butter, canned (soft) meat like tuna and chicken, flaky fish is ok. Soup is ok especially broth based soup. Eggs are ok. Slowly advance back to normal after 48-72 hours, reintroducing dairy/soy last! If everything is negative and loose stools are still happening we can then try imodium or other medication to stop it, we want to rule out infections first Diarrhea: Care Instructions Your Care Instructions Diarrhea is loose, watery stools (bowel movements). The exact cause is often hard to find. Sometimesdiarrhea is your body's way of getting rid of what caused an upset stomach. Viruses, food poisoning,and many medicines can cause diarrhea. Some people get diarrhea in response to emotional stress, anxiety, or certain foods. Almost everyone has diarrhea now and then. It usually isn't serious, and your stools will return to normal soon. The important thing to do is replace the fluids you have lost, so you can prevent dehydration. The doctor has checked you carefully, but problems can develop later. If you notice any problems or new symptoms, get medical treatment right away. Follow-up care is a marino part of your treatment and safety. Be sure to make and go to all appointments, and call your doctor if you are having problems. It's also a good idea to know your test results and keep a list of the medicines you take. How can you care for yourself at home? ?? Watch for signs of dehydration, which means your body has lost too much water. Dehydration is a serious condition and should be treated right away. Signs of dehydration are: ?? Increasing thirst and dry eyes and mouth. ?? Feeling faint or lightheaded. ?? Darker urine, and a smaller amount of urine than normal. ?? To prevent dehydration, drink plenty of fluids, enough so that your urine is light yellow or clear like water. Choose water and other caffeine-free clear liquids until you feel better. If you have kidney, heart, or liver disease and have to limit fluids, talk with your doctor before you increase the amount of fluids you drink. ?? Begin eating small amounts of mild foods the next day, if you feel like it. ?? Try yogurt that has live cultures of Lactobacillus. (Check the label.) ?? Avoid spicy foods, fruits, alcohol, and caffeine until 48 hours after all symptoms are gone. ?? Avoid chewing gum that contains sorbitol. ?? Avoid dairy products (except for yogurt with Lactobacillus) while you have diarrhea and for 3 days after symptoms are gone. ?? The doctor may recommend that you take eozy-bgz-lsdhkdx medicine, such as loperamide (Imodium), if you still have diarrhea after 6 hours. Read and follow all instructions on the label. Do not use this medicine if you have bloody diarrhea, a high fever, or other signs of serious illness. Call your doctor if you think you are having a problem with your medicine. When should you call for help? Call 911 anytime you think you may need emergency care. For example, call if: ?? You passed out (lost consciousness). ?? Your stools are maroon or very bloody. Call your doctor now or seek immediate medical care if: ?? You are dizzy or lightheaded, or you feel like you may faint. ?? Your stools are black and look like tar, or they have streaks of blood. ?? You have new or worse belly pain. ?? You have symptoms of dehydration, such as: ?? Dry eyes and a dry mouth. ?? Passing only a little dark urine. ?? Feeling thirstier than usual. ?? You have a new or higher fever. Watch closely for changes in your health, and be sure to contact your doctor if: ?? Your diarrhea is getting worse. ?? You see pus in the diarrhea. ?? You are not getting better after 2 days (48 hours). Where can you learn more? 1. Go to [employer] or [employer]. 2. Enter W335 in the search box. Current as of: January 07, 2016 Content Version: 11.2 ?? [id number] Strut. documented in this encounter Progress Notes Jamila Lynne APRN, CNP - 02/08/2017 1:20 PM CDT Lara SINGH is a 26 y.o. year old female who presents with complaint of abdominal pain for 2 week(s) duration Pain is located in the - lower abdomen Radiation: NO Intensity/ pain scale: varies, CHARACTER OF PAIN:crampy Alleviating factors: bowel movement Aggravating factors: food Bowel movements: loose and watery diarrhea up to 5-6 times a day Recent travel:No Nocturnal pain: absent Prior history of similar symptoms of abdominal pain. 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 Complete Review of Systems is negative, unless noted in HPI OBJECTIVE 1 - aware, no distress Vitals Blood pressure 97/69, pulse 81, temperature 98 ??F (36.7 ??C), temperature source Tympanic, height 5' 2.75 (1.594 m), weight 117 lb (53.1 kg), last menstrual period 01/18/2017. reviewed be me and d/w pt Abdominal Exam Inspection Flat Palpation Soft Tender No Bowel sounds present and active in all 4 quadrants Abdominal bruits Not Present ASSESSMENT ICD-10-CM 1. Diarrhea, unspecified type R19.7 sertraline (ZOLOFT) 100 MG tablet C.Difficile Toxin, PCR-Outpatient,Stool Enteric Stool Pathogens Panel Enteric Parasite PCR (Giardia, Cryptosporidium, E.histolytica) Ova & Parasite Exam #1,Stool Ova & Parasite Exam #2 Enteric Parasite PCR (Giardia, Cryptosporidium, E.histolytica) Enteric Stool Pathogens Panel Stool PMN's Microsporidia stain Stool Cyclospora stain for parasites PLAN See orders and avs for details Pt verbalized understanding of and agreement with this plan. Jamila Lynne APRN, CNP 02/08/2017 1:29 PM documented in this encounter Plan of Treatment Not on filedocumented as of this encounter Results Ova & Parasite Exam #2 (02/09/2017 10:06 AM CDT) Component Value Ref Test Analysis Performed At [facility] Volar Video Method Time Signature Specimen Stool [facility] Description LABORATORIES Special Unspecified [facility] Requests LABORATORIES Specimen Information [facility] Number Not Given LABORATORIES Results No Parasites NPARA [facility] Specimen Anatomical Collection Method Collection Time Receive d Time (Source) Location / / Volume Laterality Stool specimen 02/09/2017 10:06 7 3:01 (specimen) AM CDT PM CDT Narrative [facility] - 02/14/2017 1:45 PM C DT Performed at [facility], [address] [place] [address] ??[id number] Jamila Lynne APRN, CNP LAB_1 Performing Organization Address City/State/ZIP Code Phon e Number [facility] [phone] Cyclospora stain for parasites (02/09/2017 8:00 AM CDT) Component Value Ref Test Analysis Performed At [facility] Volar Video Method Time Signature Cyclospora Negative [facility] Stain Reference range: Negative [facility] Cyclospora (NOTE) [facility] Stain TEST INFORMATION: The parasitology stain is a modified aci d fast ?? LABORATORIES stain that detects Cryptosporidium, Cyclospora and Cystoisos pora. [address] [place] [address] [email or web address], Yong Truong MD, Lab. Director Specimen Anatomical Collection Method Collection Time Receive d Time (Source) Location / / Volume Laterality 02/09/2017 8:00 AM 7 1:34 CDT PM CDT Narrative [facility] - 02/10/2017 10:39 PM CDT Performed by [facility], [address] [place] [address] Jamila Lynne APRN, CNP LAB_1 Performing Organization Address [facility]/ZIP Code Phon e Number [facility] [phone] Microsporidia stain Stool (02/09/2017 8:00 AM CDT) Component Value Ref Test Analysis Performed At [facility] Range Method Time Signature Microsporidia Negative [facility] Stain Reference range: Negative [facility] Microsporidia (NOTE) [facility] Stain [address] [place] [address] LABORATORIES [email or web address], Yong Truong MD, Lab. Director Specimen Anatomical Collection Method Collection Time Receive d Time (Source) Location / / Volume [facility] 02/09/2017 8:00 AM 7 1:34 CDT PM CDT Narrative [facility] - 02/10/2017 10:31 PM CDT Performed by [facility], [address], [place] [address] Jamila Lynne APRN, YAIR LAB_1 Performing Organization Address [facility] Code Phon e Number [facility] [phone] Stool PMN's (02/09/2017 8:00 AM CDT) athologist Signature Quantity PMN's None [facility] Seen LABORATORIES Specimen Anatomical Collection Method Collection Time Receive d Time (Source) Location / / Volume Laterality 02/09/2017 8:00 AM 7 1:33 CDT PM CDT Narrative [facility] - 02/12/2017 2:55 PM C DT Performed at [facility], [address] [place] [address] ??[address] Jamila Lynne APRN, CNP LAB_1 Performing Organization Address City/[facility]/ZIP Code Phon e Number [facility] [phone] Ova & Parasite Exam #1,Stool (02/09/2017 8:00 AM CDT) Component Value Ref Test Analysis Performed At [facility] Range Method Time Signature Specimen Stool [facility] Description LABORATORIES Special Unspecified [facility] Requests LABORATORIES Specimen Information [facility] Number Not Given LABORATORIES Results No Parasites NPARA [facility] Specimen Anatomical Collection Method Collection Time Receive d Time (Source) Location / / Volume Laterality 02/09/2017 8:00 AM 7 1:33 CDT PM CDT Narrative [facility] LAB[facility]ATORIES - 02/12/2017 2:55 PM C DT Performed at [address] ??[address] Jamila Lynne APRN, CNP LAB_1 Performing Organization Address [facility] Phon e Number [facility] [phone] Enteric Parasite PCR (Giardia, Cryptosporidium, E.histolytica) (02/09/2017 8:00 AM CDT) Component Value Ref Test Analysis Performed At [facility] Range Method Time Signature Giardia lamblia Not NDET [facility] DNA Detected LABORATORIES Cryptosporidium sp Not NDET [facility] DNA (C. hominis Detected LABORATORIES and C. parvum) Entamoeba Not NDET [facility] histolytica DNA Detected LABORATORIES Specimen Anatomical Collection Method Collection Time Receive d Time (Source) Location / / Volume Laterality 02/09/2017 8:00 AM 7 1:32 CDT PM CDT Narrative [facility] LAB[facility]ATOR[facility] - 02/10/2017 3:11 PM C DT Performed at [address] ??[address] Jamila Lynne APRN, CNP LAB_1 Performing Organization Address [facility] e Number [facility] [phone] Enteric Stool Pathogens Panel (02/09/2017 8:00 AM CDT) Component Value Ref Test Analysis Performed At [facility] Range Method Time Signature Specimen Stool [facility] Description LABORATORIES Special Unspecified [facility] Requests LABORATORIES Culture Negative by PCR for Campylobacter group (C. coli, C. jejun i, and C. [facility] suni), Salmonella species, Shigella species (including S. dysenteriae, LABORATORIES S. boydii, S. sonnei, and S. flexneri), ??Vibrio group (V. cholerae and V. parahaemolyticus), Yersinia enterocolitica, Shiga Toxin 1 and 2, Norovirus (GI and GII), and Rotavirus (A). Report Status Final 02/10/2017 [facility] Specimen Anatomical Collection Method Collection Time Receive d Time (Source) Location / / Volume Laterality 02/09/2017 8:00 AM 7 1:30 CDT PM CDT Narrative [facility] - 02/10/2017 1:12 AM C DT Performed at [facility] , [address] [place] [address] Jamila Lynne APRN, CNP LAB_1 Performing Organization Address City/State/ZIP Code Phon e Number [facility] [phone] documented in this encounter Visit Diagnoses Diagnosis Diarrhea, unspecified type - Primary Diarrhea, unspecified type documented in this encounter Care Teams Account Development Specialist Relationship Specialty Start Date End Date Fina Leon APRN, YAIR PCP - General Family Practice 03/22/12 08/15/20 [address] [place] [address] documented as of this encounter
--- OUTSIDE RECORDS SUMMARY | 2022-07-21 09:09 | XMS_ITS | Encounter Summary ---
:1990 Author Organization [email or web address] Address [address] [place] [address] Care Team Providers Name Role Phone Fina Leon APRN, CNP Primary Care Provider [phone] Encounter Details Date Type Department Care Team Description 08/19/2015 Hospital Encounter Security Contact - None Genoveva [...] Procedure Name Priority Date/Time Associated Comments Diagnosis TB GOLD, QUANTIFERON Routine 08/19/2015 3:25 PM R esults for this HOOP FLARING MACHINE OPERATOR HELPER procedure are i n the results section. documented in this encounter Results TB Gold, Quantiferon (08/19/2015 3:25 PM HOOP FLARING MACHINE OPERATOR HELPER) Component Value Ref Test Analysis Performed At [facility] gist Range Method Time Signature TB Gold, Negative NEG [facility] TB NIL Value 0.03 IU/mL [facility] TB Ag-NIL <0.01 IU/mL [facility] Mitogen-NIL 9.08 IU/mL [facility] TB Gold (NOTE) [facility] Interpreta. Nil ? TB-Nil ? Daniel-N il ?? Quantiferon-TB ? Interpretation [facility]OSPITAL _ _ _ _ _ _ _ [...] Time (Source) Location / / Volume Laterality 08/19/2015 3:25 PM 6 3:27 HOOP FLARING MACHINE OPERATOR HELPER PM HOOP FLARING MACHINE OPERATOR HELPER [facility] - 08/20/2015 12:[address] Performed at [facility] , [address] [place] [address] Audelia Richter MD LAB_1 Performing Organization Address City/State/ZIP Code Phon e Number [address] [address] documented in this encounter Visit Diagnoses Not on filedocumented in this encounter Care Teams Clothing Busheler Relationship Specialty Start Date End Date Fina Leon APRN, PICTURE FRAMES INSPECTOR PCP - General Family Practice 03/22/12 08/15/20 [address] [place] [address] documented as of this encounter
--- OUTSIDE RECORDS SUMMARY | 2022-07-21 09:09 | XMS_ITS | Encounter Summary ---
:1990 Author Organization [facility] Address [address] [place] [address] Care Team Providers Name Role Phone Fina Leon APRN, CNP Primary Care Provider [phone] Reason for Visit Reason Comments Medication Request trazadone 50 mg not working Health Maintenance Communication immuniz, pap, chlamyd ia Encounter Details Date Type Department Care Team Description 03/22/2012 Office Visit [facility] Fina Leon, I nsomnia (Primary Dx) Practice YAIR GERMAIN [id number] [place] [address] [phone] (Wo rk) Social History Tobacco Use Types [...] Sign Reading Time Taken Comments Blood Pressure 107/64 03/22/2012 9:39 AM CDT Pulse 59 03/22/2012 9:39 AM CDT Temperature - - Respiratory Rate - - Oxygen Saturation - - Inhaled Oxygen Concentration - - Weight 56.7 kg (125 lb) 03/22/2012 9:39 AM CDT Height - - Body Mass Index 22.86 02/26/2012 10:32 AM CDT documented in this encounter Patient Instructions Patient InstructionsFina Leon APRN, CNP - 03/22/2012 10:12 AM CDT Same bedtime and awakening time every night if possible Allow eight hours for sleep Work down to no caffeine No alcohol with ambien If you can't sleep get up out of bed go into another room and read or do something boring Aim for 30 minutes of exercise every day Call or return to clinic prn if these symptoms worsen, fail to improve as anticipated, or if new symptoms develop. documented in this encounter Progress Notes Fina Leon APRN, CNP - 03/22/2012 10:06 AM CDT S: 21 yr old female presents to clinic concerned about presents to clinic to discuss insomnia. She has been having problems with sleeping for the past year since her daughter was born 1.5 years ago. They live in a trailer and daughter sleeps through the night in another room. She is able to get to sleep easily. 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 No She appears well, in no apparent distress. Alert and oriented times three, pleasant and cooperative. A: Insomnia P: Long discussion regarding proper sleep hygiene and also we discussed the use of alternate medications and she would like to try Ambien, Discussed medication in detail, including dosing, side effects, and interactions. She is to use this sparingly and should try the trazodone 100 mg dosage on other nights. Call or return to clinic prn if these symptoms worsen, fail to improve as anticipated, or if new symptoms develop. See After Visit Summary, patient instructions and orders. Fina Leon NP Total time of visit/time spent in counseling and education TT15/CT15. documented in this encounter Plan of Treatment Not on filedocumented as of this encounter Visit Diagnoses Diagnosis Insomnia - Primary Insomnia, unspecified documented in this encounter Care Teams Spiral Weaver Relationship Specialty Start Date End Date Fina Leon APRN, CNP PCP - General Family Practice 03/22/12 08/15/20 [address] [place] [address] documented as of this encounter
--- OUTSIDE RECORDS SUMMARY | 2022-07-21 09:09 | XMS_ITS | Encounter Summary ---
:1990 Author Organization [facility] Address [address] [place] [address] Care Team Providers Name Role Phone Denise Deal APRN, CNM Primary Care Provider Unavailable Reason for Visit Reason Onset Date Comments Refill 10/21/2010 Encounter Details Date Type Department Care Team Description 10/21/2010 Refill [facility] Lara Dominguez MD Refill Pharmacy [facility] [address] [place] [id number] [place] [address] [place] [phone] (Wo rk) Social History Tobacco Use Types [...] on filedocumented in this encounter Care Teams Ground Crewman Relationship Specialty Start Date End Date Denise Deal APRN, CNM PCP - General 07/28/1003/21 documented as of this encounter
--- OUTSIDE RECORDS SUMMARY | 2022-07-21 09:09 | XMS_ITS | Encounter Summary ---
:1990 Author Organization [facility] Address [address] [place] [address] Care Team Providers Name Role Phone Denise Deal APRN, CNM Primary Care Provider Unavailable Encounter Details Date Type Department Care Team Description 11/22/2010 Office Visit [facility] Jerardo Thomas P T Femoral nerve palsy Physical Therapy [address] [place] [address] (Primary Dx) [address] [place] [address] [phone] Social History Tobacco Use Types Packs/Day Years [...] encounter Progress Notes Jerardo Thomas, PT - 11/22/2010 1:58 PM CDT OUTPATIENT PHYSICAL THERAPY: DAILY NOTE Lara Emily Angelica [phone] Payor: FELICIANO JETER [place] [id number] Plan: FELICIANO NGUYEN Product Type: HMO Referring Provider: Maren Rubio Diagnosis: L/E - Left Knee: Left Femoral nerve palsy,355.2 Date of Injury/Surgery: 10/10/2010 VISIT NUMBER: 5 out of 12 [employer] INTEGRATION ENGINEER VISIT 3 SUBJECTIVE Patient reports -occasional Left Quads pain.pt.feels stronger and can ambulate without the brace around the house Pain: intensity level 4/10 occasionally OBJECTIVE Strength Left Quads 3-/5,Left hip abductors 5/5.Left quad extensor lag 15 degrees Patient ambulates with brace locked into extension TREATMENT TODAY: Therapeutic exercise (25 minutes): reviewed and progressed HEP Seated LAQ with 5 second hold x 10 with 2 pound wts. Supine SAQ with x 10 through partial range, with 2 pound wt. Supine active SLR without brace x 12 with 2 pound wt. standing terminal knee extension with green theraband x 10 without brace supported squats with tactile cues to wt.bear on LLE X 10 4 stairs x 2 using one hand rail with emphasis on controlling Left quad action CURRENT HEP: Supine left quad sets 5 [...] exercise Equipment Issued: None Eddi Thomas, PT 11/22/2010 documented in this encounter Plan of Treatment Not on filedocumented as of this encounter Visit Diagnoses Diagnosis Femoral nerve palsy - Primary Other lesion of femoral nerve documented in this encounter Care Teams Technical Operations Specialist Relationship Specialty Start Date End Date Denise Deal APRN, CHEYANNE PCP - General 07/28/1003/21 documented as of this encounter
--- OUTSIDE RECORDS SUMMARY | 2022-07-21 09:10 | XMS_ITS | Encounter Summary ---
:1990 Author Organization [email or web address] Address [address] [place] [address] Care Team Providers Name Role Phone Denise Deal APRN, CNM Primary Care Provider Unavailable Reason for Visit Reason Onset Date Comments Concerns 09/27/2010 Encounter Details Date Type Department Care Team Description 09/27/2010 Telephone Careline Unknown, Physician Concerns [address] [place], [place] [address] [place], [place] [phone] (Wo [id number]) Social History Tobacco Use Types Packs/Day Years Used Date Smoking Tobacco: Former Alcohol Use Standard Drinks/Week Comments No 0 [...] documented as of this encounter Nursing Notes Elena Nielson, RN - 09/27/2010 3:44 AM CST Call transferred from human resources receptionist Contractions for the last couple hours Occurring q5-6min lasting 30-45 sec Lots of pelvic pressure No vag bleeding/DC/ROM +FM Dilated to 1cm on 09/21/10 37wks +4 days EDC 10/14/10 G2, P0 A+ GBS negative [place] [facility] [employer] [facility] pt To deliver at [facility] - lives 10min from hospital TRIAGE REFERENCE: LABOR & POST CNG (c) 2009 STAT SYMPTOMS: None PMH: Patient Active Problem List Diagnoses Code ??? Supervision of High-Risk V23.9K ??? History of Delivery, Currently V23.41F MEDICATIONS: No current outpatient prescriptions on file. MEDICATION ALLERGIES: No Known Allergies PLAN: Advised L&D now for eval. Pt states she has someone to drive her - ETA 10min. Reviewed worsening/stat symptoms to watch for and advised to call 911 if those symptoms occur. Pt verbalized understanding and is agreeable to plan. [facility] advised of pt coming in. Elena Nielson, RN TEACHER Yany Wade - 09/27/2010 3:23 AM CST Does the patient currently have [employer] insurance?No Which care system is the patient affiliated with?[facility] Situation:37 weeks and having contractions TEACHER documented in this encounter Plan of Treatment Not on filedocumented as of this encounter Visit Diagnoses Not on filedocumented in this encounter Care Teams Print Developer Automatic Relationship Specialty Start Date End Date Denise Deal APRN, [place] PCP - General 07/28/1003/21 documented as of this encounter
--- OUTSIDE RECORDS SUMMARY | 2022-07-21 09:10 | XMS_ITS | Encounter Summary ---
:1990 [facility] Address [address] [place] [address] Care Team Providers Name Role Phone Denise Deal APRN, CNM Primary Care Provider Unavailable Encounter Details Date Type Department Care Team Description 10/10/2010 Surgery RH Labor & Delivery Declan Simpson SECTION [address] [place] [address] [address] [facility] [phone] [place], [place] [address] (Wo rk) Social History Tobacco Use Types [...] Sign Reading Time Taken Comments Blood Pressure 103/57 10/10/2010 8:30 AM TRUCK OPERATOR Pulse 86 10/10/2010 8:30 AM TRUCK OPERATOR Temperature 38.2 ??C (100.8 ??F) 10/10/2010 8:15 AM TRUCK OPERATOR Respiratory Rate 15 10/10/2010 8:30 AM TRUCK OPERATOR Oxygen Saturation 98% 10/10/2010 8:30 AM TRUCK OPERATOR Inhaled Oxygen Concentration - - Weight 71.2 kg (157 lb) 10/09/2010 4:40 PM TRUCK OPERATOR Height - - Body Mass Index 28.26 02/22/2010 2:38 PM CDT documented in this encounter Discharge Summaries Mary Kay Millard MD - 10/13/2010 11:43 AM CST [facility] OB Discharge Summary - in Labor Obstetric History: Gestational Age at Delivery: 39 2/7 wks Reason for Admission: Rupture of Membranes Admission date/time: 10/10/2010 7:00 AM Discharge date: 10/13/2010 Discharge diagnosis: 1. IUP, delivered 2. Left femoral nerve palsy Procedures performed: 1. Primary low transverse section with 2 layer uterine closure 2. Epidural anesthesia 3. IV antibiotics 4. IV fluids Baby's Complications of : Previous Infant Please see the record and admission history and physical for details. GBS Prophylaxis: Not Indicated Duration of Prophylaxis: Not indicated Labor Analgesics: Epidural;Fentanyl Delivery Date: 10/10/10 Method of Delivery: C- SECTION LO Modifiers: Patient in Labor Section Anesthesia: Epidural Anesthesia Primary Indication for : Failure to descend, arrest ofdescent FLOW(7205:last)@ gram Sex: female Score (1): 9 Score (5): 9 Infant Status: [facility];Liveborn discharged with mom doing well The procedure was uncomplicated. For details of the surgery see the operative report. The postoperative course was complicated by left leg weakness. The patient was seen by Neurology andwas diagnosed with a left femoral nerve palsy. She was also seen by physical therapy, who fitted patient with a knee brace and taught her to use a walker. By day number 3 she was afebrile, tolerating a regular diet, voiding without difficulty, regaining bowel function and ambulating withoutdizziness but needing the assist of a knee brace and walker. Maternal Blood Group: A;positive Rhogam was not indicated. Rubella: Immune Lab Results Component Value Date/Time HGB 8.5* 10/12/2010 6:54 AM She was discharged home on postoperative day number 3. She was given routine discharge instructions that included pelvic rest for six weeks, no lifting of more than 15 pounds for six weeks and no driving for three weeks. She was asked to call if she had a temperature of more than 100.4, heavy bleeding, increasing incision pain, pelvic cramping or incision redness or drainage. For contraception, she planned to use condoms. Prior to discharge she received instructions in the care of her . She was given prescriptions for Colace, iron supplementation, Motrin 600 and Percocet Additional discharge plans include: relaxing and enjoying the baby. She was asked to return to the clinic for an incision check in 2 weeks and a routine visit in 6 weeks. If her left leg weakness persists, she was encouraged to make an outpatient appointment with Neurology Attending for the delivery: Dr. Declan Simpson Attending for the discharge: Dr. Selene Morgan --- End of Report --- K OPERATOR Selene Morgan - 10/13/2010 11:43 AM CST Selene Morgan MD K OPERATOR documented in this encounter Discharge Instructions Discharge InstructionsTeena Avila RN - 10/13/2010 2:54 PM CST Images from the original note were not included. [address] [place] [address] Discharge Instructions for: Lara Emily Dominguez Thank you for choosing [facility] as your hospital. A copy of your discharge instructions has been given to you. Please read the instructions carefully. The staff will go over this information with you and answer your questions. Please take these discharge instructions to your follow up appointment for your physician to review. General Information Address: [address] [address] Phone number: Telephone Information: Allergies: Review of patient's allergies indicates no known allergies. Discharging physician: OB Discharge date: 10/13/2010 Primary Care Provider Primary care provider: Denise Deal CNM Discharge Disposition HOME Immunization Most Recent Immunizations Administered Date(s) Administered ??? Flu Vac Preserv Free (3+yrs) 06/14/2010 Immunization Documentation There is documentation in the Immunization/Injection section and/or the MAR (NOT in the notes) that the patient: Pneumonia:{Immunization Checklist:2540311} Influenza:{Immunization Checklist:2810876} Home Medications Carefully read the medication handouts you are given. They contain information about the purpose andside effects of your medications. For additional information about your medications, visit this [employer] website, [email or web address]. Current Discharge Medication List START taking these medications ferrous sulfate 325 (65 FE) MG tablet Take 1 Tab by mouth three times a day with meals. Qty: 30 Tab Refills: 2 ibuprofen (AKA MOTRIN) 600 MG tablet Take 1 Tab by mouth every 6 hours as needed for Pain. Qty: 40 Tab Refills: 0 Lidocaine HCl 0.5 % gel Apply topically. As needed Qty: 85 g Refills: 0 oxyCODONE-acetaminophen (AKA PERCOCET) 5-325 MG tablet Take 1-2 Tabs by mouth every 4 hours as needed for Pain. Qty: 40 Tab Refills: 0 CONTINUE these medications which have CHANGED docusate sodium (AKA COLACE) 100 MG capsule Take 1 Cap by mouth two times a day. Qty: 30 Cap Refills: 1 CONTINUE these medications which have NOT CHANGED Vit-Fe Fumarate-FA (PRENATABS FA OR) Finish your supply of vitamins and iron. Continue vitamins while nursing. If you are , you should check with your doctor before taking any other medication. If you were taking a medication before admission and you do not see it on the list of home medications, please contact your primary care doctor. Additional Orders Clinic Referral Make appointment with doctor for 1-2 weeks after delivery If an appointment with [facility] was advised and you have not been contacted to schedulethat appointment within 3 business days, please call [phone] for assistance. Reason for visit? Incision check Appointment Urgency? Non-Urgent (within 4 weeks or patient given options) Clinic Referral Make appointment for 4-6 weeks from delivery If an appointment with [facility] was advised and you have not been contacted to schedulethat appointment within 3 business days, please call [phone] for assistance. Reason for visit? visit Appointment Urgency? Non-Urgent (within 4 weeks or patient given options) Maternal danger signs Call your doctor for any of these maternal danger signs:(1) If you have a temperature higher than 100.4 degrees Fahrenheit (38 degrees Celsius) when taken by mouth. (2) If you are having nausea or vomiting. (3) If you feel pain or burning when you urinate. (4) If your bleeding is heavier than a normalmenstrual period or increases. (5) If you pass any tissue or large blood clots (larger than a 50-cent piece), or your vaginal discharge smells bad. (6) If the pain from an episiotomy, perineal tear or incision in your stomach gets worse and will not go away. (7) If your episiotomy, perineal tear or incision is red and has discharge coming from it. (8) If you have severe pain in your lower abdomen. (9) If you have a red sore area or red streaks on your breasts, or have painful new lumps. (10) If you have chest pain and are coughing and gasping for air. (11) If you have feelings of sadness and hopelessness lasitng more than 10 days after delivery. When to Resume Normal Activities: You may resume normal activities as tolerated Place nothing in your vagina for 6 weeks After 6 weeks you may resume your normal activity unless your care provider gives you additional restrictions. First week activity instructions During the first week limit your daily activities to taking care of you and your baby. After this you may resume normal activities unless your care provider gives you additional restrictons. Do not drive for 2-[address] for 2-3 weeks. After this you may resume normal driving unless your care provider givesyou additional restrictions. Do not lift more than 20 pounds for 6 weeks After 6 weeks you may resume normal lifting unless your care provider gives you additional restrictions. Diagnosis section, deliveredLeft femoral nerve palsy Regular Diet Scheduled Future Appointments Please cancel any remaining appointments. Future Appointments Date Time Provider Department Center 10/13/2010 3:40 PM [id number] Home Care Instructions See the C- Care handout in your education folder. Valuables/Medications Disposition of Money: (not recorded) Disposition of Medications: (not recorded) Patient and/or family verified that all valuables have been returned: Yes Patient and/or family verified that all valuables removed from room safe: Yes Community Resources 1. [facility] 2. See handout in your Patient Education Folder. Contact Information [place] [address] Nursing unit phone number: [phone] Emergency & Urgently Needed Care: For emergencies call 911 and/or get medical help right away. If you are a [facility] member and have medical needs after clinic hours you may call the CareLineat [phone] or . All medical devices (telemetry/IV/etc) unless otherwise ordered, have been removed before discharge. Smoking and Second-hand Smoke Exposure: Smoking damages blood vessels, reduces the oxygen in your blood and makes your heart beat too fast. If you smoke you should quit. Everyone should avoid second- hand smoke. If you would like further assistance after your discharge, please contact [phone] or visit www.[employer] can offer further information and assistance. We hope you had a positive experience and that you can definitely recommend [facility] to yourfamily and friends. You???ll be receiving a survey in the mail in about 2 weeks and we look forward to hearing your feedback. When you are ready to leave tell your nurse and she will arrange an escort for you. I understand my discharge instructions: Lara Dominguez (or [employer]) K OPERATOR documented in this encounter Medications at Time of Discharge Medication Sig Dispensed Refills Start Date End Date docusate sodium (AKA Take 1 Cap by mouth 30 Cap 1 201011/23/2010 COLACE) 100 MG two times a day. capsuleIndications: Constipation ferrous sulfate 325 (65 Take 1 Tab by mouth 30 Tab 2 10/201011/23/2010 FE) MG tablet three times a day with meals. ibuprofen (AKA MOTRIN) 600 Take 1 Tab by mouth 40 Tab 0 10/13/2010 11/23/2010 MG tablet every 6 hours as needed for Pain. Lidocaine HCl 0.5 % gel Apply topically. As 85 g 0 10/26/2010 needed oxyCODONE-acetaminophen Take 1-2 Tabs by 40 Tab 0 201010/26/2010 (AKA PERCOCET) 5-325 MG mouth every 4 hours tablet as needed for Pain. Vit-Fe 0 2 Fumarate-FA (PRENATABS FA OR) documented as of this encounter Progress Notes Teena Avila RN - 10/13/2010 4:19 PM CST [facility] Discharge Note - Nursing Admission Date/Time: 10/10/2010 7:00 AM Attending MD: Declan Simpson Patient discharged: to Home. Discharge Date: 10/13/2010 Discharge Time: 154 Patient accompanied by: SO. Transported by: Wheelchair Valuables were taken home by patient: Yes Discharge instructions given and explained to patient: Yes Discharge Patient Education Plan completed, taught, and provided to patient/caregiver at discharge: Yes ?? Discussed medication risks with patient ?? Patient understands medications usage and side effects ?? Patient understands diagnosis ?? Action Plan for management of symptoms/side effects/complications requiring medical attention established and shared with patient/caregiver Was patient discharged on Warfarin?No Patients general condition on discharge: good All medical devices (telemetry/IV/etc) unless otherwise ordered, have been removed and stored: Yes Report Completed by: Teena Avila RN --- End of Report --- K OPERATOR Teena Avila RN - 10/13/2010 4:13 PM CST [facility] Progress Note (Nursing) Identify/Problem(s): c/s Discharge Teaching Desired Outcome(s): Pt. will verbalize understanding of discharge teaching Evaluation: c/s discharge teaching discussed-Pt verbalizes and/or demonstrates understanding of self care, meds and follow up appt. Pt has instructions and number for PT follow up. Plan: Discharge to home with and belongings Teena Avila RN --- End of Report --- K OPERATOR Rea Vu, PT - 10/13/2010 12:37 PM CST [facility] IP Physical Therapy Progress Note PT Visit Room/Bed: 2603/173405 Patient Seen: in department Diagnosis: Encounter Diagnoses Code Name Primary? 355.2F Femoral neuropathy Yes ??? V23.41F History of delivery, currently ??? V23.41 with history of pre-term labor ??? 653.40G CPD (cephalo-pelvic disproportion) ??? 653.40 Fetopelvic disproportion, unspecified as to episode of care ??? 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 V27.0 Outcome of delivery, single liveborn ??? 355.2 Other lesion of femoral nerve ??? 564.00A Constipation Pain: no complaints Action Taken: pt willing to participate in therapy session. Perception/Cognition/Orientation: patient alert and patient oriented to person/self, place and date/time Action Taken: no action needed Toileting Needs: no needs Action Taken: N/A Education: Provided instruction in gait with L knee brace. Patient Position: N/A, patient received treatment in PT AM- pt seen in dept this am. Pt reports knee immobilizer is too long and fits poorly. Order was received from MD for hinged/locking knee brace. Jania OSEI attended session and provided/fit pt with brace. Transfers- sit to/from stand and sit to/from supine with mod indep. Pt was instructed how to lock/unlock brace to ease transfers. Gait training without AD with L knee brace locked in full extensionthroughout 2 x 75-80ft with min/cga. Stairs- up/down 8 steps using rail and step to gait pattern performed with cga. Ther ex on mat- quad/glut isometrics, heelslides, bridging, ankle pumps performed x 10 reps each. Pt worked on antigravity L knee P/AAROM using powder board and skate. Pt was able to elicit L knee extension in this position. PM- pt seen again this pm. Gait x 100ft with RW and mod indep. Reviewed home ex program and issued exercise handouts to follow. Pt was provided with RW for ambulation to use as needed ie) longer distances, uneven surfaces, etc... Pt was able to perform basic transfers with mod indep. Performed 8 stepsusing single rail with step to gait pattern and mod indep. Trial of gait without AD x 75ft with supervision. Assessment- pt progressing with mobility. L quad strength remains very poor ~1/5 (only able to facilitate L knee extension using powder board and skate). Rec continued outpt PT services following hospital d/c. Rec pt wear brace at all times for mobility- locked in extension. Rec pt follow up with if L LE strength does not improve as other brace options are available for snf deficits. Plan- d/c from acute PT. Amount of time spent in patient contact: AM: 30 minutes, PM: 15 minutes Rea Vu PT Phone number is [phone] Pager: [phone] --- End of Report --- K OPERATOR Mary Kay Millard MD - 10/13/2010 7:13 AM CST Subjective: Patient is comfortable without complaints with exception for some abdominal tenderness when coughing and her left leg weakness which has not changed from yesterday. Patient plans to bottle feeding. She has had a small amount of vaginal bleeding which has been decreasing. She has been having flatus. She denies shortness of breath, chest pain, headache, vision changes, and leg pain. Patient reports requiring wheelchair usage to get to the restroom and is only able to bear weight with the right leg and is only able to stand and pivot. She saw neurology and PT yesterday and she is getting a left leg brace today as the one yesterday did not fit properly. Patient reports that her left leg weakness and sensations have not changed. Objective: BP 102/57 Pulse 87 Temp(Src) 98 ??F (36.7 ??C) (Oral) Resp 18 Wt 71.215 kg (157 lb) SpO2 97% LMP 01/07/2010 ? Unknown Exam: General: Patient is comfortable but very anxious about her leg weakness. Lungs: Clear bilaterally with normal effort Cardiovascular: RRR, no murmurs heard Abdomen: Mild lower abdominal tenderness, fundus firm and 3 cm below umbilicus, incision clean dry intact Neuro exam: Patient has 3.5/5 muscle strength with left hip flexion and 1.5/5 muscle strength on left knee extension. Hip adduction 5/5 bilaterally Hip abduction 5/5 bilaterally Hip extension 5/5 bilaterally Knee flexion 5/5 on right lower extremity Dorsi and plantar foot flexion/extension 5/5 bilaterally Left knee jerk absent, other reflexes 2+ Assessment: Patient is a 20 yo POD#2 s/p low transverse for arrest of descent. Patient appears to be progressing as expected from a post perspective. 1. Left leg weakness: Distribution of muscle weakness most consistent with left femoral nerve palsy and neurology consult agrees and notes likely 1-3 months recovery. Plan: - PT to see patient again today for leg brace fitting and continued exercise recommendations - continue with routine post- care with pelvic rest, lifting restrictions - plan on discharge from obstetrics today or tomorrow - routine post outpatient follow-up in 2 weeks G1 ADDENDUM Agree with the medical student note above, in addition: [facility] OB POD #3 Note Attending Provider: Declan Simpson Subjective Good pain control. Tolerating regular diet. Voiding without problems. Positive flatus. Bleeding minimal. Persistent L leg numbness and weakness, no change. Pleased about neurology evaluation and plan yesterday. Will be fitted for knee brace to aide ambulation today. Objective Patient OB VS in the past 24 hrs: BP Pulse Temp Temp src 10/13/10 0000 102/57 mmHg 87 98 ??F (36.7 ??C) Oral 10/12/10 1600 100/56 mmHg 100 98.5 ??F (36.9 ??C) Oral 10/12/ 0800 100/55 mmHg 85 98.4 ??F (36.9 ??C) Oral Gen: sitting up, smiling, resting comfortably Abdomen: soft, nondistended, appropriate incisional pain. Uterine fundus firm at umbilicus -2. Incision: intact, no erythema, no drainage Extremities: Nontender, No cords and +1 edema Assessment POD#3 s/p PLTCS for arrest of descent, L femoral nerve palsy, stable postoperatively Rh Positive, does not need Rhogam. Plan -Routine supportive cares -L leg weakness: working with PT. F/u with neurology in 1 month if symptoms persist -May d/c to home later today after PT, or tomorrow -Plans Condoms for contraception. Mary Kay Millard MD G1 --- End of Report --- K OPERATOR EddieSelene - 10/13/2010 7:13 AM CST OB staff Pt seen. Pain is well controlled. Wound looks great. Passing flatus. Being fitted for leg brace today. Likely d/c this pm or tomorrow AM. Selene Morgan MD K OPERATOR Grey Jane RN - 10/13/2010 1:25 AM CST [facility] Progress Note (Nursing) Identify/Problem(s): Post op C/S recovery. Desired Outcome(s): Will have a stable post op C/S recovery. Evaluation: FFU-1, scant flow. Clear LS. Incision CDI. Still with numbness from mid thigh to her calf, sensationstill the same.Pt. uses wheelchair in room. Stated she will use the walker once she have the right brace to fit her. Pain meds effective for pain relief. Seen baby in room once this shift. Given encouraging words and pt. showed acceptance. Slept well. Plan: Continue to monitor. Grey Jane RN --- End of Report --- K OPERATOR Jeannie Elena RN - 10/12/2010 9:04 PM CST [facility] Progress Note (Nursing) Identify/Problem(s): Post C/S recovery Desired Outcome(s): Will be stable Evaluation: Vitals stable. Lungs clear. +BS +Flatus. Incision is CDI. checks WNL. Voiding without difficulty. Pt is pivoting to wheelchair and then to bathroom with 1 assist. Pt is wearing brace on leftleg this shift. Pt does still state left leg is numb from mid-thigh to mid-calf, and verbalizes has not improved. Pt is able to move foot and bend left leg but not able to bear weight. Pt does have walker in room but states has not used it this shift. FOB is present and supportive. Received Ibuprofen and Percocet for pain with good relief. Plan: Continue to monitor and assist with ambulation. Jeannie Elena RN --- End of Report --- K OPERATOR Teena Avila RN - 10/12/2010 3:16 PM CST [facility] Progress Note (Nursing) Identify/Problem(s): Post Recovery Desired Outcome(s): will experience pp recovery without complications Evaluation: Pt reports numbness and strength in left leg shows no improvement. Neurology consult done and pt went to PT x2 for walker and leg brace. Able to ambulate to bathroom with assist. Otherwise, her PP and post op checks are without complication. Baby started phototherapy this AM. Pt was tearful, but improved this afternoon. See instructor of nursing note. Reports adequate pain relief with ibuprofen and percocet. Plan: Cont to assess and support ambulation in room. PT again in AM. Offer emotional support for multiple stressors. Teena Avila RN --- End of Report --- Thalia Goins RN - 10/12/2010 2:57 PM CST Lara had 2 physical therapy sessions. She is anxious about her baby's jaundice and leg numbness she is experiencing; she stated, the numbness on my leg is not common and my baby has to be under the lights all day. She has family support present and is happy when the baby is brought to her for feeding. She enjoys cuddling her baby, this brightens me, she stated. Thalia Herrera, Student Nurse, SC[employer]. K OPERATOR Declan Simpson - 10/12/2010 6:21 AM CST Subjective: Patient is comfortable without complaints with exception to her left leg weakness which has not changed from yesterday. Patient plans to bottle feeding. She has had a small amount of vaginal bleeding. She denies shortness of breath, chest pain, headache, vision changes, and leg pain. Nursing notes that patient has required wheelchair usage to get to the restroom and is only able to bear weight with the right leg and is only able to stand and pivot. Patient also notes that she has had an odd sensation wrapping around the left hip and over the anterior thigh and distally to just below the knee. Patient reports having a similar odd sensation over a similar distribution on the right side but it is less pronounced. Patient denies bowel or bladder symptoms, back pain, and leg pain bilaterally. Objective: BP 106/53 Pulse 92 Temp(Src) 98 ??F (36.7 ??C) (Oral) Resp 18 Wt 71.215 kg (157 lb) SpO2 97% LMP 01/07/2010 ? Unknown Exam: General: Patient is comfortable but very anxious about her leg weakness. Lungs: Clear bilaterally with normal effort Cardiovascular: RRR, no murmurs heard Abdomen: Mild lower abdominal tenderness, fundus firm and 3 cm below umbilicus, incision clean dry intact Neuro exam: Patient has 3/5 muscle strength with left hip flexion and 1.5/5 muscle strength on left knee extension. Hip adduction 5/5 bilaterally Hip abduction 5/5 bilaterally Hip extension 5/5 bilaterally Knee flexion 5/5 on right lower extremity Dorsi and plantar foot flexion/extension 5/5 bilaterally Left knee jerk absent, other reflexes 2+ Patient is able to differentiate sharp vs dull over both lower extremities and hips Assessment: Patient is a 20 yo POD#2 s/p low transverse for arrest of descent. Patient appears to be progressing as expected from a post perspective. 1. Left leg weakness: Distribution of muscle weakness most consistent with left femoral nerve palsy,possibly due to prolonged lithotomy position during labor though, this would be unusual. Patient reports perceiving a change in sensation over left hip and thigh and over a similar distribution over the right hip and thigh subjectively, but this is not evident on exam. Deficits are focal to left femoral nerve and do not appear to be in a saddle distribution and patient denies back pain and denies bowel or bladder symptoms. History is inconsistent with disc herniation. Patient did receive more than normal boluses of anesthetic through epidural during labor and delivery but focal distribution and duration greater than 24 hours is not consistent with an adverse/prolonged symptoms of anesthesia. Focal nature of deficits and lack of diminishing or progressing symptoms makes metabolic, infectious, auto-immune less likely, especially given that symptoms began after surgery. Plan: - place Neurology consult to see patient in am - place PT consult to aid patient with mobility. Possibly evaluate for walker or other device - continue with routine post- care with pelvic rest, lifting restrictions - plan on discharge from obstetrics on POD#4 - routine post outpatient follow-up in 2 weeks Addendum: I have seen and examined this patient and agree with Kevin Hamm's above note. Exam: BP 100/55 Pulse 85 Temp(Src) 98.4 ??F (36.9 ??C) (Oral) Resp 18 Wt 71.215 kg (157 lb) [id number]% LMP 01/07/2010 ? Unknown General: in no acute distress, alert and interactive Abdomen: soft, non-tender, no masses FF at 2 below umbilicus, incision C/DI/I crystal in place Ext: no edema, redness or tenderness in the calves or thighs, strength 4/5 L hip flexion, 2/5 L kneeextension, sensation intact throughout, reflexes 1+ and symmetric, no clonus, Babinski absent bilaterally. A/P: 20 yr yo POD#2 stable, meeting goals, focal leg weakness possibly due to femoral nerve injury during labor 1. Continue routine post-op care 2. Leg weakness: PT consult, Neurology consult to evaluate and treat 3. Plan d/c home POD#4 Jean Carlos Wagner MD Staff addendum I have seen and evaluated this patient and agree with above resident documentation. Feels well, minimal bleeding and pain controlled. Notes decreased sensation over lateral thigh and weakness of left leg. AF, VSS. Exam: I: c/d/i, decreased flexion at hip, decreased extension at knee. Routine cares. Neurology consult pending. Discussed delivery and answer questions to patient's and family's satisfaction. Baby was OP without good flexion of head - would consider TOLAC especially if baby is OA. Declan Simpson MD K OPERATOR Guillermo South - 10/12/2010 6:21 AM CST ???I saw and evaluated the patient with the resident and I agree with Dr. Wagner's findings and plan. Please see the note dated 10/12/2010.?? Guillermo South MD K OPERATOR Grey Jane RN - 10/12/2010 4:38 AM CST [facility] Progress Note (Nursing) Identify/Problem(s): Post op CS recovery. Desired Outcome(s): Will be stable. Evaluation: V/S stable. Clear LS. FFU-1, scant flow. Incision CDI, crystal still intact.+BS, +flatus. Assist of 1 with transfers and toileting. Pivots self for transfer.Stated left leg still numb from mid thigh down to mid calf, but not getting worse. +1 non-pitting BLE . No open areas noted. Heels intact. Using p neumoboots at bedtime. Sched and prn meds effective to relieve incisional pain. Requested for baby to stay in the nursery. Plan: Continue to monitor. Grey Jane RN --- End of Report --- K OPERATOR Jeannie Elena RN - 10/11/2010 9:18 PM CST [facility] Progress Note (Nursing) Identify/Problem(s): Post C/S recovery Desired Outcome(s): Will be stable Evaluation: Vitals stable. Lungs clear. +BS +flatus. checks WNL. Voiding without difficulty. Pt does c/o left leg still feeling numb from mid-thigh to mid-calf. Pt still unable to bear weight on left leg, is pivoting to wheelchair with assist of 1 this shift. Pt denies dizziness. Received Ibuprofen andPercocet for incisional pain with good relief. Pt is independent with bottle feeding baby. Pt is loving with baby, bonding well. OB resident notified of pt's concerns regarding left leg numbness and upto see pt at approximately 2015. Per MD pt to have pneumoboots on during the night and PT consult ordered. FOB is present and supportive. Plan: Continue to monitor. Jeannie Elena RN --- End of Report --- K OPERATOR Hansel Troy W - 10/11/2010 8:46 PM CST Subjective: Patient reports being unable to walk and not being able to move her left leg normally. Nursing notes that patient has required wheelchair usage to get to the restroom and is only able to bear weight with the right leg and is only able to stand and pivot. Patient also notes that she has hadan odd sensation wrapping around the left hip and over the anterior thigh and distally to just belowthe knee. Patient reports having a similar odd sensation over a similar distribution on the right side but it is less pronounced. Patient states that the muscle weakness and odd sensations have neitherprogressed nor diminished. Patient denies bowel or bladder symptoms, back pain, and leg pain bilaterally. Objective: Neuro exam: Patient has 3/5 muscle strength with left hip flexion and 1.5/5 muscle strength on left knee extension. Hip adduction 5/5 bilaterally Hip abduction 5/5 bilaterally Hip extension 5/5 bilaterally Knee flexion 5/5 on right lower extremity Dorsi and plantar foot flexion/extension 5/5 bilaterally Left knee jerk absent, other reflexes 2+ Patient is able to differentiate sharp vs dull over both lower extremities and hips. Assessment: Patient is a 20 yo POD#1 s/p low transverse for arrest of descent. Patient appears to be progressing as expected from a post perspective. 1. Left leg weakness: Distribution of muscle weakness most consistent with left femoral nerve palsy,possibly due to prolonged lithotomy position during labor though, this would be unusual. Patient reports perceiving a change in sensation over left hip and thigh and over a similar distribution over the right hip and thigh subjectively, but this is not evident on exam. Deficits are focal to left femoral nerve and do not appear to be in a saddle distribution and patient denies back pain and denies bowel or bladder symptoms. History is inconsistent with disc herniation. Patient did receive more than normal boluses of anesthetic through epidural during labor and delivery but focal distribution and duration greater than 24 hours is not consistent with an adverse/prolonged symptoms of anesthesia. Focal nature of deficits and lack of diminishing or progressing symptoms makes metabolic, infectious, auto-immune less likely, especially given that symptoms began after surgery. Plan: - place Neurology consult to see patient in am - place PT consult to aid patient with mobility. Possibly evaluate for walker or other device - continue with routine post- care K OPERATOR Farrah Hu - 10/11/2010 8:46 PM CST Farrah Hu MD Nancy Matias - 10/11/2010 3:02 PM CST [facility] Progress Note (Nursing) Identify/Problem(s): C/Section Recovery Desired Outcome(s): Will have a stable Post C/Section Recovery Evaluation: Patient Vitals in the past 8 hrs: BP Temp Temp src Pulse Resp 10/11/10 0800 89/44 mmHg 97.9 ??F (36.6 ??C) Oral 80 16 Post checks are wnl's. Incision is clean and dry with crystal. Patient C/O of left lower leg heaviness/numbness and is unable to support weight, needed to 2 people to transfer to chair. Ordered a commode for patient to be able to void and does not like the bedpan. Was able to transfer to with again with 2 people. Patient now up in wheelchair. Medicated with 1 percocet and 1 motrinwith good relief. IV now saline locked. Anesthesia seen patient this afternoon. Plan: Cont to assess. Nancy Bermudez RN --- End of Report --- Raymond Palacio - 10/11/2010 2:05 PM CST Pt seen for L leg weakness one day after C/S for arrest of labor. Pt had a lumbar epidural placed uneventfully in pull out operator 10/10. After pushing for 3.5 hr, the epidural was bolused with 2% lidocaine for C/S. The effects of the epidural local anesthetic should have been eliminated by the early afternoon 10/10. Pt describes sensory deficits of her anterior thighs bilaterally with inability to extendat the knee on her left. She is unable to walk without support. On exam, pt has diminished hip flexion strength, much more pronounced on the left, although she is able to passively lift her leg. She isable to move both ankles normally and denies numbness to her feet. I suspect pt has bilateral femoral nerve palsy, L > R, due to stretching during 2nd stage of labor. I explained the the usual course is gradual improvement and resolution. I would recommend a neurology consult if pt is still experiencing symptoms prior to discharge. K OPERATOR Farrah Hu - 10/11/2010 6:13 AM CST OBGYN note S: Lara is overall doing well this am. Baby is doing well. Pt concerned about inability to lift L leg straight up from bed, however can bend left leg and raise. Right leg moving well. Sensation intact. Able to walk ok. Overall improving, has not worsened. Denies CP, SOB, N/V. Pain better controlled now. Just had post removed. Bleeding is stable, no concerns. Bottle feeding. Tolerated PO, passing flatus. O: Filed Vitals: 10/10/10 1600 10/10/10 2000 10/11/10 0000 10/11/10 0400 BP: 106/61 107/64 96/60 88/48 Pulse: 94 104 73 78 Temp: 99 ??F (37.2 ??C) 97.3 ??F (36.3 ??C) 98.4 ??F (36.9 ??C) 98.2 ??F (36.8 ??C) TempSrc: Oral Oral Oral Oral Resp: 18 18 16 16 Weight: SpO2: 96% 98% 97% Gen: NAD, appears apprehensive CV: RRR Lungs: CTA B/L Abd: soft, nontender, FF @ U-2, +BS, nondistended Ext: nontender, nonedematous, SCD on. Full ROM. Thigh strength 2/4 B/L, unable to do L leg raise. 3/4 B/L foot strength. Sensation intact. A/P: 20 yo P1101 POD#1 s/p PLTCS for arrest of descent, OP position 1. Hgb 12.4-am pending 2. Leg weakness: discussed that due to dense epidural and increased dosing given for , may take more time for this to recover. Good signs are slowly improving, good sensation and overall strength appropriate. Will have patient continue to attempt ambulating this am. If weakness persists, will consult anesthesia for further recommendations. 3. Bottle feeding, condoms for contraception. Discussed recommendation for not getting for 1 year due to concern for uterine scar healing. Pt understands 4. Mood: pt has had episodes of crying during labor and 2/2 previous loss at 23wks. Will watch mood and bonding with 5. Anticipate d/c on POD#4 Hortensia Shi, DO Staff note: Pt seen and examined, chart reviewed. POD # 1 s/p for arrest of descent. She is overall doing well with the exception of difficulty in elevating left leg. VSS FF at U-1 Incision with staple in place, intact HGB (g/dl) Date Value 10/11/2010 9.5* Normal: 12-17 Acute blood loss anemia to start on Iron supplementation. Will have anesthesia evaluate and reassurept this afternoon if LLE weakness persists. Anticipate discharge home on POD #3. I agree with the evaluation and management plan as per Dr. Shi. Farrah Hu MD K OPERATOR Grey Jane RN - 10/11/2010 4:19 AM CST [facility] Progress Note (Nursing) Identify/Problem(s): Post Part C/S Recovery Desired Outcome(s): Will experience a stable post C/S recovery Evaluation: Vs stable. Clear LS. Inspromiter up to 2500. IV and Post patent. Abdominal incision covered with dry dressing. FFU small flow, Pain controlled with scheduled and prn medications. Pt. Stated Abdominal incision is sore.Pt. was heard crying and so nurse went to room. Pt. seen lifting her left leg and stated that it's still numb and heavy. Pt. was reassured and Md was informed. Pnuemoboots intact. Encouraged her to call nurse with any concerns. FC was removed at 0530. Active BS, now passing some flatus. Medicated with Percocet before ambulation.@0640 pt. Was assisted to stand but for few seconds only, still felt weak and heavy on left leg. Nodizziness per pt. Pt. Was assisted to be comfortable in bed. Pneumoboots placed. Texted and paged MDabout present condition of pt. Dr. Hoffmann called back and said pt. will be reassessed at 1000. Dr. Hu was also aware. Plan: Continue with plan of care Grey Jane RN --- End of Report --- K OPERATOR Terell Reyes RN - 10/10/2010 10:45 PM CST [facility] Progress Note (Nursing) Identify/Problem(s): Post csection Desired Outcome(s): stable Evaluation: BP 107/64 Pulse 104 Temp(Src) 97.3 ??F (36.3 ??C) (Oral) Resp 18 Wt 157 lb (71.215 kg) SpO2 96% LMP 01/07/2010 ? Unknown pt fundus firm at u with small flow incisional dressing clean dry and intact. Bowel sounds hypoactive denies passing gas. Breast soft and intact. Pt denies pain- med with tordal iv as ordered. Pt states that she is having heaviness in the legs especially the left one. Dangled pt tonight. Denies dizziness but only able to stand on the right leg for support because due to numbness. Post pale yellow. Bonding moderate with baby. Plan: Continue to monitor Terell Reyes RN --- End of Report --- K OPERATOR Lanette Main - 10/10/2010 3:09 PM CST [facility] Clinical Pharmacy Medication Reconciliation Note Medication History: Outpatient prescriptions marked as taking for the 10/10/10 encounter (Hospital Encounter) with HARJIT DECLAN Doron: Vit-Fe Fumarate-FA (PRENATABS FA OR) Disp: Rfl: Medications Reviewed and Reconciled: Any medication adjustments made from patient's medication history regimen are appropriate for current hospitalization and medical condition. PHARMACIST NAME: Lanette Main PharmD Phone/Pager #: [phone] --- End of Report --- Brittney Ocasio RN - 10/10/2010 2:38 PM CST [facility] Progress Note (Nursing) Identify/Problem(s): Post Op Recovery Desired Outcome(s): Cont. post op cares Evaluation: Transfer at 1000.Pt transfer well with sliding board.pt. Denied pain.FF at u with an intial trickle then resolved with massage.Pt tolerated water and ice and wanted to eat right away.Pt. ate a fast food chicken sandwich and fries.Encouraged pt. to go slow with eating solids.Patient denied nausea first but she did feel a little queasy later but no emesis.IN patent at 125 cc/hrs.Urine output good.IV dilaudid given with good relief. Plan: Cont. Post op cares Brittney Alaniz RN --- End of Report --- Kim Torres - 10/10/2010 5:10 AM CST [facility] Intrapartum Progress Note Complications of : Previous Infant Patient Active Hospital Problem List: *History of Delivery, Currently (04/07/2010) Delivered at 23 weeks: one month after cone biopsy done. [facility] has seen for appts and U/S. At 22 weeks, cervix is 3.7 cms MPP referred Lara back to [facility] care: no funneling or shortening of cervix. Subjective: Patient actively pushing since 0330, complete and plus 2 at 0300 0bjective: Patient Vitals in the past 1 hrs: BP Pulse Resp 10/10/10 0430 120/91 mmHg 122 20 Cervical Exam: Complete and plus two, OP presentation EFW: Average for Gestational Age Pelvis: Average FHR: Baseline Characteristics: moderate variability and accelerations present; Baseline Rates: 150 Decelerations: Decelerations: none Membrane status: Ruptured Uterine Activity: Contraction frequency: 3-4 in 10 minutes Contraction duration 60 seconds Contraction quality moderate, pitocin @ 1milliunit Assessment: Maternal Status: Doing well with contractions Status: FHR Category I Accelerations present Contraction Status: Adequate Labor Status: Second Stage - protracted descent Plan: Anticipate spontaneous vaginal delivery. Empty bladder and try position change. Kim Mancilla CNM --- End of Report --- K OPERATOR Kim Mancilla - 10/10/2010 2:42 AM CST [facility] Intrapartum Progress Note Complications of : Previous Infant Patient Active Hospital Problem List: *History of Delivery, Currently (04/07/2010) Delivered at 23 weeks: one month after cone biopsy done. [facility] has seen for appts and U/S. At 22 weeks, cervix is 3.7 cms MPP referred Lara back to [facility] care: no funneling or shortening of cervix. Subjective: Patient comfortable, resting, in bed, 0bjective: Patient Vitals in the past 1 hrs: BP Pulse Resp SpO2 10/10/10 0230 109/68 mmHg 80 18 99 % 10/10/10 0215 106/63 mmHg 83 20 99 % FHR: Baseline Characteristics: moderate variability; Baseline Rates: 130 Decelerations: Decelerations: none Membrane status: Ruptured Uterine Activity: Contraction frequency: 6-7 in 10 minutes Contraction duration 60 seconds Contraction quality moderate Assessment: Maternal Status: Doing well with contractions Status: FHR Category I Accelerations present Contraction Status: Uterine Tachysystole Labor Status: normal advancement Plan: OB informed of tachysytole and that pitocin has been off for 30 minutes, no further recommendations Kim Mancilla CNM --- End of Report --- K OPERATOR Kim Mancilla - 10/10/2010 2:17 AM CST [facility] Intrapartum Progress Note Complications of : Previous Patient Active Hospital Problem List: *History of Delivery, Currently (04/07/2010) Delivered at 23 weeks: one month after cone biopsy done. [facility] has seen for appts and U/S. At 22 weeks, cervix is 3.7 cms MPP referred Lara back to [facility] care: no funneling or shortening of cervix. Subjective: Patient comfortable, resting, in bed, received epidural and feels better, but has pressure. 0bjective: Patient Vitals in the past 1 hrs: BP Pulse Resp SpO2 10/10/10 0140 104/56 mmHg 87 20 - 10/10/10 0133 105/59 mmHg 104 18 99 % Cervical Exam: Cervical Dilation: 9 cm = 3 Cervical Effacement: 100% = 3 Station: +2 = 3 EFW: Average for Gestational Age Pelvis: Average FHR: Baseline Characteristics: moderate variability and accelerations present; Baseline Rates: 130 Decelerations: Decelerations: none Membrane status: Ruptured Uterine Activity: Contraction frequency: 6-7 in 10 minutes Contraction duration 60 seconds Contraction quality moderate Assessment: Maternal Status: Doing well with contractions Status: FHR Category I Accelerations present Contraction Status: Uterine Tachysystole Labor Status: Active Phase - normal progression Plan: Pitocin decreased and then turned off. Anticipate Kim Macnilla CNM --- End of Report --- Kim Torres - 10/09/2010 10:57 PM CST [facility] Intrapartum Progress Note Complications of : Previous Patient Active Hospital Problem List: *History of Delivery, Currently (04/07/2010) Delivered at 23 weeks: one month after cone biopsy done. [facility] has seen for appts and U/S. At 22 weeks, cervix is 3.7 cms MPP referred Lara back to [facility] care: no funneling or shortening of cervix. Subjective: Patient comfortable, is walking, hopes contractions get closer 0bjective: Patient Vitals in the past 1 hrs: BP Pulse Resp 10/09/10 2241 112/59 mmHg 96 19 Cervical Exam: Not rechecked EFW: Average for Gestational Age Pelvis: Average FHR: Baseline Characteristics: moderate variability and accelerations present; Baseline Rates: 120 Decelerations: Decelerations: none Membrane status: Ruptured Uterine Activity: Contraction frequency: 3 in 10 minutes, pitocin @ 3milliunits Contraction duration 60 seconds Contraction quality mild Assessment: Maternal Status: Doing well with contractions Status: FHR Category I Accelerations present Contraction Status: Hypotonic Uterine Dysfunction Labor Status: augmentation after SROM Plan: Continue to augment with pitocin Kim Mancilla CNM --- End of Report --- K OPERATOR Yosvany Hughes - 10/09/2010 8:45 PM CST [facility] Intrapartum Progress Note Complications of : Previous Patient Active Hospital Problem List: *History of Delivery, Currently (04/07/2010) Delivered at 23 weeks: one month after cone biopsy done. [facility] has seen for appts and U/S. At 22 weeks, cervix is 3.7 cms MPP referred Lara back to [facility] care: no funneling or shortening of cervix. Subjective: Patient comfortable, states does not feel sleepy after Vistaril 0bjective: BP 115/68 Pulse 104 Temp(Src) 98.1 ??F (36.7 ??C) (Oral) Resp 18 Wt 71.215 kg (157 lb) LMP01/07/2010 . Has ambulated and now resting, in bed, after being in tub, relaxing. Cervical Exam: Cervical Dilation: 4.5cm = 2 Cervical Effacement: 70% = 2 Station: -1 = 2 Cervical Consistency: Soft =2 Cervical Position: Mid =1 [place]OUL[place] SCORE: 9 EFW: Average for Gestational Age Pelvis: Average FHR: Baseline Characteristics: moderate variability and accelerations present; Baseline Rates: 150 Decelerations: Decelerations: none Membrane status: Ruptured x 7hrs Uterine Activity: Contraction frequency: 2 in 10 minutes Contraction duration 50 Contraction quality mild Assessment: Maternal Status: Doing well with contractions Status: FHR Category I Accelerations present Contraction Status: not in active labor Labor Status: Early Latent Phase Plan: Consult with OB Team regarding ROM, not in labor, implement plan as per recommendations of OB Team. Yosvany Hughes CNM Date of Service: 10/09/2010 --- End of Report --- K OPERATOR Yosvany Hughes - 10/09/2010 7:09 PM CST S: Walked to [employer] and ate burger, feels contr but doesn't find bothersome, Still leaking clear fluid. States 'nervous' O: BP 120/69 Pulse 105 Temp(Src) 98.1 ??F (36.7 ??C) (Oral) Resp 18 Wt 71.215 kg (157 lb) LMP 01/07/2010 Monitor shows moderate variability, + acels, no decels and baseline of 140 Amrik in room, supportive Having 3 contractions in 10 min x 50 - 60 sec, mild A: 20 y/o P 0100 @ 39w2d with ROM x 6 hrs, early labor, maternal tachycardia with out temp (anxious) P: Discussed SROM and risk of infec and need to move toward delivery Plan to ambulate again , give Vistaril and use tub to promote relaxation And if not in active labor, OK with Pitocin Plans epidural when uncomfortable. Yosvany Hughes CNM Date of Service: 10/09/2010 K OPERATOR Elena Mark RN - 10/09/2010 4:45 PM CST [facility] OB RN History Note OB History: Epic record reviewed and verified by patient. Medical History: Patient denies any. Surgical History: Epic record reviewed and verified by patient. Document completed by Elena Mark RN --- End of Report --- K OPERATOR documented in this encounter Procedure Notes [facility], PROVIDER - 10/14/2010 10:54 AM CSTAssociated Order(s): EKG IP; EKG IP [facility] ANESTHESIA, PROVIDER - 10/14/2010 4:07 AM TRUCK OPERATOR [facility] ANESTHESIA, PROVIDER - 10/14/2010 4:06 AM TRUCK OPERATOR [facility] ANESTHESIA, PROVIDER - 10/14/2010 4:06 AM Jean Carlos Hansen MD - 10/13/2010 11:47 AM CSTProcedure(s): DELIVERY; DELIVERY Pre-Procedure Diagnose(s): , subsequent; , subsequent Post-Procedure Diagnose(s): delivery delivered; delivery delivered [facility] OB Section Operative Note Surgery Date: 10/10/2010 Primary Surgeon: Surgeon(s): Declan Simpson MD Assistants: Resident-Shun Wagner Resident-Jesica Delvalle PREOPERATIVE DIAGNOSES Intrauterine at 39w3d. Primary Indication for : Failure to descend, arrest of descent Secondary Indication for : Malposition POSTOPERATIVE DIAGNOSES Same Name of Operation: Method of Delivery: LO Modifiers: Patient in Labor Anesthesia: Epidural Est Blood Loss (mL): 900 ML Fluids: 1800 mL lactated Ringer's. Urine Output: 300 mL clear urine. FINDINGS: Single vigorous and female infant at 0737 hours on 10/10/2010. Apgars of 9 and 9 at one andfive minutes. weight (GM): 3305 GM presentation A: Cephalic Position: OA Amniotic fluid:clear. Arterial Cord pH not taken. Placenta intact and with with a 3 vessel cord. Normal uterus, Fallopian tubes and ovaries were noted. Specimens: none COMPLICATIONS: none apparent. INDICATION: The patient is a 20 yr, , who was admitted at 39w3d by LMP confirmed by 11w3d US.Pt has been complete since 3am and pushing since 330am, now for 2 1/2 hours pushing. Pitocin was decreased for a time due to tachysystole without heart changes but was now being given IV. CNM noted station at +2 at the initiation of pushing and head remains there. Also noted OP position. The risks, benefits, and alternatives of delivery were explained and the patient agreed to proceed. PROCEDURE DETAILS: The patient was taken to the operating room. She received 1 gram Ancef prior to the skin incision. She was placed in the dorsal supine position with a leftward tilt and prepped and draped in the usual sterile fashion. Following adequate epidural anesthesia, the abdomen was entered through a Pfannenstiel incision. The skin incision was made sharply and carried through the subcutaneous tissue to the fascia. The fascia was opened sharply and from the underlying muscle by sharp and blunt dissecton. The muscle was in the midline. The peritoneum was entered bluntly and the opening extended by sharp and blunt dissection with care to avoid the bladder. A bladder blade was placed. The vesicouterine peritoneum was entered sharply with Metzenbaum scissors and incision extended laterally. The bladder flap was created digitally and the bladder blade replaced. The lower segment of the uterus was opened sharply in a transverse fashion and extended with digital pressure. The infant that was in OP position was delivered atraumatically. The cord was doubly clamped and cut and the infant was handed off to the waiting [facility] staff. A Segment of the cord was cut and held if needed for cord gases. The placenta was removed with traction on the umbilical cord. The uterus was exter iorized and cleared of all clots and debris. The uterus was massaged and was noted to be firm. Oxytocin was given through the running IV. With vigorous massage as well as administration of oxytocin, good uterine tone was achieved. The hysterotomy was repaired with 0 Polysorb suture in a running lockedfashion. A 2nd layer of this same suture was used to imbricate the incision and good hemostasis was achieved. The bladder flap was examined and noted to be hemostatic. The posterior cul-de-sac was thenirrigated, cleared of all clots and debris., The uterus was returned to the abdomen., The bilateral pericolic gutters were then cleared of all clots and debris. The abdominal wall was examined and noted to be hemostatic. The fascia was closed with a running suture of 0-Polysorb. Subcutaneous tissue was irrigated. Areas that were oozing were controlled with cautery. The subcutaneous tissue was re-approximated with interrupted sutures of 3-0 polysorb. The skin was closed with crystal and sterile dressing was applied. The patient tolerated the procedure well and was taken to the recovery room in stable condition. All sponge, needle and instrument counts were correct x2. Dr. Simpson was present forthe entire procedure. Jean Carlos Wagner MD [facility] ANESTHESIA, PROVIDER - 10/11/2010 8:05 PM HANS [facility] ANESTHESIA, PROVIDER - 10/10/2010 9:19 AM TRUCK OPERATOR [facility] ANESTHESIA, PROVIDER - 10/10/2010 9:19 AM TRUCK OPERATOR Jesica Delvalle DO - 10/10/2010 8:06 AM CST [facility] Brief Operative Progress Note Surgery Date: 10/10/2010 Primary Surgeon: Surgeon(s): Declan Simpson MD Assistants: Resident-Jesica Delvalle, DO Curtis-Shun Wagner MD Post-op Diagnosis: 1. IUP @ 39w2d GA, 2. Failure to descend Procedure: Primary low transverse section via pfannenstiel skin incision with double-layer uterine closure EBL: 900 mL Fluids: 1800cc Specimens: None Complications: None Findings: Normal-appearing uterus, tubes, ovaries. Female infant in vertex presentation with clear fluid @ 0737, Weight 3305gm, Apgars 9 and 9 at 1 and 5 minutes. Placenta intact, 3VC. JESICA DELVALLE DO --- End of Report --- K OPERATOR Declan Simpson - 10/10/2010 8:06 AM CST [facility] Brief Operative Progress Note Surgery Date: 10/10/2010 Primary Surgeon: Surgeon(s): Declan Simpson MD Assistants: Resident-Jesica Delvalle, Resident-Shun Wagner MD Post-op Diagnosis: 1. IUP @ 39w2d GA, 2. Failure to descend Procedure: Primary low transverse section via pfannenstiel skin incision with double-layer uterine closure EBL: 900 mL Fluids: 1800cc Specimens: None Complications: None Findings: Normal-appearing uterus, tubes, ovaries. Female infant in vertex presentation with clear fluid @ 0737, Weight 3305gm, Apgars 9 and 9 at 1 and 5 minutes. Placenta intact, 3VC. DO Declan CAAL MD --- End of Report --- K OPERATOR documented in this encounter Consult Notes Celso Quintero MD - 10/12/2010 12:08 PM CST DATE OF SERVICE: 10/12/2010 REQUESTING PROVIDER: Farrah Hu MD REASON FOR CONSULTATION: Evaluate for left leg weakness. HISTORY: The patient is a 20-year-old, right-handed, white female. Present during the examination was the patient's mother. This patient delivered a baby yesterday, apparently she had failure to progress delivery and was pushing for about 3-1/2h hours. There was no progression of the delivery, and it was found that the baby was with some head extension, so was taken to the operating room. She had epidural anesthesia and had a that without any complication. Now since she woke up the patientcomplains of numbness in the medial anterior aspect of the left thigh and has inability to extend the leg at all. She can flex the hip and can move the toes. Sensation from the knee down she says is nor mal. She does not have any pain. REVIEW OF SYSTEMS: Otherwise no abnormalities. No problems with urine control. She is quite concerned and anxious because of current problem. SOCIAL HISTORY: She lives with her male partner. She is not working. This is the second . The first ended with premature delivery, and the baby did not survive. She has had a prior conization of the cervix. She is now not smoking. FAMILY HISTORY: Unremarkable. PHYSICAL EXAMINATION: Vital Signs: The blood pressure is 100/55, pulse rate is 85 per minute. She is afebrile. Heart: Auscultation of the heart is regular, normal heart sounds without murmurs. Lungs: Clear. Neck: Supple, no carotid bruits or enlarged lymph nodes. Neuro Examination: She is oriented in time,person, and place, moderately anxious. The pupils are 3 mm, reactive directly and consensually to light. External ocular movements are full. Facial movements are symmetric. Tongue protrudes well in themidline. Finger-nose tests were performed. Orbiting with both index fingers is symmetric. Checking th e sensation with single filament of the face, upper extremities, and lower extremities is normal. There is only subjective decreased sensation in the anterior aspect of the thigh where she can detect asingle filament and pinprick on that area, but she noted the difference when comparing with the right side. Checking for strength, she has complete paralysis of the quadriceps muscle, but she can flex the hip appropriately, dorsiflexors of the foot and plantar flexors of the foot are normal. The left knee jerk is absent. The ankle jerk is 2 plus. The medial hamstring reflexes are symmetric in both sides and 2 plus, the same are the knee and ankle jerks on the right side. In the upper extremities the strength is normal. Reflexes 2 plus. ASSESSMENT AND RECOMMENDATIONS: The patient has clear evidence of left femoral neuropathy. This is arare complication in , apparently was much more frequent in the years past. The most recent described frequency probably is about 2 to 1.8 per every 100 deliveries. The most common mechanism is the association of a prolonged delivery in the lithotomy posturing in which the patient might haveexternal rotation and abduction producing more stretching of the nerve and also compression against the inguinal ligament. We would expect that she might have recovery anywhere from 1 to 3 months. If in 1 month she is not better, then it would be time to do an EMG to see what the degree of severity ofdamage is. In the meantime she is going to receive physical therapy and probably she is going to need supportive brace to prevent knee buckling and no trauma to the knee. Celso Quintero MD MRQ:dmb Dictated: 10/12/2010 12:08:50 Transcribed: 10/12/2010 12:16:14 Job: [id number] Doc: [id number] cc: K OPERATOR Hortensia Shi MD - 10/10/2010 7:17 AM CST OB consultation S: Asked to reconsult on this patient due to arrest of descent. Pt has been complete since 3am and pushing since 330am, now for 2 1/2 hours pushing. Pitocin was decreased for a time due to tachysystolewithout heart changes but was now being given IV. CNM noted station at +2 at the initiation of pushing and head remains there. Also noted OP position. Pt has been pushing well. Filed Vitals: 10/10/10 0330 10/10/10 0430 10/10/10 0552 10/10/10 0620 BP: 110/70 120/91 107/53 Pulse: 98 122 75 Temp: 99.3 ??F (37.4 ??C) 99.8 ??F (37.7 ??C) TempSrc: Oral Oral Resp: 18 20 20 Weight: SpO2: Gen: appears tired SVE: complete/+1 with significant caput, ROP FHTs: 150,moder omar, + accels with scalp stim, no decels [place]: 3-5 in 10 mins A/P: 20 yo @ 39+2 wks 1. Persistent OP with caput forming and vtx only at 1+. Discussed with patient position of fetus, lack of progress and now fatigue. Discussed that vacuum would not be indicated at this time. Offered due to arrest of descent, pt declined stating that is not what she wants. She is worried aboutgoing back to work. She would like to do whatever she can to avoid this. Offered attempting to turn fetus, pt would like this. Attempting turning for 25mins, however only change was to transverse. No further descent and more caput forming. Rediscussed , discussed indications for arrest of descent, persistent OP and inability to perform vacuum. Pt agreed to this, family in room. Discussed risks, recovery, pain and restrictions. Pt consent and proceed to OR. 2. FWB: cat I tracing, but concern for chorioamnionitis. Not febrile yet Seen with staff Hortensia Shi, DO K OPERATOR Declan Simpson - 10/10/2010 7:17 AM CST OB consultation S: Asked to reconsult on this patient due to arrest of descent. Pt has been complete since 3am and pushing since 330am, now for 2 1/2 hours pushing. Pitocin was decreased for a time due to tachysystolewithout heart changes but was now being given IV. CNM noted station at +2 at the initiation of pushing and head remains there. Also noted OP position. Pt has been pushing well. Filed Vitals: 10/10/10 0330 10/10/10 0430 10/10/10 0552 10/10/10 0620 BP: 110/70 120/91 107/53 Pulse: 98 122 75 Temp: 99.3 ??F (37.4 ??C) 99.8 ??F (37.7 ??C) TempSrc: Oral Oral Resp: 18 20 20 Weight: SpO2: Gen: appears tired SVE: complete/+1 with significant caput, ROP FHTs: 150,moder omar, + accels with scalp stim, no decels [place]: 3-5 in 10 mins A/P: 20 yo @ 39+2 wks 1. Persistent OP with caput forming and vtx only at 1+. Discussed with patient position of fetus, lack of progress and now fatigue. Discussed that vacuum would not be indicated at this time. Offered due to arrest of descent, pt declined stating that is not what she wants. She is worried aboutgoing back to work. She would like to do whatever she can to avoid this. Offered attempting to turn fetus, pt would like this. Attempting turning for 25mins, however only change was to transverse. No further descent and more caput forming. Rediscussed , discussed indications for arrest of descent, persistent OP and inability to perform vacuum. Pt agreed to this, family in room. Discussed risks, recovery, pain and restrictions. Pt consent and proceed to OR. 2. FWB: cat I tracing, but concern for chorioamnionitis. Not febrile yet Seen with staff Hortensia Shi, DO I saw and evaluated the patient with the resident. Discussed with resident and agree with resident'sfindings and plan as documented in above note. Declan Simpson MD 10/10/2010, 8:29 AM DOS: 10/10/2010 K OPERATOR Hortensia Shi MD - 10/09/2010 9:33 PM CST [facility] OB Consult: Evaluation of PROM With No Labor Consult Requested by: Yosvany Hughes Reason for Admission: Rupture of Membranes Complications of : Previous Infant Group B Strep: Negative Lara Dominguez is a 20 yr, , at 39w2d admitted on 10/09/2010 4:37 PM. EFW, presentation and pelvis assessment by her CNM. EFW: Average for Gestational Age. Pelvis Average. Presentation noted reece cephalic by digital exam. Membranes ruptured date: 10/09/10. Membranes ruptured time: 1330. Amniotic fluid color: clear. Dilation: 4.5 . Effacement: 70. Station: -1. Pts c/b previous 23wk delivery after cone biopsy. Pt was followed by [facility] and as cervix wasstable, she was transferred back to [facility] care for the remainder of her . Also pts RICK was noted to be 6 on 09/27 after ultrasound done due to decreased movement. Pt was started on IOL with pitocin, however made no change and recheck of RICK was 12.8. Pt has since been monitored closely. Contractions are 1 in 10 minutes. Contraction strength is moderate via external monitor She is afebrile with temp of 98.3. Her uterus is non-tender. Tachycardia is not present. She does not have findings consistent with chorioamnionitis. FHR: Baseline Characteristics: moderate variability and accelerations present; Baseline Rates: 145 Decelerations: Decelerations: none A: PROM with no labor. Group B Strep: Negative Status: FHR Category I Accelerations present P: Recommend Oxytocin Augmentation per Protocol Update OB Team every 2 hours once labor established Re-Consult for fever or tachycardia, no progress after labor established over 2 hours, or if Category II or Category III FHR occurs. Hortensia Shi DO K OPERATOR Declan Simpson - 10/09/2010 9:33 PM CST [facility] OB Consult: Evaluation of PROM With No Labor Consult Requested by: Yosvany Hughes Reason for Admission: Rupture of Membranes Complications of : Previous Group B Strep: Negative Lara Dominguez is a 20 yr, , at 39w2d admitted on 10/09/2010 4:37 PM. EFW, presentation and pelvis assessment by her CNM. EFW: Average for Gestational Age. Pelvis Average. Presentation noted reece cephalic by digital exam. Membranes ruptured date: 10/09/10. Membranes ruptured time: 1330. Amniotic fluid color: clear. Dilation: 4.5 . Effacement: 70. Station: -1. Pts c/b previous 23wk delivery after cone biopsy. Pt was followed by [facility] and as cervix wasstable, she was transferred back to [facility] care for the remainder of her . Also pts RICK was noted to be 6 on 09/27 after ultrasound done due to decreased movement. Pt was started on IOL with pitocin, however made no change and recheck of RICK was 12.8. Pt has since been monitored closely. Contractions are 1 in 10 minutes. Contraction strength is moderate via external monitor She is afebrile with temp of 98.3. Her uterus is non-tender. Tachycardia is not present. She does not have findings consistent with chorioamnionitis. FHR: Baseline Characteristics: moderate variability and accelerations present; Baseline Rates: 145 Decelerations: Decelerations: none A: PROM with no labor. Group B Strep: Negative Status: FHR Category I Accelerations present P: Recommend Oxytocin Augmentation per Protocol Update OB Team every 2 hours once labor established Re-Consult for fever or tachycardia, no progress after labor established over 2 hours, or if Category II or Category III FHR occurs. DO Declan Vega MD K OPERATOR documented in this encounter OR Notes H&P - Yosvany Hughes - 10/09/2010 6:10 PM CST [facility] OB History and Physical (MD/[employer]/Midwives) History Patient's last menstrual period was 01/07/2010. Estimated Date of Delivery: 10/14/10 Gestational age: 39w2d Obstetric History: Reason for Admission: Rupture of Membranes Brief HPI Here for eval for ROM, noted gush of fluid @ 1300, (while at work) has continued to leak and startedhaving mild contr. Denies vag bldg, decr FM or s/s PI Care Primary Provider: Denise Deal CNM Clinic: [facility] Care First Visit Date: 02/22/10 Care First Visit Weeks: 6w4d Care # Visits: 12 Plans for Analgesia in Labor: Comfort Measures;Hydrotherapy;IV Narcotics Water Requested Prenatally: No Labs Maternal Blood Group: A;positive Antibody Screen: Negative Rhogam this ?: Not indicated Rubella: Immune Test for Syphilis (RPR): Nonreactive Hepatitis B Surface Antigen: Negative HIV Exposure Test Information HIV Exposure Test: Non-Reactive Urine Culture: Negative One Hour GCT: 93 Three Hour GTT: Not indicated Group B Strep: Negative Triple or Quad Screen: Risk of trisomy not increased over 35 yo;Negative Lab Results Component Value Date/Time HGB 12.7 09/27/2010 6:30 AM Lab Results Component Value Date/Time PLTS 350 09/27/2010 6:30 AM Weight Initial Weight: 102 Final Weight: 158 Total Weight Gain: 56 Ultrasound First Ultrasound: 03/28/10 @ 11w3d, nl NT 06/06/10 @ 20w3d Nl screen, Cx 3.3cm, placenta, no previa 08/15/10 @ 31w4d, WARD 01/18, EFW 29%tile, Cervix 3.5cm 09/30/10 @ 38w, nl rick, s/d BPP 03/20 Complications of Complications of : Previous Infant Pertinent Past OB History Obstetric History T0 TAB0 SAB0 E0 M0 L0 Name of Baby 1: pipe Outcome Date: 03/05/08 GA: 23w 0d Outcome / Delivery Type: at 1 min.: Not recorded at 5 min.: Not recorded Is living? No Comments: cone biopsy during Name of Baby 2: Current Hospitalized Problems: Patient Active Hospital Problem List: *History of Delivery, Currently (04/07/2010) Delivered at 23 weeks: one month after cone biopsy done. [facility] has seen for [facility] and U/S. At 22 weeks, cervix is 3.7 cms [facility] referred Lara back to [facility] care: no funneling or shortening of cervix. Past Medical History Past Medical History Diagnosis Date ??? Rubella as child ??? Pap smear abnormality 2008 cone ??? delivery 2008 Past Surgical History Past Surgical History Procedure Date ??? Cone biopsy of cervix ([id number]) 2008 Medications During Outpatient prescriptions marked as taking for the 10/09/10 encounter (Hospital Encounter) with YOSVANY HUGHES: Vit-Fe Fumarate-FA (PRENATABS FA OR) Disp: Rfl: No Known Allergies Family Medical History Family History Problem Relation Age of Onset ??? Anesthesia Reaction Negative Family History ??? Bleeding Disorder Negative Family History ??? Cancer, Breast Negative Family History ??? Cerebrovascular Disease Negative Family History ??? Diabetes, Type II Negative Family History ??? Hypertension Negative Family History ??? Hyperlipidema Negative Family History ??? Osteoporosis Negative Family History ??? Thyroid Disorder Negative Family History ??? Alcohol/Drug Abuse Negative Family History ??? Cystic Fibrosis Negative Family History Social History History Substance Use Topics ??? Smoking status: Former Smoker ??? Smokeless tobacco: Never Used Comment: Quit with + UPT ??? Alcohol Use: No Review of Systems See HPI, ROS x 5 neg, hungry, Physical Exam Patient Vitals in the past 4 hrs: BP Temp Temp src Pulse Resp Weight 10/09/10 1745 136/75 mmHg 98.1 ??F (36.7 ??C) Oral 100 18 - 10/09/10 1640 129/68 mmHg 97.6 ??F (36.4 ??C) Oral 109 18 71.215 kg (157 lb) Heart :regular rate and rhythm Lungs: Lungs clear bilaterally Abdomen: Gravid, vertex and FH 37 cm LOT by Valdez, EFW: 7- 7 1/ # Extremities: Reflexes 2+ with no clonus, 1+ edema Cervix:Deferred, examined on 10/07/10 Cervical Dilation: 4 cm = 2 Cervical Effacement: 70% = 2 Station: -1 = 2 Cervical Consistency: Moderate =1 Cervical Position: Mid =1 MOULTON SCORE: 8 Pelvic: Average - Adequate Presentation: Cephalic Membranes ruptured, clear, time 1300 Contraction frequency: 4 in 10 minutes FHR: Baseline Characteristics: moderate variability and accelerations present; Baseline Rates: 140 Decelerations: Decelerations: none Labs Ordered/Results Pending hgb, platelets and type and screen Assessment 20 yr old, 39w2d, EFW: Average for Gestational Age Reason for Admission: Rupture of Membranes Group B Strep: Negative GBS Sensitivity: Not indicated Complications of : Previous Status: FHR Category I Accelerations present Plan Admit to L&D Discussed analgesia, eventually wants Epidural But wants to ambulate at this time Yosvany Hughes CNM Date of Service: 10/09/2010 --- End of Report --- K OPERATOR documented in this encounter Miscellaneous Notes Media - [facility], PROVIDER - 10/22/2010 1:17 PM TRUCK OPERATOR Media - [facility], PROVIDER - 10/14/2010 10:52 AM TRUCK OPERATOR Media - [facility], PROVIDER - 10/14/2010 4:21 AM TRUCK OPERATOR Media - [facility], PROVIDER - 10/14/2010 4:07 AM TRUCK OPERATOR Media - [facility], PROVIDER - 10/14/2010 4:06 AM TRUCK OPERATOR documented in this encounter Plan of Treatment Scheduled Referrals Name Type Priority Associated Diagnoses Order S chedule Clinic Referral Referral Routine O rdered: 10/13/2010 Clinic Referral Referral Routine O rdered: 10/13/2010 documented as of this encounter Procedures Procedure Name Priority Date/Time Associated Diagnosis Comme nts HEMOGLOBIN, BLOOD Routine 10/12/2010 6:54 AM Resu lts for this TRUCK OPERATOR procedure are i n the results section. HEMOGLOBIN, BLOOD Routine 10/11/2010 6:54 AM Resu lts for this TRUCK OPERATOR procedure are i n the results section. SECTION L/D 10/10/2010 7:08 AM primary c/s DELIVERY TRUCK OPERATOR Case Notes Primary C/S for failure to d escend EKG IP 10/10/2010 12:00 AM TRUCK OPERATOR Resu lts for this procedure are in the resu lts section. ABO RH & ANTIBODY SCREEN STAT 10/09/2010 6:00 PM TRUCK OPERATOR Results for this procedure (TYPE & SCREEN) are in the r esults section. COMPLETE BLOOD COUNT-NO STAT 10/09/2010 6:00 PM TRUCK OPERATOR Results for this procedure DIFF are in the resu lts section. documented in this encounter Results (ABNORMAL) HEMOGLOBIN, BLOOD (10/12/2010 6:54 AM TRUCK OPERATOR) P athologist Signature Hemoglobin 8.5 (L) 12.0 - 16.0 [facility] g/dl Specimen Anatomical Collection Method Collection Time Receive d Time (Source) Location / / Volume Laterality 10/12/2010 6:54 AM 6:55 TRUCK OPERATOR AM TRUCK OPERATOR Declan Simpson MD LAB_1 Performing Organization Address City/State/ZIP Code Phon e Number [address] [address] [place], [place] [phone] (ABNORMAL) Hemoglobin - in AM POD #1 (10/11/2010 6:54 AM TRUCK OPERATOR) athologist Signature Hemoglobin 9.5 (L) 12.0 - 16.0 [facility] g/dl Comment: Result Checked Specimen Anatomical Collection Method Collection Time Receive d Time (Source) Location / / Volume Laterality 10/11/2010 6:54 AM 1 6:55 TRUCK OPERATOR AM TRUCK OPERATOR Declan Simpson MD LAB_1 Performing Organization Address [facility] Phon e Number [address] [address] [place], [place] [phone] EKG IP (10/10/2010 12:00 AM TRUCK OPERATOR) Specimen (Source) Anatomical Location Collection Method / Collectio n Time Received Time / Laterality Volume 10/10/2010 Narrative This result has an attachment that is no t available. Transcriptions [facility], PROVIDER - 10/14/2010 10:54 AM TRUCK OPERATOR Provider [facility] EKG ABO RH & ANTIBODY SCREEN (TYPE & SCREEN) (10/09/2010 6:00 PM TRUCK OPERATOR) [facility] Method Time Signature Crossmatch 10/12/2010 [facility] Expires ABO/RH(D) A POSITIVE [facility] Antibody Screen NEGATIVE [facility] Specimen Anatomical Collection Method Collection Time Receive d Time (Source) Location / / Volume Laterality Blood specimen 10/09/2010 6:00 PM 011 6:10 (specimen) TRUCK OPERATOR PM TRUCK OPERATOR Yosvany Hughes RN, IBLCLC LAB_1 Performing Organization Address [facility] Phon e Number [address] [address] [place], [place] [phone] (ABNORMAL) HEMOGRAM/PLTS (10/09/2010 6:00 PM TRUCK OPERATOR) athologist Signature WBC 17.8 (H) 4.0 - 11.0 [facility] k/ul RBC 3.96 (L) 4.0 - 5.2 [facility] M/ul Hemoglobin 12.4 12.0 - 16.0 [facility] g/dl HCT 35.8 (L) 36.0 - 46.0 [facility] % MCV 90.4 80 - 100 fl [facility] MCH 31.3 26 - 34 pg [facility] MCHC 34.6 32 - 36 [facility] g/dl RDW 13.1 11.5 - 14.5 [facility] % Platelets 397 150 - 450 [facility] k/ul MPV 8.5 6.5 - 10.0 [facility] fl Specimen Anatomical Collection Method Collection Time Receive d Time (Source) Location / / Volume Laterality Blood specimen 10/09/2010 6:00 PM 011 6:10 (specimen) TRUCK OPERATOR PM TRUCK OPERATOR Yosvany Hughes RN, IBLCLC LAB_1 Performing Organization Address City/State/ZIP Code Phon e Number [address] [address] [place], [place] [phone] documented in this encounter Visit Diagnoses Diagnosis History of delivery, currently p regnant - Primary with history of pre-term labor with history of pre-term labor CPD (cephalo-pelvic disproportion) Fetopelvic disproportion, unspecified as to episode of care Fetopelvic disproportion, unspecified as to episode of care Other lesion of femoral nerve Secondary uterine inertia, with delivery Outcome of delivery, single liveborn Constipation Unspecified constipation Initial Assessments - Rea Vu, PT - 10/12/2010 12:01 PM CST [facility] Colon Physical Therapy Evaluation Patient Seen: in department Diagnosis: Encounter Diagnoses Code Name Primary? 653.40G CPD (cephalo-pelvic disproportion) Yes ??? V23.41F History of delivery, currently ??? V23.41 with history of pre-term labor ??? 653.40 Fetopelvic disproportion, unspecified as to episode of care Subjective Residence: Apartment 3rd floor Assist Available: Significant Other Prior level of function: Independent Equipment: None Objective: Current Level of Function Bed Mobility: Supine to sit with minimum assist Sit to supine with minimum assist Transfers: Sit to standing with minimum assist Stand to sitting with minimum assist Bed to/from chair with minimum assist Wheelchair Mobility: Not tested Ambulation: Distance: 20ft x 1, 30ft x 2 PM- ambulation with RW and knee immobilzer on L LE x 75ft with min assist. Pt did have one episode of L knee buckling despite being in knee immobilizer for which she required min/moderate assist from therapist to regain balance. Assist :moderate assist Weight bearing status: FWB/WBAT Equipment: parallel bars, bedside table. Demonstrates decreased L knee control, decreased wt shift onto L side. Stairs: To be assessed Toileting Needs: no needs Action Taken: N/A Balance and Coordination: Sitting: static: good Standing: static: fair ROM (lower extremity): Within functional limits for tasks done. Manual Muscle Test/Strength (lower extremity): Impaired, L quad 0-1/5. PM- worked on antigravity knee ext using powder board and skate with trace knee extension observed in this position. Endurance: Endurance is Within functional limits for tasks done. Neurological Sensation: Impaired decreased to light touch on anterior thigh. Tone: Normal Perception/Cognition/Orientation: patient alert and patient oriented to person/self, place and date/time Action Taken: no action needed Pain No complaints of pain at this time Action Taken: no action needed Tolerance: Patient tolerated treatment without adverse effects Education Provide education regarding role of physical therapy during hospitalization Provide support and encouragement and answered questions related to rehab course Adaptive Equipment Recommendations Pt will benefit from use of: To be further assessed Physical therapist to issue AD if appropriate. Patient Position: N/A, patient received treatment in PT Assessment and Recommendations 20 yr old female with new onset of L LE weakness following labor, etiology unknown. Pt was seen for PT eval and presents with L LE quadriceps weakness . Pt displays decreased L knee control during gaitand requires moderate assist. Anticipate pt will require some type of L knee bracing initially with a dvancement to custom KAFO if strength does not improve. Rec continued acute PT to progress with functional mobility. During pm- trialed gait with knee immobilzer on L LE with increased functional mobility observed. Rec ME order for custom knee bracing prior to d/c. Plan of care Continue Physical Therapy daily for functional mobility and safety, range of motion, strengthening and endurance, patient/family education and home exercise program. Goals Patient to transfer bed to and from chair and sit to and from stand with modified independence. Patient to ambulate 100 feet using least restrictive AD with modified independence. Patient to negotiate 4 stairs with 1-2 rails, requiring modified independence. Patient/Family Goals: None expressed Amount of time spent in patient contact: AM: 20 minutes Rea Vu, PT Phone number is [phone] Pager: [phone] --- End of Report --- K OPERATOR documented in this encounter Active and Recently Administered Medications Times are shown in TRUCK OPERATOR. Scheduled Medication Order 10/11/2010 10/12/2010 10/13/2010 ibuprofen (aka MOTRIN) tablet 600 mg (CANCELED) 1130 ( Given - Provider: Nancy Bermudez)1400 (Due)1730 (Given - Provider: Jeannie Elena RN)2335 (Given - Provider: Grey Jane RN) 0000 (Held - Provider: Grey Jane RN)0535 (Given - Provider: Grey Jane RN)0600 (Due - Provider: Jessy Noonan, PharmD)1200 (Due - Provider: Jessy Noonan, MarinaD)1800 (Given - Provider: Elinor Elena RN) 0000 (Given - Provider: Grey Jane RN)0635 (Given - Provider: Grey Jane RN)1255 (Given - Provider: Teena Herr RN) 600 mg, Oral, Q6H, First dose on Sun10/11/10 at 0800, Until Disco ntinued ketorolac (aka TORADOL) injection 30 mg (COMPLETED) 00 (Not Given - Provider: Grey Jane RN - Reason: Other (Enter Reason in Comment Area) - Comment: Not due yet.)0300 (Given - Provider: Grey Jane RN) 30 mg, IV/IM, Q6H (NON-STND), 4 doses, F irst dose on Sun10/10/10 at 0906, Last dose on Sun10/11/10 at 0200 PRN Medication Order 10/11/2010 10/12/2010 10/13/2010 docusate sodium (aka COLACE) capsule 100 mg (CANCELED) 0830 (Given - Provider: Teena Avila RN)2120 (Given - Provider: Jeannie Elena RN) 0800 (Given - Provider: Teena Avila RN) 100 mg, Oral, BID PRN, Starting Mon 10/10 at 1038, Until Discontinued, Constipation oxyCODONE-acetaminophen (aka PERCOCET) 5-325 MG tablet 1-2 Tab (CANCELED) 0145 (Given - Provider: Grey Jane RN)0540 (Given - Provider: Grey Jane RN)1100 (Given - Provider: Nancy Bermudez)1730 (Given - Provider: Jeannie Elena RN) 0430 (Given - Provider: Grey Jane RN)0830 (Given - Provider: Teena Avila RN)1543 (Given - Provider: Jeannie Elena RN)2120 (Given - Provider: Jeannie Elena RN) 0635 (Given - Provider: Grey Jane RN)1255 (Given - Provider: Teena Herr RN) 1-2 Tab, Oral, Q4H PRN, Starting 10/10/10 at 1038, Until Discontinued, Pain documented in this encounter Care Teams Salvage Winder Relationship Specialty Start Date End Date Denise Deal APRN, CHEYANNE PCP - General 07/28/1003/21 documented as of this encounter
--- OUTSIDE RECORDS SUMMARY | 2022-07-21 09:10 | XMS_ITS | Encounter Summary ---
:1990 Author Organization [employer] Address [address] [place] [id number] Care Team Providers Name Role Phone Denise Deal APRN, CNM Primary Care Provider Unavailable Reason for Visit Reason Comments , NOS Encounter Details Date Type Department Care Team Description 10/06/2010 Routine [facility], , NOS Gynecology Kaylah Gupta MD [address] [facility]. [place], [place] [id number] Social History Tobacco Use Types Packs/Day Years [...] Sign Reading Time Taken Comments Blood Pressure 120/62 10/06/2010 3:08 PM BUSINESS STRATEGIST Pulse - - Temperature - - Respiratory Rate - - Oxygen Saturation - - Inhaled Oxygen Concentration - - Weight 71.7 kg (158 lb) 10/06/2010 3:08 PM BUSINESS STRATEGIST Height - - Body Mass Index 28.44 02/22/2010 2:38 PM CDT documented in this encounter Patient Instructions Patient InstructionsHorvKaylah Quintero - 10/07/2010 4:57 PM CST Return to clinic in about 1 week. HEALTHY CARE: 38 to 41 WEEKS Your provider may check your cervix for changes. Ask your provider about any labor and delivery updates. If you are past your due date, discuss the next steps leading to delivery with your provider. Review any questions you have about care and safety. NESS STRATEGIST documented in this encounter Progress Notes Kaylah Werner - 10/07/2010 4:28 PM CST Feeling more contractions and is tired of being . Fetus active. No vaginal bleeding or leaking fluids. No signs/symptoms of preeclampsia. Was hospitalized with ctx last week and found to have an RICK of 6 with otherwise reassuring testing. Repeat RICK was 12. Was sent home. Risks: 1. H/O prior delivery at 23w after cone biopsy Cx /-1, membranes stripped A/P: 20 yr @ 39w0d 1. GBS negative 2. Discussed labor warning signs and when to call L&D. Call clinic or L&D if vaginal bleeding, decreased movement, s/s preeclampsia. 3. Discussed final preparations for baby, including car seat for leaving hospital. 4. RTC 1 week. Kaylah Davey MD 10/07/2010, 4:26 PM NESS STRATEGIST documented in this encounter Plan of Treatment Not on filedocumented as of this encounter Visit Diagnoses Diagnosis Supervision of normal first - Primary History of delivery, currently p regnant with history of pre-term labor documented in this encounter Care Teams Package Wrapper Relationship Specialty Start Date End Date Denise Deal APRN, CHEYANNE PCP - General 07/28/1003/21 documented as of this encounter
--- OUTSIDE RECORDS SUMMARY | 2022-07-21 09:10 | XMS_ITS | Encounter Summary ---
:1990 Author Organization [facility] Address [address] [address] Care Team Providers Name Role Phone Denise Deal APRN, CNM Primary Care Provider Unavailable Reason for Referral Specialty Diagnoses / Procedures Referred By Contact Refer red To Contact Kim Mancilla APR N, CNM [address] [place] [address] Referral ID Status Reason Start Date Expiration Date Visits Requ ested Visits Authorized Scheduling Instructions [facility] an [facility] EDIT[facility] was advised and you have not been contacted to schedule that appointment w ithin 3 business days, please call [phone] for assistance. CARRIER Encounter Details Date Type Department Care Team Description 09/27/2010 Hospital Encounter RH Labor & Delivery Harini, Supervision of high-risk pre gnancy (Primary Dx); [address]en APRN, Decreased movement-uns pec; [place], [place] CN Induction of labor; [id number] [address] [facility] Decreased movements, affecting man agement of mother, antepartum; [phone] [place], [place] Other threate teresa labor, antepartum; [address] Unspecified high-risk Social History Tobacco Use Types Packs/Day Years [...] Sign Reading Time Taken Comments Blood Pressure 111/63 09/27/2010 9:45 AM MEAT CARRIER Pulse 112 09/27/2010 9:45 AM MEAT CARRIER Temperature 36.7 ??C (98 ??F) 09/27/2010 9:45 AM MEAT CARRIER Respiratory Rate 18 09/27/2010 9:45 AM MEAT CARRIER Oxygen Saturation - - Inhaled Oxygen Concentration - - Weight 69.9 kg (154 lb) 09/27/2010 4:05 AM MEAT CARRIER Height - - Body Mass Index 27.72 02/22/2010 2:38 PM CDT documented in this encounter Discharge Summaries Kim Mancilla - 2010 11:24 AM CST Patient is 19 year old 0100 at 37 weeks 4d who presented for decreased movement and had an AFIof 6. Decision made yesterday to have a prolongued MEAT CARRIER/ induction. Cervix was 3cm/20/-1. Received 8 hours of pitocin and did not have cervical change. This morning patient had an RICK of 12.8 and doppler flow studies which were normal. Patient happy tostop induction process and go home. Has clinic appointment tomorrow. I will in basket provider to order a BPP for Sunday. Patient to return with signs of labor or any concerns. Kim Mancilla CNM CARRIER documented in this encounter Discharge Instructions Discharge InstructionsKitty Pina RN - 2010 11:06 AM CST Images from the original note were not included. [address] [place] [id number] Discharge Instructions for: Lara Dominguez Thank you for choosing [facility] as your hospital. A copy of your discharge instructions has been given to you. Please read the instructions carefully. The staff will go over this information with you and answer your questions. Please take these discharge instructions to your follow up appointment for your physician to review. General Information Address: [place] [address] [address] [facility] [address] Phone number: Telephone Information: Allergies: Review of patient's allergies indicates no known allergies. Immunization: Most Recent Immunizations Administered Date(s) Administered ??? Flu Vac Preserv Free (3+yrs) 06/14/2010 Discharging physician: Kim Mancilla Discharge date: 2009 Primary Care Provider Primary care provider: Denise Deal CNM Discharge Disposition HOME Home Medications Carefully read the medication handouts you are given. They contain information about the purpose andside effects of your medications. For additional information about your medications, visit this [employer] website, [email or web address]. Current Discharge Medication List CONTINUE these medications which have NOT CHANGED Vit-Fe Fumarate-FA (PRENATABS FA OR) If you were taking a medication before admission and you do not see it on the list of home medications, please contact your primary care doctor. Additional Orders (may include orders for follow up visits. Future visits that are already scheduledappear below in the Scheduled Future Appointments section) FURNACE DOOR TENDER Clinic Referral: If an appointment with [facility] FURNACE DOOR TENDER was advised and you have not been contacted to schedulethat appointment within 3 business days, please call [phone] for assistance. Reason for visit? keep regular appointment Appointment Urgency? Urgent (patient needs to be seen within one week) Diagnosis Activity Instructions: In the daytime you may walk around with periods of rest. No heavy lifting or straining. During the nightime you are encouraged to get some rest if possible. Rest on left side; avoid lying flat on your back. Return to Work/School: You may return to tomorrow Regular Diet: Regular diet with plenty of fluids until labor begins. When you feel your labor may be starting, limit your diet to clear liquids and light meals, no hard to digest or spicy foods. Always drink adequate fluids, 6-10 glasses daily. Time Your Contractions: Time your contractions. When they are 5 minutes apart for 1-2 hours and getting stronger you should return to the hospital. If Your Water Breaks: If your water breaks, come to the hospital immediately. Danger Signs to Report: Notify your provider if the following occur:[1] vaginal bleeding that is heavy enough to require a pad [2] sharp abdominal pain unrelieved by rest [3] decreased movement [4] vaginal discharge that itches or has a foul odor [5] difficulty or pain with urination Scheduled Future Appointments: Home Care Instructions NONE Valuables/Medications Disposition of Money: (not recorded) Disposition of Medications: (not recorded) Patient and/or family verified that all valuables have been returned: Yes Patient and/or family verified that all valuables removed from room safe: Yes Community Resources NONE Contact Information [place] [address] Emergency & Urgently Needed Care: For emergencies call 911 and/or get medical help right away. If you are a [facility] member or go to [facility] and have obstetrical needs after clinic hours you may call the Baby Careline at [phone]. If you are an [facility] patient call Jannette at [phone] or [facility] at [phone]. All medical devices (telemetry/IV/etc) unless otherwise ordered, have been removed before discharge. Smoking and Second-hand Smoke Exposure: Smoking damages blood vessels, reduces the oxygen in your blood and makes your heart beat too fast. If you smoke you should quit. Everyone should avoid second- hand smoke. If you would like further assistance after your discharge, please contact [phone] or visit [email or web address] can offer further information and assistance. We hope you had a positive experience and that you can definitely recommend [facility] to yourfamily and friends. You???ll be receiving a survey in the mail in about 2 weeks and we look forward to hearing your feedback. When you are ready to leave tell your nurse and she will arrange an escort for you. I understand my discharge instructions: Lara Dominguez (or Coat Cutter) CARRIER documented in this encounter Medications at Time of Discharge Medication Sig Dispensed Refills Start Date End Date Vit-Fe Fumarate-FA (PRENATABS FA 0 02/26/2012 OR) documented as of this encounter Progress Notes Kim Mancilla - 2010 11:20 AM CST Patient's RICK was 12.8 and Doppler flow 2.5. Given were normal patient is okay to go home. Has a clinic appointment tomorrow with Denise Deal. OB would like patient to have follow-up BPP in 48 hours. Kim Mancilla CNM CARRIER Mere Hughes - 2010 8:55 AM CST [facility] Intrapartum Progress Note Complications of : Previous Patient Active Hospital Problem List: Supervision of High-Risk (02/22/2010) Subjective: Patient comfortable, was able to sleep last night and feels better after breakfast, denies contr, + FM. Denies sexual hurt, but remembers surgery for cone bx and finds exams 'uncomfortable' denies dyspareunia. 0bjective: Patient Vitals in the past 1 hrs: BP Pulse Resp 09/28/10 0818 102/57 mmHg 95 18 Sitting up in bed, finished breakfast, relaxing, Amrik in room, very supportive Has difficult time with exams but can relax with coaching, Lidocaine gel used. Cervical Exam: Cervical Dilation: 3 cm = 2 Cervical Effacement: 50% = 1 Station: High = 0 Cervical Consistency: Soft =2 Cervical Position: Posterior =0 MOULTON SCORE: 6 EFW: Average for Gestational Age Pelvis: Average FHR: Baseline Characteristics: moderate variability and accelerations present; Baseline Rates: 140 Decelerations: Decelerations: none Membrane status: Intact Uterine Activity: Contraction frequency: 0 in 10 minutes Assessment: Maternal Status: not in labor Status: FHR Category I Accelerations present Contraction Status: not in labor Plan: Home per plan of Dr Sutton last night Reviewed [facility] and to call if decr Keep PN apt on Will ask OB team to check RICK Mere Hughes CNM Date of Service: 2010 --- End of Report --- CARRIER Kitty Arteaga RN - 2010 1:58 AM CST [facility] Progress Note (Nursing) Identify/Problem(s): Sleep tonight. Labor pain tolerable. Desired Outcome(s): Sleep tonight. Evaluation: Pt to sleep tonight. Received vistaril. Reevaluate in am or when pt awakens for pitocin. No ctx noted on EFM. FHR moderate variability. Plan: Continue observation. Kitty Arteaga RN --- End of Report --- CARRIER Denise Rehman RN - 09/27/2010 10:59 PM CST [facility] Progress Note (Nursing) Identify/Problem(s): Hx of demise, 37+ wks Desired Outcome(s): Maternal well being, del of viable infant Evaluation: VSS, FHT 120-130 mod omar with 15X15 accels. Was given Pitocin IV a max of 20 mu, was stopped after approx 8 hrs. Provided with chicken noodle soup and toast. FOB and family are present and supportive. IV was saline locked, pt displays 3-4 ctx in 10 min and mild, rates her pain a 4. Is resting quietly in bed, remains on tele. Plan: Cont cares, will be reassessed 2 hrs after pitocin was stopped. Pt teaching and reassurance. Denise Rehman RN --- End of Report --- CARRIER Mere Hughes - 09/27/2010 9:52 PM CST [facility] Intrapartum Progress Note Complications of : Previous Infant Patient Active Hospital Problem List: Supervision of High-Risk (02/22/2010) Subjective: Patient uncomfortable, with contr 0bjective: Patient Vitals in the past 1 hrs: BP Pulse Resp 09/27/10 2100 95/54 mmHg 93 18 in bed, after walking, breathing well with contractions. Cervical Exam: Cervical Dilation: 4.5 cm = 2 Cervical Effacement: 60% = 2 Station: -2 = 1 EFW: Average for Gestational Age Pelvis: Average FHR: Baseline Characteristics: moderate variability and accelerations present; Baseline Rates: 130 Decelerations: Decelerations: none Membrane status: Intact Has been on Pitocin x 8 hrs now @ 20 milliunits per min Uterine Activity: Contraction frequency: 4 in 10 minutes Contraction duration 60 Contraction quality mod Assessment: 19 y/o P 0100 @ 37 wks4d. Here for decr FM and MEAT CARRIER Maternal Status: Doing well with contractions Status: FHR Category I Accelerations present Contraction Status: Adequate, has changed cervix may be moving into active labor Labor Status: Active Phase - normal progression Plan: Plan to allow break to ambulate and eat and restart Pitocin after 1-2 hrs Will discuss with OB team Mere Hughes CNM Date of Service: 09/27/2010 Ate and ambulated and reported still having contr, will try Vistaril to try and get some sleep before starting Pitocin. Discussed with OB team, will consider u/s to evaluate RICK before deciding repeating pitocin. Mere Hughes CNM Date of Service: 2010 --- End of Report --- CARRIER Kitty Pina RN - 09/27/2010 2:28 PM CST [facility] Progress Note (Nursing) Identify/Problem(s): Labor Desired Outcome(s): Will experience maternal well being Evaluation: VSS, afebrile. Following IV start this am patient states contractions appear to be spacing out, rating her pain a 4/10. Ate breakfast, out walking with family x 1 hour with no increase of contractions.Aerographer here cervix noted to be 3/20/- 1. FHT's 130 with moderate variability 15x15 accelerations noted. Contractions appear to be 3 in a 10 minute time period, mild to moderate to palpation. OB consulted, patient to formal U/S RICK noted to be low 6.1. OB here and recommend Pitocin vs discharge with frequent NST's. Patient teary and undecided what to do referring back to history of loss in 2007.After one hour patient decided on Pitocin. Pitocin started at 1345 now at 4mu/mn. Continues to be comfortable. Contractions now 4/10 minute time period, moderate palpation. Family here supportive. Patient wishes to have an epidural for pain control. Plan: Continue to monitor. Anticipate uncomplicated vaginal delivery. Kitty Pina RN --- End of Report --- CARRIER Mireya Queen - 09/27/2010 10:15 AM CST [facility] Intrapartum Progress Note Complications of : Previous Patient Active Hospital Problem List: Supervision of High-Risk (02/22/2010) Subjective: Patient comfortable, walked some and states contractions now occasional, and less painful than this am, admits to intercourse earlier, yesterday evening has some bloody show Reports movement unsure how many times daily, has not been counting thinks it is somewhat lessthan before 0bjective: BP 131/64 Pulse 91 Temp(Src) 97.8 ??F (36.6 ??C) (Oral) Resp 18 Wt 69.854 kg (154 lb) LMP 01/07/2010 Pt has great difficulty with exam much tensing which makes exam difficult to assess Cervical Exam: Cervical Dilation: 3 cm = 2 Cervical Effacement: 20% = 0 Station: -1 = 2 EFW: Average for Gestational Age Pelvis: Average FHR: Baseline Characteristics: moderate variability and accelerations present; Baseline Rates: 140 Decelerations: Decelerations: none Membrane status: Intact Uterine Activity: Contraction frequency: 2 in 10 minutes Contraction duration 30sec Contraction quality mild Assessment: Maternal Status: Doing well with contractions Status: FHR Category I Accelerations present Contraction Status: not in active labor Labor Status: Early Latent Phase Plan: Consult with OB Team regarding plan for further tx, implement plan as per recommendations of OB Team. Reviewed pt with dr sutton recommended f/u u/s today based on hx of yesterday had decreased movement, and after u/s will decide on further plan Mireya Queen CNM --- End of Report --- CARRIER Kitty Arteaga RN - 09/27/2010 7:18 AM CST [facility] Progress Note (Nursing) Identify/Problem(s): Labor pain management. Desired Outcome(s): Pain tolerable. Evaluation: FHR moderate variability. Ctx 3-4 in 10 minutes, now palpating moderate after walk. IV started for pt wishes to have epidural when pain stronger. Pt states comfort measures are making pain tolerable for now. Plan: Anticipate epidural for pain management. Anticipate Kitty Arteaga RN --- End of Report --- CARRIER Kitty Arteaga RN - 09/27/2010 6:56 AM CST [facility] OB RN History Note OB History: Here for r/o labor. Stated ctx became stronger at 0200. 37 2/7 weeks gestation. History of loss at 23 weeks. Medical History: Patient denies any. Surgical History: Patient denies any. Document completed by Kitty Arteaga RN --- End of Report --- Juventino Moses - 09/27/2010 4:43 AM CST [facility] OB Labor and Delivery Triage Note CC: ctx's Subjective: Lara Dominguez is a 19 yr old female 37w4d with Estimated Date of Delivery: 10/14/10 by who presents with frequent ctx's, beginning at 0200. Pt slept prior to that.. Denies vag bldg, LOF, FUNEZ, visual disturbance, N/V. Accompanied by SAmrik Sanchez. Objective: Patient Vitals in the past 8 hrs: BP Pulse Resp Weight 09/27/10 0405 108/73 mmHg 96 20 69.854 kg (154 lb) General: Alert, NAD, cooperative Abdomen: Gravid, soft, without masses, distention or organomegaly FHR: baseline characteristics: moderate variability, baseline rates: 130, decelerations: Decelerations: none reactive TOCO: 4 in 10 minutes SVE: 3 cm dilated, 100 % effaced, 0 station, vtx presentation. LABS: No results found for this or any previous visit (from the past 24 hour(s)). Assessment: Lara Dominguez is a 19 yr old female 37w4d with uterine ctx's Assessment: FHR Category I Accelerations present Plan: 1. observe for cvx change Juventino Downey CNM --- End of Report --- CARRIER Lanette Main - 09/27/2010 3:50 AM CST [facility] Clinical Pharmacy Medication Reconciliation Note Medication History: No outpatient prescriptions have been marked as taking for the 09/27/10 encounter (Hospital Encounter) with JUVENTINO DOWNEY. Medications Reviewed and Reconciled: Any medication adjustments made from patient's medication history regimen are appropriate for current hospitalization and medical condition. PHARMACIST NAME: Lanette Main PharmD Phone/Pager #: [phone] --- End of Report --- CARRIER documented in this encounter OR Notes Everardo&P - Deisy Smith DO - 09/27/2010 12:27 PM CST [facility] OB Consult: Request for Evaulation of Abnormal Labor Consult Requested by: Mireya Reason for Admission: latent Labor Complications of : Previous Group B Strep: Negative Membranes intact Lara Dominguez is a 19 yr, , at 37w4d admitted on 09/27/2010 3:37 AM. EFW, presentation and pelvis assessment by her CNM. EFW: Average for Gestational Age. Pelvis Average. Presentation noted reece cephalic by ultrasound. Membranes intact. Dilation: 4.5 . Effacement: 100. Station: 0. OB was consulted as the patient's latent labor decreased but pt is feeling less movement and has RICK 6.1.The question is to continue with induction due to RICK 6 and decreased movement and favorable cervix vs testing and waiting for labor due to lungs and decreasing risks of . This has been thoroughly discussed, questions answered. Pt is deciding on contraction stress test. Plan is to do this and if negative feel reassured about sending home vs if positive pt needing to stay for induction. This will also help access cervical change if truly in latent labor and progressing.Cervix 3/70/-2. FHT normal baseline, moderate variability/+accelerations no decels reactive. Deisy Smith MD CARRIER H&P - Guillermo Sutton - 09/27/2010 12:27 PM CST ???I saw and evaluated the patient with the resident and I agree with Dr. Bojorquez's findings and plan. IUP at 36+weeks with previous loss at 23 weeks, decreased FM and borderline RICK of 6. Latent labor. Cx different because of previous conization. Discussed risk of prematurity and possible slight increased risk of C/S with induction. BPP vs OCT for well being. After discussion patient and family comfortable with proceeding with OCT with pitocin for 8 hrs. Reasessment of cervix at that time. If OCT neg and no cervical change would Reassess for D/C with followup BPP in 48 hrs. OCT neg. Patient would like to go home with F/U in 48 hrs for BPP and RICK. Growth U/S normal. Please see the note dated 09/27/2010.?? Guillermo Sutton MD CARRIER H&P - Juventino Downey - 09/27/2010 6:36 AM CST [facility] OB History and Physical (MD/HVAC SALES REPRESENTATIVE/Midwives) History Patient's last menstrual period was 01/07/2010. Estimated Date of Delivery: 10/14/10 Gestational age: 37w4d Obstetric History: Reason for Admission: Labor Brief HPI: onset of ctx's at 0200 Care Primary Provider: Denise Deal CNM Clinic: [facility] Care First Visit Date: 02/22/10 Care First Visit Weeks: 6 Care # Visits: 8 (+3 with [facility]) Plans for Analgesia in Labor: [facility] Requested Prenatally: No Labs Maternal Blood Group: A;positive Antibody Screen: Negative Rhogam this ?: Not indicated Rubella: Immune Test for Syphilis (RPR): Nonreactive Hepatitis B Surface Antigen: Negative HIV Exposure Test Information HIV Exposure Test: Non-Reactive Urine Culture: Negative One Hour GCT: 93 Three Hour GTT: Not indicated Group B Strep: Negative 1st trimester screen neg Lab Results Component Value Date/Time HGB 11.6* 07/28/2010 3:41 PM Lab Results Component Value Date/Time PLTS 354 07/28/2010 3:41 PM Weight Initial Weight: 102 Final Weight: 154 Total Weight Gain: 52 Ultrasound 03/28/10: 11 w 3 d; NT nml 06/06/10: 20 w 3 d; nml cvx length; ant placenta; no anomalies 08/15/10: 31 w 4 d; BPP 6/8; EFW 29th%ile; nml S/d Complications of Complications of : Previous Pertinent Past OB History Obstetric History T0 TAB0 SAB0 E0 M0 L0 Name of Baby 1: pipe Outcome Date: 03/05/08 GA: 23w 0d Outcome / Delivery Type: Is living? No Comments: cone biopsy during Hospitalized Problems: Patient Active Hospital Problem List: Supervision of High-Risk (02/22/2010) Past Medical History Past Medical History Diagnosis Date ??? REVIEWED-NONE NOTED Past Surgical History Past Surgical History Procedure Date ??? Cone biopsy of cervix (46655) 2008 Medications During Outpatient prescriptions marked as taking for the 09/27/10 encounter (Hospital Encounter) with JUVENTINO DOWNEY: Vit-Fe Fumarate-FA (PRENATABS FA OR) Disp: Rfl: [...] Former Smoker ??? Smokeless tobacco: Never Used ??? Alcohol Use: No Review of Systems Denies FUNEZ, visual disturbance, chest pain, epigastric pain, cough, n/v, fever, sores/rashes, vaginalbldg, LOF. Physical Exam Patient Vitals in the past 4 hrs: BP Temp Temp src Pulse Resp Weight 09/27/10 0554 119/85 mmHg - - 111 20 - 09/27/10 0435 120/71 mmHg - - 90 20 - 09/27/10 0430 - 97 ??F (36.1 ??C) Oral - - - 09/27/10 0420 112/58 mmHg - - 105 - - 09/27/10 0405 108/73 mmHg - - 96 20 69.854 kg (154 lb) Heart :normal and regular rate and rhythm Lungs: Lungs clear bilaterally Abdomen: Gravid, vertex, EFW 7 lb Extremities: Reflexes 2+ with no clonus, 1+ edema Cervix: Cervical Dilation: 4.5 cm = 2 Cervical Effacement: 100% = 3 Station: 0 = 2 Cervical Consistency: Moderate =1 Cervical Position: Posterior =0 MOULTON SCORE: 8 Pelvic: Average - Adequate Presentation: Cephalic Membranes intact Contraction frequency: 3 in 10 minutes FHR: Baseline Characteristics: moderate variability; Baseline Rates: 130 Decelerations: Decelerations: none Labs Ordered/Results Pending hgb, platelets and type and screen Assessment 19 yr old, 37w4d, EFW: Average for Gestational Age Reason for Admission: Labor Group B Strep: Negative GBS Sensitivity: Not indicated Complications of : Previous Status: FHR Category I Accelerations present Plan Admit to L&D Routine labor management Juventino Downey CNM Date of Service: 09/27/2010 --- End of Report --- CARRIER documented in this encounter Miscellaneous Notes Media - [facility], PROVIDER - 09/29/2010 7:53 AM MEAT CARRIER documented in this encounter Plan of Treatment Scheduled Referrals Name Type Priority Associated Diagnoses Order S chedule FURNACE DOOR TENDER Clinic Referral: Referral Routine Orde red: 2010 documented as of this encounter Procedures Procedure Name Priority Date/Time Associated Diagnosis Comme [facility] OB FOLLOW-UP STAT 2010 9:38 AM Result s for this MEAT CARRIER procedure are i n the results section. US OB FOLLOW-UP Routine 09/27/2010 11:13 AM Resul ts for this MEAT CARRIER procedure are i n the results section. ABO/RH(D) RETYPE Routine 09/27/2010 6:30 AM Resul ts for this MEAT CARRIER procedure are i n the results section. ABO RH & ANTIBODY STAT 09/27/2010 6:30 AM Resu lts for this SCREEN (TYPE & MEAT CARRIER procedure are in SCREEN) the results section. COMPLETE BLOOD STAT 09/27/2010 6:30 AM Results for this COUNT-NO DIFF MEAT CARRIER procedure are in the results section. documented in this encounter Results US OB FOLLOW UP (2010 9:38 AM MEAT CARRIER) Anatomical Region Laterality Modality Pelvis Ultrasound Specimen (Source) Anatomical Collection Method Collection Time Re ceived Time Location / / Volume Laterality 2010 9:38 AM MEAT CARRIER Narrative 2010 11:20 AM MEAT CARRIER US OB FOLLOW UP 2010, 09:39:00 AM INDICATION: Evaluate amniotic fluid volu me. Low amniotic fluid volume seen yesterday. COMPARISON: Obstetrical ultrasound, 09/27. FINDINGS: Single living intrauterine ges tation in vertex presentation. Placenta is located anterior. Amniotic f luid volume is normal on today's examination with an RICK of 12.8. h eart rate is 141 bpm. Umbilical artery peak systolic to end-diastolic ra evelin is 2.5, within normal limits. biometry was not performed as this was done within the last 24 hours. CONCLUSION: 1. Normal amniotic fluid volume on today 's ultrasound with an RICK of 12.8. 2. Normal umbilical artery peak systolic to end-diastolic ratio of 2.5. 3. Fetus in vertex presentation. Procedure Note Rodney Hua - 2010Formatti ng of this note might be different from the original. US OB FOLLOW UP 2010, 09:39:00 AM INDICATION: Evaluate amniotic fluid volu me. Low amniotic fluid volume seen yesterday. COMPARISON: Obstetrical ultrasound, 09/27. FINDINGS: Single living intrauterine ges tation in vertex presentation. Placenta is located anterior. Amniotic f luid volume is normal on today's examination with an RICK of 12.8. h eart rate is 141 bpm. Umbilical artery peak systolic to end-diastolic ra evelin is 2.5, within normal limits. biometry was not performed as this was done within the last 24 hours. CONCLUSION: 1. Normal amniotic fluid volume on today 's ultrasound with an RICK of 12.8. 2. Normal umbilical artery peak systolic to end-diastolic ratio of 2.5. 3. Fetus in vertex presentation. Juventino Downey APRN, CNM RAD US US OB FOLLOW UP (09/27/2010 11:13 AM MEAT CARRIER) Anatomical Region Laterality Modality Pelvis Ultrasound Specimen (Source) Anatomical Collection Method Collection Time Re ceived Time Location / / Volume Laterality 09/27/2010 11:13 AM MEAT CARRIER Narrative 09/27/2010 11:26 AM MEAT CARRIER OBSTETRICAL ULTRASOUND ? 09/27/2010 1016 hours INDICATION: ??Decreased movement. Patient is 37 weeks 4 days by previous ultrasound for the PATRIA of 011. TECHNIQUE: ??Transabdominal Comparison: Report of an ultrasound from [facility] 06/06/2010. FINDINGS: Single, living intrauterine ge station in a cephalic ??position. ?? Amniotic fluid volume is 6.1 cm, near th e lower limits of normal. Placenta in a normal anterior location. ??No prev ia. Mean biparietal diameter 92 mm, 37 weeks one day Mean head circumference 329 mm, 37 weeks 3 days Mean abdominal circumference 328 mm, 36 weeks 5 days Mean femoral length 65 mm, 33 weeks 5 da ys FL/AC Ratio 20% HC/AC Ratio 1.0 FL/BPD Ratio 71% Cephalic Index 82% Composite average ultrasound age today 3 6 weeks 2 days Estimated date of delivery by today's trasound 10/23/2010 Umbilical arterial Doppler interrogation is normal measuring 2.8, 2.3 and 2.6. Normal heart rate 141 bpm Estimated weight 2838 grams, 32nd percentile CONCLUSION: ?? Single, living gestation of 37 weeks 4 d ays by previous criteria now with abdominal circumference 6 days behind an d femur length 4 weeks behind. Amniotic fluid volume at the lower limit s of normal. Report discussed with sarah Bright se radio control crane operator, on 09/27/2010 1125 hours. Procedure Note Mireya Gallagher H - 09/27/2010 OBSTETRICAL ULTRASOUND 09/27/2010 1016 hours INDICATION: Decreased movement. Pa tient is 37 weeks 4 days by previous ultrasound for the PATRIA of 011. TECHNIQUE: Transabdominal Comparison: Report of an ultrasound from [facility] 06/06/2010. FINDINGS: Single, living intrauterine ge station in a cephalic position. Amniotic fluid volume is 6.1 cm, near th e lower limits of normal. Placenta in a normal anterior location. No previa . Mean biparietal diameter 92 mm, 37 weeks one day Mean head circumference 329 mm, 37 weeks 3 days Mean abdominal circumference 328 mm, 36 weeks 5 days Mean femoral length 65 mm, 33 weeks 5 da ys FL/AC Ratio 20% HC/AC Ratio 1.0 FL/BPD Ratio 71% Cephalic Index 82% Composite average ultrasound age today 3 6 weeks 2 days Estimated date of delivery by today's trasound 10/23/2010 Umbilical arterial Doppler interrogation is normal measuring 2.8, 2.3 and 2.6. Normal heart rate 141 bpm Estimated weight 2838 grams, 32nd percentile CONCLUSION: Single, living gestation of 37 weeks 4 d ays by previous criteria now with abdominal circumference 6 days behind an d femur length 4 weeks behind. Amniotic fluid volume at the lower limit s of normal. Report discussed with sarah Bright radio control crane operator, on 09/27/2010 1125 hours. Mireya Queen APRN, CNM [facility] ABO/RH(D) RETYPE (09/27/2010 6:30 AM MEAT CARRIER) athologist Signature ABO/RH(D) A POSITIVE [facility] Specimen Anatomical Collection Method Collection Time Receive d Time (Source) Location / / Volume Laterality 09/27/2010 6:30 AM 1 6:51 MEAT CARRIER AM MEAT CARRIER Juventino Downey APRN, CNM LAB_1 Performing Organization Address City/State/ZIP Code Phon e Number [address] [address] [place], [place] [phone] (ABNORMAL) Hemogram with Platelets (09/27/2010 6:30 AM MEAT CARRIER) athologist Signature WBC 15.5 (H) 4.0 - 11.0 [facility] k/ul RBC 3.94 (L) 4.0 - 5.2 [facility] M/ul Hemoglobin 12.7 12.0 - 16.0 [facility] g/dl HCT 35.8 (L) 36.0 - 46.0 [facility] % MCV 90.9 80 - 100 fl [facility] MCH 32.2 26 - 34 pg [facility] MCHC 35.5 32 - 36 [facility] g/dl RDW 14.0 11.5 - 14.5 [facility] % Platelets 350 150 - 450 [facility] k/ul MPV 10.7 (H) 6.5 - 10.0 [facility] fl Specimen Anatomical Collection Method Collection Time Receive d Time (Source) Location / / Volume Laterality Blood specimen 09/27/2010 6:30 AM 011 6:45 (specimen) MEAT CARRIER AM MEAT CARRIER Juventino Downey APRN, CNM LAB_1 Performing Organization Address [facility] Phon e Number [address] [address] [place], [place] [phone] ABO Rh & Antibody Screen (Type & Screen) (09/27/2010 6:30 AM MEAT CARRIER) [facility] gist Method Time Signature Crossmatch 09/30/2010 [facility] Expires ABO/RH(D) A POSITIVE [facility]IONS Antibody Screen NEGATIVE [facility] Specimen Anatomical Collection Method Collection Time Receive d Time (Source) Location / / Volume Laterality 09/27/2010 6:30 AM 1 6:45 MEAT CARRIER AM MEAT CARRIER Juventino Downey APRN, CNM LAB_1 Performing Organization Address [facility] Phon e Number [address] [address] [place], [place] [phone] documented in this encounter Visit Diagnoses Diagnosis Unspecified high-risk Decreased movements, affecting man agement of mother, unspecified as to episode of care in Induction of labor Unspecified indication for care or inter vention related to labor and delivery, unspecified as to episode of care Decreased movements, affecting man agement of mother, antepartum Other threatened labor, antepartum documented in this encounter Administered Medications Inactive Administered Medications - up to 3 most recent administrations Medication Order MAR Action Action Date Dose Rate Site hydrOXYzine HCl (aka ATARAX) Given 09/27/2010 10:15 PM MEAT CARRIER 100 m g tablet 100 mg 100 mg, Oral, HS, First dose on Sun09/27/10 at 2217, Until Discontinued lactated ringers infusion Started 09/27/2010 3:30 PM MEAT CARRIER 125 mL/hr Intravenous, at 125 mL/hr, CONTINUOUS, Starting on Sun09/27/10 at 0636 oxytocin-lactated ringers 20 Started 09/27/2010 1:45 PM 2 mill i-units/min 6 mL/hr units/1000 mL IV infusion MEAT CARRIER ringers premade infusion 1-2 keeley-units/min (rounded to 3-6 mL/hr), Intravenous, TITRATE, Starting on Sun09/27/10 at 1320, Until Sun09/28/10 at 1305, [1] Start at 1-2 milliUnits/minute (1 milliUnits/minute = 3 mL/hr). Administer as IV piggyback via IV pump into injection port nearest to the IV insertion site. [2] Increase by 1-2 milliUnits/minute not more frequently than every 30 minutes. [3] Increases in oxytocin are based on maternal/ responses and will continue until there is progressive cervical dilation, descent of the head, or indications to decrease/discontinue administration. [4] See oxytocin instruction orders for guidance on when to decrease, stop or restart infusion. [5] Contact the provider to go beyond 20 milliUnits/minute to a maximum dose 40 milliUnits/minute documented in this encounter Active and Recently Administered Medications Times are shown in MEAT CARRIER. Scheduled Medication Order 09/25/2010 09/26/2010 09/27/2010 hydrOXYzine HCl (aka ATARAX) tablet 100 mg (CANCELED) 2215 (Given - Provider: Denise Rehman RN) 100 mg, Oral, HS, First dose on Sun09/27/10 at 2217, Until Disco ntinued Continuous Medication Order 09/25/2010 09/26/2010 09/27/2010 lactated ringers infusion (CANCELED) 0636 (Due)1530 (Started - Provider: Denise Rehman RN) at 125 mL/hr, IV, CONTINUOUS, Starting Sun09/27/10 at 0636, Until Discontinued oxytocin-lactated ringers 20 units/1000 mL IV infusion ringers premade infusion (CANCELED) 1345 (Started - Prov ider: Kitty Pina RN) 1-2 keeley-units/min = 3-6 mL/hr, IV, TIT RATE, Starting 09/27/10 at 1320, Until Discontinued documented in this encounter Care Teams Sales Clerk Relationship Specialty Start Date End Date Denise Deal APRN, CHEYANNE PCP - General 07/28/1003/21 documented as of this encounter
--- OUTSIDE RECORDS SUMMARY | 2022-07-21 09:10 | XMS_ITS | Encounter Summary ---
:1990 Author Organization [employer] Address [address] [place] [id number] Care Team Providers Name Role Phone Denise Deal APRN, CNM Primary Care Provider Unavailable Encounter Details Date Type Department Care Team Description 09/26/2010 Hospital Encounter RH Labor & Delivery Brent, Decreased movement-uns pec (Primary Dx); [address] APRN, History of delivery, currently ; [place] [address] CNEmily Supervision of high-risk pre gnancy [phone] Social History Tobacco Use Types Packs/Day Years [...] Sign Reading Time Taken Comments Blood Pressure 112/59 09/26/2010 6:02 PM PAPER FOLDING MACHINE OPERATOR Pulse 94 09/26/2010 6:02 PM PAPER FOLDING MACHINE OPERATOR Temperature 36.5 ??C (97.7 ??F) 09/26/2010 6:02 PM PAPER FOLDING MACHINE OPERATOR Respiratory Rate 18 09/26/2010 6:02 PM PAPER FOLDING MACHINE OPERATOR Oxygen Saturation - - Inhaled Oxygen Concentration - - Weight 70.8 kg (156 lb) 09/26/2010 6:02 PM PAPER FOLDING MACHINE OPERATOR Height - - Body Mass Index 28.08 02/22/2010 2:38 PM CDT documented in this encounter Discharge Instructions Discharge InstructionsMaria Esther Peterson RN - 09/26/2010 6:37 PM CST Images from the original note were not included. [address] [place] [id number] Discharge Instructions for: Lara Dominguez Thank you for choosing [facility] as your hospital. A copy of your discharge instructions has been given to you. Please read the instructions carefully. The staff will go over this information with you and answer your questions. Please take these discharge instructions to your follow up appointment for your physician to review. General Information Address: [address] [address] Phone number: Telephone Information: Allergies: Review of patient's allergies indicates no known allergies. Immunization: Most Recent Immunizations Administered Date(s) Administered ??? Flu Vac Preserv Free (3+yrs) 06/14/2010 Discharging physician: Savannah Kennedy cnm Discharge date: 09/26/10 Primary Care Provider Primary care provider: Denise Deal CNM Discharge Disposition HOME Home Medications Carefully read the medication handouts you are given. They contain information about the purpose andside effects of your medications. For additional information about your medications, visit this [employer] website, https://[email or web address]/healthQuora/[email or web address]?FILTER=Medications. Current Discharge Medication List CONTINUE these medications [...] below in the Scheduled Future Appointments section) DISCHARGE INSTRUCTIONS TO PATIENT Call the baby line @ [phone] if you have contractions every 5 minutes, lasting one minute that you are unable to walk or talk through for one hour, or if your water breaks or the baby is not moving as much as normal. If you are having contractions you may take a warm tub bath for comfort. If the c ontractions are not strong you may take tylenol pm and try to sleep. Keep your clinic appointments as scheduled. Scheduled Future Appointments: Home Care Instructions NONE Valuables/Medications Disposition of Money: (not recorded) Disposition of Medications: (not recorded) Patient and/or family verified that all valuables have been returned: Yes Patient and/or family verified that all valuables removed from room safe: N/A [facility] Baby Careline [phone]; to be used by [facility] patients and [facility] patients Contact [place] [address] Emergency & Urgently Needed Care: For emergencies call 911 and/or get medical help right away. If you are a [facility] member or go to [facility] and have obstetrical needs after clinic hours you may call the Baby Careline at [phone]. If you are an [facility] patient call Jannette at [phone] or TESS at [phone]. All medical devices (telemetry/IV/etc) unless otherwise ordered, have been removed before discharge. Smoking and Second-hand Smoke Exposure: Smoking damages blood vessels, reduces the oxygen in your blood and makes your heart beat too fast. If you smoke you should quit. Everyone should avoid second- hand smoke. If you would like further assistance after your discharge, please contact [phone] or visit www.[employer] Qu[employer] can offer further information and assistance. We hope you had a positive experience and that you can definitely recommend [facility] to yourfamily and friends. You???ll be receiving a survey in the mail in about 2 weeks and we look forward to hearing your feedback. When you are ready to leave tell your nurse and she will arrange an escort for you. I understand my discharge instructions: Lara Dominguez (or Utility Repairer) R FOLDING MACHINE OPERATOR documented in this encounter Medications at Time of Discharge Medication Sig Dispensed Refills Start Date End Date Vit-Fe Fumarate-FA (PRENATABS FA 0 02/26/2012 OR) documented as of this encounter Progress Notes Savannah Kennedy - 09/26/2010 6:33 PM CST SUBJECTIVE: Lara Dominguez is a 19 yr old female @ 37w3d with Estimated Date of Delivery: 10/14/10 who presents with c/o decreased FM today. Pt is aware of occ contractions but they are not painful.She denies S&S labor, SROM, leaking or bleeding. Pt has been aware of FM since arrival here. OBJECTIVE: Patient Vitals in the past 8 hrs: BP Temp Temp src Pulse Resp Weight 09/26/10 1802 112/59 mmHg 97.7 ??F (36.5 ??C) Oral 94 18 70.761 kg (156 lb) General: Alert, NAD, cooperative Abdomen: Gravid, soft, without masses, distention or organomegaly, FH 32 cm, vtx well engaged per Steve's. NST: 130-140 reactive TOCO: mild every 15 minutes. SVE: posterior, 3 cm dilated, 50 % effaced, 0 station, vtx presentation. LABS: No results found for this or any previous visit (from the past 24 hour(s)). ASSESSMENT: Lara Dominguez is a 19 yr old female @ 37w3d with normal FM, reactive NST and no S&S labor or SROM. PLAN: 1. Home RTC for next regular appt. Savannah Kennedy CNM 09/26/2010 6:33 PM R FOLDING MACHINE OPERATOR Adina Peres RN - 09/26/2010 6:01 PM CST [facility] OB RN History Note OB History: Epic record reviewed and verified by patient. Medical History: Epic record reviewed and verified by patient. Surgical History: Epic record reviewed and verified by patient. Document completed by Adina Peres RN --- End of Report --- R FOLDING MACHINE OPERATOR documented in this encounter Miscellaneous Notes [place] [facility], PROVIDER - 2010 7:37 AM PAPER FOLDING MACHINE OPERATOR documented in this encounter Plan of Treatment Not on filedocumented as of this encounter Visit Diagnoses Diagnosis Decreased movements, affecting man agement of mother, unspecified as to episode of care in - Primary History of delivery, currently p regnant with history of pre-term labor Supervision of high-risk Unspecified high-risk documented in this encounter Care Teams Custom Studio Coordinator Relationship Specialty Start Date End Date Denise Deal APRN, OLESYAM PCP - General 07/28/1003/21 documented as of this encounter
--- OUTSIDE RECORDS SUMMARY | 2022-07-21 09:10 | XMS_ITS | Encounter Summary ---
:1990 Author Organization [employer] Address [address] [place] [address] Care Team Providers Name Role Phone Denise Deal APRN, CNM Primary Care Provider Unavailable Reason for Visit Reason Comments SUBSEQUENT VISIT Encounter Details Date Type Department Care Team Description 10/04/2010 Routine [facility] Yulissa Rodriguez, SUBSEQUENT and Gynecology CHEYANNE GERMAIN VISIT [address] [facility]. [address] [place] [address] [place], [place] [phone] [facility] Social History Tobacco Use Types Packs/Day Years [...] Sign Reading Time Taken Comments Blood Pressure 100/60 10/04/2010 1:24 PM STATIONARY EQUIPMENT MECHANIC Pulse - - Temperature - - Respiratory Rate - - Oxygen Saturation - - Inhaled Oxygen Concentration - - Weight 70.3 kg (155 lb) 10/04/2010 1:24 PM STATIONARY EQUIPMENT MECHANIC Height - - Body Mass Index 27.9 02/22/2010 2:38 PM CDT documented in this encounter Progress Notes Yulissa Rodriguez - 10/04/2010 1:52 PM CST Presents for bi-weekly appointment, coming back on . Seems less anxious today. BPP from 09/30is 03/20. RICK is 12.39. Declines exam. Wants to ask Dr. Dukes to strip her membranes on . NST reactive today. Cetegory 1 with lots of activity, baseline 130-140. No decelerations. One contraction.States +FM S=D.. Rare contractions. Yulissa Rodriguez CNM 10/04/2010 1:52 PM IONARY EQUIPMENT MECHANIC documented in this encounter Plan of Treatment Not on filedocumented as of this encounter Visit Diagnoses Diagnosis Supervision of high-risk - Mary Jane xie Unspecified high-risk documented in this encounter Care Teams Slackline Operator Relationship Specialty Start Date End Date Denise Deal APRN, CNM PCP - General 07/28/1003/21 documented as of this encounter
--- OUTSIDE RECORDS SUMMARY | 2022-07-21 09:10 | XMS_ITS | Encounter Summary ---
:1990 Author Organization [facility] Address [address], [place] [address] Care Team Providers Name Role Phone Denise Deal APRN, CHEYANNE Primary Care Provider Unavailable Encounter Details Date Type Department Care Team Description 09/30/2010 Orders Only [place] area plant manager Ult rasDenise Sosa APRN, [address] [facility]. . [place], [place] [address] Social History Tobacco Use Types Packs/Day Years [...] on file documented as of this encounter Procedure Notes Berenice Lance - 09/30/2010 12:00 AM CSTAssociated Order(s): OB ULTRASOUND REPORT documented in this encounter Plan of Treatment Not on filedocumented as of this encounter Procedures Procedure Name Priority Date/Time Associated Comments Diagnosis OB ULTRASOUND REPORT 09/30/2010 12:00 AM Results for this PERFECT BINDER OPERATOR procedure are i n the results section. documented in this encounter Results OB ULTRASOUND REPORT (09/30/2010 12:00 AM PERFECT BINDER OPERATOR) Anatomical Region Laterality Modality Other Specimen (Source) Anatomical Location Collection Method / Collectio n Time Received Time / Laterality Volume 09/30/2010 Narrative This result has an attachment that is no t available. Transcriptions Berenice Lance - 09/30/2010 12:00 AM PERFECT BINDER OPERATOR Denise Deal APRN, CNM DUMMY/OTHER/AR documented in this encounter Visit Diagnoses Not on filedocumented in this encounter Care Teams Picker And Packer Relationship Specialty Start Date End Date Denise Deal APRN, CNM PCP - General 07/28/1003/21 documented as of this encounter
--- OUTSIDE RECORDS SUMMARY | 2022-07-21 09:10 | XMS_ITS | Encounter Summary ---
:1990 Author Organization [facility] Address [address] [address] Care Team Providers Name Role Phone Denise Deal APRN, CNM Primary Care Provider Unavailable Reason for Visit Reason Onset Date Comments Forms 2010 Encounter Details Date Type Department Care Team Description 2010 Telephone [facility] and Denise Deal APR N, CNM Forms Gynecology [address] [place] [address] Social History Tobacco Use Types [...] documented as of this encounter Nursing Notes Sherry Oliva RN - 09/29/2010 9:20 AM CST Pt will be seen today and we have the FMLA paper work that she is requesting the change on. Sherry Oliva RN Omayra Mendoza RN - 2010 4:46 PM CST Pt called back to clinic regarding FMLA papers. Pt states she has dropped off FMLA papers last week and needs the last 2 days added to her FMLA paper work. Pt states she was in the hospital for the last two days for possible labor and was sent home as contractions did stop. Pt states she was given Pictocin for 8 hours and did not have any cervical changes and was sent homeand to follow up in the clinic tomorrow 09-29-2010 with Denise Deal CNM. Pt instructed that if she has concerns she needs to return to the hospital or call the baby line forfurther directions. She verbalizes understanding with information given and reviewed with patient. Pt has baby line phone number for her resource. 2010 4:46 PM Omayra Carrizales RN ICATION INTEGRATION SPECIALIST Omayra Carrizales RN - 2010 1:33 PM CST Message left to call back. 2010 1:33 PM Omayra Carrizales RN ICATION INTEGRATION SPECIALIST Berenice Cuello - 2010 1:06 PM CST Pt left a voice mail message @ 12:15 p.m. Re: hospitalization and FMLA paperwork. ICATION INTEGRATION SPECIALIST documented in this encounter Plan of Treatment Not on filedocumented as of this encounter Visit Diagnoses Not on filedocumented in this encounter Care Teams Clothes Wringer Relationship Specialty Start Date End Date Denise Deal APRN, CNM PCP - General 07/28/1003/21 documented as of this encounter
--- OUTSIDE RECORDS SUMMARY | 2022-07-21 09:10 | XMS_ITS | Encounter Summary ---
:1990 Author Organization [facility] Address [address] [address] Care Team Providers Name Role Phone Denise Deal APRN, CNM Primary Care Provider Unavailable Encounter Details Date Type Department Care Team Description 09/27/2010 [facility] Ul trasound [address] [place] [address] Social History Tobacco Use Types Packs/Day Years [...] Procedure Name Priority Date/Time Associated Diagnosis Comme [facility] OB FOLLOW-UP Routine 09/27/2010 11:13 AM Resul ts for this PROJECTOR OPERATOR procedure are i n the results section. documented in this encounter Results US OB FOLLOW UP (09/27/2010 11:13 AM PROJECTOR OPERATOR) Anatomical Region Laterality Modality Pelvis Ultrasound Specimen (Source) Anatomical Collection Method Collection Time Re ceived Time Location / / Volume Laterality 09/27/2010 11:13 AM PROJECTOR OPERATOR Narrative 09/27/2010 11:26 AM PROJECTOR OPERATOR OBSTETRICAL ULTRASOUND ? 09/27/2010 1016 hours INDICATION: ??Decreased movement. Patient is 37 weeks 4 days by previous ultrasound for the PATRIA of 011. TECHNIQUE: ??Transabdominal Comparison: Report of an ultrasound from [facility] 06/06/2010. FINDINGS: Single, living intrauterine ge station [...] of normal. Report discussed with sarah Bright salesperson new cars, on 09/27/2010 1125 hours. Procedure Note Mireya Gallagher H - 09/27/2010 OBSTETRICAL ULTRASOUND 09/27/2010 1016 hours INDICATION: Decreased movement. Pa tient is 37 weeks 4 days by previous ultrasound for the PATRIA of 011. TECHNIQUE: Transabdominal Comparison: Report of an ultrasound from [facility] 06/06/2010. FINDINGS: Single, living intrauterine ge station [...] normal. Report discussed with sarah Bright se salesperson new cars, on 09/27/2010 1125 hours. Mireya Queen APRN, CNM [facility] US documented in this encounter Visit Diagnoses Not on filedocumented in this encounter Care Teams Registered Nurses Relationship Specialty Start Date End Date Denise Deal APRN, CNM PCP - General 07/28/1003/21 documented as of this encounter
--- OUTSIDE RECORDS SUMMARY | 2022-07-21 09:10 | XMS_ITS | Encounter Summary ---
:1990 Author [facility] Address [address] [address] Care Team Providers Name Role Phone Denise Deal APRN, CNM Primary Care Provider Unavailable Encounter Details Date Type Department Care Team Description 09/09/2010 Orders Only [facility] Frequency [address] [place] [address] Social History Tobacco Use Types Packs/Day Years [...] encounter Progress Notes Luzma Wilson RN - 09/12/2010 1:09 PM TITLE I PARAPROFESSIONAL Quick Note: See 09/12/10 telephone encounter Luzma Sagastume RN E I PARAPROFESSIONAL Betty Jones - 09/09/2010 4:05 PM TITLE I PARAPROFESSIONAL Quick Note: Please start her on Macrobid 100mg BID for 7 days. Betty Jones CNM E I PARAPROFESSIONAL Mikael Yeung LPN - 09/09/2010 3:30 PM TITLE I PARAPROFESSIONAL Quick Note: Please review lab for Rosa.Thanks.Diane Yeung LPN E I PARAPROFESSIONAL documented in this encounter Plan of Treatment Not on filedocumented as of this encounter Procedures Procedure Name Priority Date/Time Associated Diagnosis Comme nts UA MICRO IF Waiting 09/09/2010 1:03 PM Frequency Results f or this TITLE I PARAPROFESSIONAL procedure are i n the results section . UA MICRO Waiting 09/09/2010 1:03 PM Results f or this TITLE I PARAPROFESSIONAL procedure are i n the results section . documented in this encounter Results UA MICRO (09/09/2010 1:03 PM TITLE I PARAPROFESSIONAL) P athologist Signature RBC'S 0 0 - 3 /hpf [facility] WBC'S 10-20 0 - 5 /hpf [facility] Epith, Few /hpf [facility] Squamous Bact Mod [facility] Casts 0 /lpf [facility] Specimen Anatomical Collection Method Collection Time Receive d Time (Source) Location / / Volume Laterality 09/09/2010 1:03 PM 1 1:07 TITLE I PARAPROFESSIONAL PM TITLE I PARAPROFESSIONAL Denise Deal APRN, CNM LAB_1 Performing Organization Address City/[facility] Code Phon e Number [facility] [phone] [facility] [address] [address] (ABNORMAL) UA MICRO IF (09/09/2010 1:03 PM TITLE I PARAPROFESSIONAL) Patholo gist Method Time Signature Urine Color Yellow [facility] Urine Clarity Cloudy [facility] Sp Gr 1.020 1.005 - [facility] 1.03 Leuk Mod (A) NEG [facility] Nitr Negative NEG [facility] pH 6.5 4.5 - 8.0 [facility] Prot Tr (A) NEG mg/dl [facility] Gluc Negative NEG [facility] Ket Negative NEG [facility] Urob 0.2 0.2 - 1.0 [facility] EU/dl Bili Negative NEG [facility] Blood Negative NEG [facility] Specimen Anatomical Collection Method Collection Time Receive d Time (Source) Location / / Volume Laterality 09/09/2010 1:03 PM 1 1:07 TITLE I PARAPROFESSIONAL PM TITLE I PARAPROFESSIONAL Denise Say TIP SCOURER, CNM LAB_1 Performing Organization Address City/State/ZIP Code Phon e Number [facility] [phone] [address] documented in this encounter Visit Diagnoses Diagnosis Frequency Urinary frequency documented in this encounter Care Teams Hook Up Relationship Specialty Start Date End Date Denise Deal APRN, [place] PCP - General 07/28/1003/21 documented as of this encounter
--- OUTSIDE RECORDS SUMMARY | 2022-07-21 09:10 | XMS_ITS | Encounter Summary ---
:1990 Author Organization [facility] Address [address] [place] [address] Care Team Providers Name Role Phone Denise Deal APRN, CNM Primary Care Provider Unavailable Encounter Details Date Type Department Care Team Description 09/30/2010 Office Visit [place] professor of biochemistry Supervision of high-risk Ultrasound [address] [place], [place] [address] Social History Tobacco Use Types [...] Name Priority Date/Time Associated Diagnosis Comme nts OBGYN THIRD Routine 09/30/2010 4:34 PM Supervision of Results for this [facility] ULTRASOUND [employer]DR[employer]IC [employer]ANT MAINTAINER high-risk procedure are in the results section. documented in this encounter Results OBGYN THIRD [facility] ULTRASOUND ([facility]) (09/30/2010 4:34 PM HYDROELECTRIC PLANT MAINTAINER) Anatomical Region Laterality Modality Pelvis Ultrasound Specimen (Source) Anatomical Location Collection Method / Collectio n Time Received Time / Laterality Volume Narrative 09/30/2010 4:34 PM HYDROELECTRIC PLANT MAINTAINER See procedure titled UNLIS US PX with the same date of service, for scanned results of this exam. Procedure Note Berenice Lance - 09/30/2010Formatt ing of this note might be different from the original. See procedure titled UNLIS US PX with the same date of service, for scanned results of this exam. Denise Deal APRN, CNM RAD US documented in this encounter Visit Diagnoses Diagnosis Supervision of high-risk Unspecified high-risk documented in this encounter Care Teams Water Quality Control Engineer Relationship Specialty Start Date End Date Denise Deal APRN, CNM PCP - General 07/28/1003/21 documented as of this encounter
--- OUTSIDE RECORDS SUMMARY | 2022-07-21 09:10 | XMS_ITS | Encounter Summary ---
:1990 Author Organization [facility] Address [address], [place] [address] Care Team Providers Name Role Phone Denise Deal APRN, CNM Primary Care Provider Unavailable Reason for Visit Reason Comments SUBSEQUENT VISIT Encounter Details Date Type Department Care Team Description 09/29/2010 Routine [facility] Denise Deal, SUB SEQUENT and Gynecology CHEYANNE GERMAIN VISIT [address] [place] [address] Social History Tobacco Use Types [...] Reading Time Taken Comments Blood Pressure 100/60 09/29/2010 1:23 PM POSTAL MAIL CARRIER Pulse - - Temperature - - Respiratory Rate - - Oxygen Saturation - - Inhaled Oxygen Concentration - - Weight 70.3 kg (155 lb) 09/29/2010 1:23 PM POSTAL MAIL CARRIER Height - - Body Mass Index 27.9 02/22/2010 2:38 PM CDT documented in this encounter Progress Notes Denise Deal - 09/29/2010 4:41 PM POSTAL MAIL CARRIER Quick Note: Attempted to call Cyndi to report negative wet prep. Service on cell not active. Denise Deal CNM AL MAIL CARRIER Denise Deal - 09/29/2010 2:02 PM CST S. Discouraged with hospital visit. Just wants to be done and have healthy baby here: doesn't want to worry anymore. Vaginal irritation. O. See OB vitals. Cervix posterior: 3 cm 50% vertex -1 NST reactive. Wet prep negative for BV or yeast. A. IUP at 37 w 6 days P. BPP tomorrow. RTC on Sunday for repeat NST. This client would do well with visits twice per week at this point in . Denise Deal CNM AL MAIL CARRIER documented in this encounter Plan of Treatment Not on filedocumented as of this encounter Procedures Procedure Name Priority Date/Time Associated Diagnosis Comme nts VAGINAL WET PREP Waiting 09/29/2010 2:11 PM Supervision of Res ults for this POSTAL MAIL CARRIER high-risk procedur e are in the results section. documented in this encounter Results OBGYN THIRD [facility] ULTRASOUND ([facility]) (09/30/2010 4:34 PM POSTAL MAIL CARRIER) Anatomical Region Laterality Modality Pelvis Ultrasound Specimen (Source) Anatomical Location Collection Method / Collectio n Time Received Time / Laterality Volume Narrative 09/30/2010 4:34 PM POSTAL MAIL CARRIER See procedure titled UNLIS US PX with the same date of service, for scanned results of this exam. Procedure Note BriceleliaBerenice Elinor - 09/30/2010Formatt ing of this note might be different from the original. See procedure titled UNLIS US PX with the same date of service, for scanned results of this exam. Denise Deal APRN, CNM RAD US WET PREP, VAGINAL (09/29/2010 2:11 PM POSTAL MAIL CARRIER) [facility] gist Method Time Signature Epithelials Many [facility] % Atrophic Epith 0 [facility] WBC'S Many [facility] Bacteria Many [facility] Clue Cells 0 [facility] Trichomonas 0 [facility] Yeast 0 [facility] pH 4.5 3.5 - 4.5 [facility] Specimen Anatomical Collection Method Collection Time Receive d Time (Source) Location / / Volume Laterality 09/29/2010 2:11 PM 1 2:23 POSTAL MAIL CARRIER PM POSTAL MAIL CARRIER Denise Deal APRN, CNM LAB_1 Performing Organization Address City/State/ZIP Code Phon e Number [facility] [phone] [address] documented in this encounter Visit Diagnoses Diagnosis Supervision of high-risk - Mary Jane anne-marie Unspecified high-risk Constipation Unspecified constipation Supervision of high-risk Unspecified high-risk documented in this encounter Care Teams Primary Care Pediatrician Relationship Specialty Start Date End Date Denise Deal APRN, CNM PCP - General 07/28/1003/21 documented as of this encounter
--- OUTSIDE RECORDS SUMMARY | 2022-07-21 09:10 | XMS_ITS | Encounter Summary ---
:1990 [facility] Address [address] [address] Care Team Providers Name Role Phone Denise Deal APRN, CNM Primary Care Provider Unavailable Reason for Referral Specialty Diagnoses / Procedures Referred By Contact Refer [place] [address] [place] [address] Referral ID Status Reason Start Date Expiration Date Visits Requ ested Visits Authorized Scheduling Instructions If an appointment with [facility] ELECTRONIC WARFARE OFFICER was advised and you have not been contacted to schedule that appointment w ithin 3 business days, please call [phone] for assistance. OLOGY TECHNOLOGIST Specialty Diagnoses / Procedures Referred By Contact [place]er [place] [address] [place] [address] Referral ID Status Reason Start Date Expiration Date Visits Requ ested Visits Authorized Scheduling Instructions If an appointment with [facility] ELECTRONIC WARFARE OFFICER was advised and you have not been contacted to schedule that appointment w ithin 3 business days, please call [phone] for assistance. OLOGY TECHNOLOGIST Encounter Details Date Type Department Care Team Description 10/10/2010 - Hospital RH W2 OBSERVATION Yosvany Hughes RN, IBLCLC [address] [place] [id number] Femoral neuropathy (Primary Dx); 10/13/2010 Encounter [id number] MiguelDeclan MD [address] [place] [address] History of delivery, currently p regnant; [place], [place] wit h history of pre-term labor; [address] CPD (cephalo-pelvic dispropo rtion); [phone] Fetopelvic disp roportion, unspecified as to episode of care; Secondary uteri ne inertia, with delivery; Outcome of deli very, single liveborn; Other lesion of femoral nerve; Constipation Social History Tobacco Use Types Packs/Day Years [...] Sign Reading Time Taken Comments Blood Pressure 103/61 10/13/2010 8:00 AM RADIOLOGY TECHNOLOGIST Pulse 88 10/13/2010 8:00 AM RADIOLOGY TECHNOLOGIST Temperature 36.7 ??C (98.1 ??F) 10/13/2010 8:00 AM RADIOLOGY TECHNOLOGIST Respiratory Rate 18 10/13/2010 8:00 AM RADIOLOGY TECHNOLOGIST Oxygen Saturation 98% 10/13/2010 8:00 AM RADIOLOGY TECHNOLOGIST Inhaled Oxygen Concentration - - Weight 71.2 kg (157 lb) 10/09/2010 4:40 PM RADIOLOGY TECHNOLOGIST Height - - Body Mass Index 28.26 02/22/2010 2:38 PM CDT documented in this encounter Discharge Summaries Mary Kay Millard MD - 10/13/2010 11:43 AM CST [facility] OB Discharge Summary - in Labor Obstetric [...] female Score (1): 9 Score (5): 9 Status: Nursery;Liveborn Infant discharged with mom doing well The procedure [...] received instructions in the care of her infant. She was given prescriptions for Colace, iron [...] Neurology Attending for the delivery: Dr. Declan Lombardi Attending for the discharge: Dr. Selene Morgan --- End of Report --- OLOGY TECHNOLOGIST Selene Morgan - 10/13/2010 11:43 AM CST Selene Morgan MD OLOGY TECHNOLOGIST documented in this encounter Discharge Instructions Discharge Teena Montaño RN - 10/13/2010 2:54 PM CST Images from the original note were not included. [address] [place] [id number] Discharge Instructions for: Lara Emily Dominguez Thank you for choosing [facility] as your hospital. A copy of your discharge instructions has been given to you. Please read the instructions carefully. The staff will go over this information with you and answer your questions. Please take these discharge instructions to your follow up appointment for your physician to review. General Information Address: [address] [address] Phone number: Telephone Information: Allergies: Review of [...] in the notes) that the patient: Pneumonia:{Immunization Checklist:8664526} Influenza:{Immunization Checklist:7377502} Home Medications Carefully read the medication handouts you are given. They contain information about the purpose andside effects of your medications. For additional information about your medications, visit this [employer] website, [email or web address]?FILTER=Medications. Current Discharge Medication List START taking these [...] weeks after delivery If an appointment with [facility]RI[facility] CON[facility]OR BELT REPAIRER was advised and you have not been contacted to schedulethat appointment within 3 business days, please call [phone] for assistance. Reason for visit? Incision check Appointment Urgency? Non-Urgent (within 4 weeks or patient given options) Clinic Referral Make appointment for 4-6 weeks from delivery If an appointment with [facility] BELT REPAIRER was advised and you have not been contacted to schedulethat appointment within 3 business days, please call [phone] for assistance. Reason for visit? visit Appointment [...] Time Provider Department Center 10/13/2010 3:40 PM [id number] Home Care Instructions See the C- Care handout in your education folder. Valuables/Medications Disposition of Money: (not recorded) Disposition of Medications: (not recorded) Patient and/or family verified that all valuables have been returned: Yes Patient and/or family verified that all valuables removed from room safe: Yes Community Resources 1. [facility] Support [place] 2. See handout in your Patient Education Folder. Contact Information [address] Nursing unit phone number: W2 Emergency & Urgently Needed Care: For emergencies call 911 and/or get medical help right away. If you are a [facility] member and have medical needs after clinic hours you may call the CareLineat [phone] or . All medical devices (telemetry/IV/etc) unless otherwise ordered, have been removed before discharge. Smoking and Second-hand Smoke Exposure: Smoking damages blood vessels, reduces the oxygen in your blood and makes your heart beat too fast. If you smoke you should quit. Everyone should avoid second- hand smoke. If you would like further assistance after your discharge, please contact [phone] or visit www.[email or web address] and [facility] [employer] can offer further information and assistance. We hope you had a positive experience and that you can definitely recommend [facility] to yourfamily and friends. You???ll be receiving a survey in the mail in about 2 weeks and we look forward to hearing your feedback. When you are ready to leave tell your nurse and she will arrange an escort for you. I understand my discharge instructions: Lara Dominguez (or Photoengraving Etcher Apprentice) OLOGY TECHNOLOGIST documented in this encounter Medications at Time [...] Avila RN - 10/13/2010 4:19 PM CST [facility] Discharge Note - Nursing Admission Date/Time: 10/10/2010 7:00 AM Attending MD: Declan Lombardi Patient discharged: to Home. Discharge Date: 10/13/2010 Discharge Time: 1540 Patient accompanied by: SO. Transported by: Wheelchair [...] Avila RN --- End of Report --- OLOGY TECHNOLOGIST Teena Avila RN - 10/13/2010 4:13 PM CST [facility] Progress Note (Nursing) Identify/Problem(s): c/s Discharge Teaching Desired Outcome(s): Pt. will verbalize understanding of discharge teaching Evaluation: c/s discharge teaching discussed-Pt verbalizes and/or demonstrates understanding of self care, meds and follow up appt. Pt has instructions and number for PT follow up. Plan: Discharge to home with and belongings Teena Avila RN --- End of Report --- OLOGY TECHNOLOGIST Rea Vu PT - 10/13/2010 12:37 PM CST [facility] IP Physical Therapy Progress Note PT Visit Room/Bed: 2603/870769 Patient Seen: in department Diagnosis: Encounter Diagnoses [...] in extension. Rec pt follow up with MD if L LE strength does not improve as other brace options are available for mcfp deficits. Plan- d/c from acute PT. Amount of time spent in patient contact: AM: 30 minutes, PM: 15 minutes Rea Vu PT Phone number is [phone] Pager: [phone] --- End of Report --- OLOGY TECHNOLOGIST Mary Kay Millard MD - 10/13/2010 7:13 [...] the medical student note above, in addition: [facility] OB POD #3 Note Attending Provider: Declan Lombardi Subjective Good pain control. Tolerating regular diet. Voiding without problems. Positive flatus. Bleeding minimal. Persistent L leg numbness and weakness, no change. Pleased about neurology evaluation and plan yesterday. Will be fitted for knee brace to aide ambulation today. Objective Patient OB VS in the past 24 hrs: BP Pulse Temp Temp src 10/13/ 0000 102/57 mmHg 87 98 ??F (36.7 ??C) Oral /02/ 1600 100/56 mmHg 100 98.5 ??F (36.9 ??C) Oral /02/11 0800 100/55 mmHg 85 98.4 ??F (36.9 [...] MD G1 --- End of Report --- OLOGY TECHNOLOGIST Selene Morgan - 10/13/2010 7:13 AM CST OB staff Pt seen. Pain is well controlled. Wound looks great. Passing flatus. Being fitted for leg brace today. Likely d/c this pm or tomorrow AM. Selene Morgan MD OLOGY TECHNOLOGIST Grey Jane RN - 10/13/2010 1:25 AM CST [facility] Progress Note (Nursing) Identify/Problem(s): Post op C/S [...] Jane RN --- End of Report --- Jeannie Cantrell RN - 10/12/2010 9:04 PM CST [facility] Progress Note (Nursing) Identify/Problem(s): Post C/S recovery [...] Elena RN --- End of Report --- OLOGY TECHNOLOGIST Teena Avila RN - 10/12/2010 3:[address] [facility] Progress Note (Nursing) Identify/Problem(s): Post Recovery Desired [...] was tearful, but improved this afternoon. See assistant chief nursing officer note. Reports adequate pain relief with ibuprofen and percocet. Plan: Cont to assess and support ambulation in room. PT again in AM. Offer emotional support for multiple stressors. Teena Avila RN --- End of Report --- OLOGY TECHNOLOGIST Thalia Arellano RN - 10/12/2010 2:57 PM CST Lara [...] she stated. Thalia Herrera, Student Nurse, SCU. OLOGY TECHNOLOGIST Declan Lombardi - 10/12/2010 6:21 AM CST Subjective: Patient [...] Resp 18 Wt 71.215 kg (157 lb) CuE884% LMP 01/07/2010 ? Unknown General: in no [...] TOLAC especially if baby is OA. Declan Lombardi MD OLOGY TECHNOLOGIST BrannonJose Cruzsarahy - 10/12/2010 6:21 AM CST ???I saw and evaluated the patient with the resident and I agree with Dr. Wagner's findings and plan. Please see the note dated 10/12/2010.?? Guillermo South MD OLOGY TECHNOLOGIST Grey Jane RN - 10/12/2010 4:38 AM CST [facility] Progress Note (Nursing) Identify/Problem(s): Post op CS [...] Jane RN --- End of Report --- Jeannie Cantrell RN - 10/11/2010 9:18 PM CST [facility] Progress Note (Nursing) Identify/Problem(s): Post C/S recovery [...] numbness and upto see pt at approximately 2014. Per MD pt to have pneumoboots on during the night and PT consult ordered. FOB is present and supportive. Plan: Continue to monitor. Jeannie Elena RN --- End of Report --- OLOGY TECHNOLOGIST Troy Hamm W - 10/11/2010 8:46 PM CST Subjective: [...] device - continue with routine post- care OLOGY TECHNOLOGIST Farrah Hu - 10/11/2010 8:46 PM CST Farrah Hu MD OLOGY TECHNOLOGIST Nancy Bermudez - 10/11/2010 3:[address] [facility] Progress Note (Nursing) Identify/Problem(s): C/Section Recovery [...] Bermudez RN --- End of Report --- OLOGY TECHNOLOGIST Raymond Zapata - 10/11/2010 2:05 PM CST Pt seen for L leg weakness one day after C/S for arrest of labor. Pt had a lumbar epidural placed uneventfully in mix technician 10/10. After pushing for 3.5 hr, the epidural was bolused with 2% lidocaine for C/S. The effects of the epidural local anesthetic should have been eliminated by the early afternoon 2/28. Pt describes sensory deficits of her anterior [...] is still experiencing symptoms prior to discharge. OLOGY TECHNOLOGIST Farrah Hu - 10/11/2010 6:13 AM CST [...] as per Dr. Shi. Farrah Hu MD OLOGY TECHNOLOGIST Grey Jane RN - 10/11/2010 4:[address] [facility] Progress Note (Nursing) Identify/Problem(s): Post Part [...] Jane RN --- End of Report --- OLOGY TECHNOLOGIST Terell Reyes RN - 10/10/2010 10:45 PM CST [facility] Progress Note (Nursing) Identify/Problem(s): Post csection Desired [...] Reyes RN --- End of Report --- OLOGY TECHNOLOGIST Lanette Main 10/10/2010 3:09 PM CST [facility] Clinical Pharmacy Medication Reconciliation Note Medication History: Outpatient prescriptions marked as taking for the 10/10/10 encounter (Hospital Encounter) with DECLAN LOMBARDI: Vit-Fe Fumarate-FA (PRENATABS FA OR) Disp: Rfl: Medications Reviewed and Reconciled: Any medication adjustments made from patient's medication history regimen are appropriate for current hospitalization and medical condition. PHARMACIST NAME: Lanette Main PharmD Phone/Pager #: [phone] --- End of Report --- OLOGY TECHNOLOGIST Brittney Alaniz, KIKE - 10/10/2010 2:38 PM CST [facility] Progress Note (Nursing) Identify/Problem(s): Post Op Recovery [...] relief. Plan: Cont. Post op cares Brittney Alaniz, KIKE --- End of Report --- OLOGY TECHNOLOGIST Kim Mancilla - 10/10/2010 5:10 AM CST [facility] Intrapartum Progress Note Complications of : Previous Patient Active Hospital Problem List: *History of Delivery, Currently (04/07/2010) Delivered at 23 weeks: one month after cone biopsy done. [facility] has seen for appts and U/S. At 22 weeks, cervix is 3.7 cms [facility] referred Lara back to [facility] care: no funneling or shortening of [...] Mancilla CNM --- End of Report --- Kim Torres - 10/10/2010 2:42 AM CST [facility] Intrapartum Progress Note Complications of : Previous Infant Patient Active Hospital Problem List: *History of Delivery, Currently (04/07/2010) Delivered at 23 weeks: one month after cone biopsy done. [facility] has seen for appts and U/S. At 22 weeks, cervix is 3.7 cms [facility] referred Lara back to [facility] care: no funneling or shortening of [...] Mancilla CNM --- End of Report --- Kim Torres - 10/10/2010 2:17 AM CST [facility] Intrapartum Progress Note Complications of : Previous Infant Patient Active Hospital Problem List: *History of Delivery, Currently (04/07/2010) Delivered at 23 weeks: one month after cone biopsy done. [facility] has seen for appts and U/S. At 22 weeks, cervix is 3.7 cms [facility] referred Lara back to [facility] care: no funneling or shortening of [...] decreased and then turned off. Anticipate Kim Mancilla CNM --- End of Report --- OLOGY TECHNOLOGIST Kim Mancilla - 10/09/2010 10:57 PM CST [facility] Intrapartum Progress Note Complications of : Previous Patient Active Hospital Problem List: *History of Delivery, Currently (04/07/2010) Delivered at 23 weeks: one month after cone biopsy done. [facility] At 22 weeks, cervix is 3.7 cms [facility] referred Lara back to [facility] care: no funneling or shortening of [...] Mancilla CNM --- End of Report --- OLOGY TECHNOLOGIST Yosvany Hughes - 10/09/2010 8:45 PM CST [facility] Intrapartum Progress Note Complications of : Previous Infant Patient Active Hospital Problem List: *History of Delivery, Currently (04/07/2010) Delivered at 23 weeks: one month after cone biopsy done. [facility] has seen for appts and U/S. At 22 weeks, cervix is 3.7 cms [facility] referred Lara back to [facility] care: no funneling or shortening of [...] Service: 10/09/2010 --- End of Report --- Yosvany Campbell - 10/09/2010 7:09 PM CST S: Walked to [employer] and ate burger, feels contr but doesn't [...] Yosvany Hughes CNM Date of Service: 10/09/2010 OLOGY TECHNOLOGIST Elena Mark, RN - 10/09/2010 4:45 PM CST [facility] OB RN History Note OB History: Epic record reviewed and verified by patient. Medical History: Patient denies any. Surgical History: Epic record reviewed and verified by patient. Document completed by Elena Mark RN --- End of Report --- OLOGY TECHNOLOGIST documented in this encounter Procedure Notes [facility], PROVIDER - 10/14/2010 10:54 AM CSTAssociated Order(s): EKG IP; EKG IP [facility] ANESTHESIA, PROVIDER - 10/14/2010 4:[address] [facility] ANESTHESIA, PROVIDER - 10/14/2010 4:[address] [facility] ANESTHESIA, PROVIDER - 10/14/2010 4:06 AM RADIOLOGY TECHNOLOGIST Jean Carlos Wagner MD - 10/13/2010 11:47 AM CSTProcedure(s): DELIVERY; DELIVERY Pre-Procedure Diagnose(s): , subsequent; , subsequent Post-Procedure Diagnose(s): delivery delivered; delivery delivered [facility] OB Section Operative Note Surgery Date: 10/10/2010 Primary Surgeon: Surgeon(s): Declan Lombardi MD Assistants: Resident-Shun Wagner Resident-Jesica Delvalle PREOPERATIVE [...] clear urine. FINDINGS: Single vigorous and female at 0737 hours on 10/10/2010. Apgars of [...] fashion and extended with digital pressure. The that was in OP position was delivered atraumatically. The cord was doubly clamped and cut and the was handed off to the waiting [facility] staff. A Segment of the cord was [...] and instrument counts were correct x2. Dr. Lombardi was present forthe entire procedure. Jean Carlos Wagner MD [facility] ANESTHESIA, PROVIDER - 10/11/2010 8:05 PM [facility] ANESTHESIA, PROVIDER - 10/10/2010 9:19 AM [facility] ANESTHESIA, PROVIDER - 10/10/2010 9:19 AM Jesica Zheng DO - 10/10/2010 8:06 AM CST [facility] Brief Operative Progress Note Surgery Date: 10/10/2010 Primary Surgeon: Surgeon(s): Declan Lombardi MD Assistants: Resident-Jesica Delvalle DO Resident-Shun Wagner MD Post-op Diagnosis: 1. IUP [...] DELVALLE DO --- End of Report --- OLOGY TECHNOLOGIST Declan Lombardi - 10/10/2010 8:06 AM CST [facility] Brief Operative Progress Note Surgery Date: 10/10/2010 Primary Surgeon: Surgeon(s): Declan Lombardi MD Assistants: -DO Kirsten Alexander-Shun Wagner MD Post-op Diagnosis: 1. IUP @ [...] CAAL MD --- End of Report --- OLOGY TECHNOLOGIST documented in this encounter Consult Notes Celso [...] Dictated: 10/12/2010 12:08:50 Transcribed: 10/12/2010 12:16:14 Job: [id number] Doc: [id number] cc: OLOGY TECHNOLOGIST Hortensia Shi MD - 10/10/2010 7:17 AM [...] + accels with scalp stim, no decels Nicasio: 3-5 in 10 mins A/P: 20 yo [...] yet Seen with staff Hortensia Shi, DO OLOGY TECHNOLOGIST Declan Lombardi - 10/10/2010 7:17 AM CST OB consultation [...] + accels with scalp stim, no decels Nicasio: 3-5 in 10 mins A/P: 20 yo [...] febrile yet Seen with staff Hortensia Shi, I saw and evaluated the patient with the resident. Discussed with resident and agree with resident'sfindings and plan as documented in above note. Declan Lombardi MD 10/10/2010, 8:29 AM DOS: 10/10/2010 OLOGY TECHNOLOGIST Hortensia Shi MD - 10/09/2010 9:33 PM CST [facility] OB Consult: Evaluation of PROM With No [...] after cone biopsy. Pt was followed by [facility] and as cervix wasstable, she was transferred back to [facility] care for the remainder of her [...] Category III FHR occurs. Hortensia Shi DO OLOGY TECHNOLOGIST Declan Lombardi - 10/09/2010 9:33 PM CST [facility] OB Consult: Evaluation of PROM With No [...] after cone biopsy. Pt was followed by [facility] and as cervix wasstable, she was transferred back to [facility] care for the remainder of her [...] III FHR occurs. DO Declan Vega MD OLOGY TECHNOLOGIST documented in this encounter OR Notes H&P - Yosvany Hughes Eric - 10/09/2010 6:10 PM CST [facility] OB History and Physical (MD/PUBLIC ADDRESS TECHNICIAN/Midwives) History Patient's last menstrual period was 01/07/2010. Estimated Date of Delivery: 10/14/10 Gestational age: 39w2d Obstetric History: Reason for Admission: Rupture of Membranes Brief HPI Here for eval for ROM, noted gush of fluid @ 1300, (while at work) has continued to leak and startedhaving mild contr. Denies vag bldg, decr FM or s/s PI Care Primary Provider: Denise Deal CNM Clinic: [facility] Care First Visit Date: 02/22/10 Care [facility] [...] weeks: one month after cone biopsy done. [facility] has seen for appts and U/S. At 22 weeks, cervix is 3.7 cms [facility] referred Lara back to [facility] care: no funneling or shortening of cervix. Past Medical History Past Medical History Diagnosis Date ??? Rubella as child ??? Pap smear abnormality 2008 cone ??? delivery 2008 Past Surgical History Past Surgical History Procedure Date ??? Cone biopsy of cervix (39775) 2008 Medications During Outpatient prescriptions marked as [...] cm LOT by Valdez, EFW: 7- 7 1 # Extremities: Reflexes 2+ with no clonus, [...] Service: 10/09/2010 --- End of Report --- OLOGY TECHNOLOGIST documented in this encounter Miscellaneous Notes Media - [facility], PROVIDER - 10/22/2010 1:17 PM RADIOLOGY TECHNOLOGIST Media - DENA, PROVIDER - 10/14/2010 10:52 AM RADIOLOGY TECHNOLOGIST Yash - [facility]NA, PROVIDER - 10/14/2010 4:21 AM RADIOLOGY TECHNOLOGIST Media - DENA, PROVIDER - 10/14/2010 4:07 AM RADIOLOGY TECHNOLOGIST Media - DENA, PROVIDER - 10/14/2010 4:06 AM RADIOLOGY TECHNOLOGIST documented in this encounter Plan of Treatment Scheduled Referrals Name Type Priority Associated Diagnoses Order [facility] Referral Referral Routine O rdered: 10/13/2010 Clinic Referral Referral Routine O rdered: 10/13/2010 documented as of this encounter Procedures Procedure Name Priority Date/Time Associated Diagnosis Comme nts HEMOGLOBIN, BLOOD Routine 10/12/2010 6:54 AM Resu lts for this RADIOLOGY TECHNOLOGIST procedure are i n the results section. HEMOGLOBIN, BLOOD Routine 10/11/2010 6:54 AM Resu lts for this RADIOLOGY TECHNOLOGIST procedure are i n the results section. SECTION L/D 10/10/2010 7:08 AM primary c/s DELIVERY RADIOLOGY TECHNOLOGIST Case Notes Primary C/S for failure to d escend EKG IP 10/10/2010 12:00 AM RADIOLOGY TECHNOLOGIST Resu lts for this procedure are in the resu lts section. ABO RH & ANTIBODY SCREEN STAT 10/09/2010 6:00 PM RADIOLOGY TECHNOLOGIST Results for this procedure (TYPE & SCREEN) are in the r esults section. COMPLETE BLOOD COUNT-NO STAT 10/09/2010 6:00 PM RADIOLOGY TECHNOLOGIST Results for this procedure DIFF are in the resu lts section. documented in this encounter Results (ABNORMAL) HEMOGLOBIN, BLOOD (10/12/2010 6:54 AM RADIOLOGY TECHNOLOGIST) P athologist Signature Hemoglobin 8.5 (L) 12.0 - 16.0 [facility] g/dl Specimen Anatomical Collection Method Collection Time Receive d Time (Source) Location / / Volume Laterality 10/12/2010 6:54 AM 6:55 RADIOLOGY TECHNOLOGIST AM RADIOLOGY TECHNOLOGIST Declan Lombardi MD LAB_1 Performing Organization Address City/[facility] Phon e Number [address] [address] [place], [place] [phone] (ABNORMAL) Hemoglobin - in AM POD #1 (10/11/2010 6:54 AM RADIOLOGY TECHNOLOGIST) P athologist Signature Hemoglobin 9.5 (L) 12.0 - 16.0 [facility] g/dl Comment: Result Checked Specimen Anatomical Collection Method Collection Time Receive d Time (Source) Location / / Volume Laterality 10/11/2010 6:54 AM 1 6:55 RADIOLOGY TECHNOLOGIST AM RADIOLOGY TECHNOLOGIST Declan Lombardi MD LAB_1 Performing Organization Address [facility] Phon e Number [address] [address] [place], [place] [phone] EKG IP (10/10/2010 12:00 AM RADIOLOGY TECHNOLOGIST) Specimen (Source) Anatomical Location Collection Method / Collectio n Time Received Time / Laterality Volume 10/10/2010 Narrative This result has an attachment that is no t available. Transcriptions [facility], PROVIDER - 10/14/2010 10:54 AM RADIOLOGY TECHNOLOGIST Provider [facility] EKG ABO RH & ANTIBODY SCREEN (TYPE & SCREEN) (10/09/2010 6:00 PM RADIOLOGY TECHNOLOGIST) Patholo gist Method Time Signature Crossmatch 10/12/2010 [facility] Expires ABO/RH(D) A POSITIVE [facility] Antibody Screen NEGATIVE [facility] Specimen Anatomical Collection Method Collection Time Receive d Time (Source) Location / / Volume Laterality Blood specimen 10/09/2010 6:00 PM 011 6:10 (specimen) RADIOLOGY TECHNOLOGIST PM RADIOLOGY TECHNOLOGIST Yosvany Hughes RN, IBLCLC LAB_1 Performing Organization Address City/State/[facility] Phon e Number [address] [address] [place], [place] [phone] (ABNORMAL) HEMOGRAM/PLTS (10/09/2010 6:00 PM RADIOLOGY TECHNOLOGIST) P athologist Signature WBC 17.8 (H) 4.0 - 11.0 [facility] k/ul RBC 3.96 (L) 4.0 - 5.2 [facility] M/ul Hemoglobin 12.4 12.0 - 16.0 [facility] g/dl HCT 35.8 (L) 36.0 - 46.0 [facility] % MCV 90.4 80 - 100 fl [facility] MCH 31.3 26 - 34 pg [facility] MCHC 34.6 32 - 36 [facility] g/dl RDW 13.1 11.5 - 14.5 [facility] % Platelets 397 150 - 450 [facility] k/ul MPV 8.5 6.5 - 10.0 [facility] fl Specimen Anatomical Collection Method Collection Time Receive d Time (Source) Location / / Volume Laterality Blood specimen 10/09/2010 6:00 PM 011 6:10 (specimen) RADIOLOGY TECHNOLOGIST PM RADIOLOGY TECHNOLOGIST Yosvany Hughes RN, IBLCLC LAB_1 Performing Organization Address City/State/ZIP Code Phon e Number [address] [address] [place], [place] [phone] documented in this encounter Visit Diagnoses Diagnosis [...] Vu, PT - 10/12/2010 12:01 PM CST [facility] [place] Physical Therapy Evaluation Patient Seen: in department [...] in patient contact: AM: 20 minutes Rea Vu PT Phone number is [phone] Pager: [phone] --- End of Report --- OLOGY TECHNOLOGIST documented in this encounter Administered Medications Inactive Administered Medications - up to 3 most recent administrations Medication Order MAR Action Action Date Dose Rate Site cefazolin (aka ANCEF) injection 1 g Given 10/10/2010 7:10 AM RADIOLOGY TECHNOLOGIST 1 g 1 g, Intravenous, SDS, Starting on Sun10/10/10 at 0701, For 1 dose, 30 minutes prior to incision PRE-OP ANTIBIOTIC, Pre-op citric acid-sodium citrate (aka BICITRA) oral Given 7:02 AM RADIOLOGY TECHNOLOGIST 30 mL liquid 15-30 mL 15-30 mL, Oral, ONCE, On Sun10/10/10 at 0702, For 1 dose, 10-30 minutes prior to anesthesia induction, Pre-op docusate sodium (aka COLACE) capsule 100 mg Given 10/13/2010 8:00 AM RADIOLOGY TECHNOLOGIST 100 mg 100 mg, Oral, BID PRN, Constipation, Starting on Sun10/10/10 at 1038, Until Sun10/13/10 at 1745, as stool-softener Given 10/12/2010 9:20 PM RADIOLOGY TECHNOLOGIST 100 mg Given 10/12/2010 8:30 AM RADIOLOGY TECHNOLOGIST 100 mg HYDROmorphone (aka DILAUDID) injection 0.5-1 Given 1 11:05 AM RADIOLOGY TECHNOLOGIST 1 mg mg 0.5-1 mg, Intravenous, Q4H PRN, Pain, Starting on Sun10/10/10 at 1038, Until Jennyfer 10/13/10 at 1745, For severe pain. hydrOXYzine HCl (aka ATARAX) tablet 50-1 00 mg Given 10/09/2010 6:59 PM RADIOLOGY TECHNOLOGIST 100 mg 50-100 mg, Oral, ONCE PRN, Pain, Starting on Sun10/09/10 at 1842, Until 10/09/10 at 1859, For 1 dose, May repeat once in one hour. ibuprofen (aka MOTRIN) tablet 600 mg Given 10/13/2010 12:55 PM RADIOLOGY TECHNOLOGIST 600 mg 600 mg, Oral, Q6H, First dose on Sun10/11/10 at 0800, Until Discontinued, HOLD ibuprofen while patient is on ketorolac. Not to be given with in 6 hours of ketorolac (TORADOL). Maximum dose is 2400 mg in 24 hours. Given 10/13/2010 6:35 AM RADIOLOGY TECHNOLOGIST 600 mg Given 10/13/2010 12:00 AM RADIOLOGY TECHNOLOGIST 600 mg ketorolac (aka TORADOL) injection 30 mg Given 10/11/2010 3:00 AM RADIOLOGY TECHNOLOGIST 30 mg 30 mg, IV/IM, Q6H (NON-STND), First dose on Sun10/10/10 at 0906, Last dose on Sun10/11/10 at 0200, For 24 hours, Begin 6 hours post delivery or last dose given. Give every 6 hours for 24 hours, and then start PO Ibuprofen. Maximum Ketorolac dose in 24 hours is 120 mg. Contraindicated in patients with: peptic ulcer disease, recent GI bleeding or perforation advanced renal impairment or risk of renal failure due to volume depletion hemorrhage, incomplete homeostasis or high-risk of bleeding, concomitant aspirin or NSAID use allergy to Toradol, NSAID's or ASA Use with Caution in Patients with: high risk of GI adverse events cardiovascular disease or risk factors renal impairment hepatic impairment asthma Given 10/10/2010 9:00 PM RADIOLOGY TECHNOLOGIST 30 mg Given 10/10/2010 3:19 PM RADIOLOGY TECHNOLOGIST 30 mg oxyCODONE-acetaminophen (aka PERCOCET) Given 10/13/2010 12:55 PM RADIOLOGY TECHNOLOGIST 1 Tablet 5-325 MG tablet 1-2 Tab 1-2 Tablet, Oral, Q4H PRN, Pain, Starting on Sun10/10/10 at 1038, Until Jennyfer 10/13/10 at 1745, For severe pain. Not to be given until IV narcotics are discontinued. Not to be initiated until 12 hours after intrathecal narcotic. Maximum Daily Acetaminophen dose for patients > 53 k g/day Maximum Daily Acetaminophen dose for patients < 53 k mg/kg/day This product contains 325 mg Acetaminophen per tablet. Given 10/13/2010 6:35 AM RADIOLOGY TECHNOLOGIST 1 Tablet Given 10/12/2010 9:20 PM RADIOLOGY TECHNOLOGIST 1 Tablet oxytocin-lactated ringers 20 Started 10/09/2010 9:35 PM 1 mill i-units/min 3 mL/hr units/1000 mL IV infusion RADIOLOGY TECHNOLOGIST ringers premade infusion 1-2 keeley-units/min (rounded to 3-6 mL/hr), Intravenous, TITRATE, Starting on Sun10/09/10 at 2132, Until Sun10/10/10 at 1038, [1] Start at 1-2 milliUnits/minute (1 milliUnits/minute [...] Recently Administered Medications Times are shown in RADIOLOGY TECHNOLOGIST. Scheduled Medication Order 10/11/2010 10/12/2010 10/13/2010 ibuprofen (aka MOTRIN) tablet 600 mg (CANCELED) 1130 ( Given - Provider: Nancy Bermudez)1400 (Due)1730 (Given - Provider: Jeannie Elena RN)2335 (Given - Provider: Grey Jane RN) 0000 (Held - Provider: Grey Jane RN)0535 (Given - Provider: Grey Jane RN)0600 (Due - Provider: Jessy Noonan, PharmD)1200 (Due - Provider: Jessy Noonan, PharmD)1800 (Given - Provider: Elinor Elena RN) 0000 (Given - Provider: Grey Jane RN)0635 (Given - Provider: Grey Jane RN)1255 (Given - Provider: Teena Herr RN) 600 mg, Oral, Q6H, First dose on Sun10/11/10 at 0800, Until Disco ntinued ketorolac (aka TORADOL) injection 30 mg (COMPLETED) (Not Given - Provider: Grey Jane RN [...] Pain documented in this encounter Care Teams Au Pair Relationship Specialty Start Date End Date Denise Deal APRN, CNM PCP - General 07/28/1003/21 documented as of this encounter
--- OUTSIDE RECORDS SUMMARY | 2022-07-21 09:10 | XMS_ITS | Encounter Summary ---
:1990 Author Organization [employer] Address [address] [address] Care Team Providers Name Role Phone Denise Dael APRN, CNM Primary Care Provider Unavailable Reason for Visit Reason Onset Date Comments BIOPHYSICAL PROFILE 09/30/2010 Encounter Details Date Type Department Care Team Description 09/30/2010 Telephone [place] [facility] and Omayra Carrizales RN BIOPHYSICAL PROFILE Gynecology [address] [facility] [place], [place] [address] [place] [address] [id number] [phone] Social History Tobacco Use Types Packs/Day Years [...] documented as of this encounter Nursing Notes Omayra Carrizales RN - 09/30/2010 4:26 PM CST Carin calling from [place] regarding patient BPP that is scheduled for today. Requesting to know if they need to due measurements on the baby as they were just completed on visit in the hospital on 09-27-2010. This was reviewed with Dr. Dukes and instructed do not need to due measurements today just BPP andAFI. Called back to [place] ultrasound and spoke with Maggie and was advised of instructions per Dr. Dukes. 09/30/2010 4:26 PM Omayra Carrizales, RN ER DIE CUTTING MACHINE OPERATOR documented in this encounter Plan of Treatment Not on filedocumented as of this encounter Visit Diagnoses Not on filedocumented in this encounter Care Teams Printer'S Devil Relationship Specialty Start Date End Date Denise Deal APRN, CHEYANNE PCP - General 07/28/1003/21 documented as of this encounter
--- OUTSIDE RECORDS SUMMARY | 2022-07-21 09:10 | XMS_ITS | Encounter Summary ---
:1990 Author Organization [employer] Address [address] [place] [address] Care Team Providers Name Role Phone Say Denise GERMAIN CNM Primary Care Provider Unavailable Reason for Visit Reason Comments SUBSEQUENT VISIT Encounter Details Date Type Department Care Team Description 09/21/2010 Routine [place] [facility] Betty Jones, Abhijit MURRIETA and Gynecology CHEYANNE GERMAIN VISIT [address] [place] [address] [place], [place] [phone] Social History Tobacco Use Types Packs/Day Years [...] Sign Reading Time Taken Comments Blood Pressure 110/60 09/21/2010 3:37 PM ALUMINUM SIDING MECHANIC Pulse - - Temperature - - Respiratory Rate - - Oxygen Saturation - - Inhaled Oxygen Concentration - - Weight 69.9 kg (154 lb) 09/21/2010 3:37 PM ALUMINUM SIDING MECHANIC Height - - Body Mass Index 27.72 02/22/2010 2:38 PM CDT documented in this encounter Patient Instructions Patient InstructionsBetty Jones - 09/21/2010 4:03 PM CST Return to clinic in about 1 week. HEALTHY CARE: 36 WEEKS Your baby is gaining about an ounce each day, so healthy nutrition and rest are still very important. Review information on care that you will need after the baby is born. Learn about late symptoms, such as constipation and backaches. Drinking more fluids and eating more roughage can relieve constipation. The pelvic tilt and a heating pad can ease backaches. Discuss your choices and plans for contraception with your health care provider. Talk with your provider about when to call with signs of labor, such as contractions or watery or bloody vaginal discharge. Make plans for transportation and child support agent as needed. Ask your health care provider about vaccinations you may need following delivery. New mothers shouldreceive a Tdap shot shortly after their baby is born if it has been at least two years since their last Td (tetanus).Fathers and family members who will be in close contact with the baby should receivea Tdap shot at least two weeks before the expected of the baby if they have not had a Td (tetanus) shot for at least two years. Discuss follow-up appointments with your provider, as well. INUM SIDING MECHANIC documented in this encounter Progress Notes Sherry Oliva RN - 09/26/2010 1:09 PM ALUMINUM SIDING MECHANIC Quick Note: Negative gbs results will be reviewed at her next apt. Sherry Oliva RN INUM SIDING MECHANIC Betty Jones - 09/21/2010 4:04 PM CST S: Lara feels well today. Has no complaints. Denies headaches, vision changes, epigastric pain. Has occasional contractions. Baby is active. No leaking of fluid. No further or worsening bladder symptoms. O: See above vitals. A: IUP @ 36 weeks 5 days. P: GBS collected today. Reviewed labor signs/symptoms. RTC in 1 week or sooner PRN. Betty Jones CNM INUM SIDING MECHANIC documented in this encounter Plan of Treatment Not on filedocumented as of this encounter Procedures Procedure Name Priority Date/Time Associated Diagnosis Comme nts GROUP B STREP Same Day 09/21/2010 4:18 PM Supervision of other Results for this SCREEN (OB PTS) ALUMINUM SIDING MECHANIC normal procedur e are in the results section. documented in this encounter Results Group B strep culture (EXPLAIN TO THE PATIENT) (09/21/2010 4:18 PM ALUMINUM SIDING MECHANIC) Component Value Ref Test Analysis Performed At [facility] Range Method Time Signature Specimen Vaginal-Rectal [facility] Description Special Not Penicillin [facility] Requests Allergic Culture No Group [facility] Streptococcus Isolated Report Status Final 09/24/2010 [facility] Specimen Anatomical Collection Method Collection Time Receive d Time (Source) Location / / Volume Laterality 09/21/2010 4:18 PM 1 4:22 ALUMINUM SIDING MECHANIC PM ALUMINUM SIDING MECHANIC Betty Jones APRN, CNM LAB_1 Performing Organization Address City/State/ZIP Code Phon e Number [facility] [phone] [facility] [address] [place] [phone] documented in this encounter Visit Diagnoses Diagnosis Supervision of other normal - Primary documented in this encounter Care Teams Retanned Leather Roller Relationship Specialty Start Date End Date Denise Deal APRN, CNM PCP - General 07/28/1003/21 documented as of this encounter
--- OUTSIDE RECORDS SUMMARY | 2022-07-21 09:10 | XMS_ITS | Encounter Summary ---
:1990 Author Organization [employer] Address [address], [place] [address] Care Team Providers Name Role Phone Denise Deal APRN, CNM Primary Care Provider Unavailable Reason for Visit Reason Onset Date Comments Med Request 10/19/2010 Encounter Details Date Type Department Care Team Description 10/19/2010 Telephone [place] [facility] and Denise Deal APR N, CNM Med Request Gynecology [address] [place] [address] Social History Tobacco Use Types [...] documented as of this encounter Nursing Notes Luzma Wilson RN - 10/19/2010 4:46 PM CST Pt had 10/10/10 Pt had nerve damage, femoral nerve during delivery. Pt will start therapy for that. Pt is taking is 1-2 percocet every 4 hours. Pt taking ibuprofen twice daily. Pt rates her pain at a 4 on a 1-10 pain scale on her meds Pt is starting to increase her activity, she is up walking more Pain is at her incision and is worse with walking and when rising Incision has steri-strips on, looks intact, no drainage, no redness that she can see. Pt has not noticed any fever or chills. Pt had a BM once since she was born, when she was home. Informed the pt to push fluids, increase fiber in her diet and cont to take her stool softeners. Pt states she is not having any cramping, abdominal pain. appt scheduled for check w dr williamson tomorrow, pt agrees w plan Luzma Sagastume, RN OMATIC COURIER Berenice Cuello - 10/19/2010 3:47 PM CST Pt delivered her baby 10/10/10 by . Pt is requesting a refill on her pain medication. OMATIC COURIER documented in this encounter Plan of Treatment Not on filedocumented as of this encounter Visit Diagnoses Not on filedocumented in this encounter Care Teams Principal Accounts Clerk Relationship Specialty Start Date End Date Denise Deal APRN, CHEYANNE PCP - General 07/28/1003/21 documented as of this encounter
--- OUTSIDE RECORDS SUMMARY | 2022-07-21 09:10 | XMS_ITS | Encounter Summary ---
:1990 Author Organization [employer] Address [address] [place] [address] Care Team Providers Name Role Phone Denise Deal APRN, CNM Primary Care Provider Unavailable Encounter Details Date Type Department Care Team Description 10/10/2010 Consent for [facility] Department RH INFORM ED CONSENT Procedure/Treatment RECORD Social History Tobacco Use Types Packs/Day Years [...] documented as of this encounter Progress Notes Interface, In [facility] - 10/14/2010 4:07 AM REQUIREMENTS ENGINEER Electronically signed by Interface, In [facility] at 10/14/2010 4:07 AM REQUIREMENTS ENGINEER documented in this encounter Plan of Treatment Not on filedocumented as of this encounter Visit Diagnoses Not on filedocumented in this encounter Care Teams Unit Manager Rn Relationship Specialty Start Date End Date Denise Deal APRN, CNM PCP - General 07/28/1003/21 documented as of this encounter
--- OUTSIDE RECORDS SUMMARY | 2022-07-21 09:10 | XMS_ITS | Encounter Summary ---
:1990 Author Organization [facility] Address [address] [place] [address] Care Team Providers Name Role Phone Denise Deal APRN, CNM Primary Care Provider Unavailable Reason for Visit Reason Onset Date Comments FOLLOW-UP,[facility] 10/15/2010 Encounter Details Date Type Department Care Team Description 10/15/2010 Telephone [facility] W2 OBSERVATION Ernestine Wills RN FOLLOW-UP,[address] [address] Social History Tobacco Use Types Packs/Day Years [...] on filedocumented in this encounter Care Teams Seafood Manager Relationship Specialty Start Date End Date Denise Deal APRN, CNM PCP - General 07/28/1003/21 documented as of this encounter
--- OUTSIDE RECORDS SUMMARY | 2022-07-21 09:10 | XMS_ITS | Encounter Summary ---
:1990 Author Organization [facility] Address [address], [place] [address] Care Team Providers Name Role Phone Denise Deal APRN, CNM Primary Care Provider Unavailable Encounter Details Date Type Department Care Team Description 2010 Imaging [facility] Radiology Ul trasound [address] [place] [address] Social History Tobacco Use Types Packs/Day Years [...] Name Priority Date/Time Associated Diagnosis Comme nts US OB FOLLOW-UP STAT 2010 9:38 AM Result s for this COMPLIANCE ASSOCIATE procedure are i n the results section. documented in this encounter Results US OB FOLLOW UP (2010 9:38 AM COMPLIANCE ASSOCIATE) Anatomical Region Laterality Modality Pelvis Ultrasound Specimen (Source) Anatomical Collection Method Collection Time Re ceived Time Location / / Volume Laterality 2010 9:38 AM COMPLIANCE ASSOCIATE Narrative 2010 11:20 AM COMPLIANCE ASSOCIATE US OB FOLLOW UP 2010, 09:39:00 AM [...] in vertex presentation. Procedure Note Rodney Hua Pavel - 2010Formatti ng of this note might [...] of 2.5. 3. Fetus in vertex presentation. Adina Schuler APRN, CNM [facility] documented in this encounter Visit Diagnoses Not on filedocumented in this encounter Care Teams Record Press Supervisor Relationship Specialty Start Date End Date Denise Deal APRN, CNM PCP - General 07/28/1003/21 documented as of this encounter
--- OUTSIDE RECORDS SUMMARY | 2022-07-21 09:10 | XMS_ITS | Encounter Summary ---
:1990 Author Organization [employer] Address [address] [place] [address] Care Team Providers Name Role Phone Denise Deal APRN, CNM Primary Care Provider Unavailable Reason for Visit Reason Onset Date Comments LAB RESULTS 09/12/2010 Encounter Details Date Type Department Care Team Description 09/12/2010 Telephone [place] [facility]stetrics and Betty Jones A PRN, LAB RESULTS Gynecology [facility] [address] [place] [address] [place], [place] [phone] Social History Tobacco Use Types Packs/Day [...] documented as of this encounter Nursing Notes Jeannie Sanders RN - 09/12/2010 5:19 PM CST 36 weeks gestation and was started on Macrobid per Betty Jones. Not too uncomfortable today. Per Savannah DACOSTAMW. Bactrim DS. 1 tab BID x 3. MECHANIC Robyn Morton - 09/12/2010 4:53 PM CST Pt is picked up a med today that says not to take if near term in . Please advise. Robyn Adamson MECHANIC Jeannie Sanders RN - 09/12/2010 11:24 AM CST History: Estimated Date of Delivery: 10/14/10 Gestational Age: 35w3d Calling for lab results from 09/09. Notes recorded by Betty Jones on 09/09/2010 at 4:05 PM Please start her on Macrobid 100mg BID for 7 days. Betty Jones CNM She also notes that for the last 24 hours the fingers on her right hand have been getting numb on and off. Lasting 2 minutes to longer than that. CMS Intemittant numbness, not cold to touch. No color changes. There is some swelling in the hand. Not a lot. No rings on fingers. No neck pain no shoulder pain. No known injury. No history of surgeries. She sleeps on her right side and her hands are around the body pillow. HT: Elevate right hand/fingers above level of heart. Try not to let the fingers dip or drop down at the wrist. Reassure this numbness could be related to some mild swelling. Will consult with Provider. Berenice Salguero - 09/12/2010 11:01 AM CST Lab results. MECHANIC documented in this encounter Plan of Treatment Not on filedocumented as of this encounter Visit Diagnoses Not on filedocumented in this encounter Care Teams Vp Of Marketing Relationship Specialty Start Date End Date Denise Deal APRN, CHEYANNE PCP - General 07/28/1003/21 documented as of this encounter
--- OUTSIDE RECORDS SUMMARY | 2022-07-21 09:11 | XMS_ITS | Encounter Summary ---
:1990 Author Organization [facility] Address [address] [place] [address] Care Team Providers Name Role Phone Denise Deal APRN, [facility] Primary Care Provider Unavailable Encounter Details Date Type Department Care Team Description 08/15/2010 Orders Only [facility] exercise instructor Ultra sound Denise Deal APRN, [address] [place], [place] [phone] Social History Tobacco Use Types Packs/Day Years [...] documented as of this encounter Procedure Notes Ob-Food Inspector, Provider - 08/15/2010 12:00 AM CSTAssociated Order(s): OB ULTRASOUND REPORT documented in this encounter Plan of Treatment Not on filedocumented as of this encounter Procedures Procedure Name Priority Date/Time Associated Comments Diagnosis OB ULTRASOUND REPORT 08/15/2010 12:00 AM Results for this DIRECTOR RADIATION ONCOLOGY procedure are i n the results section. documented in this encounter Results OB ULTRASOUND REPORT (08/15/2010 12:00 AM DIRECTOR RADIATION ONCOLOGY) Anatomical Region Laterality Modality Other Specimen (Source) Anatomical Location Collection Method / Collectio n Time Received Time / Laterality Volume 08/15/2010 Narrative This result has an attachment that is no t available. Transcriptions Ob-Food Inspector, Provider - 08/15/2010 12:[address] Denise Deal APRN, CNM DUMMY/OTHER/AR documented in this encounter Visit Diagnoses Not on filedocumented in this encounter Care Teams Engineering Illustrator Relationship Specialty Start Date End Date Denise Deal APRN, CNM PCP - General 07/28/1003/21 documented as of this encounter
--- OUTSIDE RECORDS SUMMARY | 2022-07-21 09:11 | XMS_ITS | Encounter Summary ---
:1990 Author Organization [facility] Address [address], [place] [address] Care Team Providers Name Role Phone Unavailable Primary Care Provider Unavailable Reason for Visit Reason Onset Date Comments HEADACHE 03/30/2010 Encounter Details Date Type Department Care Team Description 03/30/2010 Telephone [place] [facility] and Say, Denise, SUE N, CNM HEADACHE Gynecology [address] [place] [address] Social History Tobacco Use Types [...] encounter Nursing Notes Sherry Oliva RN - 03/30/2010 1:15 PM CDT Recommend pt try Tylenol and make sure that she is getting enough food and fluids, also recommend that the pt try a little caffeine: which she has done. Sherry Oliva RN Berenice Cuello - 03/30/2010 1:06 PM CDT Pt left a voice mail message @ 12:35 p.n. 11w5d Pt c/o a H/A. Would like to know what is safe to take. documented in this encounter Plan of Treatment Not on filedocumented as of this encounter Visit Diagnoses Not on filedocumented in this encounter
--- OUTSIDE RECORDS SUMMARY | 2022-07-21 09:11 | XMS_ITS | Encounter Summary ---
:1990 Author Organization [employer] Address [address] [place] [address] Care Team Providers Name Role Phone Unavailable Primary Care Provider Unavailable Reason for Visit Reason Onset Date Comments RESULTS, TEST 03/31/2010 Encounter Details Date Type Department Care Team Description 03/31/2010 Telephone [place] [facility] and Roberta Schneider RN RESULTS, TEST Gynecology [facility] [address] [facility]. [address] [place] [address] [place] [address] [phone] Social History Tobacco Use Types Packs/Day Years [...] documented as of this encounter Nursing Notes Roberta Schneider RN - 03/31/2010 9:36 AM CDT First screen test results for Lara Dominguez were received from [employer]. Down Syndrome screening risk is 1;10,000 Down Syndrome age related risk is 1:830 [employer] risk cut off is 1:220 Trisomy 18 screening risk is 1:10,000 Trisomy age related risk is 1:2,900 [employer] risk cut off is 1:100 These results have been interpreted by [employer] as screen negative with a low risk of a babywith Down Syndrome or Trisomy 18. The results are actioned to the provider. Pt notified of results. Will forward to Betty Jones for her information. Roberta Schneider RN documented in this encounter Plan of Treatment Not on filedocumented as of this encounter Visit Diagnoses Not on filedocumented in this encounter
--- OUTSIDE RECORDS SUMMARY | 2022-07-21 09:11 | XMS_ITS | Encounter Summary ---
:1990 Author Organization [facility] Address [address] [place] [address] Care Team Providers Name Role Phone Denise Deal APRN, CNM Primary Care Provider Unavailable Encounter Details Date Type Department Care Team Description 04/25/2010 Orders Only External to Denise Graf APRN, CNM Social History Tobacco Use Types Packs/Day Years [...] documented as of this encounter Procedure Notes [facility], Provider - 04/25/2010 12:00 AM CDTAssociated Order(s): OB ULTRASOUND REPORT documented in this encounter Plan of Treatment Not on filedocumented as of this encounter Procedures Procedure Name Priority Date/Time Associated Comments Diagnosis OB ULTRASOUND REPORT 04/25/2010 12:00 AM Results for this CDT procedure are i n the results section. documented in this encounter Results OB ULTRASOUND REPORT (04/25/2010 12:00 AM CDT) Anatomical Region Laterality Modality Other Specimen (Source) Anatomical Location Collection Method / Collectio n Time Received Time / Laterality Volume 04/25/2010 Narrative This result has an attachment that is no t available. Transcriptions [facility], Provider - 04/13 12:00 AM CDT Denise Deal APRN, CNM DUMMY/OTHER/AR documented in this encounter Visit Diagnoses Not on filedocumented in this encounter Care Teams Yield Clerk Relationship Specialty Start Date End Date Denise Deal APRN, CHEYANNE PCP - General 07/28/1003/21 documented as of this encounter
--- OUTSIDE RECORDS SUMMARY | 2022-07-21 09:11 | XMS_ITS | Encounter Summary ---
:1990 Author Organization [facility] Address [address] [place] [address] Care Team Providers Name Role Phone Denise Deal APRN, CNM Primary Care Provider Unavailable Encounter Details Date Type Department Care Team Description 02/22/2010 Orders Only External to Betty Sanderson APRN, CNM [address] [place] [address] Social History Tobacco Use Types Packs/Day Years [...] documented as of this encounter Procedure Notes External, Provider - 02/22/2010 12:00 AM CDTAssociated Order(s): CYSTIC FIBROSIS SCREEN documented in this encounter Plan of Treatment Not on filedocumented as of this encounter Procedures Procedure Name Priority Date/Time Associated Diagnosis Comme nts CYSTIC FIBROSIS 02/22/2010 12:00 AM Resul ts for this SCREEN CDT procedure are i n the results section. documented in this encounter Results CYSTIC FIBROSIS SCREEN (02/22/2010 12:00 AM CDT) Specimen (Source) Anatomical Location Collection Method / Collectio n Time Received Time / Laterality Volume 02/22/2010 Narrative This result has an attachment that is no t available. Transcriptions External, Provider - 02/22/2010 12:00 AM CDT Betty Jones APRN, CNM DUMMY/OTHER/AR documented in this encounter Visit Diagnoses Not on filedocumented in this encounter Care Teams Lens Grinder Relationship Specialty Start Date End Date Denise Deal APRN, CNM PCP - General 07/28/1003/21 documented as of this encounter
--- OUTSIDE RECORDS SUMMARY | 2022-07-21 09:11 | XMS_ITS | Encounter Summary ---
:1990 Author Organization [employer] Address [address] [place] [address] Care Team Providers Name Role Phone Unavailable Primary Care Provider Unavailable Reason for Visit Reason Comments SUBSEQUENT VISIT SHOT,FLU Encounter Details Date Type Department Care Team Description 06/14/2010 Routine [place] [facility] Yulissa Rodriguez, SUBSEQUENT and Gynecology HOT DIP PLATING SUPERVISOR, CNM VISIT; SHOT,FLU [address] [place] [address] [place], [place] [phone] [address] Social History Tobacco Use Types Packs/Day Years [...] Reading Time Taken Comments Blood Pressure 100/60 06/14/2010 10:25 AM CDT Pulse - - Temperature - - Respiratory Rate - - Oxygen Saturation - - Inhaled Oxygen Concentration - - Weight 54.9 kg (121 lb) 06/14/2010 10:25 AM CDT Height - - Body Mass Index 21.78 02/22/2010 2:38 PM CDT documented in this encounter Progress Notes Yulissa Rodriguez - 06/14/2010 10:52 AM CDT Pt here and doing well. Had U/S a week ago at [facility]. States the baby is a girl and looks good. States that her cervical length was 3.7 cm (records not here). Will be going back for another U/S next Sunday. Pt thinks if that U/S is ok, she will be sent back here. Denies bleeding, spotting, cramping or contractions. S=D +FM. Yulissa Rodriguez CNM 06/14/2010 10:52 AM Mikael Yeung LPN - 06/14/2010 10:26 AM CDT Vaccine given per standing order Diane Yeung LPN documented in this encounter Plan of Treatment Not on filedocumented as of this encounter Visit Diagnoses Diagnosis Supervision of high-risk - Mary Jane xie Unspecified high-risk Need for prophylactic vaccination and in oculation against influenza documented in this encounter
--- OUTSIDE RECORDS SUMMARY | 2022-07-21 09:11 | XMS_ITS | Encounter Summary ---
:1990 Author Organization [employer] Address [address], [place] [address] Care Team Providers Name Role Phone Unavailable Primary Care Provider Unavailable Encounter Details Date Type Department Care Team Description 03/28/[address] [facility] waterworks chief engineer Ultra sound Supervision of Other Normal ; [address] [facility] Other Specified Sc malissa [place], [place] [id number] Social History Tobacco Use Types Packs/Day Years [...] Procedure Name Priority Date/Time Associated Comments Diagnosis OBGYN FIRST Routine 03/28/2010 1:39 PM Other Specified Result s for this TRIMESTER ULTRASOUND CDT Screening procedure are in the results section. documented in this encounter Results FIRST TRIMESTER ULTRASOUND (03/28/2010 1:39 PM CDT) Anatomical Region Laterality Modality Pelvis Ultrasound Specimen (Source) Anatomical Location Collection Method / Collectio n Time Received Time / Laterality Volume Narrative 03/28/2010 2:28 PM CDT See procedure titled UNLIS US PX with the same date of service, for scanned results of this exam. Procedure Note Darwin Siddiqui - 03/28/2010 See procedure titled UNLIS US PX with the same date of service, for scanned results of this exam. Betty Jones APRN, CNM RAD US documented in this encounter Visit Diagnoses Diagnosis Supervision of other normal Other specified screening(V28. 89) Other specified screening documented in this encounter
--- OUTSIDE RECORDS SUMMARY | 2022-07-21 09:11 | XMS_ITS | Encounter Summary ---
:1990 Author Organization [employer] Address [address], [place] [address] Care Team Providers Name Role Phone Unavailable Primary Care Provider Unavailable Reason for Visit Reason Comments SUBSEQUENT VISIT Encounter Details Date Type Department Care Team Description 06/30/2010 Routine [place] [facility] Denise Deal, SUB SEQUENT and Gynecology DRY CLEANING CHECKER, CNM VISIT [address] [place], [place] [id number] Social History Tobacco Use Types Packs/Day Years [...] Reading Time Taken Comments Blood Pressure 100/60 06/30/2010 1:22 PM WILDLIFE VETERINARIAN Pulse - - Temperature - - Respiratory Rate - - Oxygen Saturation - - Inhaled Oxygen Concentration - - Weight 57.6 kg (127 lb) 06/30/2010 1:22 PM WILDLIFE VETERINARIAN Height - - Body Mass Index 22.86 02/22/2010 2:38 PM CDT documented in this encounter Progress Notes Denise Deal - 06/30/2010 1:55 PM CST S. Doing well. States she is doing well. Denies any symptoms of PTL. Baby is a girl: Namita. O. See OB vitals. Ultrasound from [facility]: normal screen with cervix 3.3 A. IUP at 24 weeks. P. MPP: may follow at [place]. RTC 4 weeks: GCT then. Denise Deal CNM LIFE VETERINARIAN documented in this encounter Plan of Treatment Not on filedocumented as of this encounter Results PLATELETS (07/28/2010 3:41 PM WILDLIFE VETERINARIAN) athologist Signature Platelets 354 150 - 450 [facility] k/ul Specimen Anatomical Collection Method Collection Time Receive d Time (Source) Location / / Volume Laterality 07/28/2010 3:41 PM 0 4:09 WILDLIFE VETERINARIAN PM WILDLIFE VETERINARIAN Denise Deal APRN, CNM LAB_1 Performing Organization Address [facility] Phon e Number [facility] [employer] [phone] [facility] [address] [place] [phone] (ABNORMAL) HEMOGLOBIN, BLOOD (07/28/2010 3:41 PM WILDLIFE VETERINARIAN) athologist Signature Hemoglobin 11.6 (L) 12.0 - [facility] 16.0 g/dl Specimen Anatomical Collection Method Collection Time Receive d Time (Source) Location / / Volume Laterality 07/28/2010 3:41 PM 0 4:09 WILDLIFE VETERINARIAN PM WILDLIFE VETERINARIAN Denise Deal APRN, CNM LAB_[address]forming [address] Address [facility] Phon e Number [facility] [employer] [phone] [address] GLUCOSE - 1 HR. P.C. PREG (07/28/2010 3:41 PM WILDLIFE VETERINARIAN) athologist Signature Glucose 93 70 - 129 [facility] mg/dl Grams of 50 gm [facility] Glucose Specimen Anatomical Collection Method Collection Time Receive d Time (Source) Location / / Volume Laterality 07/28/2010 3:41 PM 0 4:09 WILDLIFE VETERINARIAN PM WILDLIFE VETERINARIAN Denise Deal APRN, CNM LAB_1 Performing Organization Address City/State/ZIP Code Phon e Number [facility] [phone] [address] documented in this encounter Visit Diagnoses Diagnosis Supervision of high-risk - Mary Jane xie Unspecified high-risk documented in this encounter
--- OUTSIDE RECORDS SUMMARY | 2022-07-21 09:11 | XMS_ITS | Encounter Summary ---
:1990 Author Organization [facility] Address [address] [place] [address] Care Team Providers Name Role Phone Unavailable Primary Care Provider Unavailable Reason for Visit Reason Onset Date Comments Bleeding 03/10/2010 Encounter Details Date Type Department Care Team Description 03/10/2010 Telephone [place] [facility] and Betty Jones P regnancy Bleeding Gynecology FUSING MACHINE TENDER, CNM [address] [place] [address] [place], [place] [phone] Social History Tobacco Use Types Packs/Day [...] encounter Nursing Notes Sherry Oliva RN - 03/10/2010 2:06 PM CDT Pt had slight amount of brown discharge immediately following intercourse, a condom was not used. Nopain. No risk for ectopic. Pt is advised that if she has any pink or red spotting she needs to call us back. If she has anymorebrown discharge especially dark brown she should call for further assessment. Sherry Oliva RN Berenice Cuello - 03/10/2010 1:48 PM CDT 8w6d Pt c/o spotting after intercourse. documented in this encounter Plan of Treatment Not on filedocumented as of this encounter Visit Diagnoses Not on filedocumented in this encounter
--- OUTSIDE RECORDS SUMMARY | 2022-07-21 09:11 | XMS_ITS | Encounter Summary ---
:1990 Author [facility] Address [address] [place] [address] Care Team Providers Name Role Phone Denise Deal APRN, [facility] Primary Care Provider Unavailable Encounter Details Date Type Department Care Team Description 03/28/2010 Orders Only [facility]3] night stocker Ultra sound Betty Jones, MARCELLUS, [address] [place] [address] [address] [facility] [phone] [place] [address] Social History Tobacco Use Types Packs/Day Years [...] documented as of this encounter Progress Notes Sherry Oliva RN - 04/06/2010 2:54 PM CDT Quick Note: Pt has been notified documented in this encounter Procedure Notes Ob-Cat Scan Technologist, Provider - 03/28/2010 12:00 AM CDTAssociated Order(s): OB ULTRASOUND REPORT Ob-Cat Scan Technologist, Provider - 03/28/2010 12:00 AM CDTAssociated Order(s): FIRST TRIMESTER SCREEN documented in this encounter Plan of Treatment Not on filedocumented as of this encounter Procedures Procedure Name Priority Date/Time Associated Comments Diagnosis FIRST TRIMESTER 03/28/2010 12:00 AM Resul ts for this SCREEN CDT procedure are i n the results section. OB ULTRASOUND REPORT 03/28/2010 12:00 AM Results for this CDT procedure are i n the results section. documented in this encounter Results FIRST TRIMESTER SCREEN (03/28/2010 12:00 AM CDT) Specimen (Source) Anatomical Location Collection Method / Collectio n Time Received Time / Laterality Volume 03/28/2010 Narrative This result has an attachment that is no t available. Transcriptions Ob-Cat Scan Technologist, Provider - 03/28/2010 12:00 AM C DT Betty Jones APRN, CNM DUMMY/OTHER/AR OB ULTRASOUND REPORT (03/28/2010 12:00 AM CDT) Anatomical Region Laterality Modality Other Specimen (Source) Anatomical Location Collection Method / Collectio n Time Received Time / Laterality Volume 03/28/2010 Narrative This result has an attachment that is no t available. Transcriptions Ob-Cat Scan Technologist, Provider - 03/28/2010 12:00 AM C DT Betty Jones APRN, CNM DUMMY/OTHER/AR documented in this encounter Visit Diagnoses Not on filedocumented in this encounter Care Teams Route Sales Driver Relationship Specialty Start Date End Date Denise Deal APRN, CNM PCP - General 07/28/1003/21 documented as of this encounter
--- OUTSIDE RECORDS SUMMARY | 2022-07-21 09:11 | XMS_ITS | Encounter Summary ---
:1990 Author Organization [facility] Address [address] [place] [address] Care Team Providers Name Role Phone Unavailable Primary Care Provider Unavailable Reason for Visit Reason Onset Date Comments Concerns 03/23/2010 Encounter Details Date Type Department Care Team Description 03/23/2010 Telephone Careline Unknown, Physician Concerns [address] [place], [place] [address] [place], [place] [phone] (Wo rk) Social History Tobacco Use Types [...] documented as of this encounter Nursing Notes Kami Wing RN - 03/23/2010 6:55 PM CDT CONCERN: Caller has questions about . SHe is 10 weeks and is scheduled for an US next week 03/28/10. At this time she has no symptoms OB INFORMATION LMP: not reviewed, EDC:10/14/10 Weeks Gestation:10 weeks, G/P:2100 Movement: No, ROM: No Contractions: None Blood Type: A and Rh factor: positive Vaginal Discharge: None Urinary Symptoms: None, Baby's Position: Not sure Cervix Exam: Not done, Labor history: History of pre-term labor Last Clinic Visit: 02/22/10, OB Provider: Physician: Dr Taylor OB Clinic: [facility] Has the Patient been tested for Group B Strep? No PMH: apparently healthy CURRENT MEDICATIONS: No MEDICATION ALLERGIES: No HOME TREATMENT:Monitor and report bleeding, cramping, fever, uti sx PLAN: Call back if: If anything changes or increases If any questions Caller agrees with plan. Kami Borrero RN Miguelina Avery - 03/23/2010 6:39 PM CDT Does the patient currently have insurance?No Which care system is the patient affiliated with?[facility] Situation: patient is 10 weeks and would like to speak to a nurse A nurse will call you back within the next hour. If you have not heard from a nurse, please feel free to call us back at [phone] and state that you are waiting for a callback. documented in this encounter Plan of Treatment Not on filedocumented as of this encounter Visit Diagnoses Not on filedocumented in this encounter
--- OUTSIDE RECORDS SUMMARY | 2022-07-21 09:11 | XMS_ITS | Encounter Summary ---
:1990 Author Organization [employer] Address [address] [address] Care Team Providers Name Role Phone Denise Deal APRN, CNM Primary Care Provider Unavailable Reason for Visit Reason Comments SUBSEQUENT VISIT Encounter Details Date Type Department Care Team Description 09/08/2010 Routine [place] [facility] Denise Deal, SUB SEQUENT and Gynecology CHEYANNE GERMAIN VISIT [address] [place] [address] Social History Tobacco Use Types [...] Sign Reading Time Taken Comments Blood Pressure 90/60 09/08/2010 3:01 PM FIRE SPRINKLER INSTALLER Pulse - - Temperature - - Respiratory Rate - - Oxygen Saturation - - Inhaled Oxygen Concentration - - Weight 68 kg (150 lb) 09/08/2010 3:01 PM FIRE SPRINKLER INSTALLER Height - - Body Mass Index 27 02/22/2010 2:38 PM CDT documented in this encounter Progress Notes Denise Deal - 09/08/2010 3:35 PM CST S. Doing well. Some symptoms of UTI: voiding in small amounts. O. See OB vitals. A. IUP at 34 weeks. P. Reviewed labor instructions. Left clinic prior to providing UA. Will return on 09/09/10 to leave UA. Denise Deal CNM SPRINKLER INSTALLER documented in this encounter Plan of Treatment Not on filedocumented as of this encounter Results (ABNORMAL) UA MICRO IF (09/09/2010 1:03 PM FIRE SPRINKLER INSTALLER) [facility] Method Time Signature Urine Color Yellow [facility] [...] Volume Laterality 09/09/2010 1:03 PM 1 1:07 FIRE SPRINKLER INSTALLER PM FIRE SPRINKLER INSTALLER Denise Deal APRN, CNM LAB_1 Performing Organization Address City/State/ZIP Code Phon e Number [facility] [phone] [facility] [address] [place] [phone] documented in this encounter Visit Diagnoses Diagnosis Supervision of high-risk - Mary Jane xie Unspecified high-risk Frequency Urinary frequency documented in this encounter Care Teams Metal Buildings Assembler Relationship Specialty Start Date End Date Denise Deal APRN, CNM PCP - General 07/28/1003/21 documented as of this encounter
--- OUTSIDE RECORDS SUMMARY | 2022-07-21 09:11 | XMS_ITS | Encounter Summary ---
:1990 Author Organization [facility] Address [address] [address] Care Team Providers Name Role Phone Unavailable Primary Care Provider Unavailable Encounter Details Date Type Department Care Team Description 03/04/2010 Correspondence External to External, Provid er [employer] [place] [address] Social History Tobacco Use Types Packs/Day Years [...] of this encounter Progress Notes Interface, In [facility] - 03/11/2010 2:01 PM CDT documented in this encounter Plan of Treatment Not on filedocumented as of this encounter Visit Diagnoses Not on filedocumented in this encounter
--- OUTSIDE RECORDS SUMMARY | 2022-07-21 09:11 | XMS_ITS | Encounter Summary ---
:1990 Author Organization [employer] Address [address], [place] [address] Care Team Providers Name Role Phone Unavailable Primary Care Provider Unavailable Reason for Visit Reason Onset Date Comments Concerns 03/18/2010 Encounter Details Date Type Department Care Team Description 03/18/2010 Telephone [place] [facility] and Kendall Taylor M D Concerns Gynecology [address] [place], [place] [phone] Social History Tobacco Use Types Packs/Day Years [...] encounter Nursing Notes Jeannie Sanders RN - 03/18/2010 3:55 PM CDT Yes she can if she can tolerate them all at once. Recommend PNV with or after dinner. Robyn Adamson - 03/18/2010 3:40 PM CDT Pt is wondering if she take, her , unisom, and B6 all at once at Night. Robyn Adamson documented in this encounter Plan of Treatment Not on filedocumented as of this encounter Visit Diagnoses Not on filedocumented in this encounter
--- OUTSIDE RECORDS SUMMARY | 2022-07-21 09:11 | XMS_ITS | Encounter Summary ---
:1990 Author Organization [facility] Address [address], [place] [address] Care Team Providers Name Role Phone Denise Deal APRN, CHEYANNE Primary Care Provider Unavailable Reason for Visit Reason Onset Date Comments RESULTS, TEST 08/01/2010 Encounter Details Date Type Department Care Team Description 08/01/2010 Telephone [place] [facility] and Denise Deal APR N, RESULTS, TEST Gynecology [facility] [address] [place] [address] Social History Tobacco Use Types [...] encounter Nursing Notes Luzma Wilson RN - 08/01/2010 12:09 PM CST 93, WNL Pt informed as well as other labs reviewed. Pt states she has been feeling well, no other concerns at this time. A letter also did go out into the mail and I told the pt she should expect that today. Luzma Sagastume RN IFIED MEDICAL TECHNICIAN ASSISTANT Berenice Cuello - 08/01/2010 11:52 AM CST Glucose results. IFIED MEDICAL TECHNICIAN ASSISTANT documented in this encounter Plan of Treatment Not on filedocumented as of this encounter Visit Diagnoses Not on filedocumented in this encounter Care Teams Ripsawyer Relationship Specialty Start Date End Date Denise Deal APRN, CHEYANNE PCP - General 07/28/1003/21 documented as of this encounter
--- OUTSIDE RECORDS SUMMARY | 2022-07-21 09:11 | XMS_ITS | Encounter Summary ---
:1990 Author Organization [facility] Address [address] [place] [address] Care Team Providers Name Role Phone Unavailable Primary Care Provider Unavailable Encounter Details Date Type Department Care Team Description 06/06/2010 Outside Hospital External to [facility], [facility] LEVEL 2 Provider ULTRASOUND Social History Tobacco Use Types Packs/Day Years [...] of this encounter Progress Notes Interface, In Chrtscr And Scan - 06/09/2010 9:21 AM CDT documented in this encounter Plan of Treatment Not on filedocumented as of this encounter Visit Diagnoses Not on filedocumented in this encounter
--- OUTSIDE RECORDS SUMMARY | 2022-07-21 09:11 | XMS_ITS | Encounter Summary ---
:1990 Author Organization [facility] Address [address], [place] [address] Care Team Providers Name Role Phone Denise Deal APRN, CNM Primary Care Provider Unavailable Reason for Visit Reason Comments PE,C&TC 31 wks Encounter Details Date Type Department Care Team Description 08/18/2010 Routine [place] [facility] Denise Deal, PE, C&TC (31 wks and Gynecology CHEYANNE GERMAIN ) [address] [place], [place] [phone] Social History Tobacco Use Types Packs/Day Years [...] Sign Reading Time Taken Comments Blood Pressure 108/54 08/18/2010 1:24 PM ZINC MINER BLASTING Pulse 80 08/18/2010 1:24 PM ZINC MINER BLASTING Temperature - - Respiratory Rate - - Oxygen Saturation - - Inhaled Oxygen Concentration - - Weight 65.1 kg (143 lb 9.6 oz) 08/18/2010 1:24 PM ZINC MINER BLASTING Height - - Body Mass Index 25.85 02/22/2010 2:38 PM CDT documented in this encounter Progress Notes Denise Deal - 08/18/2010 2:00 PM CST S. Doing well. Denies symptoms of PTL. O. See OB vitals. Results from last visit WNL. A. IUP at 32 weeks. P. Reviewed labor preferences. Reviewed high iron diet. RTC 3 weeks. Denise Deal CNM MINER BLASTING documented in this encounter Plan of Treatment Not on filedocumented as of this encounter Visit Diagnoses Diagnosis Supervision of high-risk - Mary Jane xie Unspecified high-risk documented in this encounter Care Teams Still Pump Operator Relationship Specialty Start Date End Date Denise Deal APRN, CNM PCP - General 07/28/1003/21 documented as of this encounter
--- OUTSIDE RECORDS SUMMARY | 2022-07-21 09:11 | XMS_ITS | Encounter Summary ---
:1990 Author Organization [employer] [facility] [employer] [facility] Address [address] [place] [address] Care Team Providers Name Role Phone Denise Deal APRN, CNM Primary Care Provider Unavailable Encounter Details Date Type Department Care Team Description 08/15/2010 Office Visit [facility] asset protection detective Ultra sound History of delivery, currently ; [address] [facility] with history [place] [address] Social History Tobacco Use Types Packs/Day Years [...] Name Priority Date/Time Associated Comments Diagnosis OBGYN THIRD Routine 08/15/2010 11:08 AM History of Re sults for this TRIMESTER ULTRASOUND CHERRY PITTER delivery, currently procedure are in the results section. documented in this encounter Results OBGYN THIRD TRIMESTER ULTRASOUND (OB Clinic) (08/15/2010 11:08 AM CHERRY PITTER) Anatomical Region Laterality Modality Pelvis Ultrasound Specimen (Source) Anatomical Location Collection Method / Collectio n Time Received Time / Laterality Volume Narrative 08/15/2010 11:08 AM CHERRY PITTER See procedure titled UNLIS US PX with the same date of service, for scanned results of this exam. Procedure Note Gen Shi - 08/15/2010Formatting of t his note might be different from the original. See procedure titled UNLIS US PX with the same date of service, for scanned results of this exam. Denise Deal APRN, CNM [facility] US documented in this encounter Visit Diagnoses Diagnosis History of delivery, currently p regnant with history of pre-term labor with history of pre-term labor documented in this encounter Care Teams Test Evaluator Relationship Specialty Start Date End Date Denise Deal APRN, CNM PCP - General 07/28/1003/21 documented as of this encounter
--- OUTSIDE RECORDS SUMMARY | 2022-07-21 09:11 | XMS_ITS | Encounter Summary ---
:1990 Author Organization [employer] Address [address] [place] [address] Care Team Providers Name Role Phone Denise Deal APRN, CNM Primary Care Provider Unavailable Reason for Visit Reason Comments SUBSEQUENT VISIT Encounter Details Date Type Department Care Team Description 07/28/2010 Routine [facility] Denise Deal, SUB SEQUENT and Gynecology CHEYANNE GERMAIN VISIT [address] [place] [address] Social History Tobacco Use Types [...] Sign Reading Time Taken Comments Blood Pressure 100/50 07/28/2010 3:02 PM RN ANTE PARTUM Pulse - - Temperature - - Respiratory Rate - - Oxygen Saturation - - Inhaled Oxygen Concentration - - Weight 62.1 kg (137 lb) 07/28/2010 3:02 PM RN ANTE PARTUM Height - - Body Mass Index 24.66 02/22/2010 2:38 PM CDT documented in this encounter Progress Notes Luzma Wilson RN - 08/01/2010 9:13 AM RN ANTE PARTUM Quick Note: Letter sent Luzma Sagastume RN ANTE PARTUM Denise Deal - 07/28/2010 3:32 PM CST Archana Breaux is an active baby. Lara denies cramping or signs of PTL. At work this morning, Lara was with a patient with questionable radiation exposure. O. See OB vitals. A. IUP at 28 weeks. P. GCT today. US for cervical length and serial growth ordered. May resume intimacy, but advised to use condoms.Denise Deal CNM ANTE PARTUM documented in this encounter Plan of Treatment Not on filedocumented as of this encounter Procedures Procedure Name Priority Date/Time Associated Diagnosis Comme nts PLATELETS Routine 07/28/2010 3:41 PM Supervision of Results for this RN ANTE PARTUM high-risk procedur e are in the results section. HEMOGLOBIN, BLOOD Routine 07/28/2010 3:41 PM Supervision of Re sults for this RN ANTE PARTUM high-risk procedur e are in the results section. GLUCOSE - 1 HR. Routine 07/28/2010 3:41 PM Supervision of Resu lts for this P.C. PREG RN ANTE PARTUM high-risk procedur e are in the results section. documented in this encounter Results OBGYN THIRD TRIMESTER ULTRASOUND (OB Clinic) (08/15/2010 11:08 AM RN ANTE PARTUM) Anatomical Region Laterality Modality Pelvis Ultrasound Specimen (Source) Anatomical Location Collection Method / Collectio n Time Received Time / Laterality Volume Narrative 08/15/2010 11:08 AM RN ANTE PARTUM See procedure titled UNLIS US PX with the same date of service, for scanned results of this exam. Procedure Note Gen Shi - 08/15/2010Formatting of t his note might be different from the original. See procedure titled UNLIS US PX with the same date of service, for scanned results of this exam. Denise Deal APRN, CNM RAD US PLATELETS (07/28/2010 3:41 PM RN ANTE PARTUM) P athologist Signature Platelets 354 150 - 450 [facility] k/ul Specimen Anatomical Collection Method Collection Time Receive d Time (Source) Location / / Volume Laterality 07/28/2010 3:41 PM 0 4:09 RN ANTE PARTUM PM RN ANTE PARTUM Denise Deal APRN, CNM LAB_1 Performing Organization Address [facility] Phon e Number [facility] [employer] [phone] [facility] [address] [place] [phone] (ABNORMAL) HEMOGLOBIN, BLOOD (07/28/2010 3:41 PM RN ANTE PARTUM) athologist Signature Hemoglobin 11.6 (L) 12.0 - [facility] 16.0 g/dl Specimen Anatomical Collection Method Collection Time Receive d Time (Source) Location / / Volume Laterality 07/28/2010 3:41 PM 0 4:09 RN ANTE PARTUM PM RN ANTE PARTUM Denise Deal APRN, CNM LAB_1 Performing Organization Address [facility]/ZIP Code Phon e Number [facility] [phone] [facility] [address] [place] [phone] GLUCOSE - 1 HR. P.C. PREG (07/28/2010 3:41 PM RN ANTE PARTUM) athologist Signature Glucose 93 70 - 129 [facility] mg/dl Grams of 50 gm [facility] Glucose Specimen Anatomical Collection Method Collection Time Receive d Time (Source) Location / / Volume Laterality 07/28/2010 3:41 PM 0 4:09 RN ANTE PARTUM PM RN ANTE PARTUM Denise Deal APRN, CNM LAB_1 Performing Organization Address City/[facility]/ZIP [facility] Phon e Number [facility] [employer] [phone] [phone] documented in this encounter Visit Diagnoses Diagnosis Supervision of high-risk - Mary Jane xie Unspecified high-risk History of delivery, currently p regnant with history of pre-term labor History of delivery, currently p regnant with history of pre-term labor with history of pre-term labor documented in this encounter Care Teams Electronic Plotting System Operator Relationship Specialty Start Date End Date Denise Deal APRN, CNM PCP - General 07/28/1003/21 documented as of this encounter
--- OUTSIDE RECORDS SUMMARY | 2022-07-21 09:11 | XMS_ITS | Encounter Summary ---
:1990 Author Organization [email or web address] Address [address] [place] [address] Care Team Providers Name Role Phone Unavailable Primary Care Provider Unavailable Reason for Visit Reason Onset Date Comments Future Appointments 02/04/2010 Encounter Details Date Type Department Care Team Description 02/04/2010 Telephone [place] [facility] and Unassign ed, Provider Future Appointments Gynecology [address] [place] [address] [place] [address] [place] [address] [place], [place] [id number] Social History Tobacco Use Types Packs/Day Years Used Date Smoking Tobacco: Never Assessed Alcohol Habits Answer Date Recorded How often [...] of this encounter Nursing Notes Sherry Oliva - 02/08/2010 11:28 AM CDT upt is positive, letter completed, using lmp. Sherry Oliva RN Sherry Oliva - 02/08/2010 10:50 AM CDT Addended by: SHERRY OLIVA on: 02/08/2010 Modules accepted: Orders Sherry Oliva - 02/08/2010 10:50 AM CDT Pt is here for verification of letter to be completed. Pt is advised that I will need to order a upt for verification of . She may need to make a down payment and may get a bill for this test. Pt verbalizes understanding and would like to proceed with testing. Sherry Oliva RN Roberta Schneider - 02/04/2010 4:31 PM CDT Lara Dominguez had positive test on 02/03/10. LNMP 01/07/10. 2. Para 0100. PATRIA 10/16/10. ASSESSMENT OF ECTOPIC RISK FACTORS Any abdominal pain or menstrual cramping for more than 3 hours since LNMP? No Any bleeding/spotting (more than one episode pink to red spotting) since LNMP? No Is either question above answered yes? No Complicating history includes: None. Has patient taken any OTC medicine since LNMP? NO Has patient taken any of the following prescription medications since LNMP? Thyroid: No Asthma: No Insulin or oral hypoglycemics: No. Tetracycline/Doxycycline/Acne medication: No Antibiotics for present infection:No BCP:No Anti-depressants, anticonvulsants, anti-hypertensives or any other prescription medications:No Patient does use tobacco. Amt per day 1/2 ppd. Trying to quit. Patient does not use alcohol. Patient does not use recreational drugs. PLAN No results found for this basename: ABO First OB exam scheduled. Pt will get OTC PNV. If you experience any unusual pain, severe cramping orbleeding, or if you are unable to keep any fluids down for greater than 24 hours please contact the triage nurse at immediately. The number to the babyline for concerns on the evenings weekends and holidays is . Roberta Schneider RN 4:20 PM 02/04/2010 Jaison Cristobal - 02/04/2010 3:45 PM CDT Patient would like appointment with: Any Provider Patient requesting appointment for: 1st ob visit Wants/Needs to be seen within: Did not specify Additional Comments: [email or web address] Jaison Diaz Levar documented in this encounter Plan of Treatment Not on filedocumented as of this encounter Results TEST (URINE) (02/08/2010 10:51 AM CDT) [facility] gist Method Time Signature HCG, Urine Positive [facility] Positive = >25 mIU/ml Specimen Anatomical Collection Method Collection Time Receive d Time (Source) Location / / Volume Laterality Urine specimen 02/08/2010 10:51 0 (specimen) AM CDT 10:57 AM CDT Maren Rubio MD LAB_1 Performing Organization Address City/State/ZIP Code Phon e Number [facility] [phone] [facility] [address] [phone] documented in this encounter Visit Diagnoses Diagnosis examination or test - Primary examination or test, unconfirmed documented in this encounter
--- OUTSIDE RECORDS SUMMARY | 2022-07-21 09:11 | XMS_ITS | Encounter Summary ---
:1990 Author Organization [facility] [employer] Address [address], [place] [address] Care Team Providers Name Role Phone Unavailable Primary Care Provider Unavailable Reason for Visit Reason Onset Date Comments Concerns 06/08/2010 Encounter Details Date Type Department Care Team Description 06/08/2010 Telephone [place] [facility] and Michael, Yulissa, Concerns Gynecology IMMIGRATION SPECIALIST, CNM [address] [place] [address] [place] [address] [phone] (Wo rk) Social History Tobacco Use Types [...] encounter Nursing Notes Sherry Oliva RN - 06/08/2010 4:20 PM CDT Pt is advised. She will verify with the employer what type of test she needs. Sherry Oliva RN Rosa Ahn - 06/08/2010 4:02 PM CDT She can have a TB test of any kind. 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 Rosa can you make recommendations for this patient question about getting a TB skin test during ? Should she have the TB Gold testing? Please advise. 06/08/2010 3:45 PM Omayra Carrizales RN Berenice Cuello - 06/08/2010 3:25 PM CDT [id number] Is it safe for the pt to be tested for tuberculosis? documented in this encounter Plan of Treatment Not on filedocumented as of this encounter Visit Diagnoses Not on filedocumented in this encounter
--- OUTSIDE RECORDS SUMMARY | 2022-07-21 09:11 | XMS_ITS | Encounter Summary ---
:1990 Author Organization [facility] Address [address] [place] [address] Care Team Providers Name Role Phone Denise Deal APRN, CNM Primary Care Provider Unavailable Reason for Visit Reason Comments , NOS Encounter Details Date Type Department Care Team Description 08/15/2010 Routine [place] and Manisha Putnam , NOS Gynecology MARCELLUS Truong CNM [address] [place] [address] Social History Tobacco Use Types [...] Sign Reading Time Taken Comments Blood Pressure 122/60 08/15/2010 2:00 PM ACCOUNTANT MANAGER Pulse - - Temperature - - Respiratory Rate - - Oxygen Saturation - - Inhaled Oxygen Concentration - - Weight 64.5 kg (142 lb 3.2 oz) 08/15/2010 2:00 PM ACCOUNTANT MANAGER Height - - Body Mass Index 25.59 02/22/2010 2:38 PM CDT documented in this encounter Progress Notes Rosa Putnam - 08/15/2010 2:27 PM CST NST -reactive. 03/20 on BPP. SHIRA Archer UNTANT MANAGER documented in this encounter Plan of Treatment Not on filedocumented as of this encounter Visit Diagnoses Diagnosis Supervision of high-risk - Mary Jane xie Unspecified high-risk documented in this encounter Care Teams High [employer] English Teacher Relationship Specialty Start Date End Date Denise Deal APRN, OLESYAM PCP - General 07/28/1003/21 documented as of this encounter
--- OUTSIDE RECORDS SUMMARY | 2022-07-21 09:11 | XMS_ITS | Encounter Summary ---
:1990 Author Organization [employer] Address [address], [place] [address] Care Team Providers Name Role Phone Unavailable Primary Care Provider Unavailable Reason for Visit Reason Comments SUBSEQUENT VISIT Encounter Details Date Type Department Care Team Description 04/07/2010 Routine [place] [facility] Denise Deal, SUB SEQUENT and Gynecology LITURGICAL MUSIC DIRECTOR, CNM VISIT [address] [place], [place] [id number] Social History Tobacco Use Types Packs/Day Years [...] Sign Reading Time Taken Comments Blood Pressure 110/55 04/07/2010 1:05 PM CDT Pulse - - Temperature - - Respiratory Rate - - Oxygen Saturation - - Inhaled Oxygen Concentration - - Weight 47.2 kg (104 lb) 04/07/2010 1:05 PM CDT Height - - Body Mass Index 18.72 02/22/2010 2:38 PM CDT documented in this encounter Progress Notes Denise Deal - 04/07/2010 1:20 PM CDT S. Nausea passing. States she had cone biopsy prior to going into labor with her first child. Had significant bleeding for one month. Arrived to the hospital completely dilated at 23 weeks. O. See OB vitals. Initial lab work reviewed as WNL. A. IUP at 12 weeks. P. Consult done with Dr. Taylor regarding Lara's previous OB history: referral to [facility] for evaluation of cervical competence. Referral completed. Denise Deal CNM documented in this encounter Plan of Treatment Not on filedocumented as of this encounter Visit Diagnoses Diagnosis Supervision of high-risk - Mary Jane xie Unspecified high-risk History of delivery, currently p regnant with history of pre-term labor documented in this encounter
--- OUTSIDE RECORDS SUMMARY | 2022-07-21 09:11 | XMS_ITS | Encounter Summary ---
:1990 Author Organization [facility] Address [address] [place] [address] Care Team Providers Name Role Phone Denise Deal APRN, CNM Primary Care Provider Unavailable Reason for Visit Reason Onset Date Comments Test Results 08/15/2010 Encounter Details Date Type Department Care Team Description 08/15/2010 Telephone Careline Terri Huff, Test Results [address] Jeannie Zhao RN [place], [place] [address] [phone] [place], [place] [address] Social History Tobacco Use Types Packs/Day Years [...] encounter Nursing Notes Jeannie Sanders RN - 08/15/2010 11:21 AM CST Ultrasound results. BPP scored a 6 out of 8 no practice breathing. Pt needs NST. Scheduled at 2 PM with Rosa Putnam. ER TRAP documented in this encounter Plan of Treatment Not on filedocumented as of this encounter Visit Diagnoses Not on filedocumented in this encounter Care Teams Bathhouse Keeper Relationship Specialty Start Date End Date Denise Deal APRN, CHEYANNE PCP - General 07/28/1003/21 documented as of this encounter
--- OUTSIDE RECORDS SUMMARY | 2022-07-21 09:11 | XMS_ITS | Encounter Summary ---
:1990 Author Organization [facility] Address [address] [place] [address] Care Team Providers Name Role Phone Unavailable Primary Care Provider Unavailable Encounter Details Date Type Department Care Team Description 04/19/2010 Outside Hospital External to [facility], LOSS CONSULTATION Provider Social History Tobacco Use Types Packs/Day [...] of this encounter Progress Notes [facility] - 04/27/2010 9:18 AM CDT documented in this encounter Plan of Treatment Not on filedocumented as of this encounter Visit Diagnoses Not on filedocumented in this encounter
--- OUTSIDE RECORDS SUMMARY | 2022-07-21 09:11 | XMS_ITS | Encounter Summary ---
:1990 Author Organization [facility] Address [address] [place] [address] Care Team Providers Name Role Phone Unavailable Primary Care Provider Unavailable Reason for Visit Reason Comments ,1st Ob Encounter Details Date Type Department Care Team Description 02/22/2010 Routine [place] [facility] and Betty Jones, ,1st Ob Gynecology SUPERVISOR PRODUCTION DEPARTMENT, CNM [address] [place] [address] [place], [place] [phone] Social History Tobacco Use Types Packs/Day [...] Sign Reading Time Taken Comments Blood Pressure 110/50 02/22/2010 2:38 PM CDT Pulse - - Temperature - - Respiratory Rate - - Oxygen Saturation - - Inhaled Oxygen Concentration - - Weight 46.3 kg (102 lb) 02/22/2010 2:38 PM CDT Height 158.8 cm (5' 2.5) 02/22/2010 2:38 PM CDT Body Mass Index 18.36 02/22/2010 2:38 PM CDT documented in this encounter Patient Instructions Patient InstructionsBetty Jones - 02/22/2010 3:17 PM CDT Return to clinic in about 6 weeks. OB schedule for a healthy First OB within 6 - 8 Weeks (This appointment will require additional time due to History, Exam, andLab Work.) Visit #2 within 10 - 12 Weeks Visit #3 within 16 - 18 Weeks Visit #4 at 22 Weeks Visit #5 at 28 Weeks ( This appointment will require additional time due to Lab work) Visit #6 at 32 Weeks Visit #7 at 36 Weeks Visit #8 through visit 11 Weekly at 38 - 41 Weeks documented in this encounter Progress Notes Roberta Schneider RN - 03/03/2010 3:28 PM CDT Quick Note: Cf letter sent. Roberta Schneider RN Betty Jones - 02/22/2010 3:17 PM CDT HPI Lara Ward is a 19 yr year old, , Patient is ., Estimated Date of Delivery:10/14/10, who is at 6w4d weeks gestation. She is here for a first ob visit. This was unplanned, but welcome. Since her last menstrual period she has had no vaginal bleeding. Since her last menstrual period, she has taken no prescribed medications. She is experiencing the following symptoms of : nausea, vomiting, fatigue, breast tenderness and urinary frequency. PMH: The medical, surgical, obstetrical, social, family and genetic histories were reviewed and updated. Please see the corresponding sections of the medical record and the completed problem list for details. Factors pertinent to this are the following: previous at 23 weeks. Review of Systems: Eyes: negative Ears/nose/throat: negative Respiratory: negative Cardiovascular: negative Gastrointestinal: nausea Genitourinary: frequency Musculoskeletal: negative Neurologic: negative Psychiatric: negative Endocrine: negative Physical Examination: BP 110/50 Ht 5' 2.5 (1.588 m) Wt 102 lb (46.267 kg) LMP OB (10/14/10) Estimated Body mass indexis 18.36 kg/(m^2) as calculated from the following: Height as of this encounter: 5' 2.5(1.588 m). Weight as of this encounter: 102 lb(46.267 kg). General appearance: stated age, healthy, alert Skin: Skin color, texture, turgor normal. No rashes or lesions. Oropharynx: negative Neck: negative Lungs: Clear to auscultation without rales or rhonchi Heart: negative Breasts: Inspection negative. No nipple discharge or bleeding. No masses or tenderness Abdomen: Abdomen soft, non-tender without masses or organomegaly Legs: Normal Pelvic examination: A dumpcart driver was not present for the pelvic examination. EGBUS: within normal limits. Vagina: pink, well rugated Cervix: closed, thick, non-tender Uterus: small, non-tender approximately 6 week size Adnexa: negative Rectal: deferred Assessment: 6w4d intrauterine as determined by LMP. Normal . Plan: Discussed routine care, timing of visits, location of delivery, presence of OB python developer along with residents who will all manage the labor. Discussed routine screening to include first ob labs with HIV and cervical tests for GC and chlamydia. Discussed option of first or second trimester screening for anomalies. First trimester screening forDown syndrome and trisomy 18 is done between 11 weeks gestation. The screen would include an US and blood test which will provide new risk score for Down syndrome. If risk greater than 1:220 may wish to consider CVS for diagnosis. Discussed quad screen at 15 to16 weeks to assess risk of spina bifida, Downs syndrome and trisomy 18. If risk of Down syndrome is greater than 1:300 then may wish to consider amniocentesis. Discussed that either of these are optional and that the tests are screening tests,not diagnostic tests, that is, the testing gives a new risk score for abnormalities that may influence decision for further testing. Handout given on screening. Dates for timing of first trimester screening based on current PATRIA would be between March 29 and . Timing of quad screen based on current PATRIA would be week of Apr 18. Discussed option of US for anatomy screen at 20 weeks. Lara will schedule first trimester screening tests. Additional testing and monitoring to include none. Return in 6 weeks for routine visit. Betty Jones CNM documented in this encounter Plan of Treatment Not on filedocumented as of this encounter Procedures Procedure Name Priority Date/Time Associated Diagnosis Comme nts CHLAMYDIA & GC (14 Routine 02/22/2010 3:50 PM Supervision of O ther Results for this YEARS AND OLDER) CDT Normal procedu re are in the results section. CYSTIC FIBROSIS Routine 02/22/2010 3:45 PM Supervision of Othe r Results for this SCREEN CDT Normal procedure a re in the results section. ABO RH & ANTIBODY Routine 02/22/2010 3:45 PM Supervision of Ot her Results for this SCREEN (TYPE & CDT Normal procedure are in SCREEN) the results section. COMPLETE BLOOD Routine 02/22/2010 3:45 PM Supervision of Other Results for this COUNT-NO DIFF CDT Normal procedure are in the results section. UA, NO MICROSCOPIC Routine 02/22/2010 3:45 PM Supervision of O ther Results for this CDT Normal procedure a re in the results section. LEAD, FINGERSTICK Routine 02/22/2010 3:45 PM Supervision of Ot her Results for this CDT Normal procedure a re in the results section. HIV ANTIBODY Routine 02/22/2010 3:45 PM Supervision of Other R esults for this CDT Normal procedure a re in the results section. RUBELLA IMMUNE Routine 02/22/2010 3:45 PM Supervision of Other Results for this STATUS, IGG CDT Normal procedure a re in the results section. RPR (SYPHILIS Routine 02/22/2010 3:45 PM Supervision of Other Results for this SCREEN) CDT Normal procedure a re in the results section. TSH, SENSITIVE (WITH Routine 02/22/2010 3:45 PM Supervision of Other Results for this REFLEX) CDT Normal procedure a re in the results section. HBSAG (HEPATITIS B Routine 02/22/2010 3:45 PM Supervision of O ther Results for this SURFACE AG) CDT Normal procedure a re in the results section. VACCINATION SCREEN Routine 02/22/2010 3:45 PM Supervision of O ther Results for this (ANTI-HBS) CDT Normal procedure a re in the results section. URINE CULTURE Routine 02/22/2010 3:45 PM Supervision of Other Results for this CDT Normal procedure a re in the results section. PAP TEST, ROUTINE Routine 02/22/2010 2:20 PM Supervision of Ot her Results for this CDT Normal procedure a re in the results section. [...] exam. Betty Jones APRN, CNM RAD US CHLAMYDIA & GC [3801] (02/22/2010 3:50 PM CDT) athologist Signature Chlamydia Negative [facility] Comment: Test Performed by Bag Washer Mediated Amplification GC (N. gonorrhoeae) Negative [facility] Comment: Test Performed by Bag Washer Mediated Amplification Source Cervix [facility] Specimen Anatomical Collection Method Collection Time Receive d Time (Source) Location / / Volume Laterality 02/22/2010 3:50 PM 0 3:54 CDT PM CDT Betty Jones APRN, CNM LAB_1 Performing Organization Address City/[facility]/ZIP Code Phon e Number [employer] [phone] [address] TSH, SENSITIVE (WITH REFLEX) [[id number]] (02/22/2010 3:45 PM CDT) athologist Signature TSH, with 3.661 0.465 - [facility] Reflex 4.68 uIU/ml Specimen Anatomical Collection Method Collection Time Receive d Time (Source) Location / / Volume Laterality 02/22/2010 3:45 PM 0 3:53 CDT PM CDT Betty Jones APRN, CNM LAB_1 Performing Organization Address City/[facility] Phon e Number [employer] [phone] [phone] HIV 1/2 ANTIBODY [[id number]] (02/22/2010 3:45 PM CDT) [employer] Method Time Signature HIV 1/2 Negative [facility] Antibody (Non Reactive) Comment: HIV Antibody testing may be falsely nega tive during the window period. If the patient has had recent exposure (within the past four weeks), consider contacting Infectious Diseases for clarification. Specimen Anatomical Collection Method Collection Time Receive d Time (Source) Location / / Volume Laterality 02/22/2010 3:45 PM 0 3:54 CDT PM CDT Betty Jones APRN, CNM LAB_1 Performing Organization Address City/[facility] Phon e Number [employer] [phone] [address] [place] [phone] CYSTIC FIBROSIS SCREEN [[id number]] (02/22/2010 3:45 PM CDT) Component Value Ref Test Analysis [facility] At [facility] Method Time Signature Cystic No Cystic [facility] Fibrosis Scrn Fibrosis Mutations Identified Comment: See Separate Report Performed at [facility] Interpretation Performed at [place], [place] Specimen Anatomical Collection Method Collection Time Receive d Time (Source) Location / / Volume Laterality 02/22/2010 3:45 PM 0 3:53 CDT PM CDT Betty Jones APRN, CNM LAB_1 Performing Organization Address [facility] Phon e Number [employer] [phone] [place] [address] [place] [phone] VACCINATION SCREEN (ANTI-HBS) (02/22/2010 3:45 PM CDT) [facility] Method Time Signature Hep B Vac. Reactive [facility] Screen Comment: This patient is considered to HAVE prote ctive immunity to HBV infection. Vaccination Status Unknown [facility] Specimen Anatomical Collection Method Collection Time Receive d Time (Source) Location / / Volume Laterality 02/22/2010 3:45 PM 0 3:53 CDT PM CDT Betty Jones APRN, CNM LAB_1 Performing Organization Address [facility]/ZIP [facility] Phon e Number [facility] [employer] [phone] [facility] [address] [place] [phone] RUBELLA IMMUNE STATUS (02/22/2010 3:45 PM CDT) Analysis Performed At Patho logist Time Signature Rubella Screen Immune IM [facility] Specimen Anatomical Collection Method Collection Time Receive d Time (Source) Location / / Volume Laterality 02/22/2010 3:45 PM 0 3:53 CDT PM CDT Betty Jones APRN, CNM LAB_1 Performing Organization Address [facility] Phon e Number [facility] [employer] [phone] [facility] [address] [place] [phone] URINE CULTURE (02/22/2010 3:45 PM CDT) Component Value Ref Test Analysis Performed At Patholo gist Range Method Time Signature Specimen Urine [facility] Description Midstream Special Unspecified [facility] Requests Culture No Growth [facility] After 1 Day Report Status Final [facility] 02/23/2010 Specimen Anatomical Collection Method Collection Time Receive d Time (Source) Location / / Volume Laterality 02/22/2010 3:45 PM 0 3:54 CDT PM CDT Betty Jones APRN, CNM LAB_1 Performing Organization Address [facility] Phon e Number [facility] [employer] [phone] [facility] [address] [place] [phone] (ABNORMAL) UA, NO MICROSCOPIC (02/22/2010 3:45 PM CDT) Patholo gist Method Time Signature Urine Color Yellow [facility] Urine Clarity Clear [facility] Sp Gr 1.025 1.005 - [facility] 1.03 Leuk Lrg (A) [facility]G [facility] Nitr Negative [facility] pH 6.5 4.5 - 8.0 [facility] Prot Negative NEG mg/dl [facility] Gluc Negative [facility] Ket Tr (A) [facility] Urob 1.0 0.2 - 1.0 [facility] EU/dl Bili Negative [facility] Blood Negative [facility] Comment Urine [facility] Cultured Specimen Anatomical Collection Method Collection Time Receive d Time (Source) Location / / Volume Laterality 02/22/2010 3:45 PM 0 3:53 CDT PM CDT Betty Jones APRN, CNM LAB_1 Performing Organization Address [facility]/ZIP Code Phon e Number [facility] [employer] [phone] [address] ABO RH & ANTIBODY SCREEN (TYPE & SCREEN) (02/22/2010 3:45 PM CDT) [facility] Method Time Signature Crossmatch 02/25/2010 [facility] Expires ABO/RH(D) A POSITIVE [facility] Antibody NEGATIVE [facility] Screen Specimen Anatomical Collection Method Collection Time Receive d Time (Source) Location / / Volume Laterality 02/22/2010 3:45 PM 0 3:53 CDT PM CDT Betty Jones APRN, CNM LAB_1 Performing Organization Address [facility]/ZIP Code Phon e Number [employer] [phone] [address] RPR (SYPHILIS SCREEN) (02/22/2010 3:45 PM CDT) [facility] Method Time Signature Syphilis Non-React NR [facility] Screen(RPR) kenny Specimen Anatomical Collection Method Collection Time Receive d Time (Source) Location / / Volume Laterality 02/22/2010 3:45 PM 0 3:53 CDT PM CDT Betty Jones APRN, CNM LAB_1 Performing Organization Address [facility]/ZIP Code Phon e Number [facility] [employer] [phone] [address] HBSAG (HEPATITIS B SURFACE AG) (02/22/2010 3:45 PM CDT) Patholo gist Method Time Signature HBsAg Negative (Non [facility] Reactive) Specimen Anatomical Collection Method Collection Time Receive d Time (Source) Location / / Volume Laterality 02/22/2010 3:45 PM 0 3:53 CDT PM CDT Betty Jones APRN, CNM LAB_1 Performing Organization Address [facility] Phon e Number [facility] [employer] [phone] [address] (ABNORMAL) HEMOGRAM/PLTS (02/22/2010 3:45 PM CDT) athologist Signature WBC 13.8 (H) 4.0 - 11.0 [facility] k/ul RBC 4.36 4.0 - 5.2 [facility] M/ul Hemoglobin 12.7 12.0 - [facility] 16.0 g/dl HCT 38.3 36.0 - [facility] 46.0 % MCV 88.0 80 - 100 [facility] fl MCH 29.1 26 - 34 pg [facility] MCHC 33.0 32 - 36 [facility] g/dl RDW 12.8 11.5 - [facility] 14.5 % Platelets 389 150 - 450 [facility] k/ul Specimen Anatomical Collection Method Collection Time Receive d Time (Source) Location / / Volume Laterality 02/22/2010 3:45 PM 0 3:53 CDT PM CDT Betty Jones APRN, CNM LAB_1 Performing Organization Address [facility] Phon e Number [facility] [employer] [phone] [address] LEAD (02/22/2010 3:45 PM CDT) athologist Signature Lead, Blood <5 <10 mcg/dl [facility] Comment: Specimen Collected by Venipunct ure Specimen Anatomical Collection Method Collection Time Receive d Time (Source) Location / / Volume Laterality 02/22/2010 3:45 PM 0 3:53 CDT PM CDT Betty Jones APRN, CHEYANNE LAB_1 Performing Organization Address [facility] Phon e Number [facility] [employer] [phone] [facility] [address] [phone] PAP TEST, ROUTINE (02/22/2010 2:20 PM CDT) Component Value Ref Test Analysis Performed At [facility] Range Method Time Signature Cytology, (NOTE) [facility] Pap [employer] Attendant Cytology Report Patient Name: LARA WARD Taken: 02/22/2010 Received: 02/23/2010 Reported: 03/03/2010 Physician(s): Betty Jones ?Source of Specimen Liquid routine Pap, cervical/endocervical: ?Specimen Adequacy ?Satisfactory for evaluation. ??Endocervical component present. Obscuring inflammation present. ? 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 ? at1/03/03/2010 Electronically Signed Out By ASHISH Jimenez (ASCP) ASHIHS Jimenez (ASCP) ?Pap Smear History ?Date of Last Menstrual Period: ? Specimen Anatomical Collection Method Collection Time Receive d Time (Source) Location / / Volume Laterality 02/22/2010 2:20 PM 0 CDT 10:57 AM CDT Betty Jones APRN, CHEYANNE LAB_1 Performing Organization Address [facility] Phon e Number [facility] [employer] [phone] [address] documented in this encounter Visit Diagnoses Diagnosis Supervision of other normal - Primary Supervision of other normal Other specified screening(V28. 89) Other specified screening documented in this encounter
--- OUTSIDE RECORDS SUMMARY | 2022-07-21 09:11 | XMS_ITS | Encounter Summary ---
:1990 Author [facility] Address [address] [address] Care Team Providers Name Role Phone Unavailable Primary Care Provider Unavailable Reason for Visit Reason Comments ,1st Ob Encounter Details Date Type Department Care Team Description 02/22/2010 Routine [place] [facility] and ,1st Ob Gynecology [address] [place], [place] [phone] Social History Tobacco Use Types Packs/Day Years [...]
--- OUTSIDE RECORDS SUMMARY | 2022-07-21 09:11 | XMS_ITS | Encounter Summary ---
:1990 Author Organization [facility] Address [address] [place] [address] Care Team Providers Name Role Phone Unavailable Primary Care Provider Unavailable Reason for Visit Reason Onset Date Comments Concerns 02/25/2010 Encounter Details Date Type Department Care Team Description 02/25/2010 Telephone [place] [facility] and Betty Jones P regnancy Concerns Gynecology BOTTLE ASSEMBLER, CNM [address] [place] [address] [place], [place] [phone] Social History Tobacco Use Types Packs/Day [...] of this encounter Nursing Notes Roberta Schneider - 02/25/2010 12:51 PM CDT Fax didn't go through. I called Lara and the new fax number she asked me to use was [phone]. Fax went through. Roberta Schneider RN Roberta Schneider - 02/25/2010 12:36 PM CDT Fax to: [phone] Atten: [place]. Work slip faxed per Lara's request and Lara notified of below recommendations per Betty Jones. Pt advised to notify us immediately if any s/s of PTL. She agrees to do this. Roberta Schneider RN Betty Jones - 02/25/2010 12:10 PM CDT Pended letter is fine, with the exception of if she becomes symptomatic of PTL then she needs to have the previously given recommendation. 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 Her department supervisor told her that they couldn't accomidate the work slip provided. Instead they will allow her to have 2 15 minute breaks, and a 1/2 hour lunch break per 8 hours. Would this be acceptable work restrictions for Lara? Otherwise they have taken her off of the schedule as they can't accomidate your current restrictions. 7w0d Pt had a prior delivery at 23 weeks of and baby . Prior history of cone bx. Pt really wants to work. I have pended a new letter. Betty, can you read and edit it as you see appropriate for this pt? Roberta Schneider RN Robyn Adamson - 02/25/2010 11:48 AM CDT Pt is wondering if she can be taken off her restriction that betty put her on for work. Pt states shewas taken off the work schedule due to the restriction because they can't accommodate her restriction. Please advise. Robyn Adamson documented in this encounter Plan of Treatment Not on filedocumented as of this encounter Visit Diagnoses Not on filedocumented in this encounter
--- OUTSIDE RECORDS SUMMARY | 2022-07-21 09:11 | XMS_ITS | Encounter Summary ---
:1990 Author Organization [facility] Address [address], [place] [address] Care Team Providers Name Role Phone Unavailable Primary Care Provider Unavailable Encounter Details Date Type Department Care Team Description 02/08/2010 Orders Only [place] [facility] Examination or [address] Test [place], [place] [phone] Social History Tobacco Use Types Packs/Day Years [...] Name Priority Date/Time Associated Diagnosis Comme nts TEST Waiting 02/08/2010 10:51 AM Result s for this (URINE) CDT Examination or Test procedur e are in the results section. documented in this encounter Results TEST (URINE) (02/08/2010 10:51 AM CDT) [facility] Method Time Signature HCG, Urine Positive [facility] Positive = >25 mIU/ml Specimen Anatomical Collection Method Collection Time Receive d Time (Source) Location / / Volume Laterality Urine specimen 02/08/2010 10:51 0 (specimen) AM CDT 10:57 AM CDT Maren Rubio MD LAB_1 Performing Organization Address City/State/ZIP Code Phon e Number [facility] [phone] [facility] [place] [address] documented in this encounter Visit Diagnoses Diagnosis examination or test examination or test, unconfirmed documented in this encounter
[2022-07-21 11:16] LABS: Albumin* 4.1 g/dL (3.3-5.0); Chloride* 106 mmol/L (96-114)
[2022-07-21 11:17] LABS: Potassium* 4.5 mmol/L (3.6-5.1); Sodium* 138 mmol/L (135-149)
[2022-07-21 11:19] LABS: Bilirubin Total* 0.5 mg/dL (0.1-1.5); Blood Urea Nitrogen* 10 mg/dL (5-24); Carbon Dioxide* 26 mmol/L (20-32); Cholesterol* 234 mg/dL (90-199); Creatinine* 0.6 mg/dL (0.5-1.5); Estimated Glomerular Filt Rate 122 ml/min; Total Protein* 6.7 g/dL (6.0-8.3)
[2022-07-21 11:20] LABS: Alanine Aminotransferase* 19 U/L (4-35); Alkaline Phosphatase* 92 U/L (40-150); Aspartate Amino Transferase* 36 U/L (12-35); Calcium* 9.2 mg/dL (8.4-10.6); Glucose* 86 mg/dL (60-115); HDL Cholesterol* 45 mg/dL (>=50); LDL Cholesterol Calculated 171 mg/dL (<100); Triglycerides* 91 mg/dL (40-149)
[2022-07-21 11:33] LABS: Vitamin D 25 Hydroxy* 41 ng/mL (30-80)
== END 2022-07-21 08:51 | disposition home or self-care (01) ==
LOC: NFLDREF 08:50
PROVIDERS: PCP Family Medicine; Visit Provider Nurse Practitioner Family
DX: Z79.899 Other long term (current) drug therapy (principal)
CPT/HCPCS: 80053; 80061; 82306; 84443

== ENCOUNTER 2022-08-10 11:36 | Outpatient (CLI) | payer BC, SELFPAY ==
[2022-08-10 14:13] LABS: Iron* 47 ug/dL (37-170)
[2022-08-10 14:22] LABS: Percent Iron Saturation 13 % (20-50); Total Iron Binding Capacity 358 ug/dL (265-497)
[2022-08-10 14:49] LABS: Ferritin* 19.4 ng/mL (6.24-137.0)
[2022-08-10 15:03] LABS: Vitamin B12* 733 pg/mL (243-894)
== END 2022-08-10 11:37 | disposition home or self-care (01) ==
PROVIDERS: PCP Family Medicine; Visit Provider Family Medicine
DX: D64.9 Anemia, unspecified (principal); E78.5 Hyperlipidemia, unspecified; F41.1 Generalized anxiety disorder
CPT/HCPCS: 82607; 82728; 83516; 83540; 83550

== ENCOUNTER 2022-11-24 08:56 | Outpatient (CLI) | payer BC, SELFPAY | END 2022-11-24 08:57 | disposition home or self-care (01) | LOC: NFLDREF 11-25 03:47 | PROVIDERS: PCP Family Medicine; Referring Provider Family Medicine; Visit Provider Family Medicine | DX: Z01.818 Encounter for other preprocedural examination (principal); R63.4 Abnormal weight loss; R19.7 Diarrhea, unspecified; D64.9 Anemia, unspecified; R11.0 Nausea; R63.0 Anorexia; K52.9 Noninfective gastroenteritis and colitis, unspecified | CPT/HCPCS: 87045; 87046; 87177; 87209; 87338; 87427; 87493; 87505 ==

== ENCOUNTER 2022-11-30 09:30 | Outpatient (CLI) | payer BC, SELFPAY ==
[2022-11-30 11:32] LABS: HCG Qualitative* Negative (Negative)
--- NOTE | 2022-11-30 12:01 | W.ANESCHARGE ---
Anesthesia Charges Start Date/Time Anesthesia Start Date: 11/30/22 Anesthesia Start Time: 11:03 Stop Date/Time Anesthesia Stop Date: 11/30/22 Anesthesia Stop Time: 11:57
--- NOTE | 2022-11-30 12:02 | W.ANESCHARGE ---
Anesthesia Charges Start Date/Time Anesthesia Start Date: 11/30/22 Anesthesia Start Time: 11:03 Stop Date/Time Anesthesia Stop Date: 11/30/22 Anesthesia Stop Time: 11:57
== END 2022-11-30 09:31 | disposition home or self-care (01) ==
LOC: OP CLINIC 09:30
PROVIDERS: PCP Family Medicine; Visit Provider Surgery
DX: K92.2 Gastrointestinal hemorrhage, unspecified (principal); D49.0 Neoplasm of unspecified behavior of digestive system; K56.690 Other partial intestinal obstruction; K62.5 Hemorrhage of anus and rectum
CPT/HCPCS: 00813; 43239; 45380; 84703; 88305; 88312; 88341; 88342; J2704; J3490

== ENCOUNTER 2022-12-11 22:02 | Emergency (ER) | payer BC, SELFPAY ==
[2022-12-11 22:55] VITALS: BP 123/69; PULSE 104; RESP 16; TEMP 36.3; O2SAT 97; BMI 21.9
--- NOTE | 2022-12-11 23:04 | CRLHL7_ITS ---
For Patients: As a result of the Century Cures Act, medical imaging exams and procedure reports are released immediately into your electronic medical record. You may view this report before your referring provider. If you have questions, please contact your health care provider. INDICATION: Bilateral leg pain, recent colon cancer diagnosis. TECHNIQUE: Ultrasound venous duplex bilateral lower extremity. Compression venous exam was performed using moody-scale, color Doppler, and spectral Doppler analysis. COMPARISON: None. FINDINGS: Deep veins: Sonographic imaging demonstrates the bilateral common femoral, deep femoral, superficial femoral, popliteal, posterior tibial and peroneal veins to be fully compressible with normal color Doppler blood flow. Superficial veins: Greater saphenous veins are fully compressible. No popliteal cyst. IMPRESSION: No deep venous thrombosis within the evaluated veins of the bilateral lower extremities. Dictated by Param Dunbar MD @ 12/12/2022 12:36:22 AM (Electronically Signed)
--- NOTE | 2022-12-12 00:38 | ED.GENADULT ---
HPI - General Adult General Chief complaint: Extremity Pain/Injury, Lower Stated complaint: leg pain concern about blood clots, sandi w cancer Time Seen by Provider: 12/12/22 00:07 Source: patient Mode of arrival: ambulatory History of Present Illness HPI narrative: 32-year-old female with notable history of metastatic colon cancer presents to the emergency department with pain in both calves, right greater than left. Possibly a little swelling as well. Symptoms gradual onset around 3:00 p.m., approximately 8 hours prior to arrival. No trauma or injury. Reports that she was less active than usual the week before but had increased activity yesterday. No fevers, note new trauma or injury. No bruising noted. No numbness or tingling. She does have a notable history of colon cancer with metastases to the liver. She underwent a liver biopsy last week and is not noting any complications with this. No fevers. No vomiting. She reports that she is scheduled to start chemotherapy next week. No prior history of DVT. No use of blood thinners. Past medical history reviewed from recent hospitalization and initiation of oncology treatments. Medications accurate per listed in EMR. Social history reviewed. ROS otherwise negative for other hematologic, musculoskeletal, generalized, abdominal, neurological and skin changes. Related Data Home Medications Medication Instructions Recorded Confirmed doxepin 3 mg tablet 6 mg PO QHS PRN sleep 12/07/22 12/11/22 ondansetron 8 mg disintegrating 8 mg PO 3XD PRN 12/07/22 12/11/22 tablet oxycodone 5 mg tablet 5 mg PO Q4H PRN 12/07/22 12/11/22 sennosides 8.6 mg capsule (senna) 8.6 mg PO QDAY 12/07/22 12/11/22 hydroxyzine HCl 25 mg tablet PO 12/11/22 Previous Rx's Medication Instructions Recorded lorazepam 0.5 mg tablet 0.5 - 1 mg PO TID PRN anxiety #30 12/07/22 tabs oxycodone 5 mg tablet 5 mg PO Q8H PRN Abdominal pain #14 12/08/22 tabs Allergies Allergy/AdvReac Type Severity Reaction Status Date / Time amoxicillin Allergy Severe Rash Verified 12/11/22 22:59 Penicillins Allergy Intermediate Rash Verified 12/11/22 22:59 PFSH PFSH Medical History Adenocarcinoma, colon (11/2022) ?C18.9 - Malignant neoplasm of colon, unspecified (ICD-10) Depression ?F32.A - Depression, unspecified (ICD-10) Dyslipidemia ?E78.5 - Hyperlipidemia, unspecified (ICD-10) Generalized anxiety disorder ?F41.1 - Generalized anxiety disorder (ICD-10) Insomnia ?G47.00 - Insomnia, unspecified (ICD-10) Low hemoglobin ?D64.9 - Anemia, unspecified (ICD-10) Surgical History History of 2 sections (2010) ?Z98.891 - History of uterine scar from previous surgery (ICD-10) History of third molar tooth extraction (2019) ?K08.409 - Partial loss of teeth, unspecified cause, unspecified class (ICD-10) History of ventral hernia repair (2012) ?Z98.890 - Other specified postprocedural states (ICD-10) ?Z87.19 - Personal history of other diseases of the digestive system (ICD-10) Family History Brother Mental disorder Maternal Grandmother Stroke, Onset Age: 65 Social History Narrative: , [facility] neurology [facility], 2 kids Non smoker Rarely consumes alcohol Exercises twice a week by jogging 20-30 minute Smoking Status: Never smoker Little interest or pleasure in doing things: several days Feeling down, depressed, or hopeless: not at all Exam Const: Vital Signs, click to edit/add: Vital Signs - 24 hr 12/11/22 22:55 Temperature 97.4 F L Pulse Rate [Pulse Oximeter] 104 H Respiratory Rate 16 Blood Pressure [Ri ght Upper Arm] 123/69 Pulse Oximetry 97 Oxygen Delivery Me thod Room Air Documenting provider has reviewed patient's vital signs: yes Common normals: no apparent distress General appearance: cooperative, comfortable and well kempt Other: Good historian. HENMT: Common normals: normocephalic and head/scalp atraumatic Head and scalp: normocephalic and atraumatic Eye: Common normals: conjunctivae normal General eye: normal appearance of both eyes Conjunctiva: conjunctiva(e) normal Resp: Common normals: normal respiratory effort and no use of accessory muscles Effort & inspection: able to speak in complete sentences Cardio: Common normals: regular rate, S1 normal heart sound and S2 normal heart sound Rate: regular rate Heart sounds: S1 normal and S2 normal GI: Other: Abdomen is a little distended with appearance of mild ascites. No obvious mass or tenderness today. Pinpoint biopsy xavier on right upper quadrant appears to be healing well with no surrounding redness or bleeding. Bowel sounds are normoactive Extremity: Other: left leg has trace edema, right leg none. Calves are soft, negative Homans bilaterally. There is some mild tenderness to palpation of the calf muscles bilaterally, nothing on the thighs or anterior lower legs. Knees and ankles with no effusions, normal range of motion and no point bony tenderness. Psych: Common normals: speech normal Appearance: well kempt Activity/motor behavior: appropriate eye contact Speech: normal speech Insight: insight good Judgement: judgment good Skin: Common normals: no rashes or lesions noted Narrative: No lacerations, bruising or signs of injury to the legs. General skin exam: no rashes or lesions noted Course Vital Signs Vital signs: Initial Vital Signs Temperature 97.4 F L 12/11/22 22:55 Temperature Source Temporal Artery Scan 12/11/22 22:55 Pulse Rate 104 H 12/11/22 22:55 Respiratory Rate 16 12/11/22 22:55 Blood Pressure 123/69 12/11/22 22:55 Blood Pressure Mean 87 12/11/22 22:55 Blood Pressure Position Sitting 12/11/22 22:55 Pulse Oximetry 97 12/11/22 22:55 Oxygen Delivery Method Room Air 12/11/22 22:55 Vital Signs Temperature 97.4 F L 12/11/22 22:55 Pulse Rate 104 H 12/11/22 22:55 Respiratory Rate 16 12/11/22 22:55 Blood Pressure 123/69 12/11/22 22:55 Pulse Oximetry 97 12/11/22 22:55 Oxygen Delivery Method Room Air 12/11/22 22:55 Temperature 97.4 F L 12/11/22 22:55 Pulse Rate 104 H 12/11/22 22:55 Respiratory Rate 16 12/11/22 22:55 Blood Pressure 123/69 12/11/22 22:55 Pulse Oximetry 97 12/11/22 22:55 Oxygen Delivery Method Room Air 12/11/22 22:55 Medical Decision Making MDM Narrative Medical decision making narrative: Venous Doppler ultrasound of both legs ordered, negative for DVT. Does have multiple risk factors for a DVT with current metastatic cancer but no signs of acute pathology today. Suspect some mild musculoskeletal strain. Cannot exclude metastatic lesion to the spine but with recent imaging at not being suggestive of this I do not recommend further emergency department workup and she was good with this. She will follow up further with her oncology team if she is still having persistent problems. Recommended conservative management, able to do all typical previous activities. Tylenol and ibuprofen as needed based on previous instructions. Alarm symptoms reviewed as indications to follow-up in ED. Imaging Data Venous US: Attestation: I have reviewed the pertinent imaging results. My impression: no DVT Radiologist's impression: IMPRESSION: No deep venous thrombosis within the evaluated veins of the bilateral lower extremities. Discharge Plan Discharge Clinical Impression: Muscle ache of extremity Patient Disposition: Home, Self-Care Condition: Stable Instructions: Musculoskeletal Pain (ED) Additional Instructions: as we discussed, there are no signs of blood clot in your legs. This is great news. I am not certain of what is causing your pain but I suspect it is simply some mild achiness from having overdone it yesterday. It is okay to use Tylenol and ibuprofen per typical parameters. You may continue to do all of your usual activities. If you notice a sudden increase in leg swelling, especially if accompanied by shortness of breath, dizziness or lightheadedness, I would want to come back to the emergency department. For mild symptoms like this, it is okay to wait until morning and ask your oncology team for advice as well. You do not need to start any other blood thinners. You may continue taking all of your other medications as prescribed. Activity Level: No Restrictions Discharge Diet: Regular Prescriptions: No Action doxepin 3 mg tablet 6 mg PO QHS PRN (Reason: sleep) oxycodone 5 mg tablet 5 mg PO Q4H PRN ondansetron 8 mg tablet,disintegrating 8 mg PO 3XD PRN senna 8.6 mg capsule 8.6 mg PO QDAY lorazepam 0.5 mg tablet 0.5 - 1 mg PO TID PRN (Reason: anxiety) Qty: 30 0RF Rx Instructions: Take 1-2 tablets to 3 times a day for severe anxiety only. hydroxyzine HCl 25 mg tablet PO oxycodone 5 mg tablet 5 mg PO Q8H PRN (Reason: Abdominal pain) Qty: 14 0RF Rx Instructions: 1 tablet max 3 times a day for severe pain only Follow Up/Referrals: Sarina Herron MD [Primary Care Provider] - Stand Alone Forms: [facility] Info Instructions
[2022-12-12 00:54] VITALS: BP 105/55; PULSE 99; RESP 18; TEMP 36.6
== END 2022-12-12 00:59 | disposition home or self-care (01) ==
LOC: ED 12-12 00:56
PROVIDERS: Emergency Provider Family Medicine; PCP Family Medicine
DX: M79.18 Myalgia, other site (principal)
CPT/HCPCS: 93970; 99283; 99284